=== PATIENT | male | born 1950 | race Caucasian/White ===

== ENCOUNTER → 2016-04-01 | Outpatient (CLI) | payer MEDICARE, OTHER ==
[~2016-04-01] MED LIST: CEPH-507 PO; OXYC-197 PO
--- OUTSIDE RECORDS SUMMARY | 2016-04-01 10:06 | XMS REPORT | Continuity of Care Document ---
Author Author [facility] Organization [facility] Address Unknown Phone Unavailable Allergies Active Description Code Type Severity Reaction Onset Reported/Identified Relationship to Patient Clinical Status Yes No Known Drug Allergies [id number] Drug Allergy Unknown N/ A 06/16/2015 Medications Problems Date Dx Coded Attending Type Code Diagnosis Diagnosed By 09/22/2014 KITTY TO, BILLIE R Ot 250.00 09/22/2014 KITTY TO, BILLIE R Ot 401.1 09/22/2014 KITTY TO, BILLIE R Ot 719.46 10/13/2014 KITTY TO, BILLIE R Ot 250.00 10/13/2014 KITTY TO, BILLIE R Ot 401.1 10/13/2014 KITTY TO, BILLIE R Ot 719.46 01/11/2015 KITTY TO, BILLIE R Ot 250.00 01/11/2015 KITTY TO, BILLIE R Ot 401.1 01/11/2015 KITTY TO, BILLIE R Ot 719.46 01/31/2015 CAMMIE TANG Ot E11.9 06/16/2015 CONSUELO VENTURA APRN Ot K57.90 DVRTCLOS OF INTEST, PART UNSP, W/O PERF 06/16/2015 CONSUELO VENTURA APRN Ot M47.812 SPONDYLOSIS W/O MYELOPATHY OR RADICULOPA 06/16/2015 CONSUELO VENTURA APRN Ot R59.0 LOCALIZED ENLARGED LYMPH NODES 06/16/2015 CONSUELO VENTURA APRN Ot S01.01XA LACERATION WITHOUT FOREIGN BODY OF SCALP 06/16/2015 CONSUELO VENTURA APRN Ot S22.088A OTH FRACTURE OF T11-T12 VERTEBRA, INIT F 06/16/2015 CONSUELO VENTURA APRN Ot S22.41XA MULTIPLE FRACTURES OF RIBS, RIGHT SIDE , 06/16/2015 CONSUELO VENTURA APRN Ot S32.018A OTH FRACTURE OF FIRST LUMBAR VERTEBRA, I 06/16/2015 CONSUELO VENTURA APRN Ot S32.028A OTH FRACTURE OF SECOND LUMBAR VERTEBRA , 06/16/2015 CONSUELO VENTURA APRN Ot S32.038A OTH FRACTURE OF THIRD LUMBAR VERTEBRA, I 06/16/2015 CONSUELO VENTURA APRN Ot W11.XXXA FALL ON AND FROM LADDER, INITIAL ENCOUNT 06/16/2015 CONSUELO VENTURA APRN Ot Y93.H9 ACTVTY,OTH W EXTER PROPERTY LAND MAINT 06/16/2015 CONSUELO VENTURA APRN Ot Y99.8 OTHER EXTERNAL CAUSE STATUS 06/18/2015 CONSUELO VENTURA APRN Ot K57.90 DVRTCLOS OF INTEST, PART UNSP, W/O PERF 06/18/2015 CONSUELO VENTURA APRN Ot M47.812 SPONDYLOSIS W/O MYELOPATHY OR RADICULOPA 06/18/2015 CONSUELO VENTURA APRN Ot R59.0 LOCALIZED ENLARGED LYMPH NODES 06/18/2015 CONSUELO VENTURA APRN Ot S01.01XA LACERATION WITHOUT FOREIGN BODY OF SCALP 06/18/2015 CONSUELO VENTURA APRN Ot S22.088A OTH FRACTURE OF T11-T12 VERTEBRA, INIT F 06/18/2015 CONSUELO VENTURA APRN Ot S22.41XA MULTIPLE FRACTURES OF RIBS, RIGHT SIDE , 06/18/2015 CONSUELO VENTURA APRN Ot S32.018A OTH FRACTURE OF FIRST LUMBAR VERTEBRA, I 06/18/2015 CONSUELO VENTURA APRN Ot S32.028A OTH FRACTURE OF SECOND LUMBAR VERTEBRA , 06/18/2015 CONSUELO VENTURA APRN Ot S32.038A OTH FRACTURE OF THIRD LUMBAR VERTEBRA, I 06/18/2015 CONSUELO VENTURA APRN Ot W11.XXXA FALL ON AND FROM LADDER, INITIAL ENCOUNT 06/18/2015 CONSUELO VENTURA APRN Ot Y93.H9 ACTVTY,OTH W EXTER PROPERTY LAND MAINT 06/18/2015 CONSUELO VENTURA APRN Ot Y99.8 OTHER EXTERNAL CAUSE STATUS 06/18/2015 CONSUELO VENTURA APRN Ot K57.90 DVRTCLOS OF INTEST, PART UNSP, W/O PERF 06/18/2015 CONSUELO VENTURA APRN Ot M47.812 SPONDYLOSIS W/O MYELOPATHY OR RADICULOPA 06/18/2015 CONSUELO VENTURA APRN Ot R59.0 LOCALIZED ENLARGED LYMPH NODES 06/18/2015 CONSUELO VENTURA APRN Ot S01.01XA LACERATION WITHOUT FOREIGN BODY OF SCALP 06/18/2015 CONSUELO VENTURA APRN Ot S22.088A OTH FRACTURE OF T11-T12 VERTEBRA, INIT F 06/18/2015 CONSUELO VENTURA APRN Ot S22.41XA MULTIPLE FRACTURES OF RIBS, RIGHT SIDE , 06/18/2015 CONSUELO VENTURA APRN Ot S32.018A OTH FRACTURE OF FIRST LUMBAR VERTEBRA, I 06/18/2015 CONSUELO VENTURA APRN Ot S32.028A OTH FRACTURE OF SECOND LUMBAR VERTEBRA , 06/18/2015 CONSUELO VENTURA APRN Ot S32.038A OTH FRACTURE OF THIRD LUMBAR VERTEBRA, I 06/18/2015 CONSUELO VENTURA APRN Ot W11.XXXA FALL ON AND FROM LADDER, INITIAL ENCOUNT 06/18/2015 CONSUELO VENTURA APRN Ot Y93.H9 ACTVTY,OTH W EXTER PROPERTY LAND MAINT 06/18/2015 CONSUELO VENTURA APRN Ot Y99.8 OTHER EXTERNAL CAUSE STATUS 06/23/2015 MATHEUS KEYS Ot S01.01XD LACERATION WITHOUT FOREIGN BODY OF SCALP 06/25/2015 MATHEUS KEYS Ot S01.01XD LACERATION WITHOUT FOREIGN BODY OF SCALP 07/03/2015 BILLIE TANG MD Ot 250.00 DIAB GUEVARA WO COMPL, TYPE II OR UNSPEC TY 07/03/2015 BILLIE TANG MD Ot 401.1 BENIGN HYPERTENSION 07/03/2015 BILLIE TANG MD Ot 719.46 JOINT PAIN-L/LEG 07/03/2015 CAMMIE TANG Ot E11.9 TYPE 2 DIABETES MELLITUS WITHOUT COMPLIC 07/04/2015 YANA GARCIA DO Ot R06.00 DYSPNEA, UNSPECIFIED 07/04/2015 YANA GARCIA DO Ot R91.8 OTHER NONSPECIFIC ABNORMAL FINDING OF ANDREWS 07/04/2015 YANA GARCIA DO Ot R06.00 DYSPNEA, UNSPECIFIED 07/04/2015 YANA GARCIA DO Ot R91.8 OTHER NONSPECIFIC ABNORMAL FINDING OF ANDREWS 07/11/2015 YANA GARCIA DO Ot R91.8 OTHER NONSPECIFIC ABNORMAL FINDING OF ANDREWS 07/12/2015 YANA GARCIA DO Ot R91.8 OTHER NONSPECIFIC ABNORMAL FINDING OF ANDREWS 08/02/2015 CONSUELO VENTURA APRN Ot K57.90 DVRTCLOS OF INTEST, PART UNSP, W/O PERF 08/02/2015 CONSUELO VENTURA APRN Ot M47.812 SPONDYLOSIS W/O MYELOPATHY OR RADICULOPA 08/02/2015 CONSUELO VENTURA APRN Ot R59.0 LOCALIZED ENLARGED LYMPH NODES 08/02/2015 CONSUELO VENTURA APRN Ot S01.01XA LACERATION WITHOUT FOREIGN BODY OF SCALP 08/02/2015 CONSUELO VENTURA APRN Ot S22.088A OTH FRACTURE OF T11-T12 VERTEBRA, INIT F 08/02/2015 CONSUELO VENTURA APRN Ot S22.41XA MULTIPLE FRACTURES OF RIBS, RIGHT SIDE , 08/02/2015 CONSUELO VENTURA APRN Ot S32.018A OTH FRACTURE OF FIRST LUMBAR VERTEBRA, I 08/02/2015 CONSUELO VENTURA APRN Ot S32.028A OTH FRACTURE OF SECOND LUMBAR VERTEBRA , 08/02/2015 CONSUELO VENTURA APRN Ot S32.038A OTH FRACTURE OF THIRD LUMBAR VERTEBRA, I 08/02/2015 CONSUELO VENTURA APRN Ot W11.XXXA FALL ON AND FROM LADDER, INITIAL ENCOUNT 08/02/2015 CONSUELO VENTURA APRN Ot Y93.H9 ACTVTY,OTH W EXTER PROPERTY LAND MAINT 08/02/2015 CONSUELO VENTURA APRN Ot Y99.8 OTHER EXTERNAL CAUSE STATUS 08/08/2015 YANA GARCIA DO Ot R91.8 OTHER NONSPECIFIC ABNORMAL FINDING OF ANDREWS 02/12/2016 BILLIE TANG MD Ot 250.00 DIAB GUEVARA WO COMPL, TYPE II OR UNSPEC TY 02/12/2016 BILLIE TANG MD Ot 401.1 BENIGN HYPERTENSION 02/12/2016 BILLIE TANG MD Ot 719.46 JOINT PAIN-L/LEG 02/12/2016 CAMMIE TANG Ot E11.9 TYPE 2 DIABETES MELLITUS WITHOUT COMPLIC 02/12/2016 CONSUELO VENTURA APRN Ot K57.90 DVRTCLOS OF INTEST, PART UNSP, W/O PERF 02/12/2016 CONSUELO VENTURA APRN Ot M47.812 SPONDYLOSIS W/O MYELOPATHY OR RADICULOPA 02/12/2016 CONSUELO VENTURA APRN Ot R59.0 LOCALIZED ENLARGED LYMPH NODES 02/12/2016 CONSUELO VENTURA APRN Ot S01.01XA LACERATION WITHOUT FOREIGN BODY OF SCALP 02/12/2016 CONSUELO VENTURA APRN Ot S22.088A OTH FRACTURE OF T11-T12 VERTEBRA, INIT F 02/12/2016 CONSUELO VENTURA APRN Ot S22.41XA MULTIPLE FRACTURES OF RIBS, RIGHT SIDE , 02/12/2016 CONSUELO VENTURA APRN Ot S32.018A OTH FRACTURE OF FIRST LUMBAR VERTEBRA, I 02/12/2016 CONSUELO VENTURA APRN Ot S32.028A OTH FRACTURE OF SECOND LUMBAR VERTEBRA , 02/12/2016 CONSUELO VENTURA APRN Ot S32.038A OTH FRACTURE OF THIRD LUMBAR VERTEBRA, I 02/12/2016 CONSUELO VENTURA APRN Ot W11.XXXA FALL ON AND FROM LADDER, INITIAL ENCOUNT 02/12/2016 CONSUELO VENTURA APRN Ot Y93.H9 ACTVTY,OTH W EXTER PROPERTY LAND MAINT 02/12/2016 CONSUELO VENTURA APRN Ot Y99.8 OTHER EXTERNAL CAUSE STATUS 02/12/2016 YANA GARCIA DO Ot R06.00 DYSPNEA, UNSPECIFIED 02/12/2016 YANA GARCIA DO Ot R91.8 OTHER NONSPECIFIC ABNORMAL FINDING OF ANDREWS 02/12/2016 YANA GARCIA DO Ot R91.8 OTHER NONSPECIFIC ABNORMAL FINDING OF ANDREWS 02/13/2016 MERLYN RUEDA APRN Ot I71.2 THORACIC AORTIC ANEURYSM, WITHOUT RUPTUR 02/13/2016 MERLYN RUEDA APRN Ot R91.8 OTHER NONSPECIFIC ABNORMAL FINDING OF ANDREWS 02/13/2016 MERLYN RUEDA APRN Ot 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 THORACIC AORTIC ANEURYSM, WITHOUT RUPTUR 02/13/2016 MOHIT, MERLYN E LUDLOW MACHINE OPERATOR Ot R91.8 OTHER NONSPECIFIC ABNORMAL FINDING OF ANDREWS 02/18/2016 MERLYN RUEDA LUDLOW MACHINE OPERATOR Ot I71.2 THORACIC AORTIC ANEURYSM, WITHOUT RUPTUR 02/18/2016 MERLYN RUEDA LUDLOW MACHINE OPERATOR Ot R91.8 OTHER NONSPECIFIC ABNORMAL FINDING OF ANDERWS 02/21/2016 MERLYN RUEDA LUDLOW MACHINE OPERATOR Ot I71.2 THORACIC AORTIC ANEURYSM, WITHOUT RUPTUR 02/21/2016 MERLYN RUEDA LUDLOW MACHINE OPERATOR Ot R91.8 OTHER NONSPECIFIC ABNORMAL FINDING OF ANDREWS 03/12/2016 MERLYN RUEDA LUDLOW MACHINE OPERATOR Ot I71.2 THORACIC AORTIC ANEURYSM, WITHOUT RUPTUR 03/12/2016 MERLYN RUEDA LUDLOW MACHINE OPERATOR Ot R91.8 OTHER NONSPECIFIC ABNORMAL FINDING OF ANDREWS Procedures Results Encounters ACCT No. Visit Date/Time Discharge Status Pt. Type Provider Facility Loc./Unit Complaint [id number] 06/23/2015 14:24:00 2015 14:39:00 DIS Emergency MATHEUS KEYS [facility] ER SUTURE REMOVAL [id number] 06/16/2015 16:54:00 2015 16:54:00 CAN Emergency CONSUELO EVNTURA APRN [facility] ER POSTERIOR 9-12 RIB FRACTURE,MULTIPLE BLUNT TRAMA [id number] 01/11/2015 10:58:00 2014 23:59:59 CLS Outpatient CAMMIE TANG [facility] LAB DIABETES [id number] 09/18/2014 15:29:00 2014 23:59:59 CLS Outpatient BILLIE TANG MD [facility] RAD PAINFUL BILATERAL KNEES,DIABETES,HTN [id number] 02/12/2016 08:18:00 ACT Outpatient MERLYN RUEDA APRN [facility] RAD PULMONARY NODULE [id number] 07/10/2015 10:32:00 ACT Outpatient YANA GARCIA DO [facility] RAD PULMONARY NODULES,DYSPNEA,NEVER A SMOKER [id number] 07/03/2015 08:38:00 ACT Outpatient YANA GARCIA DO [facility] RAD PULMONARY NODULES,DYSPNEA,NEVER A SMOKER
--- NOTE | 2016-04-01 12:14 | Diagnostic Imaging Report ---
EXAMINATION: Upper and lower extremity pressure measurements of ankle/brachial index and pulse volume recording at the ankle. INDICATION: Claudication FINDINGS: The ankle/brachial index on the right side is 0.95,and on the left is 0.87. Pulse volume recording waveforms are mildly dampened only on the left side. IMPRESSION: Suggestion of mild peripheral arterial disease in the left lower extremity. Dictated by: Dictated on workstation # [id number]
== END ==
LOC: RAD 10:01
PROVIDERS: ATTEND Nurse Practitioner Family
DX: I70.213 Atherosclerosis of native arteries of extremities with intermittent claudication, bilateral legs (principal)
CPT/HCPCS: 93922

== ENCOUNTER → 2016-12-15 | Outpatient (CLI) | payer MEDICARE, OTHER ==
[2016-12-15 12:02] LABS: BASOPHILS # (AUTO) 0.1 10^3/uL (0.0-0.1); BASOPHILS % (AUTO) 1 % (0-10); EOSINOPHILS # (AUTO) 0.2 10^3/uL (0.0-0.3); EOSINOPHILS % (AUTO) 2 % (0-10); LYMPHOCYTES # (AUTO) 1.2 X 10^3 (1.0-4.0); LYMPHOCYTES % (AUTO) 11 % (12-44); MEAN CORPUSCULAR HEMOGLOBIN 28 PG (25-34); MEAN CORPUSCULAR HGB CONC 33 G/DL (32-36); MEAN CORPUSCULAR VOLUME 87 FL (80-99); MEAN PLATELET VOLUME 8.8 FL (7.4-10.4); MONOCYTES % (AUTO) 10 % (0-12); NEUTROPHILS # (AUTO) 8.2 X 10^3 (1.8-7.8); NEUTROPHILS % (AUTO) 77 % (42-75); PLATELET COUNT 529 10^3/uL (130-400); RED BLOOD COUNT 4.35 10^6/uL (4.35-5.85); RED CELL DISTRIBUTION WIDTH 12.7 % (10.0-14.5); WHITE BLOOD COUNT 10.6 10^3/uL (4.3-11.0)
[2016-12-15 12:14] LABS: ALBUMIN 3.6 GM/DL (3.2-4.5); ANION GAP 10 MMOL/L (5-14); BLOOD UREA NITROGEN 22 MG/DL (7-18); BUN/CREATININE RATIO 19; CALCIUM 9.2 MG/DL (8.5-10.1); CARBON DIOXIDE 29 MMOL/L (21-32); CHLORIDE 94 MMOL/L (98-107); CREATININE SERUM 1.17 MG/DL (0.60-1.30); GFR ESTIMATED > 60; GLUCOSE 257 MG/DL (70-105); PHOSPHORUS 3.2 MG/DL (2.3-4.7); POTASSIUM 4.4 MMOL/L (3.6-5.0); SODIUM 133 MMOL/L (135-145)
== END ==
LOC: HH 11:55
PROVIDERS: ATTEND Thoracic Surgery (Cardiothoracic Vascular Surgery)
DX: Z98.890 Other specified postprocedural states (principal); Z95.1 Presence of aortocoronary bypass graft
CPT/HCPCS: 80069; 85025

== ENCOUNTER → 2017-01-22 | Outpatient (CLI) | payer MEDICARE, OTHER | LOC: WOUNDCARE 12:45 | PROVIDERS: ATTEND Nurse Practitioner | DX: E11.622 Type 2 diabetes mellitus with other skin ulcer (principal); L97.212 Non-pressure chronic ulcer of right calf with fat layer exposed; L03.115 Cellulitis of right lower limb | CPT/HCPCS: 11042 ==

== ENCOUNTER → 2017-01-27 | Outpatient (CLI) | payer MEDICARE, OTHER | LOC: WOUNDCARE 09:58 | PROVIDERS: ATTEND Nurse Practitioner | DX: L97.212 Non-pressure chronic ulcer of right calf with fat layer exposed (principal); E11.622 Type 2 diabetes mellitus with other skin ulcer; L03.115 Cellulitis of right lower limb | CPT/HCPCS: 11042 ==

== ENCOUNTER → 2017-02-03 | Outpatient (CLI) | payer MEDICARE, OTHER | LOC: WOUNDCARE 09:53 | PROVIDERS: ATTEND Nurse Practitioner | DX: E11.622 Type 2 diabetes mellitus with other skin ulcer (principal); L97.212 Non-pressure chronic ulcer of right calf with fat layer exposed; L03.115 Cellulitis of right lower limb | CPT/HCPCS: 15271 ==

== ENCOUNTER → 2017-02-12 | Outpatient (CLI) | payer MEDICARE, OTHER | LOC: WOUNDCARE 13:29 | PROVIDERS: ATTEND Nurse Practitioner | DX: E11.622 Type 2 diabetes mellitus with other skin ulcer (principal); L97.212 Non-pressure chronic ulcer of right calf with fat layer exposed; L03.115 Cellulitis of right lower limb | CPT/HCPCS: 15271 ==

== ENCOUNTER → 2017-02-17 | Outpatient (CLI) | payer MEDICARE, OTHER | LOC: WOUNDCARE 10:00 | PROVIDERS: ATTEND Nurse Practitioner | DX: E11.622 Type 2 diabetes mellitus with other skin ulcer (principal); L97.212 Non-pressure chronic ulcer of right calf with fat layer exposed; L03.115 Cellulitis of right lower limb | CPT/HCPCS: 11042 ==

== ENCOUNTER → 2017-02-24 | Outpatient (CLI) | payer MEDICARE, OTHER | LOC: WOUNDCARE 09:48 | PROVIDERS: ATTEND Nurse Practitioner | DX: E11.622 Type 2 diabetes mellitus with other skin ulcer (principal); L97.212 Non-pressure chronic ulcer of right calf with fat layer exposed; L03.115 Cellulitis of right lower limb | CPT/HCPCS: 11042 ==

== ENCOUNTER → 2017-03-03 | Outpatient (CLI) | payer MEDICARE, OTHER | LOC: WOUNDCARE 10:02 | PROVIDERS: ATTEND Nurse Practitioner | DX: E11.622 Type 2 diabetes mellitus with other skin ulcer (principal); L97.212 Non-pressure chronic ulcer of right calf with fat layer exposed; L03.115 Cellulitis of right lower limb | CPT/HCPCS: 11042 ==

== ENCOUNTER → 2017-03-10 | Outpatient (CLI) | payer MEDICARE, OTHER | LOC: WOUNDCARE 09:59 | PROVIDERS: ATTEND Nurse Practitioner | DX: L97.212 Non-pressure chronic ulcer of right calf with fat layer exposed (principal); L97.211 Non-pressure chronic ulcer of right calf limited to breakdown of skin; E11.622 Type 2 diabetes mellitus with other skin ulcer; L03.115 Cellulitis of right lower limb | CPT/HCPCS: 11042; 97597 ==

== ENCOUNTER → 2017-03-17 | Outpatient (CLI) | payer MEDICARE, OTHER | LOC: WOUNDCARE 09:50 | PROVIDERS: ATTEND Nurse Practitioner | DX: E11.622 Type 2 diabetes mellitus with other skin ulcer (principal); L97.212 Non-pressure chronic ulcer of right calf with fat layer exposed; L03.115 Cellulitis of right lower limb; L97.211 Non-pressure chronic ulcer of right calf limited to breakdown of skin | CPT/HCPCS: 11042 ==

== ENCOUNTER → 2017-03-24 | Outpatient (CLI) | payer MEDICARE, OTHER | LOC: WOUNDCARE 09:46 | PROVIDERS: ATTEND Nurse Practitioner | DX: E11.622 Type 2 diabetes mellitus with other skin ulcer (principal); L97.212 Non-pressure chronic ulcer of right calf with fat layer exposed; L97.211 Non-pressure chronic ulcer of right calf limited to breakdown of skin; L03.115 Cellulitis of right lower limb | CPT/HCPCS: 11042; 97597 ==

== ENCOUNTER → 2017-03-31 | Outpatient (CLI) | payer MEDICARE, OTHER | LOC: WOUNDCARE 09:49 | PROVIDERS: ATTEND Nurse Practitioner | DX: L97.212 Non-pressure chronic ulcer of right calf with fat layer exposed (principal); E11.622 Type 2 diabetes mellitus with other skin ulcer; L03.115 Cellulitis of right lower limb; L97.211 Non-pressure chronic ulcer of right calf limited to breakdown of skin | CPT/HCPCS: 11042 ==

== ENCOUNTER → 2017-04-07 | Outpatient (CLI) | payer MEDICARE, OTHER | LOC: WOUNDCARE 09:50 | PROVIDERS: ATTEND Nurse Practitioner | DX: E11.622 Type 2 diabetes mellitus with other skin ulcer (principal); L97.212 Non-pressure chronic ulcer of right calf with fat layer exposed; L03.115 Cellulitis of right lower limb | CPT/HCPCS: 15275 ==

== ENCOUNTER → 2017-04-14 | Outpatient (CLI) | payer MEDICARE, OTHER | LOC: WOUNDCARE 09:45 | PROVIDERS: ATTEND Nurse Practitioner | DX: E11.622 Type 2 diabetes mellitus with other skin ulcer (principal); L97.212 Non-pressure chronic ulcer of right calf with fat layer exposed; L03.115 Cellulitis of right lower limb | CPT/HCPCS: 11042 ==

== ENCOUNTER → 2017-04-21 | Outpatient (CLI) | payer MEDICARE, OTHER | LOC: WOUNDCARE 09:57 | PROVIDERS: ATTEND Nurse Practitioner | DX: E11.622 Type 2 diabetes mellitus with other skin ulcer (principal); L97.211 Non-pressure chronic ulcer of right calf limited to breakdown of skin; L03.115 Cellulitis of right lower limb | CPT/HCPCS: 97597 ==

== ENCOUNTER → 2017-05-16 | Outpatient (CLI) | payer MEDICARE, OTHER ==
--- NOTE | 2017-05-16 11:39 | Diagnostic Imaging Report ---
PROCEDURE: MRI lumbar spine. TECHNIQUE: Multiplanar, multisequence MRI of the lumbar spine was performed without contrast. INDICATION: Low back pain that radiates across the back and down to the left leg. No known injury. There is normal height and alignment of the lumbar vertebral bodies. The L1-2 level shows minimal degenerative disc and facet disease. At L2-3, there is disc space narrowing with diffuse bulging of the disc and degenerated facets resulting in some bilateral lateral recess narrowing and mild central canal stenosis. At L3-4, there is mild bulging of the annulus and degenerated facets but no focal disc herniation or significant stenosis is seen. At L4-5, there is bulging of the disc and degenerated facets resulting in a moderately severe central canal stenosis with no focal disc herniation. L5-S1 shows mild degenerative disc and facet disease. There is no mass or acute bony abnormality at any level. IMPRESSION: There is degenerative disc and facet disease present resulting in stenosis most significant at L4-5. Dictated by: Dictated on workstation # [id number]
== END ==
LOC: RAD 09:42
PROVIDERS: ATTEND Nurse Practitioner
DX: M48.061 Spinal stenosis, lumbar region without neurogenic claudication (principal); M51.36 Other intervertebral disc degeneration, lumbar region
CPT/HCPCS: 72148

== ENCOUNTER 2018-08-15 17:11 | Emergency (ER) | payer MEDICARE, OTHER | END 2018-08-15 18:22 | disposition home or self-care (01) | LOC: ER 17:11 ==

== ENCOUNTER → 2019-04-25 | Outpatient (CLI) | payer MEDICARE, OTHER ==
[~2019-04-25] MED LIST changes: +ATOR80TA76; +GABA-486; +GLIP10TA13; +INDO25CA99; +INDO50CA82; +INSU100I14; +INSU100I29; +LISI-552; +METF-397; -OXYC-197 PO; +OXYC1TAB87 PO; +SULF1TAB35 PO
--- NOTE | 2019-04-25 16:38 | Diagnostic Imaging Report ---
INDICATION: Left hand pain. FINDINGS: Three views of the left hand show inflammatory arthritic change of the DIP joint of the fifth finger with adjacent soft tissue swelling. There is some osteolysis of the head of the middle phalanx. There are some osteoarthritic changes of the first carpometacarpal joint and of the third metacarpophalangeal joint. IMPRESSION: There is osteolytic change of the head of the middle phalanx of the index finger extending to the DIP joint. This could be due to osteomyelitis. Dictated by: Dictated on workstation # [id number]
== END ==
LOC: RAD 16:04
PROVIDERS: ATTEND Surgery
DX: M89.542 Osteolysis, left hand (principal)
CPT/HCPCS: 73130

== ENCOUNTER → 2019-04-28 | Outpatient (CLI) | payer MEDICARE, OTHER ==
--- NOTE | 2019-04-28 16:17 | Diagnostic Imaging Report ---
EXAM: MRI left second finger without contrast. DATE: April 28, 2019. INDICATION: 68-year-old male, swelling of the index finger on the left. Evaluation for osteomyelitis. COMPARISON: Left hand radiographs April 25, 2019. TECHNIQUE: Multiple noncontrast MRI sequences of the left second finger were obtained. FINDINGS: There is severe joint space loss of the second distal interphalangeal joint. There is a trace second distal interphalangeal joint effusion. There is T1 marrow signal loss involving the distal aspect of the second middle phalanx and proximal aspect of the second distal phalanx adjacent to the second distal interphalangeal joint. There is loss of cortical identification of the distal aspect of the second middle phalanx best seen on sagittal T1 sequence. There is edema-like signal in the second middle phalanx extending near its proximal margin. There is no identified focal fluid collection on noncontrast imaging. There is nonspecific fairly diffuse subcutaneous edema at the level of the second middle and distal phalanges. There is no evidence of tenosynovitis or tendon tear. IMPRESSION: 1. Severe joint space loss of the second distal interphalangeal joint with loss of normal T1 marrow signal in the adjacent bones as well as there is bone erosion and cortical bone loss. There is a trace joint effusion. Differential diagnostic considerations include septic arthritis or an inflammatory arthropathy. 2. No focal fluid collection. 3. No evidence of tenosynovitis. Report was faxed to the office of Dr. Konstantin Evans at 4:16 p.m., by christopher. Dictated by: Dictated on workstation # [id number]
== END ==
LOC: RAD 14:17
PROVIDERS: ATTEND Surgery
DX: M86.9 Osteomyelitis, unspecified (principal); M85.842 Other specified disorders of bone density and structure, left hand
CPT/HCPCS: 73218

== ENCOUNTER 2019-05-05 05:43 | Outpatient (CLI) | payer MEDICARE, OTHER ==
[~2019-05-05] VITALS: Ht 172.7 cm; Wt 95.5 kg
[~2019-05-05 05:43] MED LIST changes: -ATOR80TA76; +ATOR80TA76 PO; -GLIP10TA13; +GLIP10TA13 PO; -INDO50CA82; +INDO50CA82 PO; -INSU100I14; +INSU100I14 SQ; -INSU100I29; +INSU100I29 SQ; -LISI-552; +LISI-552 PO; -METF-397; +METF-397 PO
[2019-05-05] MEDS ORDERED: DULA0.75 SQ (12:38)
[2019-05-05] MEDS ORDERED: GABA-488 PO (12:38)
== END 2019-05-05 12:44 | disposition home or self-care (01) ==
LOC: PREOP 05:43
PROVIDERS: ATTEND Surgery
DX: Z01.818 Encounter for other preprocedural examination (principal)

== ENCOUNTER 2019-05-12 06:22 | Day surgery (SDC) | payer MEDICARE, OTHER ==
[~2019-05-12] VITALS: Ht 172.7 cm; Wt 95.5 kg
[2019-05-12] VITALS (12 sets, daily range): BP systolic 154–179; BP diastolic 72–104
[~2019-05-12 06:22] MED LIST changes: +DULA0.75 SQ; +GABA-488 PO
--- OUTSIDE RECORDS SUMMARY | 2019-05-12 06:27 | XMS REPORT ---
Author Author [employer] Organization [employer] Address [address] [place] [id number] Care Team Providers Care Manager E Learning Name Role Phone BILLIE TANG Unavailable MADL, ARLEN Unavailable MADL, ARLEN Unavailable MADL, ARLEN Unavailable MADL, ARLEN Unavailable MADL, ARLEN Unavailable MADL, ARLEN Unavailable MADL, ARLEN Unavailable MADL, ARLEN Unavailable MADL, ARLEN Unavailable MADL, ARLEN Unavailable MADL, ARLEN Unavailable MADL, ARLEN Unavailable MADL, ARLEN Unavailable MADL, ARLEN Unavailable DELIO PULIDO Unavailable MADL, ARLEN Unavailable MADL, ARLEN Unavailable MADL, ARLEN Unavailable MADL, ARLEN Unavailable MADL, ARLEN Unavailable MADL, ARLEN Unavailable MADL, ARLEN Unavailable MADL, ARLEN Unavailable MADL, ARLEN Unavailable VANITA BROWN Unavailable VANITA BROWN Unavailable ARLEN DELAROSA STAIN REMOVER Unavailable Unavailable RUBEN, RADHA Unavailable MERLYN RUEDA APRN Unavailable Unavailable RUBEN, RADHA Unavailable RUBEN, RADHA Unavailable RUBEN, RADHA Unavailable RUBEN, RADHA Unavailable RUBEN, RADHA Unavailable RUBEN, RADHA Unavailable RUBEN, RADHA Unavailable RUBEN, RADHA Unavailable RUBEN, RADHA Unavailable RUBEN, RADHA Unavailable RUBEN, RADHA Unavailable RUBEN, RADHA D Unavailable Unavailable EDA TO, KINJAL Lai Unavailable Unavailable RUBEN, RADHA Unavailable JARRED CISNEROS MD Unavailable Unavailable JAYSHREE DONALDSON DISH CARRIER Unavailable Unavailable YANA GARCIA DO Unavailable Unavailable MERLYN RUEDA APRN Unavailable Unavailable MATHEUS KESY Unavailable Unavailable KITTY TO, BILLIE Grimaldo Unavailable Unavailable CONSUELO VENTURA DISH CARRIER Unavailable Unavailable ARLEN DELAROSA STAIN REMOVER Unavailable Unavailable CAMMIE TANG STAIN REMOVER Unavailable Unavailable SANTO SANZ STAIN REMOVER Unavailable Unavailable Unavailable Unavailable Allergies Normalized Allergy Reported Date of Reaction(s) Care Provider Facility Allergy Type classification allergen Allergy Onset DA (16 Unclassified No Known Drug 06-16-2015 - no information YANA GARCIA [facility] Via sources.) Allergies DO [facility] ([address]) Medications Current Medications Medication Ingredient Drug Dose Dates Status Sig Sig Care Class(es) (Normalized) (Original) Provid er aspirin 81 aspirin Nonsteroida 81 mg Active no Aspirin 81 n o mg chewable Translation l information MG Orally name tablet (8 s: [ Anti-inflam Once a day 1 (no sources.) Aspirin 81 matory Drug tablet 24h phone) MG, Aspirin Active 81 MG] atorvastati atorvastati HMG-CoA 80 mg Active no Atorvastatin no n 80 mg n Reductase information Calcium 80 name oral tablet Translation Inhibitor MG Orally (no (4 s: [ Once a day 1 phone) sources.) Atorvastati tablet 24h n Calcium Active 80 MG, Atorvastati n Calcium 80 MG] no Blood no 10-23-19 Active no Blood no information Glucose information 18 information Glucose name (1 source.) Monitor Monitor (no System System phone) w/Device w/Device DX- Translation E11.51 3 s: [ Blood times a day Glucose test blood Monitor sugar 8h 30 System Sep, 2017 w/Device] Active no Blood no 10-23-19 Active no Blood no information Glucose information 18 information Glucose name (1 source.) Monitor Monitor (no System System phone) w/Device w/Device DX- Translation E11.51 3 s: [ Blood times a day Glucose test blood Monitor sugar 8h 30 System Sep, 2017 w/Device] Active no Blood no 11-19-19 Active no Blood no information Glucose information 17 information Glucose T est name (4 Test - - Glucocard (no sources.) Translation Expression phone) s: [ Blood and lancets Glucose once daily Test -] test blood sugar 24h Oct, Active no Blood no 10-23-19 Active no Blood no information Glucose information 18 information Glucose T est name (6 Test - - DX- E11.51 (no sources.) Translation and lancets phone) s: [ Blood Test 3 times Glucose daily. test Test -, blood sugar Blood Sep, Glucose Active Test -] 11-18-2016 Active no Blood no name inform Glucose (no ation Test - phone) Glucocar d Expressi on and lancets once daily test blood sugar 24h Oct, Active clindamycin clindamycin Lincosamide 300 mg Active no Clindam ycin no 300 mg oral Translation Antibacteri information HCl 300 MG n lizzie capsule (1 s: [ al Orally every (no source.) Clindamycin 8 hrs 1 phone) HCl 300 MG] capsule 8h Active clopidogrel clopidogrel P2Y12 75 mg Active no Plavix 75 MG no 75 mg oral Translation Platelet information Orally Once name tablet (5 s: [ Plavix Inhibitor a day 1 (no sources.) 75 MG] tablet 24h phone) Active docusate docusate no 100 mg Active no Docusate no sodium 100 Translation information information Sodium 100 na me mg oral s: [ MG Orally (no capsule (3 Docusate Once a day 1 phone) sources.) Sodium 100 capsule as MG] needed 24h Active furosemide furosemide Loop 40 mg Active take 1 Furosemide no 40 mg oral Translation Diuretic tablet by 40 MG TAKE name tablet (3 s: [ mouth once ONE TABLET (no sources.) Furosemide daily in the BY MOUTH phone) 40 MG] morning ONCE DAILY IN THE MORNING 30 Active glucagon glucagon no 1 mg Active no Glucagon no (rdna) 1 mg Translation information information Emergency 1 name injection s: [ MG Active (no (8 Glucagon phone) sources.) Emergency 1 MG, Glucagon Emergency 1 MG] no Glucometer no 08-28-19 Active no Glucometer 1 no information 1 information 17 information glucomete r name (9 glucometer Check blood (no sources.) sugar phone) (glucocard) Aug, Active indomethaci indomethaci Nonsteroida 50 mg 04-11-19 Active no Indomethacin no n 50 mg n l 17 information 50 mg Orally na me oral Translation Anti-inflam Twice a day (no capsule (7 s: [ matory Drug 1 capsule phone) sources.) Indomethaci with food or n 50 mg, milk 12h 17 Indomethaci Mar, 2016 45 n 50 MG, days Active Indomethaci n 25 MG Oral Capsule, Indomethaci n 25 MG] 50 mg Active take 2 Indometh no name capsul acin 25 (no es by MG TAKE phone) mouth TWO (2) twice CAPSULES daily BY MOUTH at TWICE mealti DAILY me WITH FOOD OR MILK 30 Active 3 ml insulin Insulin 42 Active no Levemir no insulin detemir Analogue [IU] information FlexTouch name detemir 100 Translation 100 UNIT/ML (no unt/ml pen s: [ DX E11.51 2 phone) injector (6 Levemir times a day sources.) FlexTouch 42 units 12h 100 Active UNIT/ML, Levemir FlexTouch 100 UNIT/ML] 35 [IU] Active no Levemir no name inform FlexTouc (no ation h 100 phone) UNIT/ML INJECT 35 UNITS SUBCUTAN EOUSLY TWICE DAILY 12h Active 30 [IU] Active no Levemir no name inform FlexTouc (no ation h 100 phone) UNIT/ML DX E11.51 2 times a day 30 units 12h Active 36 [IU] Active no Levemir no name inform FlexTouc (no ation h 100 phone) UNIT/ML INJECT 36 UNITS SUBCUTAN EOUSLY TWICE DAILY Active no Insulin no 15 11-05-19 Active take 15 [IU] Insuli n no information Detemir 100 information [IU] 17 by Detemir 100 name (11 UNIT/ML subcutaneous UNIT/ML (no sources.) injection at Subcutaneous phone) bedtime at bedtime Inject 15 units 12 Oct, 2016 Active 10 [IU] 11-04-2016 Active take Insulin no name 10 Detemir (no [IU] 100 phone) by UNIT/ML subcut Subcutan aneous eous at inject bedtime ion at Inject bedtim 10 units e 12 Oct, 2016 30 days Active 23 [IU] Active no Insulin no name inform Detemir (no ation 100 phone) UNIT/ML DX- E11.51 twice a day 23 units 12h Active 25 [IU] Active no Insulin no name inform Detemir (no ation 100 phone) UNIT/ML DX- E11.51 twice a day 25 units 12h Active 15 [IU] Active take Insulin no name 15 Detemir (no [IU] 100 phone) by UNIT/ML subcut Subcutan aneous eous inject twice a ion day 15 twice units- daily Increase 1 unit AM and PM qod til FBS at 120. 12h Active 24 [IU] Active take Insulin no name 24 Detemir (no [IU] 100 phone) by UNIT/ML subcut Subcutan aneous eous at inject bedtime ion at 24 units bedtim Active e 13 [IU] Active take Insulin no name 13 Detemir (no [IU] 100 phone) by UNIT/ML subcut Subcutan aneous eous at inject bedtime ion at 13 units bedtim Active e 3 ml insulin, Insulin 30 10-23-19 Active no NovoLog n o insulin, aspart, Analogue [IU] 18 information Flexpen 100 name aspart, human UNIT/ML DX- (no human 100 Translation E11.51 3 phone) unt/ml pen s: [ times a day injector (5 NovoLog before meals sources.) Flexpen 100 30 units 30 UNIT/ML, Sep, 2017 NovoLog Active Flexpen 100 UNIT/ML] 20 [IU] 10-22-2017 Active no NovoLog no name inform Flexpen (no ation 100 phone) UNIT/ML DX- E11.51 3 times a day before meals 20 units 30 Sep, 2017 Active 15 [IU] 10-22-2017 Active no NovoLog no name inform Flexpen (no ation 100 phone) UNIT/ML DX- E11.51 3 times a day before meals 15 units Sep, Active 10 [IU] 10-22-2017 Active no NovoLog no name inform Flexpen (no ation 100 phone) UNIT/ML DX- E11.51 3 times a day before meals 10 units Sep, Active ondansetron ondansetron Serotonin-3 4 mg Active no Ondanset lance no 4 mg Translation Receptor information 4 MG Orally name disintegrat s: [ Antagonist every 8 hrs (no ing oral Ondansetron 1 tablet on phone) tablet (3 4 MG] the tongue sources.) and allow to dissolve 8h Active potassium potassium no 20 mEq Active no Potassium no chloride 20 chloride information information Chloride ER na me meq Translation 20 MEQ (no extended s: [ Orally Once phone) release Potassium a day 1 oral tablet Chloride ER tablet with (4 20 MEQ, food 24h sources.) Microencaps Active ulated Potassium Chloride 20 MEQ Extended Release Oral Tablet, Potassium Chloride Josefina ER 20 MEQ] 20 mEq Active take 1 Potassiu no name tablet m (no by Chloride phone) mouth Josefina ER once 20 MEQ daily TAKE ONE TABLET BY MOUTH ONCE DAILY AT 9:00AM 30 Active no Test strips no 08-28-19 Active no Test strips no information Test Strips information 17 information Test S trips name (8 Check blood (no sources.) sugar phone) (Glucocard) Aug, Active Completed/Discontinued Medications Medication Ingredient Drug Dose Dates Status Sig Sig Care Class(es) (Normalized) (Original) Provid er acetaminoph acetaminoph Opioid no no Hydrocodone- no en 325 mg / en / Agonist informat information Acetaminophe name HYDROcodone HYDROcodone ion n 5-325 MG (no bitartrate Translation Orally every phone) 5 mg oral s: [ 6 hrs 1 tablet (3 Hydrocodone tablet as sources.) -Acetaminop needed 6h hen 5-325 Not-Taking MG] gabapentin gabapentin Anti-epilep 200 mg no no Gabapenti n no 100 mg oral Translation tic Agent informat information 100 mg name capsule (2 s: [ ion Orally 3 (no sources.) Gabapentin times a day phone) 100 mg] 2 capsules 8h Not-Taking Problems Active Problems Problem Normalized Date of Normalized Normalized Provider Fac ility Classification Problem(s) Problem Problem Problem Sta tus Onset/Resoluti Duration on Other skin Actinic Episodic Active RADHA RUBEN Community disorders (13 keratosis [address] sources.) Translations: [place] [ - Actinic [place] ([address]) keratosis L57.0, - Actinic keratosis L57.0] Substance-rela Cannabis Chronic Active KINJAL [facility] Via zhao disorders abuse, Selin VERAS (3 sources.) uncomplicated [facility] [place] ([address]) Skin and Cellulitis of Episodic Active JAYSHREE DONALDSON Not Available subcutaneous right lower (27659) tissue limb infections (20 Translations: sources.) [ CUTANEOUS ABSCESS OF LEFT HAND, - Paronychia of finger of left hand L03.012] Other diseases Chronic venous Chronic Active ARLEN [facility] Community of veins and hypertension [address] [place] [address] lymphatics (20 (idiopathic) [place] sources.) with ulcer and [place] (57104) inflammation of right lower extremity Translations: [ - Stasis dermatitis of right lower extremity with venous ulcer due to chronic peripheral venous hypertension I87.331, Stasis dermatitis of right lower extremity with venous ulcer due to chronic peripheral venous hypertension, Stasis dermatitis of right lower extremity with venous ulcer due to chronic peripheral venous hypertension, - Stasis dermatitis of right lower extremity with venous ulcer due to chronic peripheral venous hypertension I87.331, Stasis dermatitis of right lower extremity with venous ulcer due to chronic peripheral venous hypertension] Diverticulosis Diverticulosis Chronic Active CONSUELO VENTURA [facility] Via and of [place] schmitt diverticulitis [facility] - (3 sources.) unspecified, [place] without (75885) perforation or abscess without bleeding Medical Encounter for Episodic Active ARLEN MADL Commun ity examination/ev general adult [address] [place] [address] aluation (20 medical of [facility] sources.) examination [place] ([address]01) without abnormal findings Translations: [ - Medicare annual wellness visit, subsequent Z00.00] Hypertension Essential Chronic Active ARLEN MADL Communi ty with (primary) [address] [place] [address] Center complications hypertension of [facility] and secondary Translations: [place] (00139) hypertension [ - Essential (20 sources.) hypertension I10] Coronary History of - Episodic Active ARLEN MADL Communi ty atherosclerosi coronary [address] [place] [address] s and other artery bypass of [facility] heart disease grafting [place] ([address]443) (20 sources.) Translations: [ S/P CABG x 4, - S/P CABG x 4 Z95.1, - S/P CABG x 4 Z95.1, S/P CABG x 4] Unclassified [facility]termittent no information [facility] [facility] Translations: of [facility] [ Intermittent [place] (65836) claudication] Other retirement Episodic Active [facility] aftercare (20 (current) use [address] [facility] sources.) of insulin [facility] Translations: [place] () [ - retirement current use of insulin Z79.4, - 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] Unclassified Long-term no information Active [facility] mmunity (13 sources.) current use of [address] [facility] insulin [facility] Translations: [place] () [ retirement current use of insulin, 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] Chronic ulcer lower leg with Chronic Active ARLEN MAD C ommunity of skin (20 unspecified [address] [facility] sources.) severity of [facility] Translations: [place] () [ - Non-pressure chronic ulcer of unspecified part of unspecified lower leg with unspecified severity L97.909, Non-pressure chronic ulcer of unspecified part of unspecified lower leg with unspecified severity, Non-pressure chronic ulcer of unspecified part of unspecified lower leg with unspecified severity, NON-PRESSURE CHRONIC ULCER OF RIGHT CALF, NON-PRS CHRONIC ULCER OF RIGHT CALF LIMI, - Non-pressure chronic ulcer of unspecified part of unspecified lower leg with unspecified severity L97.909, Non-pressure chronic ulcer of unspecified part of unspecified lower leg with unspecified severity, NON-PRS CHRONIC ULCER OF RIGHT CALF LIMI] Spondylosis; Lumbago with Episodic Active ARLEN MADL Comm unity intervertebral sciatica, left [address] [facility] disc side of [facility] disorders; Translations: [place] ([address]01) other back [ - Lumbago problems (20 with sciatica, sources.) left side M54.42, Sciatica, Lumbago with sciatica, left side, Lumbago with sciatica, left side, - Lumbago with sciatica, left side M54.42, SPINAL STENOSIS, LUMBAR REGION WITHOUT N] Other nervous Neuropathy Chronic [facility] Translations[facility] [address] [facility] disorders (1 [ Neuropathy] of [facility] source.) [place] ([address]138) Other nervous Other chronic Chronic Active RADHA RUBEN Co mmunity system pain [address]841 [facility] disorders (14 Translations: of [facility] sources.) [ - Other [place] (30782) chronic pain G89.29, - Other chronic pain G89.29] Spondylosis; Other Chronic Active CONSUELO VENTURA [facility] Via intervertebral intervertebral Sel[place] disc disc Hospital - disorders; degeneration, [place] other back lumbar region (83470) problems (7 Translations: sources.) [ SPONDYLOSIS W/O MYELOPATHY OR RADICULOPA] Other Pain in left Episodic Active KINJAL [facility] Via connective finger(s) [place] VERAS tissue disease [facility] - (3 sources.) [place] ([address]23) Other Pain in left Episodic Active RADHA RUBEN Communi ty non-traumatic knee [address]29 [facility] joint Translations: of [facility] disorders (20 [ - Pain in [place] (01435) sources.) left knee M25.562, - Pain in left knee M25.562] Other Pain in right Episodic Active ARLEN MADL Not Av ailable non-traumatic knee (14600) joint Translations: disorders (20 [ - Pain in sources.) right knee M25.561, - Pain in right knee M25.561] Administrative Persons Episodic Active ARLENRACHEL PIERREL Commun ity /social encountering [address]4868 Health Center admission (20 health of [facility] sources.) services in [place] (96026) other specified circumstances Translations: [ - Establishing care with new doctor, encounter for Z76.89, - Establishing care with new doctor, encounter for Z76.89, - Relationship problem between partners Z63.0] Other nervous Polyneuropathy Chronic Active RADHA RUBEN C ommunity system , unspecified [address] [facility] disorders (2 Translations: of [facility] sources.) [ - Neuropathy [place] (36822) G62.9] Other diseases Stasis no information Active RADHA RUBEN C ommunity of veins and dermatitis and [address]44 [facility] Cent[facility] r lymphatics (1 venous ulcer of [facility] source.) of right lower [place] (77480) extremity due to chronic peripheral venous hypertension Translations: [ Stasis dermatitis of right lower extremity with venous ulcer due to chronic peripheral venous hypertension] Aortic; Thoracic Chronic Active [facility] Via peripheral; aortic MOHIT Selin and visceral aneurysm, Hospital - artery without [place] aneurysms (5 rupture (38965) sources.) Diabetes Type 2 Chronic Active [facility] mellitus with diabetes [address]92 [facility] complications mellitus with of [facility] (20 sources.) other skin [place] (26321) ulcer Translations: [ - Type 2 diabetes mellitus with other skin ulcer E11.622, Type 2 diabetes mellitus with diabetic peripheral angiopathy without gangrene, Type 2 diabetes mellitus with diabetic peripheral angiopathy without gangrene, Type 2 diabetes mellitus with diabetic peripheral angiopathy without gangrene, - Type 2 diabetes mellitus with other skin ulcer E11.622] Other Type II Chronic Active [facility] circulatory diabetes 68658 [facility] disease (20 mellitus with of [place] sources.) peripheral [place] (54987) angiopathy Translations: [ Type 2 diabetes mellitus with diabetic peripheral angiopathy without gangrene] Intestinal Viral Episodic Active [facility] infection (20 intestinal 82109 Health [facility] sources.) infection, of [facility] unspecified [place] (58363) Translations: [ - Gastroenteriti s and colitis, viral A08.4, - Gastroenteriti s and colitis, viral A08.4] Unclassified without no information Active [facility] munity (20 sources.) gangrene [address]2504 Health Center Translations: of [facility] [ - Type 2 [place] (15848) diabetes mellitus with diabetic peripheral angiopathy without gangrene E11.51, - Type 2 diabetes mellitus with diabetic peripheral angiopathy without gangrene E11.51] Past or Other Problems Problem Normalized Date of Normalized Normalized Provider Fac ility Classification Problem(s) Problem Problem Problem Sta tus Onset/Resoluti Duration on External Activity, no information no information no name no information Injury - other Unspecified (2 involving sources.) exterior property and land maintenance, building and construction Translations: [ OTHER EXTERNAL CAUSE STATUS] External cause Activity, Episodic Completed CONSUELO VENTURA [facility] V ia codes: other [place] Unspecified (2 involving Hospital - sources.) exterior [place] property and (17573) land maintenance, building and construction Translations: [ OTHER EXTERNAL CAUSE STATUS] Other lower Dyspnea, Episodic Completed YANA GARCIA , [facility] Vi a respiratory unspecified DO [place] disease (3 Hospital - sources.) [place] ([address]60) External Fall on and no information no information no name no information Injury - Fall from ladder, (2 sources.) initial encounter External cause Fall on and Episodic Completed CONSUELO VENTURA [facility] Via codes: Fall (1 from ladder, [place] source.) initial Hospital - encounter [place] (25689) Open wounds of Laceration Episodic Completed CONSUELO MCGILLES [facility] Via head; neck; without [place] and trunk (7 foreign body Hospital - sources.) of scalp, [place] subsequent (28435) encounter Translations: [ LACERATION WITHOUT FOREIGN BODY OF SCALP] Lymphadenitis Localized Episodic Completed CONSUELO VENTURA [facility] Vi a (3 sources.) enlarged lymph [place] nodes [facility] [place] (58842) Other Multiple Episodic Completed CONSUELO VENTURA [facility] Via fractures (4 fractures of [place] sources.) ribs, right Hospital - side, initial [place] encounter for (24009) closed fracture Other Other fracture Episodic Completed CONSUELO VENTURA [facility] V ia fractures (3 of first [place] sources.) lumbar [facility]) encounter for closed fracture Other Other fracture Episodic Completed CONSUELO MCGILLES [facility] V ia fractures (3 of second [place] sources.) lumbar [facility] (21775) encounter for closed fracture Other Other fracture Episodic Completed CONSUELO MCGILLES [facility] V ia fractures (3 of T11-T12 [place] sources.) vertebra, Hospital - initial [place] encounter for (08156) closed fracture Other Other fracture Episodic Completed CONSUELO VENTURA [facility] V ia fractures (3 of third [place] sources.) lumbar Hospital - vertebra, [place] initial (49979) encounter for closed fracture Other lower Other Episodic Completed YANA GARCIA , [facility] Vi a respiratory nonspecific DO [place] disease (11 abnormal Hospital - sources.) finding of [place] lung field (58529) Residual Other no information no information JARRED CISNEROS Not Available codes; specified , (83839) unclassified postprocedural (5 sources.) states Other Pain in joint, Episodic Completed [facility] Via non-traumatic lower leg MD [place] joint Hospital - disorders (3 [place] sources.) (27487) Unclassified Spinal no information no information SANTO Gregory Not Available (3 sources.) stenosis, (72332) lumbar region without neurogenic claudication Procedures Procedure Normalized Procedure Procedure Result Performer Facility Date 09-29-2017 Cryotherapy co2 slush no information no name (no ph one) [facility] n2 acne [facility] (36926) 10-29-2016 EKG, TRACING no information no name (no phone) [facility] ([address]2432) 10-29-2016 Electrocardiogram, no information no name (no phone ) [facility] (72535) 02-05-2018 FQ visit, estab pt no information no name (no herminia ne) [facility] (11719) 09-29-2017 [facility]QHC visit, estab pt no information no name (no herminia ne) [facility] (14502) 09-16-2017 [facility] visit, estab pt no information no name (no herminia ne) [facility] (95796) 05-25-2017 [facility] visit, estab pt no information no name (no herminia ne) [facility] (76930) 01-20-2017 [facility] visit, estab pt no information no name (no herminia ne) [facility] (43900) 01-17-2017 [facility] visit, estab pt no information no name (no herminia ne) [facility] (09705) 12-10-2016 [facility] visit, estab pt no information no name (no herminia ne) [facility] 12-10-2016 [place] (65812) - 12-10-2016 10-21-2016 [facility] visit, estab pt no information no name (no herminia ne) [facility] ([id number]) 01-20-2017 Hemoglobin (HGB) no information no name (no phone) [facility] ([id number]) 10-21-2016 Hemoglobin (HGB) no information no name (no phone) [facility] ([id number]) 02-05-2018 Hemoglobin no information no name (no phone) [facility] glycosylated a1c [facility] ([id number]) 09-16-2017 Hemoglobin no information no name (no phone) [facility] glycosylated a1c [facility] ([id number]) 05-25-2017 Hemoglobin no information no name (no phone) [facility] glycosylated a1c [facility] (51918) 03-04-2017 Initial preventive no information no name (no phone ) [facility] exam [facility] ([id number]) 03-04-2017 LAB NOT BILLED BY no information no name (no phone) [facility] ([id number]) 10-29-2016 LAB NOT BILLED BY no information no name (no phone) [facility] ([id number]) 03-04-2017 Measure blood oxygen no information no name (no herminia ne) [facility] ([id number]) 03-04-2017 Routine venipuncture no information no name (no herminia ne) [facility] (20105) 10-29-2016 Routine venipuncture no information no name (no herminia ne) [facility] (75876) Immunizations Normalized Immunization Date Notes Care Provider Facili ty Immunization pneumococcal 11-17-2018 no information no name [facility] conjugate vaccine, [facility] 13 [facility] ([id number]) tetanus toxoid, 08-15-2018 no information no name [facility] toxoid, and ([id number]) acellular pertussis vaccine, adsorbed Results Test Name Value Interpretation Reference Range Date Time Fa cility (Normalized) (Normalized) (Medline Reference) a1c (in house) on null HbA1c 9.0 % (no code) 3.6 - 5.7 % [facility] ([id number]) HbA1c 12.6 % (no code) 3.6 - 5.7 % [facility] (11977) HbA1c 9.6 % (no code) 0 - 5.7 % [facility] (20311) Hemoglobin 10.6 % (no code) 0 - 5.7 % Critical access hospital A1c/Hemoglobin.t [facility] fraction (Bld) (42260) A1C (IN HOUSE) 0762 (no code) [facility] (93241) A1C (IN HOUSE) 06/2018 (no code) [facility] (77455) A1C (IN HOUSE) 0812 (no code) [facility] (04380) A1C (IN HOUSE) 12/2018 (no code) [facility] (70231) A1C (IN HOUSE) 0856 (no code) [facility] (54584) A1C (IN HOUSE) 05/12 (no code) [facility] (66469) No panel information on null Color (U) 10/2018~Clear~Ye (no code) [facility] (74806) CRE 80~200 (no code) [facility] (09041) Exp date 30-300~Normal~Ab (no code) [facility] normal~650218c~1 [facility] 02/2018 [facility] ([id number]) Lot # [id number] (no code) [facility] (80815) MICROALBUMIN Abnormal (no code) [facility] (83478) No panel information on 2019-04-01 Albumin 3.9 g/dL (N) 3.4 - 5.4 g/dL [facility] [Mass/Vol] [facility] (97188) Albumin/Globulin 1.6 {ratio} (N) 1 - 2.5 {ratio} [facility] Health [Mass ratio] [facility] (61200) ALP [Catalytic 72 U/L (N) 44 - 147 U/L [facility] Health activity/Vol] [facility] (36874) ALT [Catalytic 20 U/L (N) 4 - 40 U/L [facility] ealth activity/Vol] [facility] (89311) AST [Catalytic 14 U/L (N) 10 - 34 U/L [facility] Health activity/Vol] [facility] (14703) Bilirubin 0.6 mg/dL (N) 0.1 - 1.2 mg/dL [facility] [Mass/Vol] [facility] (49392) Calcium 9.5 mg/dL (N) 8.5 - 10.2 mg/dL [facility] [Mass/Vol] [facility] (54510) Chloride 102 mmol/L (N) 95 - 106 mmol/L [facility] [Moles/Vol] [facility] (12218) Cholesterol 141 mg/dL (N) 180 - 200 mg/dL [facility] [Mass/Vol] [facility] (27005) Cholesterol in 44 mg/dL (N) [facility] HDL [Mass/Vol] [facility] (57901) Cholesterol in 82 mg/dL (N) 0 - 100 mg/dL [facility] LDL [Mass/Vol] [facility] (00658) Cholesterol non 97 mg/dL (N) Critical access hospital HDL [Mass/Vol] [facility] (99646) Cholesterol.tota 3.2 {ratio} (N) [facility] l/Cholesterol in [facility] HDL [Mass ratio] [facility] (93420) CO2 [Moles/Vol] 30 mmol/L (N) 23 - 29 mmol/L [facility] (69499) Creatinine 0.82 mg/dL (N) [facility] [Mass/Vol] [facility] (94431) Exp date 09/2020 (no code) [facility] (52133) GFR/1.73 sq M 104 (N) 90 - 120 [facility], [facility] predicted among mL/min/{1.73_m2} mL/min/{1.73_m2} Center o f [facility] blacks MDRD [facility] (S/P/Bld) [Vol (27018) rate/Area] GFR/1.73 sq 90 (N) 90 - 120 Critical access hospital M.predicted MDRD mL/min/{1.73_m2} mL/min/{1.73_m2} [facility] (S/P/Bld) [Vol [facility] rate/Area] (05446) Globulin (S) 2.5 g/dL (N) 2 - 3.5 g/dL [facility] ealth [Mass/Vol] [facility] (11761) Glucose 217 mg/dL (H) 60 - 125 mg/dL [facility] [Mass/Vol] [facility] (27299) Lot 9.6~14.0~0552 (no code) [facility] (38737) Potassium 4.6 mmol/L (N) 3.7 - 5.2 mmol/L [facility] [Moles/Vol] [facility] (04656) Protein 6.4 g/dL (N) 6.4 - 8.3 g/dL [facility] [Mass/Vol] [facility] (39993) Sodium 138 mmol/L (N) 135 - 145 mmol/L [facility] [Moles/Vol] [facility] (54759) Triglyceride 72 mg/dL (N) 0 - 150 mg/dL [facility] [Mass/Vol] [facility] (28036) Urea nitrogen 22 mg/dL (N) 7 - 20 mg/dL [facility] [Mass/Vol] [facility] (25328) Urea NOT APPLICABLE (no code) [facility]t nitrogen/Creatin [facility] [Mass ratio] [facility] (23301) No panel information on 2019-03-18 Bacteria SEE NOTE (no code) [facility] ([facility] spec) ([id number]) Bacteria SEE NOTE (no code) [facility] identified [facility] ([facility] spec) ([id number]) No panel information on 2018-11-17 Exp date 04/2020 (no code) [facility]t h [facility] (36643) Lot 14.0~14.0~0993 (no code) [facility]t [facility] (54814) No panel information on 2018-08-30 Bacteria SEE NOTE (A) [facility], [facility]1983t identified [facility] Nom ([facility] spec) ([id number]) No panel information on 2018-06-29 Albumin 4.2 g/dL (N) 3.4 - 5.4 g/dL [facility] [Mass/Vol] [facility] (97557) Albumin DL <= 20 3.5 mg/dL (N) 0.2 - 1.9 mg/dL [facility] Health mg/L (U) [facility] [Mass/Vol] [facility] (91869) Albumin/Globulin 1.6 (N) [facility] [Mass ratio] [facility] (84334) ALP [Catalytic 67 U/L (N) 44 - 147 U/L [facility] activity/Vol] [facility] (88031) ALT [Catalytic 25 U/L (N) 4 - 40 U/L Community ealth activity/Vol] [facility] (47508) AST [Catalytic 14 U/L (N) 10 - 34 U/L [facility] Health activity/Vol] [facility] (89848) Bilirubin 0.7 mg/dL (N) 0.1 - 1.2 mg/dL [facility] [Mass/Vol] [facility] (25131) Calcium 9.4 mg/dL (N) 8.5 - 10.2 mg/dL [facility] [Mass/Vol] [facility] (07697) Chloride 102 mmol/L (N) 95 - 106 mmol/L [facility] [Moles/Vol] [facility] (97277) Cholesterol 137 mg/dL (N) 180 - 200 mg/dL [facility] [Mass/Vol] [facility] (91721) Cholesterol in 40 mg/dL (L) [facility]t HDL [Mass/Vol] [facility] (78109) Cholesterol in 80 (N) [facility]1983t h LDL [Mass/Vol] [facility] (16939) Cholesterol non 97 (N) Critical access hospital HDL [Mass/Vol] [facility] (51808) Cholesterol.tota 3.4 (N) [facility] in [facility] HDL [Mass ratio] [facility] (49214) CO2 [Moles/Vol] 28 mmol/L (N) 23 - 29 mmol/L [facility] (23818) Creatinine (U) 142 mg/dL (N) [facility]1983t h [Mass/Vol] [facility] (16434) Creatinine 0.93 mg/dL (N) [facility] [Mass/Vol] [facility] (94152) Exp date 11/2019 (no code) [facility] (42285) GFR/1.73 sq M 97 (N) 90 - 120 [facility], [facility] predicted among mL/min/{1.73_m2} mL/min/{1.73_m2} Center o f [facility] blacks MDRD [facility] (S/P/Bld) [Vol (26972) rate/Area] GFR/1.73 sq 83 (N) 90 - 120 [facility], [facility]–1983 th M.predicted MDRD mL/min/{1.73_m2} mL/min/{1.73_m2} [facility] (S/P/Bld) [Vol [facility] rate/Area] (33806) Globulin (S) 2.7 (N) [facility] [Mass/Vol] [facility] (49553) Glucose 227 mg/dL (H) 60 - 125 mg/dL [facility] [Mass/Vol] [facility] (69304) Lot 14.0~10.5~0941 (no code) [facility] (93439) MICROALBUMIN/CRE 25 (N) [facility] ATININE RATIO, [facility] RANDOM URINE [facility] (61181) Potassium 4.4 mmol/L (N) 3.7 - 5.2 mmol/L [facility] [Moles/Vol] [facility] (01382) Protein 6.9 g/dL (N) 6.4 - 8.3 g/dL [facility] [Mass/Vol] [facility] (59842) Sodium 139 mmol/L (N) 135 - 145 mmol/L [facility] [Moles/Vol] [facility] (40999) Triglyceride 91 mg/dL (N) 0 - 150 mg/dL [facility] [Mass/Vol] [facility] (08686) Urea nitrogen 24 mg/dL (N) 7 - 20 mg/dL [facility] [Mass/Vol] [facility] (24986) Urea NOT APPLICABLE (no code) [facility] nitrogen/Creatin [facility] [Mass ratio] [facility] (15754) No panel information on 2018-02-05 Exp date 11/2019 (no code) [facility] (67886) Lot 10.5~10.6~0941 (no code) [facility] (41427) No panel information on 2017-09-16 Exp date 05/12 (no code) no information Lot 10.6~9.6~0856 (no code) no information No panel information on 2017-05-25 Exp date 12/2018 (no code) [facility] (87660) Lot 9.6~9.0~0812 (no code) [facility] (97132) No panel information on 2017-03-04 NEGATED no information (N) [facility] (42567) No panel information on 2016-10-30 Albumin 4.4 g/dL (no code) 3.4 - 5.4 g/dL 10-30-2016 Not Brenda ilable [Mass/Vol] 09: (92670) Albumin/Globulin 1.6 {ratio} (no code) 1 - 2.5 {ratio} 7 Not Available [Mass ratio] 09: (50876) ALP [Catalytic 67 U/L (no code) 44 - 147 U/L 10-30-2016 Not Available activity/Vol] 09: (20027) ALT [Catalytic 17 U/L (no code) 4 - 40 U/L 10-30-2016 Not Av ailable activity/Vol] 09: (66026) AST [Catalytic 11 U/L (no code) 10 - 34 U/L 10-30-2016 Not A vailable activity/Vol] 09: (74643) Basophils (Bld) 0.1 10*3/uL (no code) 0 - 0.3 10*3/uL 10-30-2016 Not Available [#/Vol] 07:00-0400 (78116) Basophils/100 1 % (no code) 0.5 - 1 % 10-30-2016 Not Avai lable WBC (Bld) : (27104) Bilirubin 0.3 mg/dL (no code) 0.1 - 1.2 mg/dL 10-30-2016 Not Av ailable [Mass/Vol] 09: (86075) Calcium 9.4 mg/dL (no code) 8.5 - 10.2 mg/dL 10-30-2016 Not A vailable [Mass/Vol] 09: (07395) Chloride 99 mmol/L (no code) 95 - 106 mmol/L 10-30-2016 Not Av ailable [Moles/Vol] 09: (57190) Cholesterol 196 mg/dL (no code) 180 - 200 mg/dL 10-30-2016 Not Available [Mass/Vol] 09: (51024) Cholesterol in 45 mg/dL (no code) 10-30-2016 Not Availab le HDL [Mass/Vol] 09: (95894) Cholesterol in 133 mg/dL (H) 0 - 100 mg/dL 10-30-2016 Not Available LDL [Mass/Vol] 09: (36244) Cholesterol in 18 mg/dL (no code) 10-30-2016 Not Availab le VLDL [Mass/Vol] : (11054) CO2 [Moles/Vol] 25 mmol/L (no code) 23 - 29 mmol/L 10-30-2016 N ot Available : () Creatinine 1.16 mg/dL (no code) 10-30-2016 Not Available [Mass/Vol] 09: (26684) Eosinophils 0.4 10*3/uL (no code) 0.05 - 0.5 10-30-2016 Not Brenda ilable (Bld) [#/Vol] 10*3/uL 07: (37118) Eosinophils/100 5 % (no code) 1 - 4 % 10-30-2016 Not Av ailable WBC (Bld) : (20660) Erythrocyte 13.2 % (no code) 11.6 - 14.6 % 10-30-2016 Not Av ailable distribution : () width (RBC) [Ratio] GFR/1.73 sq M 75 (no code) 90 - 120 10-30-2016 Not Avai lable predicted among mL/min/{1.73_m2} mL/min/{1.73_m2} 09: (78541) blacks MDRD (S/P/Bld) [Vol rate/Area] GFR/1.73 sq M 65 (no code) 90 - 120 10-30-2016 Not Avai lable predicted among mL/min/{1.73_m2} mL/min/{1.73_m2} : (80236) non-blacks MDRD (S/P/Bld) [Vol rate/Area] Globulin (S) 2.7 g/dL (no code) 2 - 3.5 g/dL 10-30-2016 Not Av ailable [Mass/Vol] : (18460) Glucose 354 mg/dL (H) 60 - 125 mg/dL 10-30-2016 Not Brenda ilable [Mass/Vol] : (36453) Hematocrit (Bld) 45.3 % (no code) 36.1 - 50.3 % 10-30-2016 N ot Available [Volume : (08516) fraction] Hemoglobin (Bld) 14.5 g/dL (no code) 12.1 - 17.2 g/dL 10-30-2016 Not Available [Mass/Vol] 07:-399 (17466) Immature 0.0 10*3/uL (no code) 0 - 0.2 10*3/uL 10-30-2016 Not Available granulocytes 07: (40817) (Bld) [#/Vol] Immature 0 % (no code) 0 - 0.5 % 10-30-2016 Not Availabl e granulocytes/100 07: (83889) WBC (Bld) Lymphocytes 1.5 10*3/uL (no code) 0.9 - 2.9 10-30-2016 Not Avai lable (Bld) [#/Vol] 10*3/uL 07: (44102) Lymphocytes/100 21 % (no code) 20 - 40 % 10-30-2016 Not Av ailable WBC (Bld) : (74249) Magnesium 2.1 mg/dL (no code) 1.7 - 2.2 mg/dL 10-30-2016 Not Av ailable [Mass/Vol] 09:54-0 (22335) MCH (RBC) 28.5 pg (no code) 27 - 31 pg 10-30-2016 Not Availab le [Entitic mass] 07: (74070) MCHC (RBC) 32.0 g/dL (no code) 32 - 36 g/dL 10-30-2016 Not Avai lable [Mass/Vol] 07: (10767) MCV (RBC) 89 fL (no code) 80 - 100 fL 10-30-2016 Not Availa ble [Entitic vol] 07: (54297) Monocytes (Bld) 0.7 10*3/uL (no code) 0.3 - 0.9 10-30-2016 Not Available [#/Vol] 10*3/uL 07: (14903) Monocytes/100 10 % (no code) 2 - 8 % 10-30-2016 Not Avai lable WBC (Bld) 07: (07152) Neutrophils 4.4 10*3/uL (no code) 1.7 - 7 10*3/uL 10-30-2016 No t Available (Bld) [#/Vol] 07:0 (81040) Neutrophils/100 63 % (no code) 40 - 60 % 10-30-2016 Not Av ailable WBC (Bld) 07: (69189) Platelets (Bld) 281 10*3/uL (no code) 150 - 450 10-30-2016 Not Available [#/Vol] 10*3/uL 07:0400 (74297) Potassium 5.3 mmol/L (H) 3.7 - 5.2 mmol/L 10-30-2016 Not Available [Moles/Vol] 09: (88681) Protein 7.1 g/dL (no code) 6.4 - 8.3 g/dL 10-30-2016 Not Brenda ilable [Mass/Vol] 09: (04120) RBC (Bld) 5.09 10*6/uL (no code) 4.2 - 6.1 10-30-2016 Not Avail able [#/Vol] 10*6/uL 07: (77779) Sodium 140 mmol/L (no code) 135 - 145 mmol/L 10-30-2016 Not Available [Moles/Vol] 09: (13076) Triglyceride 92 mg/dL (no code) 0 - 150 mg/dL 10-30-2016 Not A vailable [Mass/Vol] 09: (27443) TSH Qn 3.090 (no code) 10-30-2016 Not Available : (45273) Urea nitrogen 42 mg/dL (H) 7 - 20 mg/dL 10-30-2016 Not A vailable [Mass/Vol] : (35062) Urea 36 mg/mg (H) 6 - 22 mg/mg 10-30-2016 Not Avail able nitrogen/Creatin (71637) ine [Mass ratio] WBC (Bld) 7.0 10*3/uL (no code) 3.5 - 10.5 10-30-2016 Not Avail able [#/Vol] 10*3/uL 07: (89009) tsh on 2016-10-29 Thyroid 3.090 m[IU]/L (no code) 0.4 - 4 m[IU]/L 10-29-2016 [facility] stimulating 13:00-0400 Center of hormone (TSH) [facility] (77133) magnesium, serum on 2016-10-29 Magnesium 2.1 mg/dL (no code) 1.8 - 3.6 mg/dL 10-29-2016 [facility] Complete 13:00-0400 [facility] (08276) lipid panel on 2016-10-29 Cholesterol 196 mg/dL (no code) 0 - 240 mg/dL 10-29-2016 [facility] 13:00-0400 [facility] (35783) HDL Cholesterol 45 mg/dL (no code) 10-29-2016 [facility] Health 13:00-0400 [facility] (65565) LDL Cholesterol 133 mg/dL (no code) 0 - 100 mg/dL 10-29-2016 [facility] 13:00-[address] [facility] (35058) Triglyceride 92 mg/dL (no code) 0 - 150 mg/dL 10-29-2016 [facility] 13:00-0400 [facility] (56382) VLDL Cholesterol 18 (no code) 10-29-2016 [facility] 13:00-0400 [facility] (77293) cmp on 2016-10-29 Alanine 17 U/L (no code) 10 - 40 U/L 10-29-2016 [facility] Health aminotransferase 13:000400 Center of (ALT) [facility] (94247) Albumin 4.4 g/dL (no code) 3.5 - 5.5 g/dL 10-29-2016 [facility] 13:00-0400 [facility] (31808) Albumin/Globulin 1.6 {ratio} (no code) 0.8 - 2 {ratio} 7 [facility] Health Ratio 13:00-0400 [facility] (26740) Alkaline 67 U/L (no code) 44 - 147 U/L 10-29-2016 [facility] Health phosphatase 13:00-0400 Center of (ALP) [facility] (85011) Aspartate 11 U/L (no code) 10 - 34 U/L 10-29-2016 [facility] Health aminotransferase 13:00-0400 Center of (AST) [facility] (57694) Bilirubin 0.3 mg/dL (no code) 0.3 - 1.9 mg/dL 10-29-2016 [facility] (total) 13:00-0400 [facility] (27630) BUN/Creatinine 36 mg/mg (no code) 10 - 20 mg/mg 10-29-2016 [facility] Ratio 13:00-0400 [facility] (84714) Calcium 9.4 mg/dL (no code) 9 - 11 mg/dL 10-29-2016 [facility] Health 13:00-0400 [facility] (23386) Chloride 99 mmol/L (no code) 95 - 106 mmol/L 10-29-2016 [facility] Health 13:00-0400 [facility] (07760) CO2 25 mmol/L (no code) 23 - 29 mmol/L 10-29-2016 [facility] 13:00-0400 [facility] (43699) Creatinine 1.16 mg/dL (no code) 10-29-2016 Critical access hospital 13:00-0400 [facility] (27089) eGFR (black) 75 (no code) 90 - [id number] 10-29-2016 [facility] mL/min/{1.73_m2} mL/min/{1.73_m2} 13:000400 [facility] (82493) eGFR (non-black) 65 (no code) 90 - [id number] 10-29-2016 [facility] mL/min/{1.73_m2} mL/min/{1.73_m2} 13:00-0400 [facility] (81644) Globulin 2.7 g/dL (no code) 2.1 - 3.9 g/dL 10-29-2016 [facility] 13:00-0400 [facility] (63908) Glucose 354 mg/dL (no code) 60 - 125 mg/dL 10-29-2016 [facility] 13:00-0400 [facility] (16031) Potassium 5.3 mmol/L (no code) 3.5 - 5.1 mmol/L 10-29-2016 [facility] 13:00-0400 [facility] (03815) Protein 7.1 g/dL (no code) 6.4 - 8.3 g/dL 10-29-2016 [facility] 13:00-0400 [facility] (67047) Sodium 140 mmol/L (no code) 135 - 147 mmol/L 10-29-2016 [facility] 13:00-0400 [facility] (09589) Urea nitrogen 42 mg/dL (no code) 7 - 20 mg/dL 10-29-2016 [facility] (37003) cbc on 2016-10-29 Basophils 0.1 10*3/uL (no code) 0 - 0.2 10*3/uL 10-29-2016 [facility] 13:00-0400 [facility] (08189) Basophils/100 1 % (no code) 0.5 - 1 % 10-29-2016 [facility] leukocytes 13:00-0400 [facility] (91339) Eosinophils 0.4 10*3/uL (no code) 0.05 - 1.5 10-29-2016 [facility] 10*3/uL 13:00-0400 [facility] (96052) Eosinophils/100 5 % (no code) 1 - 4 % 10-29-2016 [facility] leukocytes 13:00-0400 [facility] (25348) Erythrocytes 5.09 10*6/uL (no code) 4.2 - 6.1 10-29-2016 [facility] (RBC) 10*6/uL 13:000400 [facility] (80676) Hematocrit (HCT) 45.3 % (no code) 39 - 51 % 10-29-2016 [facility] 13:00-0400 [facility] (96889) Hemoglobin (HGB) 14.5 g/dL (no code) 12 - 18 g/dL 10-29-2016 [facility] 13:00-0400 [facility] (03333) Immature Grans 0.0 (no code) 10-29-2016 [facility] (Abs) 13:00-0400 [facility] (90964) Immature 0 (no code) 10-29-2016 [facility] Granulocytes 13:000400 [facility] (80812) Lymphocytes 1.5 10*3/uL (no code) 0.85 - 4.1 10-29-2016 [facility] 10*3/uL 13:00-0400 [facility] (27683) Lymphocytes/100 21 % (no code) 20 - 40 % 10-29-2016 [facility] leukocytes 13:00-0400 [facility] (08306) MCH 28.5 pg (no code) 27 - 31 pg 10-29-2016 [facility] 13:00-0400 [facility] (43775) MCHC 32.0 g/dL (no code) 32 - 36 g/dL 10-29-2016 [facility] 13:00-0400 [facility] (29015) MCV 89 fL (no code) 80 - 100 fL 10-29-2016 [facility] 13:000400 [facility] (72622) Monocytes 0.7 10*3/uL (no code) 0.2 - 1.1 10-29-2016 [facility] Health 10*3/uL 13:000400 [facility] (72050) Monocytes/100 10 % (no code) 2 - 8 % 10-29-2016 [facility] leukocytes 13:000400 [facility] (98591) Neutrophils 4.4 10*3/uL (no code) 1.5 - 7.8 10-29-2016 [facility] 10*3/uL 13:000400 [facility] (57110) Neutrophils/100 63 % (no code) 40 - 60 % 10-29-2016 [facility] leukocytes 13:000400 [facility] (51809) Platelets 281 10*3/uL (no code) 150 - 400 10-29-2016 [facility] Health 10*3/uL 13:000400 [facility] (58347) RDW-CA 13.2 % (no code) 11 - 15 % 10-29-2016 [facility] 13:000400 [facility] (70304) WBC (Leukocytes) 7.0 10*3/uL (no code) 3.8 - 10.8 10-29-2016 [facility] 10*3/uL 13:000400 [facility] (15187) No panel information on 2016-03-28 Albumin 4.1 g/dL (no code) 3.4 - 5.4 g/dL 03-28-2016 Not Brenda ilable [Mass/Vol] 09:47-0500 (28285) Albumin/Globulin 1.5 {ratio} (no code) 1 - 2.5 {ratio} 7 Not Available [Mass ratio] 09:47-0500 (69665) ALP [Catalytic 60 U/L (no code) 44 - 147 U/L 03-28-2016 Not Available activity/Vol] 09:47-0500 (25046) ALT [Catalytic 16 U/L (no code) 4 - 40 U/L 03-28-2016 Not Av ailable activity/Vol] 09:47-0500 ([id number]) AST [Catalytic 15 U/L (no code) 10 - 34 U/L 03-28-2016 Not A vailable activity/Vol] 09:470500 ([id number]) Bilirubin 0.6 mg/dL (no code) 0.1 - 1.2 mg/dL 03-28-2016 Not Av ailable [Mass/Vol] 09:470500 ([id number]) Calcium 9.0 mg/dL (no code) 8.5 - 10.2 mg/dL 03-28-2016 Not A vailable [Mass/Vol] 09:470500 (51400) Chloride 96 mmol/L (no code) 95 - 106 mmol/L 03-28-2016 Not Av ailable [Moles/Vol] 09:23-0500 ([id number]) Cholesterol 243 mg/dL (H) 180 - 200 mg/dL 03-28-2016 Not Available [Mass/Vol] 09:470500 ([id number]) Cholesterol in 41 mg/dL (no code) 03-28-2016 Not Availab le HDL [Mass/Vol] 09:470500 (06446) Cholesterol in 179 mg/dL (H) 0 - 100 mg/dL 03-28-2016 Not Available LDL [Mass/Vol] 09:470500 (93396) Cholesterol in 23 mg/dL (no code) 03-28-2016 Not Availab le VLDL [Mass/Vol] 09:470500 ([id number]) CO2 [Moles/Vol] 24 mmol/L (no code) 23 - 29 mmol/L 03-28-2016 N ot Available 09:470500 ([id number]) Creatinine 0.81 mg/dL (no code) 03-28-2016 Not Available [Mass/Vol] 09:47-0500 (09610) GFR/1.73 sq M 106 (no code) 90 - 120 03-28-2016 Not Avai lable predicted among mL/min/{1.73_m2} mL/min/{1.73_m2} 09:470500 (42927) blacks MDRD (S/P/Bld) [Vol rate/Area] GFR/1.73 sq M 92 (no code) 90 - 120 03-28-2016 Not Avai lable predicted among mL/min/{1.73_m2} mL/min/{1.73_m2} 09:47-0500 (56692) non-blacks MDRD (S/P/Bld) [Vol rate/Area] Globulin (S) 2.8 g/dL (no code) 2 - 3.5 g/dL 03-28-2016 Not Av ailable [Mass/Vol] 09:47-0500 (84434) Glucose 247 mg/dL (H) 60 - 125 mg/dL 03-28-2016 Not Brenda ilable [Mass/Vol] 09:47-0500 (99629) Potassium 4.8 mmol/L (no code) 3.7 - 5.2 mmol/L 03-28-2016 Not Available [Moles/Vol] 09:23-0500 ([id number]) Protein 6.9 g/dL (no code) 6.4 - 8.3 g/dL 03-28-2016 Not Brenda ilable [Mass/Vol] 09:470500 (99638) Sodium 137 mmol/L (no code) 135 - 145 mmol/L 03-28-2016 Not Available [Moles/Vol] 09:23-0500 (59391) Triglyceride 117 mg/dL (no code) 0 - 150 mg/dL 03-28-2016 Not A vailable [Mass/Vol] 09:47-0500 (42373) TSH Qn 2.500 (no code) 03-28-2016 Not Available 09:230500 (71479) Urea nitrogen 19 mg/dL (no code) 7 - 20 mg/dL 03-28-2016 Not A vailable [Mass/Vol] 09:47-0500 ([id number]) Urea 23 mg/mg (H) 6 - 22 mg/mg 03-28-2016 Not Avail able nitrogen/Creatin 09:47-0500 (79494) ine [Mass ratio] Vital Signs Vital Sign Value Interpretation Reference Date Time Care Prov ider Facility (Normalized) (Normalized) Range BMI (Body Mass 30.95 kg/m2 (no code) 15 - 25 kg/m2 02-05-2018 JOSE ANGEL LU[facility] Community Index) 09:00-0500 62127 [facility] ([id number]) BMI (Body Mass 30.02 kg/m2 (no code) 15 - 25 kg/m2 09-29-2017 [facility] Community Index) 09:20-0400 02138 [facility] (51768) BMI (Body Mass 29.69 kg/m2 (no code) 15 - 25 kg/m2 09-16-2017 [facility] Community Index) 09:20-0400 33859 [facility] (01289) BMI (Body Mass 30.71 kg/m2 (no code) 15 - 25 kg/m2 05-25-2017 Juliette BROWN Community Index) 09:00-0400 12653 [facility] (50537) BMI (Body Mass 31 kg/m2 (no code) 15 - 25 kg/m2 03-04-2017 [place] DELAROSA Community Index) 10:20-0500 65422 [facility] (30712) BMI (Body Mass 31.13 kg/m2 (no code) 15 - 25 kg/m2 01-20-2017 TA RAJEEVYA ISAURA Community Index) 08:40-0500 86442 [facility] (69535) BMI (Body Mass 30.8 kg/m2 (no code) 15 - 25 kg/m2 01-17-2017 PATRICIA PULIDO Community Index) 13:25-0500 73626 [facility] (98310) BMI (Body Mass 28.05 kg/m2 (no code) 15 - 25 kg/m2 12-10-2016 TA RAJEEVYA ISAURA Community Index) 16:00-0400 56823 [facility] (75206) BMI (Body Mass 29.66 kg/m2 (no code) 15 - 25 kg/m2 10-21-2016 TA WNYA MADMireille Community Index) 16:40-0400 69914 [facility] (90748) Body 97.3 [degF] (no code) 97.8 - 99.0 02-05-2018 [facility] Community Temperature [degF] 09:00-0500 66032 [facility] ([id number]) Body 98.3 [degF] (no code) 97.8 - 99.0 09-29-2017 RADHA ESTEBAN G Community Temperature [degF] 09:20-[address] [facility] (69786) Body 97.5 [degF] (no code) 97.8 - 99.0 09-16-2017 RADHA CARLITO G Community Temperature [degF] 09:20-[address] [facility] (28699) Body 97.7 [degF] (no code) 97.8 - 99.0 05-25-2017 VANITA [facility] Community Temperature [degF] 09:00-[address] [facility] (63489) Body 98.2 [degF] (no code) 97.8 - 99.0 03-04-2017 ARLEN MAD L Community Temperature [degF] 10:20-0500 35176 [facility] (37742) Body 97.3 [degF] (no code) 97.8 - 99.0 01-20-2017 ARLEN MAD L Community Temperature [degF] 08:40-[address] [facility] [address] [facility] (55705) Body 98.3 [degF] (no code) 97.8 - 99.0 01-17-2017 DELIO HINSON Community Temperature [degF] 13:25-0500 28433 [facility] (40297) Body 98.5 [degF] (no code) 97.8 - 99.0 12-10-2016 ARLEN MAD L Community Temperature [degF] 16:00-0400 32372 [facility] (89072) Body 98.2 [degF] (no code) 97.8 - 99.0 10-21-2016 ARLEN MAD L Community Temperature [degF] 16:40-0400 65939 [facility] (62425) Height 173.99 cm (no code) cm 02-05-2018 [facility] 09:[facility]-0500 01660 [facility] (34791) Height 173.99 cm (no code) cm 09-29-2017 RADHA RUBEN Co [facility]munity 09:200400 93160 [facility] (12780) Height 173.99 cm (no code) cm 09-16-2017 RADHA RUBEN Co [facility]munity 09:200400 87409 [facility] (31628) Height 173.99 cm (no code) cm 05-25-2017 VANITA Reyes ommunity 09:000400 75550 [facility] (70511) Height 173.99 cm (no code) cm 03-04-2017 ARLEN MADL [facility] 10:200500 01612 [facility] (20379) Height 173.99 cm (no code) cm 01-20-2017 ARLEN MADL Co mmunity 08:400500 92678 [facility] (17463) Height 173.99 cm (no code) cm [facility]-17-2017 [facility] 13:250500 07421 [facility] (22611) Height 173.99 cm (no code) cm 12-10-2016 ARLEN MADL Co mmunity 16:00-0400 88129 [facility] (25722) Height 173.99 cm (no code) cm 10-21-2016 ARLEN MADL Co mmunity 16:40-0400 66181 [facility] (93429) Pulse Oximetry 99 % (no code) 95 - 100 % 09-16-2017 RADHA Dowd [facility] Community 09:0400 50997 [facility] (20063) Pulse Oximetry 96 % (no code) 95 - 100 % 03-04-2017 ARLEN M [facility] Community 10:200500 07842 [facility] (87700) Weight 93.71 kg (no code) kg 02-05-2018 RADHA RUBEN Com munity 09:000500 44622 [facility] (12080) Weight 90.9 kg (no code) kg 09-29-2017 RADHA RUBEN Com munity 09:0400 16070 [facility] (31456) Weight 89.9 kg (no code) kg 09-16-2017 RADHA RUBEN Com munity 09:20-0400 12952 [facility] (56248) Weight 92.99 kg (no code) kg 05-25-2017 VANITA BROWN Co mmunity 09:00-[address] [place] [address] (53601) Weight 93.85 kg (no code) kg 03-04-2017 ARLEN MADL Com munity 10:20-[address] [place] [address] (96230) Weight 94.26 kg (no code) kg 01-20-2017 ARLEN MADL Com munity 08:40-[address] [place] [address] (91959) Weight 93.26 kg (no code) kg 01-17-2017 DELIO PULIDO [facility] 13:25-[address] [place] [address] (13505) Weight 84.91 kg (no code) kg 12-10-2016 ARLEN MADL Com munity 16:00-[address] [place] [address] (07446) Weight 89.81 kg (no code) kg 10-21-2016 ARLEN MADL Com munity 16:40-[address] [place] [address] ([id number]) Interventions No Information Plan of Treatment Normalized Care Care Detail Care Activity Date Care Provider F acility Activity ([facility]) [facility] 02-05-2018 RADHA MIRANDA 6 [id number] [facility] ([id number]) no information no information no information ARDHA [address] ([address]) Goals No Information Social History No Information Functional Status The data below is from unstructured sourcesNo functional status results.No functional status results.No functional status results. Mental Status No Information Encounters Encounter Normalized Encounter Encounter Diagnosis Care Provi darvin Organization Date Type 02-05-2018 ([facility]) Chronic Health Type 2 diabetes RADHA MIRANDA (n o phone) [facility] - Maintenance mellitus with diabetic (no ph one) 02-05-2018 peripheral angiopathy - without gangrene 02-05-2018 09-16-2017 ([facility]) Establish Care Type 2 diabetes RADHA RUBEN (no phone) [facility] - mellitus with diabetic (no phone) 09-16-2017 peripheral angiopathy - without gangrene 09-16-2017 09-29-2017 (PROC-20) Procedure-20 Actinic keratosis RADHA KIN G (no phone) [facility] - min (no phone) 09-29-2017 - 09-29-2017 01-17-2017 [facility] lower leg with DEL[facility] RAJMARYE ( [facility] unspecified severity phone) DELIO CAR E (no phone) 01-17-2017 zzRAJOTTE (no phone) - DELIO zzRAJOTTE (no 01-17-2017 phone) DELIO zzRAJOTTE (no phone) 08-15-[facility] Viral intestinal KIMBERLY zzMORR IS (no [facility] - CARE infection, unspecified phone) CAR E (no phone) 08-15-2016 - 08-15-2016 11-17-2018 [facility] no information RADHA RUBEN (n o phone) [facility] (no phone) 09-08-2018 [facility] no information RADHA RUBEN (n o phone) [facility] (no phone) 08-30-2018 [facility] Cellulitis of left [place] (no [facility] finger phone) (no phone) 08-10-2018 [facility] Problems in [facility] (no [facility] relationship with phone) (no phone) spouse or partner 06-29-2018 [facility] Type 2 diabetes RADHA RUBEN ( no phone) [facility] mellitus with diabetic (no phone) peripheral angiopathy without gangrene 05-25-2017 [facility] no information VANITA BROWN ( no [facility] - phone) (no phone) 05-25-2017 - 05-25-2017 05-25-2017 [facility] Persons encountering VANITA GALICIA (no [facility] - health services in phone) (no phone) 05-25-2017 other specified - circumstances 05-25-2017 03-04-2017 [facility] Encounter for general T AWNYA MADL (no phone) [facility] - adult medical (no phone) 03-04-2017 examination without - abnormal findings 03-04-2017 03-04-2017 [facility] no information ARLEN MADL (n o phone) [facility] - (no phone) 03-04-2017 - 03-04-2017 02-09-2017 [facility] no information ARLEN MADL (n o phone) [facility] - (no phone) 02-09-2017 - 02-09-2017 02-02-2017 [facility] Type 2 diabetes ARLEN MADL ( no phone) [facility] - mellitus without (no phone) 02-02-2017 complications - 02-02-2017 01-28-2017 [facility] no information ARLEN MADL (n o phone) [facility] - (no phone) 01-28-2017 - 01-28-2017 01-27-2017 [facility] Type 2 diabetes ARLEN MADL ( no phone) [facility] - mellitus without (no phone) 01-27-2017 complications - 01-27-2017 01-21-2017 [facility] Type 2 diabetes ARLEN MADL ( no phone) [facility] - mellitus without (no phone) 01-21-2017 complications - 01-21-2017 01-20-2017 [facility] no information ARLEN MADL (n o phone) [facility] - (no phone) 01-20-2017 - 01-20-2017 01-20-2017 [facility] Chronic venous ARLEN MADL (n o phone) [facility] - hypertension (no phone) 01-20-2017 (idiopathic) with - ulcer and inflammation 01-20-2017 of right lower extremity 01-14-2017 [facility] Type 2 diabetes ARLEN MADL ( no phone) [facility] - mellitus without (no phone) 01-14-2017 complications - 01-14-2017 01-01-2017 [facility] Type 2 diabetes ARLEN MADL ( no phone) [facility] - mellitus without (no phone) 01-01-2017 complications - 01-01-2017 12-29-2016 [facility] Type 2 diabetes ARLEN MADL ( no phone) [facility] - mellitus without (no phone) 12-29-2016 complications - 12-29-2016 12-22-2016 [facility] Type 2 diabetes ARLEN MADL ( no phone) [facility] - mellitus without (no phone) 12-22-2016 complications - 12-22-2016 12-19-2016 [facility] no information ARLEN MADL (n o phone) [facility] - (no phone) 12-19-2016 - 12-19-2016 12-17-2016 [facility] no information ARLEN MADL (n o phone) [facility] - (no phone) 12-17-2016 - 12-17-2016 12-10-2016 [facility] Type 2 diabetes ARLEN MADL ( no phone) [facility] - mellitus without (no phone) 12-10-2016 complications - 12-10-[address] [facility] no information ARLEN MADL (n o phone) [facility] - (no phone) 2016 - 2016 12-04-2016 [facility] no information ARLEN MADL (n o phone) [facility] - (no phone) 12-04-2016 - 12-04-2016 11-25-2016 [facility] Type 2 diabetes ARLEN MADL ( no phone) [facility] - mellitus without (no phone) 11-25-2016 complications - 11-25-2016 11-18-2016 [facility] Type 2 diabetes ARLEN MADL ( no phone) [facility] - mellitus without (no phone) 11-18-2016 complications - 11-18-2016 11-11-2016 [facility] no information ARLEN MADL (n o phone) [facility] - (no phone) 11-11-2016 - 11-11-2016 11-04-2016 [facility] Type 2 diabetes ARLEN MADL ( no phone) [facility] - mellitus without (no phone) 11-04-2016 complications - 11-04-2016 10-29-2016 [facility] Essential (primary) ARLEN MA DL (no phone) [facility] - hypertension (no phone) 10-29-2016 - 10-29-2016 10-29-2016 [facility] Essential (primary) ARLEN MA DL (no phone) [facility] - hypertension (no phone) 10-29-2016 - 10-29-2016 10-24-2016 [facility] no information ARLEN MADL (n o phone) [facility] - (no phone) 10-24-2016 - 10-24-2016 10-21-2016 [facility] Essential (primary) ARLEN MA DL (no phone) [facility] - hypertension (no phone) 10-21-2016 - 10-21-2016 10-20-2016 [facility] no information ARLEN MADL (n o phone) [facility] - (no phone) 10-20-2016 - 10-20-2016 09-08-2016 [facility] no information ARLEN MADL (n o phone) [facility] - (no phone) 09-08-2016 - 09-08-2016 08-21-2016 [facility] Type 2 diabetes ARLEN MADL ( no phone) [facility] - mellitus without (no phone) 08-21-2016 complications - 08-21-2016 07-08-2016 [facility] Type 2 diabetes ARLEN MADL ( no phone) [facility] - mellitus without (no phone) 07-08-2016 complications - 07-08-2016 06-24-2016 [facility] Essential (primary) ARLEN MA DL (no phone) [facility] - hypertension (no phone) 06-24-2016 - 06-24-2016 06-02-2016 [facility] no information ARLEN MADL (n o phone) [facility] - (no phone) 06-02-2016 - 06-02-2016 05-12-2016 [facility] no information ARLEN MADL (n o phone) [facility] - (no phone) 05-12-2016 - 05-12-2016 04-11-2016 [facility] no information ARLEN MADL (n o phone) [facility] - (no phone) 04-11-2016 - 04-11-2016 04-02-2016 [facility] Asymptomatic varicose T AWNYA MADL (no phone) [facility] - veins of unspecified (no phone) 04-02-2016 lower extremity - 04-02-2016 03-27-2016 [facility] Essential (primary) ARLEN MA DL (no phone) [facility] - hypertension (no phone) 03-27-2016 - 03-27-2016 03-24-2016 [facility] no information ARLEN MADL (n o phone) [facility] - (no phone) 03-24-2016 - 03-24-2016 08-15-2018 Emergency department no information no name (no herminia ne) no organization name - patient visit (no phone) 08-15-2018 08-15-2018 Emergency department no information no name (no herminia ne) no organization name - patient visit (no phone) 08-15-2018 06-23-2015 Emergency department no information no name (no herminia ne) no organization name - patient visit (no phone) 06-23-2015 06-16-2015 Emergency department no information no name (no herminia ne) no organization name patient visit (no phone) 09-01-2018 Nursing evaluation of no information [facility]YR[facility] HANCOCK [facility] and report phone) (no phone) 09-29-2017 Patient encounter no information no name (no phone) no organization name (no phone) 09-16-2017 Patient encounter no information no name (no phone) no organization name (no phone) 05-25-2017 Patient encounter no information no name (no phone) no organization name (no phone) 05-16-2017 Patient encounter no information no name (no phone) no organization name (no phone) 04-21-2017 Patient encounter no information no name (no phone) no organization name (no phone) 04-14-2017 Patient encounter no information no name (no phone) no organization name (no phone) 04-07-2017 Patient encounter no information no name (no phone) no organization name (no phone) 03-31-2017 Patient encounter no information no name (no phone) no organization name (no phone) 03-24-2017 Patient encounter no information no name (no phone) no organization name (no phone) 03-17-2017 Patient encounter no information no name (no phone) no organization name (no phone) 03-10-2017 Patient encounter no information no name (no phone) no organization name (no phone) NEGATED Patient encounter no information no name (no phone) no organization name 03-04-2017 (no phone) 03-03-2017 Patient encounter no information no name (no phone) no organization name (no phone) 02-24-2017 Patient encounter no information no name (no phone) no organization name (no phone) 02-17-2017 Patient encounter no information no name (no phone) no organization name (no phone) 02-12-2017 Patient encounter no information no name (no phone) no organization name (no phone) 02-03-2017 Patient encounter no information no name (no phone) no organization name (no phone) 01-27-2017 Patient encounter no information no name (no phone) no organization name (no phone) 01-22-2017 Patient encounter no information no name (no phone) no organization name (no phone) 12-15-2016 Patient encounter no information no name (no phone) no organization name (no phone) 04-01-2016 Patient encounter no information no name (no phone) no organization name (no phone) 02-12-2016 Patient encounter no information no name (no phone) no organization name (no phone) 07-10-2015 Patient encounter no information no name (no phone) no organization name (no phone) NEGATED Patient encounter no information no name (no phone) no organization name 07-03-2015 (no phone) 01-11-2015 Patient encounter no information no name (no phone) no organization name (no phone) 09-18-2014 Patient encounter no information no name (no phone) no organization name (no phone) 04-01-2019 Patient encounter no information (no phone) [facility] (no phone) 03-18-2019 Patient encounter no information no name (no phone) no organization name procedure (no phone) 02-14-2019 Patient encounter no information no name (no phone) no organization name procedure (no phone) 11-17-2018 Patient encounter no information no name (no phone) no organization name procedure (no phone) 09-08-2018 Patient encounter no information no name (no phone) no organization name procedure (no phone) 09-01-2018 Patient encounter no information no name (no phone) no organization name procedure (no phone) 08-30-2018 Patient encounter no information no name (no phone) no organization name procedure (no phone) 08-30-2018 Patient encounter no information no name (no phone) no organization name procedure (no phone) 08-15-2018 Patient encounter no information no name (no phone) no organization name procedure (no phone) 08-15-2018 Patient encounter no information no name (no phone) no organization name procedure (no phone) 08-10-2018 Patient encounter no information no name (no phone) no organization name procedure (no phone) 06-29-2018 Patient encounter no information no name (no phone) no organization name procedure (no phone) 03-24-2018 Patient encounter Encounter for general RADHA RUBEN (no phone) [facility] - procedure adult medical (no phone) 03-24-2018 examination without - abnormal findings 03-24-2018 02-05-2018 Patient encounter no information no name (no phone) no organization name procedure (no phone) 05-16-2017 Patient encounter no information no name (no phone) no organization name procedure (no phone) 04-21-2017 Patient encounter no information no name (no phone) no organization name procedure (no phone) 04-14-2017 Patient encounter no information no name (no phone) no organization name procedure (no phone) 04-07-2017 Patient encounter no information no name (no phone) no organization name procedure (no phone) 03-31-2017 Patient encounter no information no name (no phone) no organization name procedure (no phone) 03-24-2017 Patient encounter no information no name (no phone) no organization name procedure (no phone) 03-17-2017 Patient encounter no information no name (no phone) no organization name procedure (no phone) 03-10-2017 Patient encounter no information no name (no phone) no organization name procedure (no phone) 03-03-2017 Patient encounter no information no name (no phone) no organization name procedure (no phone) 01-27-2017 Patient encounter no information no name (no phone) no organization name procedure (no phone) 01-22-2017 Patient encounter no information no name (no phone) no organization name procedure (no phone) 04-01-2016 Patient encounter no information no name (no phone) no organization name procedure (no phone) 02-12-2016 Patient encounter no information no name (no phone) no organization name procedure (no phone) 07-03-2015 Patient encounter no information no name (no phone) no organization name procedure (no phone) 01-11-2015 Patient encounter no information no name (no phone) no organization name procedure (no phone) 09-18-2014 Patient encounter no information no name (no phone) no organization name procedure (no phone) Patient encounter no information no name (no phone) no organ ization name procedure (no phone) 03-04-2017 PPPS, initial visit no information no name (no phon e) no organization name (no phone) 03-04-2017 PPPS, subseq visit no information no name (no phone ) no organization name (no phone) 09-28-2018 Telephone encounter Type 2 diabetes RADHA RUBEN (no phone) [facility] mellitus with diabetic (no phone) peripheral angiopathy without gangrene 09-02-2018 Telephone encounter no information TYRONE PENN (no [facility] phone) (no phone) 08-18-2018 Telephone encounter Type 2 diabetes RADHA RUBEN (no phone) [facility] mellitus with diabetic (no phone) peripheral angiopathy without gangrene 08-16-2018 Telephone encounter no information RADHA RUBEN (no phone) [facility] (no phone) 07-28-2018 Telephone encounter no information RADHA RUBEN (no phone) [facility] (no phone) 07-26-2018 Telephone encounter no information RADHA RUBEN (no phone) [facility] (no phone) 07-08-2018 Telephone encounter no information RADHA RUBEN (no phone) [facility] (no phone) 06-29-2018 Telephone encounter Polyneuropathy, RADHA RUBEN (no phone) [facility] unspecified (no phone) 06-07-2018 Telephone encounter no information RADHA RUBEN (no phone) [facility] (no phone) 05-25-2018 Telephone encounter no information RADHA RUBEN (no phone) [facility] (no phone) 05-17-2018 Telephone encounter no information RADHA RUBEN (no phone) [facility] (no phone) 04-27-2018 Telephone encounter no information RADHA RUBEN (no phone) [facility] - (no phone) 04-27-2018 - 04-27-2018 04-19-2018 Telephone encounter no information RADHA RUBEN (no phone) [facility] - (no phone) 04-19-2018 - 04-19-2018 04-14-2018 Telephone encounter no information RADHA RUBEN (no phone) [facility] - (no phone) 04-14-2018 - 04-14-2018 03-11-2018 Telephone encounter no information RADHA RUBEN (no phone) [facility] - (no phone) 03-11-2018 - 03-11-2018 03-03-2018 Telephone encounter no information RADHA RUBEN (no phone) [facility] - (no phone) 03-03-2018 - 03-03-2018 03-02-2018 Telephone encounter no information RADHA RUBEN (no phone) [facility] - (no phone) 03-02-2018 - 03-02-2018 01-19-2018 Telephone encounter no information RADHA RUBEN (no phone) [facility] - (no phone) 01-19-2018 - 01-19-2018 12-17-2017 Telephone encounter no information RADHA RUBEN (no phone) [facility] - (no phone) 12-17-2017 - 12-17-2017 12-01-2017 Telephone encounter no information RADHA RUBEN (no phone) [facility] - (no phone) 12-01-2017 - 12-01-2017 11-16-2017 Telephone encounter no information RADHA RUBEN (no phone) [facility] - (no phone) 11-16-2017 - 11-16-2017 11-03-2017 Telephone encounter no information RADHA RUBEN (no phone) [facility] - (no phone) 11-03-2017 - 11-03-2017 10-27-2017 Telephone encounter no information RADHA RUBEN (no phone) [facility] - (no phone) 10-27-2017 - 10-27-2017 10-22-2017 Telephone encounter Type 2 diabetes RADHA RUBEN (no phone) [facility] - mellitus with diabetic (no phone) 10-22-2017 peripheral angiopathy - without gangrene 10-22-2017 10-06-2017 Telephone encounter no information RADHA RUBEN (no phone) [facility] - (no phone) 10-06-2017 - 10-06-2017 no information Encounter for general no name (no phone) no o rganization name adult medical (no phone) examination without abnormal findings Medical Equipment Equipment Code (if Equipment Original Equipment Identifier P rocedure Code (if Dates provided) Text (if provided) (if provided) provided) no information Check blood sugar no information (no no informat ion 08-27-2016 (Glucocard) named assigning authority) no information as directed no information (no no information 0 03-03-2018 named assigning authority) Payers No Information Advance Directives Directive Response Recor ded Date/Time Advance Directives No 5:07pm Resuscitation Status Full Code 06/16/15 5:07pm Directive Response Recor ded Date/Time Advance Directives No 2:28pm Resuscitation Status Full Code 06/23/15 2:28pm Discharge Instructions No hospital discharge instructions.No hospital discharge instructions. Additional Source Comments This clinical document has been generated using [employer] software that has been certified by the Office of the National Coordinator for Health Information Technology (ONC [id number].[id number]) and the National Committee for Records Supervisor (NCQA, as an eMeasure certified technology). FOR RECORDS PERTAINING TO PATIENTS WHO ARE OR HAVE BEEN ENROLLED IN A CHEMICAL D EPENDENCY/SUBSTANCE ABUSE PROGRAM, SOME INFORMATION MAY BE OMITTED. This clinica l summary was aggregated from multiple sources. Caution should be exercised in using it in the provision of clinical care. This summary normalizes information from multiple sources, and as a consequence, information in this document may ma terially change the coding, format and clinical context of patient data. In [place] tion, data may be omitted in some cases. CLINICAL DECISIONS SHOULD BE BASED ON T HE PRIMARY CLINICAL RECORDS. [employer] provides no warranty or guara ntee of the accuracy or completeness of information in this document.The [facility] information is based on time limited clinical information UNRECOGNIZED CONTENT PROVIDED BELOW FOR UNRECOGNIZED SECTION MEDICAL (GENERAL) HISTORY Type Description Date Medical History hypertension Medical History type II diabetes Medical History Arthritis Medical History Dr. Quiroz notes abn ormal CT lungs Micronodules Borderline size 05/2015 noted with trauma work up Surgical History jaw surgery Surgical History tonsillectomy Surgical History Cataract removal bi laterally Surgical History had stint placed in [place]. [place] g 2016 Hospitalization History Surgery(s) only Type Description Date Medical History Dr. Quiroz notes abn ormal CT lungs Micronodules Borderline size 05/2015 noted with trauma work up Medical History Essential hypertension Medical History Varicosities of leg Medical History Hyperlipidemia LDL goal <7 0 Medical History PVD (peripheral vasc ular disease) Medical History Non-pressure chronic ulcer of unspecified part of unspecified lower leg with unspecified severity Medical History Stasis dermatitis of right lower extremity with venous ulcer due to chronic peripheral venous hypertension Medical History Type 2 diabetes thierry itus with diabetic peripheral angiopathy without gangrene Medical History retirement current us e of insulin Medical History Declines Colonoscopy , Denies Influenza Vaccine, Declines Pneumovax and Zostavax Surgical History jaw surgery Surgical History tonsillectomy Surgical History Cataract removal bi laterally Surgical History had stint placed in [place]. [place] g 2016 Surgical History Triple bypass 2017 Hospitalization History Surgery(s) only Type Description Date Medical History Dr. Quiroz notes abn ormal CT lungs Micronodules Borderline size 05/2015 noted with trauma work up Medical History Essential hypertension Medical History Varicosities of leg Medical History Hyperlipidemia LDL g oal < 70 Medical History PVD (peripheral vasc ular disease) Medical History Non-pressure chronic ulcer of unspecified part of unspecified lower leg with unspecified severity Medical History Stasis dermatitis of right lower extremity with venous ulcer due to chronic peripheral venous hypertension Medical History Type 2 diabetes thierry itus with diabetic peripheral angiopathy without gangrene Medical History retirement current us e of insulin Medical History Declines Colonoscopy , Denies Influenza Vaccine, Declines Pneumovax and Zostavax Surgical History jaw surgery Surgical History tonsillectomy Surgical History Cataract removal bi laterally Surgical History had stint placed in L. le g 2016 Surgical History Triple bypass 2017 Hospitalization History Surgery(s) only UNRECOGNIZED CONTENT PROVIDED BELOW FOR UNRECOGNIZED SECTION REASON FOR VISIT Establish Care-AHarrympriceRN, CHM follow up, wants a couple spots on skin looked a tDM ed declined- add bolus insulin?cryo spots on cheek--tcuppettRN, consent sign edBS f/uBS f/uBS f/uBS f/uBS f/u attemptBS f/uBS f/uHypertension K Leanne Baker requestSamples
--- OUTSIDE RECORDS SUMMARY | 2019-05-12 06:28 | XMS REPORT ---
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 Active 758604783 Problem Stasis dermatitis of right l ower extremity with venous ulcer due to chronic peripheral venous hypertension I87.331 Ac tive 985073133680340 Problem Non-pressure chronic ulcer o f unspecified part of unspecified lower leg with unspecified severity L97.909 Active 26 0593827 Problem Type 2 diabetes mellitus wit h diabetic peripheral angiopathy without gangrene E11.51 Active 499391341 Problem Intermittent claudication I73.9 Acti ve 72304589 Problem 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 32587756 Problem Pain in left knee M25.562 Active 30 947887 Problem Hyperlipidemia LDL goal <70 E78.5 Ac tive 22371116 Problem Pain in right knee M25.561 Active 3 7552601 ALLERGIES No Information ENCOUNTERS Encounter Location Date Diagnosis [facility] [address] [facility] [id number] [address] [place] [phone] Oct, [facility] [address] [facility] [id number] [address] [place] [phone] Oct, [facility] [address] [facility] [id number] [address] [place] [phone] Oct, [place] [id number] [place] [phone] Sep, Type 2 diabetes mellitus wit h diabetic peripheral angiopathy without gangrene E11.51 [place] [address] [place] [id number] [address] [place] [phone] Sep, [place] [address] [place] [id number] [place] [phone] Sep, Actinic keratosis L57.0 [place] [address] [place] [id number] [place] [phone] Aug, Type 2 diabetes mellitus wit h diabetic peripheral angiopathy without gangrene E11.51 ; Essential hypertension I10 ; PVD (peripheral vascular disease) I73.9 and Intermittent claudication I73.[address] [phone] May, [address] [phone] May, Establishing care with carlos martins, encounter for Z76.89 ; Essential hypertension I10 ; Type 2 diabetes mellitus with diabetic peripheral angiopathy without gangrene E11.51 ; 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 ; Hyperlipidemia LDL goal <70 E78.5 ; PVD (peripheral vascular disease) I73.9 ; 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 ; Intermittent claudication I73.9 ; Other chronic pain G89.29 and Lumbago with sciatica, left side M54.42 [place] [address] [address] [place] [id number] [address] [place] [phone] Feb, [address] [address] Feb, Medicare annual wellness vis it, subsequent Z00.00 ; Essential hypertension I10 ; 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 ; Hyperlipidemia LDL goal <70 E78.5 ; PVD (peripheral vascular disease) I73.9 ; Non-pressure chronic ulcer of unspecified part of unspecified lower leg with unspecified severity L97.909 ; Stasis dermatitis of right lower extremity with venous ulcer due to chronic peripheral venous hypertension I87.331 ; Type 2 diabetes mellitus with diabetic peripheral angiopathy without gangrene E11.51 and S/P CABG x 4 Z95.1 [facility] [address] [id number] [address] [place] [phone] 18 Jan, 2017 [facility] [address] [id number] [address] [place] [phone] Jan, Type 2 diabetes mellitus wit hout complication, without long-term current use of insulin E11.9 [facility] [address] [id number] [address] [place] [phone] Jan, [facility] [address] [facility] [id number] [address] [place] [phone] Jan, Type 2 diabetes mellitus wit hout complication, without long-term current use of insulin E11.9 [facility] [address] [facility] [id number] [address] [place] [phone] Dec, Type 2 diabetes mellitus wit hout complication, without long-term current use of insulin E11.9 [facility] [address] [id number] [address] [place] [phone] Dec, [facility] [address] [id number] [address] [place] [phone] Dec, Stasis dermatitis of right l ower extremity with venous ulcer due to chronic peripheral venous hypertension I87.331 ; Type 2 diabetes mellitus with diabetic peripheral angiopathy without gangrene E11.51 and 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 [facility] [address] [id number] [address] [place] [phone] Dec, Non-pressure chronic ulcer o f unspecified part of unspecified lower leg with unspecified severity L97.909 and Type 2 diabetes mellitus with other skin ulcer E11.622 [facility] [address] [id number] [address] [place] [phone] Dec, Type 2 diabetes mellitus wit hout complication, without long-term current use of insulin E11.9 [facility] [address] [id number] [address] [place] [phone] Dec, [facility] [address] [id number] [address] [place] [phone] Dec, Type 2 diabetes mellitus wit hout complication, without long-term current use of insulin E11.9 [facility] [address] [id number] [address] [place] [phone] Dec, Type 2 diabetes mellitus wit hout complication, without long-term current use of insulin E11.9 and Essential hypertension I10 [facility] [address] [id number] [address] [place] [phone] Nov, Type 2 diabetes mellitus wit hout complication, without long-term current use of insulin E11.9 [facility] [address] [id number] [address] [place] [phone] Nov, [facility] [address] [id number] [address] [place] [phone] Nov, [facility] [address] [id number] [address] [place] [phone] Nov, Type 2 diabetes mellitus wit hout complication, without long-term current use of insulin E11.9 [facility] [address] [id number] [address] [place] [phone] Nov, [facility] [address] [id number] [address] [place] [phone] Nov, [facility] [address] [id number] [address] [place] [phone] Nov, Type 2 diabetes mellitus wit hout complication, without long-term current use of insulin E11.9 [facility] [address] [id number] [address] [place] [phone] Oct, Type 2 diabetes mellitus wit hout complication, without long-term current use of insulin E11.9 [facility] [address] [id number] [address] [place] [phone] Oct, [facility] [address] [facility] [id number] [address] [place] [phone] Oct, Type 2 diabetes mellitus wit hout complication, without long-term current use of insulin E11.9 [facility] [address] [place] [id number] [address] [place] [phone] Oct, Essential hypertension I10 [facility] [address] [facility] [id number] [address] [place] [phone] Oct, Essential hypertension I10 a nd Type 2 diabetes mellitus without complication, without long-term current use of insulin E11.9 [place] [address] [facility] [id number] [address] [place] [phone] Oct, [place] [address] [place] [id number] [address] [place] [phone] Sep, Essential hypertension I10 ; Type 2 diabetes mellitus without complication, without long-term current use of insulin E11.9 ; Pain in right knee M25.561 ; Pain in left knee M25.562 and PVD (peripheral vascular disease) I73.9 [place] [address] [place] [id number] [address] [place] [phone] Sep, [facility] [address] [place] [id number] [address] [place] [phone] Aug, [facility] [address] [facility] [id number] [address] [place] [phone] Jul, Type 2 diabetes mellitus wit hout complication, without long-term current use of insulin E11.9 [facility] [address] [facility] [id number] [address] [place] [phone] Jul, Gastroenteritis and colitis, viral A08.4 [facility] [address] [facility] [id number] [address] [place] [phone] June, Type 2 diabetes mellitus wit hout complication, without long-term current use of insulin E11.9 [facility] [address] [place] [id number] [address] [place] [phone] June, Essential hypertension I10 ; Type 2 diabetes mellitus without complication, without long-term current use of insulin E11.9 ; Pain in right knee M25.561 ; Pain in left knee M25.562 ; 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 and PVD (peripheral vascular disease) I73.9 [place] [address] [place] [id number] [address] [place] [phone] May, [place] [address] [place] [id number] [place] [phone] Apr, [place] [address] [phone] Mar, [place] [address] [place] [id number] [place] [phone] Mar, 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 [place] [address] [place] [id number] [place] [phone] Mar, Essential hypertension I10 ; Type 2 diabetes mellitus without complication, without long-term current use of insulin E11.9 ; Pain in right knee M25.561 ; Pain in left knee M25.562 and 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 Quiroz notes abnormal CT lungs Micronodules Borderline size 05/2015 noted with trauma work up Medical History Essential hypertension Medical History Varicosities of leg Medical History Hyperlipidemia LDL goal <70 Medical History PVD (peripheral vascular disease) Medical History Non-pressure chronic ulcer o f unspecified part of unspecified lower leg with unspecified severity Medical History Stasis dermatitis of right l ower extremity with venous ulcer due to chronic peripheral venous hypertension Medical History Type 2 diabetes mellitus wit h diabetic peripheral angiopathy without gangrene Medical History senior care current use of insulin Medical History Declines Colonoscopy, Denies Influenza Vaccine, Declines Pneumovax and Zostavax Surgical History jaw surgery Surgical History tonsillectomy Surgical History Cataract removal bilaterally Surgical History had stint placed in L. leg 2016 Surgical History Triple bypass 2017 Hospitalization History Surgery(s) only
--- OUTSIDE RECORDS SUMMARY | 2019-05-12 06:28 | XMS REPORT ---
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 07829031 Problem PVD (peripheral vascular disease) I73.9 Active 824194594 Problem Stasis dermatitis of right l ower extremity with venous ulcer due to chronic peripheral venous hypertension I87.331 Ac tive [id number] Problem Lumbago with sciatica, left side M54.42 Active 31244902 Problem Other chronic pain G89.29 Active 8 6152358 Problem Neuropathy G62.9 Active 382919891 Problem Pain in right knee M25.561 Active 3 6396360 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 Active 436217478 Problem Type 2 diabetes mellitus wit h diabetic peripheral angiopathy without gangrene E11.51 Active 219746656 Problem Non-pressure chronic ulcer o f unspecified part of unspecified lower leg with unspecified severity L97.909 Active 26 3625930 Problem S/P CABG x 4 Z95.1 Active 7652358 00 ALLERGIES No Information ENCOUNTERS Encounter Location Date Diagnosis [facility] [address] [facility] [id number] [address] [place] [id number] Oct, [facility] [address] [facility] [id number] [address] [place] [id number] Sep, Type 2 diabetes mellitus wit h diabetic peripheral angiopathy without gangrene E11.51 [facility] [address] [id number] [address] [place] [address] Aug, [facility] [address] [facility] [id number] [address] [place] [address] Aug, [facility] [address] [id number] [address] [place] [phone] Aug, [facility] [address] [facility] [id number] [address] [place] [address] Aug, Paronychia of finger of left hand L03.012 [facility] [address] [facility] [id number] [address] [place] [id number] Jul, Type 2 diabetes mellitus wit h diabetic peripheral angiopathy without gangrene E11.51 [facility] [address] [facility] [id number] [address] [place] [phone] Jul, [facility] [address] [facility] [id number] [address] [place] [address] Jul, Relationship problem between partners Z63.0 [facility] [address] [facility] [id number] [address] [place] [id number] Jul, [facility] [address] [facility] [id number] [address] [place] [id number] Jul, [facility] [address] [facility] [id number] [address] [place] [phone] June, [facility] [address] [facility] [id number] [address] [place] [address] June, Neuropathy G62.9 [facility] [address] [facility] [id number] [address] [place] [address] June, Type 2 diabetes mellitus wit h diabetic peripheral angiopathy without gangrene E11.51 ; Essential hypertension I10 ; Hyperlipidemia LDL goal <70 E78.5 ; Other chronic pain G89.29 and Neuropathy G62.9 [facility] [address] [facility] [id number] [address] [place] [address] May, [facility] [address] [id number] [address] [place] [address] May, [facility] [address] [id number] [address] [place] [address] Apr, [facility] [address] [id number] [address] [place] [id number] Apr, [facility] [address] [id number] [address] [place] [address] Mar, [facility] [address] [id number] [address] [place] [id number] Mar, [facility] [address] [id number] [address] [place] [id number] Feb, Encounter for Medicare annua l wellness exam Z00.00 ; Type 2 diabetes mellitus with diabetic peripheral angiopathy without gangrene E11.51 ; Hyperlipidemia LDL goal <70 E78.5 ; PVD (peripheral vascular disease) I73.9 ; Essential hypertension I10 and Stasis dermatitis of right lower extremity with venous ulcer due to chronic peripheral venous hypertension I87.331 [facility] [address] [id number] [address] [place] [id number] 17 Feb, 2018 [facility] [address] [id number] [address] [place] [phone] Feb, [facility] [address] [id number] [address] [place] [address] Feb, [facility] [address] [id number] [address] [place] [id number] Jan, Type 2 diabetes mellitus wit h diabetic peripheral angiopathy without gangrene E11.51 ; Essential hypertension I10 and PVD (peripheral vascular disease) I73.9 [facility] [address] [id number] [address] [place] [phone] Dec, [facility] [address] [id number] [address] [place] [phone] Nov, [facility] [address] [id number] [address] [place] [id number] Nov, [facility] [address] [id number] [address] [place] [address] Oct, [facility] [address] [id number] [address] [place] [address] Oct, [facility] [address] [id number] [address] [place] [address] Oct, [facility] [address] [id number] [address] [place] [address] Sep, Type 2 diabetes mellitus wit h diabetic peripheral angiopathy without gangrene E11.51 [facility] [address] [facility] [id number] [address] [place] [address] Sep, [facility] [address] [facility] [id number] [address] [place] [address] Sep, Actinic keratosis L57.0 [facility] [address] [id number] [address] [place] [address] Aug, Type 2 diabetes mellitus wit h diabetic peripheral angiopathy without gangrene E11.51 ; Essential hypertension I10 ; PVD (peripheral vascular disease) I73.9 and Intermittent claudication I73.9 [facility] [address] [facility] [id number] [address] [place] [address] May, [facility] [address] [facility] [id number] [address] [place] [address] May, Establishing care with carlos martins, encounter for Z76.89 ; Essential hypertension I10 ; Type 2 diabetes mellitus with diabetic peripheral angiopathy without gangrene E11.51 ; 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 ; Hyperlipidemia LDL goal <70 E78.5 ; PVD (peripheral vascular disease) I73.9 ; assisted current use of insulin Z79.4 ; Intermittent claudication I73.9 ; Other chronic pain G89.29 and Lumbago with sciatica, left side M54.42 [facility] [address] [id number] [address] [place] [address] Feb, [facility] [address] [facility] [id number] [address] [place] [phone] Feb, Medicare annual wellness vis it, subsequent [...] E11.51 and S/P CABG x 4 Z95.1 [facility] [address] [id number] [address] [place] [id number] 18 Jan, 2017 [facility] [address] [facility] [id number] [address] [place] [address] Jan, Type 2 diabetes mellitus wit hout complication, without long-term current use of insulin E11.9 [facility] [address] [id number] [address] [place] [id number] 06 Jan, 2017 [facility] [address] [facility] [id number] [address] [place] [address] Jan, Type 2 diabetes mellitus wit hout complication, without long-term current use of insulin E11.9 [facility] [address] [id number] [address] [place] [address] Dec, Type 2 diabetes mellitus wit hout complication, without long-term current use of insulin E11.9 [facility] [address] [id number] [address] [place] [address] Dec, [facility] [address] [facility] [id number] [address] [place] [address] Dec, Stasis dermatitis of right l ower extremity with venous ulcer due to chronic peripheral venous hypertension I87.331 ; Type 2 diabetes mellitus with diabetic peripheral angiopathy without gangrene E11.51 and 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 [facility] [address] [id number] [address] [place] [address] Dec, Non-pressure chronic ulcer o f unspecified part of unspecified lower leg with unspecified severity L97.909 and Type 2 diabetes mellitus with other skin ulcer E11.622 [facility] [address] [id number] [address] [place] [address] Dec, Type 2 diabetes mellitus wit hout complication, without long-term current use of insulin E11.9 [facility] [address] [id number] [address] [place] [id number] Dec, [facility] [address] [id number] [address] [place] [id number] Dec, Type 2 diabetes mellitus wit hout complication, without long-term current use of insulin E11.9 [facility] [address] [id number] [address] [place] [address] Dec, Type 2 diabetes mellitus wit hout complication, without long-term current use of insulin E11.9 and Essential hypertension I10 [facility] [address] [id number] [address] [place] [address] Nov, Type 2 diabetes mellitus wit hout complication, without long-term current use of insulin E11.9 [facility] [address] [id number] [address] [place] [address] Nov, [facility] [address] [id number] [address] [place] [address] Nov, [facility] [address] [id number] [address] [place] [id number] Nov, Type 2 diabetes mellitus wit hout complication, without long-term current use of insulin E11.9 [facility] [address] [id number] [address] [place] [address] Nov, [facility] [address] [id number] [address] [place] [address] Nov, [facility] [address] [id number] [address] [place] [address] Nov, Type 2 diabetes mellitus wit hout complication, without long-term current use of insulin E11.9 [facility] [address] [id number] [address] [place] [address] Oct, Type 2 diabetes mellitus wit hout complication, without long-term current use of insulin E11.9 [facility] [address] [id number] [address] [place] [address] Oct, [facility] [address] [id number] [address] [place] [id number] Oct, Type 2 diabetes mellitus wit hout complication, without long-term current use of insulin E11.9 [facility] [place] [address] [id number] [address] [place] [address] Oct, Essential hypertension I10 [facility] [address] [id number] [address] [place] [address] Oct, Essential hypertension I10 a nd Type 2 diabetes mellitus without complication, without long-term current use of insulin E11.9 [place] [place] [address] [id number] [address] [place] [address] Oct, [facility] [address] [id number] [address] [place] [address] Sep, Essential hypertension I10 ; Type 2 diabetes mellitus without complication, without long-term current use of insulin E11.9 ; Pain in right knee M25.561 ; Pain in left knee M25.562 and PVD (peripheral vascular disease) I73.9 [facility] [address] [id number] [address] [place] [id number] Sep, [facility] [address] [id number] [address] [place] [id number] Aug, [facility] [address] [id number] [address] [place] [id number] Jul, Type 2 diabetes mellitus wit hout complication, without long-term current use of insulin E11.9 [facility] [address] [place] [id number] [address] [place] [address] Jul, Gastroenteritis and colitis, viral A08.4 [facility] [address] [place] [id number] [address] [place] [address] June, Type 2 diabetes mellitus wit hout complication, without long-term current use of insulin E11.9 [facility] [address] [facility] [id number] [address] [place] [address] June, Essential hypertension I10 ; Type 2 diabetes mellitus without complication, without long-term current use of insulin E11.9 ; Pain in right knee M25.561 ; Pain in left knee M25.562 ; 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 and PVD (peripheral vascular disease) I73.9 [facility] [id number] [place] [address] May, [facility] [address] [place] [id number] [address] [place] [address] Apr, [facility] [address] [place] [id number] [address] [place] [address] Mar, [facility] [address] [place] [id number] [address] [place] [address] Mar, 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 [facility] [address] [place] [id number] [address] [place] [address] Mar, Essential hypertension I10 ; Type 2 diabetes mellitus without complication, without long-term current use of insulin E11.9 ; Pain in right knee M25.561 ; Pain in left knee M25.562 and 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 Quiroz notes abnormal CT lungs Micronodules Borderline size 05/2015 noted with trauma work up Medical History Essential hypertension Medical History Varicosities of leg Medical History Hyperlipidemia LDL goal < 70 Medical History PVD (peripheral vascular disease) Medical History Non-pressure chronic ulcer o f unspecified part of unspecified lower leg with unspecified severity Medical History Stasis dermatitis of right l ower extremity with venous ulcer due to chronic peripheral venous hypertension Medical History Type 2 diabetes mellitus wit h diabetic peripheral angiopathy without gangrene Medical History 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 leg 2016 Surgical History Triple bypass 2017 Hospitalization History Surgery(s) only
--- OUTSIDE RECORDS SUMMARY | 2019-05-12 06:28 | XMS REPORT ---
Author Author KING Mychal RADHA [facility] Address [address] [place] [address] Care Team Providers Care Temporary Data Entry Clerk Name Role Phone RADHA MIRANDA Unavailable PROBLEMS Type Condition ICD9-CM Code [id number] Code Onset Dates Condition S tatus SNOMED Code Problem Other chronic pain G89.29 Active 8 4702319 Problem PVD (peripheral vascular disease) I73.9 Active 163410854 Problem Essential hypertension I10 Active 49272140 Problem Lumbago with sciatica, left side M54.42 Active 77039713 Problem S/P CABG x 4 Z95.1 Active 2862115 00 Problem terminal carman current use of insulin Z79.4 Active 374285607 Problem Stasis dermatitis of right l ower extremity with venous ulcer due to chronic peripheral venous hypertension I87.331 Ac tive 289740674352958 Problem Non-pressure chronic ulcer o f unspecified part of unspecified lower leg with unspecified severity L97.909 Active 26 7777645 Problem Type 2 diabetes mellitus wit h diabetic peripheral angiopathy without gangrene E11.51 Active 753209670 Problem Intermittent claudication I73.9 Acti ve 31624384 Problem 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 51618197 Problem Pain in left knee M25.562 Active 30 998799 Problem Hyperlipidemia LDL goal <70 E78.5 Ac tive 11077362 Problem Pain in right knee M25.561 Active 3 0715233 ALLERGIES No Information ENCOUNTERS Encounter Location Date Diagnosis [facility] [address] [facility] [id number] [address] [place] [phone] Jan, [facility] [address] [facility] [id number] [address] [place] [phone] Dec, [facility] [address] [facility] [id number] [address] [place] [phone] Nov, [place] [id number] [facility] [id number] [address] [place] [phone] Nov, [facility] [address] [facility] [id number] [address] [place] [phone] Oct, [facility] [address] [facility] [id number] [address] [place] [id number] Oct, [place] [address] [facility] [id number] [address] [place] [phone] Oct, [place] [address] [facility] [id number] [address] [place] [phone] Sep, Type 2 diabetes mellitus wit h diabetic peripheral angiopathy without gangrene E11.51 [place] [address] [facility] [id number] [address] [place] [phone] Sep, [place] [address] [facility] [id number] [address] [place] [phone] Sep, Actinic keratosis L57.0 [place] [address] [facility] [id number] [address] [place] [phone] Aug, Type 2 diabetes mellitus wit h diabetic peripheral angiopathy without gangrene E11.51 ; Essential hypertension I10 ; PVD (peripheral vascular disease) I73.9 and Intermittent claudication I73.9 [place] [address] [facility] [id number] [address] [place] [phone] May, [place] [address] [facility] [id number] [address] [place] [phone] May, Establishing care with carlos martins, encounter for Z76.89 ; Essential hypertension I10 ; Type 2 diabetes mellitus with diabetic peripheral angiopathy without gangrene E11.51 ; 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 ; Hyperlipidemia LDL goal <70 E78.5 ; PVD (peripheral vascular disease) I73.9 ; correction current use of insulin Z79.4 ; Intermittent claudication I73.9 ; Other chronic pain G89.29 and Lumbago with sciatica, left side M54.42 [place] [address] [facility] [id number] [address] [place] [phone] Feb, [place] [address] [facility] [id number] [address] [place] [phone] Feb, Medicare annual wellness vis it, subsequent [...] E11.51 and S/P CABG x 4 Z95.1 [place] [address] [facility] [id number] [address] [place] [phone] Jan, [place] [address] [facility] [id number] [address] [place] [phone] Jan, Type 2 diabetes mellitus wit hout complication, without long-term current use of insulin E11.9 [place] [address] [id number] [address] [place] [phone] Jan, [place] [address] [facility] [id number] [address] [place] [phone] Jan, Type 2 diabetes mellitus wit hout complication, without long-term current use of insulin E11.9 [place] [address] [id number] [address] [place] [address] Dec, Type 2 diabetes mellitus wit hout complication, without long-term current use of insulin E11.9 [place] [address] [id number] [address] [place] [phone] Dec, [place] [address] [facility] [id number] [address] [place] [phone] Dec, Stasis dermatitis of right l ower extremity with venous ulcer due to chronic peripheral venous hypertension I87.331 ; Type 2 diabetes mellitus with diabetic peripheral angiopathy without gangrene E11.51 and correction current use of insulin Z79.4 [facility] [address] [id number] [address] [place] [phone] Dec, Non-pressure chronic ulcer o f unspecified part of unspecified lower leg with unspecified severity L97.909 and Type 2 diabetes mellitus with other skin ulcer E11.622 [facility] [address] [id number] [address] [place] [phone] Dec, Type 2 diabetes mellitus wit hout complication, without long-term current use of insulin E11.9 [facility] [address] [id number] [address] [place] [phone] Dec, [facility] [address] [id number] [address] [place] [phone] Dec, Type 2 diabetes mellitus wit hout complication, without long-term current use of insulin E11.9 [facility] [address] [id number] [address] [place] [phone] Dec, Type 2 diabetes mellitus wit hout complication, without long-term current use of insulin E11.9 and Essential hypertension I10 [facility] [address] [id number] [address] [place] [phone] Nov, Type 2 diabetes mellitus wit hout complication, without long-term current use of insulin E11.9 [facility] [address] [id number] [address] [place] [phone] Nov, [facility] [address] [id number] [address] [place] [phone] Nov, [facility] [address] [id number] [address] [place] [phone] Nov, Type 2 diabetes mellitus wit hout complication, without long-term current use of insulin E11.9 [facility] [address] [id number] [address] [place] [phone] Nov, [facility] [address] [id number] [address] [place] [phone] Nov, [facility] [address] [id number] [address] [place] [phone] Nov, Type 2 diabetes mellitus wit hout complication, without long-term current use of insulin E11.9 [facility] [address] [id number] [address] [place] [address] Oct, Type 2 diabetes mellitus wit hout complication, without long-term current use of insulin E11.9 [facility] [address] [id number] [address] [place] [phone] Oct, [facility] [address] [id number] [address] [place] [phone] Oct, Type 2 diabetes mellitus wit hout complication, without long-term current use of insulin E11.9 [facility] [address] [id number] [address] [place] [phone] Oct, Essential hypertension I10 [facility] [address] [id number] [address] [place] [phone] Oct, Essential hypertension I10 a nd Type 2 diabetes mellitus without complication, without long-term current use of insulin E11.9 [facility] [address] [id number] [address] [place] [phone] Oct, [facility] [address] [id number] [address] [place] [phone] Sep, Essential hypertension I10 ; Type 2 diabetes mellitus without complication, without long-term current use of insulin E11.9 ; Pain in right knee M25.561 ; Pain in left knee M25.562 and PVD (peripheral vascular disease) I73.9 [facility] [address] [id number] [address] [place] [phone] Sep, [facility] [address] [id number] [address] [place] [phone] Aug, [facility] [address] [id number] [address] [place] [phone] Jul, Type 2 diabetes mellitus wit hout complication, without long-term current use of insulin E11.9 [facility] [address] [facility] [id number] [address] [place] [phone] Jul, Gastroenteritis and colitis, viral A08.4 [facility] [address] [facility] [id number] [address] [place] [phone] June, Type 2 diabetes mellitus wit hout complication, without long-term current use of insulin E11.9 [facility] [address] [facility] [id number] [address] [place] [phone] June, Essential hypertension I10 ; Type 2 diabetes mellitus without complication, without long-term current use of insulin E11.9 ; Pain in right knee M25.561 ; Pain in left knee M25.562 ; 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 and PVD (peripheral vascular disease) I73.9 [facility] [address] [facility] [id number] [address] [place] [address] May, [facility] [address] [id number] [address] [place] [phone] Apr, [place] [address] [facility] [id number] [address] [place] [phone] Mar, [facility] [address] [facility] [id number] [address] [place] [phone] Mar, 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 [facility] [address] [facility] [id number] [address] [place] [address] Mar, Essential hypertension I10 ; Type 2 diabetes mellitus without complication, without long-term current use of insulin E11.9 ; Pain in right knee M25.561 ; Pain in left knee M25.562 and 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 [facility] [address] [facility] [id number] [address] [place] [phone] Feb, IMMUNIZATIONS No Known Immunizations SOCIAL HISTORY Never Assessed REASON FOR VISIT BS f/u PLAN OF CARE VITAL SIGNS MEDICATIONS Unknown Medications RESULTS No Results PROCEDURES No Known procedures [...] diabetic peripheral angiopathy without gangrene Medical History terminal carman current use of insulin Medical History Declines Colonoscopy, Denies Influenza Vaccine, Declines Pneumovax and Zostavax Surgical History jaw surgery Surgical History tonsillectomy Surgical History Cataract removal bilaterally Surgical History had stint placed in L. leg 2016 Surgical History Triple bypass 2017 Hospitalization History Surgery(s) only
--- OUTSIDE RECORDS SUMMARY | 2019-05-12 06:28 | XMS REPORT ---
Author Author KING Mychal RADHA Organization [facility] Address [address] [place] [address] Care Team Providers Care Machine Tool Technology Instructor Name Role Phone RADHA MIRANDA Unavailable PROBLEMS Type Condition ICD9-CM Code JFM56-EN Code Onset Dates Condition S tatus SNOMED Code Problem Other chronic pain G89.29 Active 8 1169161 Problem PVD (peripheral vascular disease) I73.9 Active 759675140 Problem Essential hypertension I10 Active 30278659 Problem Lumbago with sciatica, left side M54.42 Active 32943374 Problem S/P CABG x 4 Z95.1 Active 3808800 00 Problem intermediate card tender current use of insulin Z79.4 Active 140494081 Problem Stasis dermatitis of right l ower extremity with venous ulcer due to chronic peripheral venous hypertension I87.331 Ac tive 425938460465922 Problem Non-pressure chronic ulcer o f unspecified part of unspecified lower leg with unspecified severity L97.909 Active 26 1922845 Problem Type 2 diabetes mellitus wit h diabetic peripheral angiopathy without gangrene E11.51 Active 312718116 Problem Intermittent claudication I73.9 Acti ve 80135252 Problem 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 26480191 Problem Pain in left knee M25.562 Active 30 801117 Problem Hyperlipidemia LDL goal <70 E78.5 Ac tive 13061452 Problem Pain in right knee M25.561 Active 3 2807958 ALLERGIES No Information ENCOUNTERS Encounter Location Date Diagnosis [facility] [address] [facility] [id number] [address] [place] [phone] Oct, [facility] [address] [facility] [id number] [address] [place] [phone] Oct, [facility] [address] [facility] [id number] [address] [place] [phone] Oct, [place] [id number] [place] [phone] Sep, Type 2 diabetes mellitus wit h diabetic peripheral angiopathy without gangrene E11.51 [place] [address] [place] [id number] [address] [place] [phone] Sep, [place] [address] [place] [id number] [place] [address] Sep, Actinic keratosis L57.0 [place] [address] [address] [place] [id number] [place] [phone] Aug, Type 2 diabetes mellitus wit h diabetic peripheral angiopathy without gangrene E11.51 ; Essential hypertension I10 ; PVD (peripheral vascular disease) I73.9 and Intermittent claudication I73.[address] [address] May, [address] [address] May, Establishing care with carlos martins, encounter for Z76.89 ; Essential hypertension I10 ; Type 2 diabetes mellitus with diabetic peripheral angiopathy without gangrene E11.51 ; 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 ; Hyperlipidemia LDL goal <70 E78.5 ; PVD (peripheral vascular disease) I73.9 ; intermediate card tender current use of insulin Z79.4 ; Intermittent claudication I73.9 ; Other chronic pain G89.29 and Lumbago with sciatica, left side M54.42 [place] [address] [address] [place] [id number] [address] [place] [address] Feb, [address] [address] Feb, Medicare annual wellness vis it, subsequent [...] E11.51 and S/P CABG x 4 Z95.1 [facility] [address] [id number] [address] [place] [phone] 18 Jan, 2017 [facility] [address] [id number] [address] [place] [phone] Jan, Type 2 diabetes mellitus wit hout complication, without long-term current use of insulin E11.9 [facility] [address] [id number] [address] [place] [phone] Jan, [facility] [address] [facility] [id number] [address] [place] [phone] Jan, Type 2 diabetes mellitus wit hout complication, without long-term current use of insulin E11.9 [facility] [address] [facility] [id number] [address] [place] [address] Dec, Type 2 diabetes mellitus wit hout complication, without long-term current use of insulin E11.9 [facility] [address] [id number] [address] [place] [phone] Dec, [facility] [address] [id number] [address] [place] [phone] Dec, Stasis dermatitis of right l ower extremity with venous ulcer due to chronic peripheral venous hypertension I87.331 ; Type 2 diabetes mellitus with diabetic peripheral angiopathy without gangrene E11.51 and intermediate card tender current use of insulin Z79.4 [facility] [address] [id number] [address] [place] [address] Dec, Non-pressure chronic ulcer o f unspecified part of unspecified lower leg with unspecified severity L97.909 and Type 2 diabetes mellitus with other skin ulcer E11.622 [facility] [address] [id number] [address] [place] [phone] Dec, Type 2 diabetes mellitus wit hout complication, without long-term current use of insulin E11.9 [facility] [address] [id number] [address] [place] [phone] Dec, [facility] [address] [id number] [address] [place] [phone] Dec, Type 2 diabetes mellitus wit hout complication, without long-term current use of insulin E11.9 [facility] [address] [id number] [address] [place] [phone] Dec, Type 2 diabetes mellitus wit hout complication, without long-term current use of insulin E11.9 and Essential hypertension I10 [facility] [address] [id number] [address] [place] [phone] Nov, Type 2 diabetes mellitus wit hout complication, without long-term current use of insulin E11.9 [facility] [address] [id number] [address] [place] [phone] Nov, [facility] [address] [id number] [address] [place] [phone] Nov, [facility] [address] [id number] [address] [place] [phone] Nov, Type 2 diabetes mellitus wit hout complication, without long-term current use of insulin E11.9 [facility] [address] [id number] [address] [place] [phone] Nov, [facility] [address] [id number] [address] [place] [phone] Nov, [facility] [address] [id number] [address] [place] [address] Nov, Type 2 diabetes mellitus wit hout complication, without long-term current use of insulin E11.9 [facility] [address] [id number] [address] [place] [phone] Oct, Type 2 diabetes mellitus wit hout complication, without long-term current use of insulin E11.9 [facility] [address] [id number] [address] [place] [phone] Oct, [facility] [address] [facility] [id number] [address] [place] [phone] Oct, Type 2 diabetes mellitus wit hout complication, without long-term current use of insulin E11.9 [facility] [address] [place] [id number] [address] [place] [phone] Oct, Essential hypertension I10 [facility] [address] [facility] [id number] [address] [place] [address] Oct, Essential hypertension I10 a nd Type 2 diabetes mellitus without complication, without long-term current use of insulin E11.9 [place] [address] [facility] [id number] [address] [place] [phone] Oct, [place] [address] [place] [id number] [address] [place] [address] Sep, Essential hypertension I10 ; Type 2 diabetes mellitus without complication, without long-term current use of insulin E11.9 ; Pain in right knee M25.561 ; Pain in left knee M25.562 and PVD (peripheral vascular disease) I73.9 [place] [address] [address] [place] [id number] [address] [place] [phone] Sep, [facility] [address] [place] [id number] [address] [place] [phone] Aug, [facility] [address] [facility] [id number] [address] [place] [phone] Jul, Type 2 diabetes mellitus wit hout complication, without long-term current use of insulin E11.9 [facility] [address] [facility] [id number] [address] [place] [phone] Jul, Gastroenteritis and colitis, viral A08.4 [facility] [address] [facility] [id number] [address] [place] [phone] June, Type 2 diabetes mellitus wit hout complication, without long-term current use of insulin E11.9 [facility] [address] [place] [id number] [address] [place] [address] June, Essential hypertension I10 ; Type 2 diabetes mellitus without complication, without long-term current use of insulin E11.9 ; Pain in right knee M25.561 ; Pain in left knee M25.562 ; 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 and PVD (peripheral vascular disease) I73.9 [place] [address] [place] [id number] [address] [place] [address] May, [place] [address] [place] [id number] [place] [address] Apr, [place] [address] [place] [id number] [place] [phone] Mar, [place] [address] [place] [id number] [place] [address] Mar, 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 [place] [address] [place] [id number] [address] [place] [address] Mar, Essential hypertension I10 ; Type 2 diabetes mellitus without complication, without long-term current use of insulin E11.9 ; Pain in right knee M25.561 ; Pain in left knee M25.562 and 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 leg 2016 Surgical History Triple bypass 2017 Hospitalization History Surgery(s) only
--- OUTSIDE RECORDS SUMMARY | 2019-05-12 06:28 | XMS REPORT ---
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 Active 966587861 Problem Stasis dermatitis of right l ower extremity with venous ulcer due to chronic peripheral venous hypertension I87.331 Ac tive 342939685590543 Problem Non-pressure chronic ulcer o f unspecified part of unspecified lower leg with unspecified severity L97.909 Active 26 0950211 Problem Type 2 diabetes mellitus wit h diabetic peripheral angiopathy without gangrene E11.51 Active 515788425 Problem Intermittent claudication I73.9 Acti ve 75947351 Problem 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 29226745 Problem Pain in left knee M25.562 Active 30 521106 Problem Hyperlipidemia LDL goal <70 E78.5 Ac tive 48558458 Problem Pain in right knee M25.561 Active 3 1714911 ALLERGIES No Information ENCOUNTERS Encounter Location Date Diagnosis [facility] [address] [facility] [id number] [address] [place] [id number] Oct, [facility] [address] [facility] [id number] [address] [place] [phone] Oct, [facility] [address] [facility] [id number] [address] [place] [phone] Oct, [place] [address] [id number] [place] [phone] Sep, Type 2 diabetes mellitus wit h diabetic peripheral angiopathy without gangrene E11.51 [place] [address] [place] [id number] [address] [place] [phone] Sep, [place] [address] [place] [id number] [place] [phone] Sep, Actinic keratosis L57.0 [place] [address] [place] [id number] [place] [phone] Aug, Type 2 diabetes mellitus wit h diabetic peripheral angiopathy without gangrene E11.51 ; Essential hypertension I10 ; PVD (peripheral vascular disease) I73.9 and Intermittent claudication I73.[address] [phone] May, [address] [address] May, Establishing care with carlos martins, encounter for Z76.89 ; Essential hypertension I10 ; Type 2 diabetes mellitus with diabetic peripheral angiopathy without gangrene E11.51 ; 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 ; Hyperlipidemia LDL goal <70 E78.5 ; PVD (peripheral vascular disease) I73.9 ; 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 ; Intermittent claudication I73.9 ; Other chronic pain G89.29 and Lumbago with sciatica, left side M54.42 [place] [address] [address] [place] [id number] [address] [place] [phone] Feb, [address] [phone] Feb, Medicare annual wellness vis it, subsequent [...] E11.51 and S/P CABG x 4 Z95.1 [facility] [address] [id number] [address] [place] [phone] 18 Jan, 2017 [facility] [address] [id number] [address] [place] [phone] Jan, Type 2 diabetes mellitus wit hout complication, without long-term current use of insulin E11.9 [facility] [address] [id number] [address] [place] [phone] Jan, [facility] [address] [facility] [id number] [address] [place] [phone] Jan, Type 2 diabetes mellitus wit hout complication, without long-term current use of insulin E11.9 [facility] [address] [facility] [id number] [address] [place] [phone] Dec, Type 2 diabetes mellitus wit hout complication, without long-term current use of insulin E11.9 [facility] [address] [id number] [address] [place] [phone] Dec, [facility] [address] [id number] [address] [place] [phone] Dec, Stasis dermatitis of right l ower extremity with venous ulcer due to chronic peripheral venous hypertension I87.331 ; Type 2 diabetes mellitus with diabetic peripheral angiopathy without gangrene E11.51 and 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 [facility] [address] [id number] [address] [place] [id number] Dec, Non-pressure chronic ulcer o f unspecified part of unspecified lower leg with unspecified severity L97.909 and Type 2 diabetes mellitus with other skin ulcer E11.622 [facility] [address] [id number] [address] [place] [phone] Dec, Type 2 diabetes mellitus wit hout complication, without long-term current use of insulin E11.9 [facility] [address] [id number] [address] [place] [phone] Dec, [facility] [address] [id number] [address] [place] [id number] Dec, Type 2 diabetes mellitus wit hout complication, without long-term current use of insulin E11.9 [facility] [address] [id number] [address] [place] [id number] Dec, Type 2 diabetes mellitus wit hout complication, without long-term current use of insulin E11.9 and Essential hypertension I10 [facility] [address] [id number] [address] [place] [phone] Nov, Type 2 diabetes mellitus wit hout complication, without long-term current use of insulin E11.9 [facility] [address] [id number] [address] [place] [phone] Nov, [facility] [address] [id number] [address] [place] [phone] Nov, [facility] [address] [id number] [address] [place] [phone] Nov, Type 2 diabetes mellitus wit hout complication, without long-term current use of insulin E11.9 [facility] [address] [id number] [address] [place] [phone] Nov, [facility] [address] [id number] [address] [place] [phone] Nov, [facility] [address] [id number] [address] [place] [phone] Nov, Type 2 diabetes mellitus wit hout complication, without long-term current use of insulin E11.9 [facility] [address] [id number] [address] [place] [phone] Oct, Type 2 diabetes mellitus wit hout complication, without long-term current use of insulin E11.9 [facility] [address] [id number] [address] [place] [phone] Oct, [facility] [address] [facility] [id number] [address] [place] [phone] Oct, Type 2 diabetes mellitus wit hout complication, without long-term current use of insulin E11.9 [facility] [address] [place] [id number] [address] [place] [id number] Oct, Essential hypertension I10 [facility] [address] [facility] [id number] [address] [place] [phone] Oct, Essential hypertension I10 a nd Type 2 diabetes mellitus without complication, without long-term current use of insulin E11.9 [place] [address] [facility] [id number] [address] [place] [phone] Oct, [place] [address] [place] [id number] [address] [place] [id number] Sep, Essential hypertension I10 ; Type 2 diabetes mellitus without complication, without long-term current use of insulin E11.9 ; Pain in right knee M25.561 ; Pain in left knee M25.562 and PVD (peripheral vascular disease) I73.9 [place] [address] [place] [id number] [address] [place] [id number] Sep, [facility] [address] [place] [id number] [address] [place] [phone] Aug, [facility] [address] [facility] [id number] [address] [place] [phone] Jul, Type 2 diabetes mellitus wit hout complication, without long-term current use of insulin E11.9 [facility] [address] [facility] [id number] [address] [place] [phone] Jul, Gastroenteritis and colitis, viral A08.4 [facility] [address] [facility] [id number] [address] [place] [phone] June, Type 2 diabetes mellitus wit hout complication, without long-term current use of insulin E11.9 [facility] [address] [place] [id number] [address] [place] [id number] June, Essential hypertension I10 ; Type 2 diabetes mellitus without complication, without long-term current use of insulin E11.9 ; Pain in right knee M25.561 ; Pain in left knee M25.562 ; 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 and PVD (peripheral vascular disease) I73.9 [place] [address] [place] [id number] [address] [place] [phone] May, [place] [address] [place] [id number] [place] [id number] Apr, [place] [address] [place] [id number] [place] [phone] Mar, [place] [address] [place] [id number] [place] [phone] Mar, 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 [place] [address] [place] [id number] [address] [place] [phone] Mar, Essential hypertension I10 ; Type 2 diabetes mellitus without complication, without long-term current use of insulin E11.9 ; Pain in right knee M25.561 ; Pain in left knee M25.562 and 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 leg 2016 Surgical History Triple bypass 2017 Hospitalization History Surgery(s) only
--- OUTSIDE RECORDS SUMMARY | 2019-05-12 06:28 | XMS REPORT ---
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 Active 273181537 Problem Stasis dermatitis of right l ower extremity with venous ulcer due to chronic peripheral venous hypertension I87.331 Ac tive [id number] Problem Non-pressure chronic ulcer o f unspecified part of unspecified lower leg with unspecified severity L97.909 Active 26 9829345 Problem Type 2 diabetes mellitus wit h diabetic peripheral angiopathy without gangrene E11.51 Active 624074862 Problem Intermittent claudication I73.9 Acti ve 82832890 Problem 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 62054277 Problem Pain in left knee M25.562 Active 30 635622 Problem Hyperlipidemia LDL goal <70 E78.5 Ac tive 16461719 Problem Pain in right knee M25.561 Active 3 9472022 ALLERGIES No Known Allergies ENCOUNTERS Encounter Location Date Diagnosis [facility] [address] [facility] [id number] [address] [place] [phone] Jan, Type 2 diabetes mellitus wit h diabetic peripheral angiopathy without gangrene E11.51 ; Essential hypertension I10 and PVD (peripheral vascular disease) I73.9 [facility] [address] [facility] [id number] [address] [place] [phone] Dec, [facility] [address] [id number] [address] [place] [phone] Nov, [facility] [address] [facility] [id number] [address] [place] [phone] Nov, [facility] [address] [facility] [id number] [address] [place] [phone] Oct, [facility] [address] [id number] [address] [place] [phone] Oct, [facility] [address] [id number] [address] [place] [phone] Oct, [facility] [address] [id number] [address] [place] [phone] Sep, Type 2 diabetes mellitus wit h diabetic peripheral angiopathy without gangrene E11.51 [facility] [address] [facility] [id number] [address] [place] [phone] Sep, [facility] [address] [facility] [id number] [address] [place] [phone] Sep, Actinic keratosis L57.0 [facility] [address] [facility] [id number] [address] [place] [phone] Aug, Type 2 diabetes mellitus wit h diabetic peripheral angiopathy without gangrene E11.51 ; Essential hypertension I10 ; PVD (peripheral vascular disease) I73.9 and Intermittent claudication I73.9 [facility] [address] [facility] [id number] [address] [place] [phone] May, [facility] [address] [facility] [id number] [address] [place] [phone] May, Establishing care with anusha frank for Z76.89 ; Essential hypertension I10 ; Type 2 diabetes mellitus with diabetic peripheral angiopathy without gangrene E11.51 ; 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 ; Hyperlipidemia LDL goal <70 E78.5 ; PVD (peripheral vascular disease) I73.9 ; 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 ; Intermittent claudication I73.9 ; Other chronic pain G89.29 and Lumbago with sciatica, left side M54.42 [place] [address] [facility] [id number] [address] [place] [phone] Feb, [place] [address] [facility] [id number] [address] [place] [phone] Feb, Medicare annual wellness vis it, subsequent [...] E11.51 and S/P CABG x 4 Z95.1 [place] [address] [facility] [id number] [address] [place] [phone] Jan, [place] [address] [facility] [id number] [address] [place] [phone] Jan, Type 2 diabetes mellitus wit hout complication, without long-term current use of insulin E11.9 [place] [address] [facility] [id number] [address] [place] [phone] Jan, [place] [address] [facility] [id number] [address] [place] [phone] Jan, Type 2 diabetes mellitus wit hout complication, without long-term current use of insulin E11.9 [place] [address] [id number] [address] [place] [phone] Dec, Type 2 diabetes mellitus wit hout complication, without long-term current use of insulin E11.9 [place] [id number] [id number] [address] [place] [phone] Dec, [place] [address] [facility] [id number] [address] [place] [phone] Dec, Stasis dermatitis of right l ower extremity with venous ulcer due to chronic peripheral venous hypertension I87.331 ; Type 2 diabetes mellitus with diabetic peripheral angiopathy without gangrene E11.51 and shelter current use of insulin Z79.4 [facility] [address] [id number] [address] [place] [phone] Dec, Non-pressure chronic ulcer o f unspecified part of unspecified lower leg with unspecified severity L97.909 and Type 2 diabetes mellitus with other skin ulcer E11.622 [facility] [address] [id number] [address] [place] [phone] Dec, Type 2 diabetes mellitus wit hout complication, without long-term current use of insulin E11.9 [facility] [address] [id number] [address] [place] [phone] Dec, [facility] [address] [id number] [address] [place] [phone] Dec, Type 2 diabetes mellitus wit hout complication, without long-term current use of insulin E11.9 [facility] [address] [id number] [address] [place] [phone] Dec, Type 2 diabetes mellitus wit hout complication, without long-term current use of insulin E11.9 and Essential hypertension I10 [facility] [address] [id number] [address] [place] [phone] Nov, Type 2 diabetes mellitus wit hout complication, without long-term current use of insulin E11.9 [facility] [address] [id number] [address] [place] [phone] Nov, [facility] [address] [id number] [address] [place] [phone] Nov, [facility] [address] [id number] [address] [place] [phone] Nov, Type 2 diabetes mellitus wit hout complication, without long-term current use of insulin E11.9 [facility] [address] [id number] [address] [place] [phone] Nov, [facility] [address] [id number] [address] [place] [phone] Nov, [facility] [address] [facility] [id number] [address] [place] [phone] Nov, Type 2 diabetes mellitus wit hout complication, without long-term current use of insulin E11.9 [facility] [address] [id number] [address] [place] [phone] Oct, Type 2 diabetes mellitus wit hout complication, without long-term current use of insulin E11.9 [place] [address] [facility] [id number] [address] [place] [phone] Oct, [place] [address] [facility] [id number] [address] [place] [phone] Oct, Type 2 diabetes mellitus wit hout complication, without long-term current use of insulin E11.9 [place] [address] [facility] [id number] [address] [place] [phone] Oct, Essential hypertension I10 [place] [address] [facility] [id number] [address] [place] [phone] Oct, Essential hypertension I10 a nd Type 2 diabetes mellitus without complication, without long-term current use of insulin E11.9 [place] [address] [facility] [id number] [address] [place] [phone] Oct, [place] [address] [facility] [id number] [address] [place] [phone] Sep, Essential hypertension I10 ; Type 2 diabetes mellitus without complication, without long-term current use of insulin E11.9 ; Pain in right knee M25.561 ; Pain in left knee M25.562 and PVD (peripheral vascular disease) I73.9 [facility] [address] [id number] [address] [place] [phone] Sep, [facility] [address] [facility] [id number] [address] [place] [phone] Aug, [facility] [address] [facility] [id number] [address] [place] [phone] Jul, Type 2 diabetes mellitus wit hout complication, without long-term current use of insulin E11.9 [facility] [address] [facility] [id number] [address] [place] [phone] Jul, Gastroenteritis and colitis, viral A08.4 [facility] [address] [facility] [id number] [address] [place] [phone] June, Type 2 diabetes mellitus wit hout complication, without long-term current use of insulin E11.9 [place] [address] [facility] [id number] [address] [place] [phone] June, Essential hypertension I10 ; Type 2 diabetes mellitus without complication, without long-term current use of insulin E11.9 ; Pain in right knee M25.561 ; Pain in left knee M25.562 ; 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 and PVD (peripheral vascular disease) I73.9 [place] [address] [facility] [id number] [address] [place] [phone] May, [place] [address] [place] [id number] [address] [place] [phone] Apr, [place] [address] [place] [id number] [address] [place] [phone] Mar, [place] [address] [facility] [id number] [address] [place] [phone] Mar, 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 [place] [address] [facility] [id number] [address] [place] [phone] Mar, Essential hypertension I10 ; Type 2 diabetes mellitus without complication, without long-term current use of insulin E11.9 ; Pain in right knee M25.561 ; Pain in left knee M25.562 and 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 [place] [address] [place] [id number] [address] [place] [phone] Feb, IMMUNIZATIONS No Known Immunizations SOCIAL HISTORY Never Assessed REASON FOR VISIT Hypertension Nile Perdomo MA PLAN OF CARE Activity Details Follow Up 3 Months Reason:DM Pending Test A1C (IN HOUSE) VITAL SIGNS Height 68.5 in 2018-02-05 Weight 206.6 lbs 2018-02-05 Temperature 97.3 degrees Fahrenheit 2018-02-05 Heart Rate 55 bpm 2018-02-05 Respiratory Rate 20 2018-02-05 BMI 30.95 kg/m2 2018-02-05 Blood pressure systolic 130 mmHg 2018-02-05 Blood pressure diastolic 74 mmHg 2018-02-05 MEDICATIONS Medication Instructions Dosage Frequency Start Date End Date Duration S tatus Blood Glucose Test - Glucocard Expression and lancets once d aily test blood sugar 24h Oct, Active Atorvastatin Calcium 80 MG Orally Once a day 1 tablet 24h Active Glucometer 1 glucometer Check blood sugar (glucocard) Aug, Active Glucagon Emergency 1 MG Active Indomethacin 50 MG Orally Twice a day 1 capsule with food or milk 12h Active Levemir FlexTouch 100 UNIT/ML INJECT 35 UNITS SUBCUTAN EOUSLY TWICE DAILY 12h Active Indomethacin 25 MG TAKE TWO (2) CAPSULE S BY MOUTH TWICE DAILY WITH FOOD OR MILK 30 Active Blood Glucose Test - DX- E11.51 and lancets Test 3 times jassi ly. test blood sugar Sep, Active GlipiZIDE 10 MG TAKE ONE TABLET BY MOUTH ONCE DAILY Active Blood Glucose Monitor System w/Device DX- E11.51 3 times a day t est blood sugar 8h Sep, Active NovoLog Flexpen 100 UNIT/ML DX- E11.51 3 times a day before meals 2 0 units Sep, Active Test strips Test Strips Check blood sugar (Glucocard) Aug, Active Aspirin 81 MG Orally Once a day 1 tablet 24h Active Lisinopril 20 MG TAKE ONE TABLET BY MOUTH ONCE DAILY 90 Active Metformin HCl 500 MG TAKE TWO TABLETS BY MOUTH TWICE DAILY W ITH MEALS 30 Active RESULTS No Results PROCEDURES Procedure Date Ordered Result Body Site GLYCATED HEMOGLOBIN TEST Feb 05, 2018 [facility] VISIT ESTABLISHED PATIENT Feb 05, 2018 INSTRUCTIONS MEDICATIONS ADMINISTERED No Known Medications MEDICAL [...] diabetic peripheral angiopathy without gangrene Medical History shelter current use of insulin Medical History Declines Colonoscopy, Denies Influenza Vaccine, Declines Pneumovax and Zostavax Surgical History jaw surgery Surgical History tonsillectomy Surgical History Cataract removal bilaterally Surgical History had stint placed in L. leg 2016 Surgical History Triple bypass 2017 Hospitalization History Surgery(s) only
--- OUTSIDE RECORDS SUMMARY | 2019-05-12 06:28 | XMS REPORT ---
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 01581809 Problem Intermittent claudication I73.9 Acti ve 33831886 Problem Other chronic pain G89.29 Active 8 5780068 Problem Essential hypertension I10 Active 17005068 Problem PVD (peripheral vascular disease) I73.9 Active 148116300 Problem S/P CABG x 4 Z95.1 Active 0740455 00 Problem Pain in right knee M25.561 Active 3 5541130 Problem Lumbago with sciatica, left side M54.42 Active 64598936 Problem Pain in left knee M25.562 Active 30 615017 Problem Stasis dermatitis of right l ower extremity with venous ulcer due to chronic peripheral venous hypertension I87.331 Ac tive [id number] Problem FDC current use of insulin Z79.4 Active 291847266 Problem Type 2 diabetes mellitus wit h diabetic peripheral angiopathy without gangrene E11.51 Active 491449262 Problem Non-pressure chronic ulcer o f unspecified part of unspecified lower leg with unspecified severity L97.909 Active 26 2254894 ALLERGIES No Information ENCOUNTERS Encounter Location Date Diagnosis [facility] [address] [facility] [id number] [address] [place] [id number] Apr, [facility] [address] [facility] [id number] [address] [place] [phone] Mar, [facility] [address] [facility] [id number] [address] [place] [phone] Mar, [facility] [address] [id number] [address] [place] [id number] 30 Feb, 2018 Encounter for Medicare rissa kwok wellness exam Z00.00 ; Type 2 diabetes mellitus with diabetic peripheral angiopathy without gangrene E11.51 ; Hyperlipidemia LDL goal <70 E78.5 ; PVD (peripheral vascular disease) I73.9 ; Essential hypertension I10 and Stasis dermatitis of right lower extremity with venous ulcer due to chronic peripheral venous hypertension I87.331 [facility] [address] [id number] [address] [place] [id number] 17 Feb, 2018 [facility] [address] [id number] [address] [place] [id number] Feb, [facility] [address] [id number] [address] [place] [phone] Feb, [facility] [address] [id number] [address] [place] [id number] Jan, Type 2 diabetes mellitus wit h diabetic peripheral angiopathy without gangrene E11.51 ; Essential hypertension I10 and PVD (peripheral vascular disease) I73.9 [facility] [address] [id number] [address] [place] [phone] Dec, [facility] [address] [id number] [address] [place] [phone] Nov, [facility] [address] [id number] [address] [place] [phone] Nov, [facility] [address] [id number] [address] [place] [phone] Oct, [facility] [address] [id number] [address] [place] [id number] Oct, [facility] [address] [id number] [address] [place] [id number] Oct, [facility] [address] [id number] [address] [place] [id number] Sep, Type 2 diabetes mellitus wit h diabetic peripheral angiopathy without gangrene E11.51 [place] [address] [facility] [id number] [address] [place] [phone] Sep, [place] [address] [facility] [id number] [address] [place] [phone] Sep, Actinic keratosis L57.0 [place] [address] [place] [id number] [address] [place] [id number] Aug, Type 2 diabetes mellitus wit h diabetic peripheral angiopathy without gangrene E11.51 ; Essential hypertension I10 ; PVD (peripheral vascular disease) I73.9 and Intermittent claudication I73.9 [place] [address] [place] [id number] [address] [place] [id number] May, [place] [address] [place] [id number] [address] [place] [phone] May, Establishing care with anusha frank for Z76.89 ; Essential hypertension I10 ; Type 2 diabetes mellitus with diabetic peripheral angiopathy without gangrene E11.51 ; 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 ; Hyperlipidemia LDL goal <70 E78.5 ; PVD (peripheral vascular disease) I73.9 ; 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 ; Intermittent claudication I73.9 ; Other chronic pain G89.29 and Lumbago with sciatica, left side M54.42 [place] [address] [place] [id number] [address] [place] [phone] Feb, [place] [address] [place] [id number] [address] [place] [phone] Feb, Medicare annual wellness vis it, subsequent [...] E11.51 and S/P CABG x 4 Z95.1 [facility] [address] [id number] [address] [place] [phone] Jan, [facility] [address] [facility] [id number] [address] [place] [id number] Jan, Type 2 diabetes mellitus wit hout complication, without long-term current use of insulin E11.9 [facility] [address] [facility] [id number] [address] [place] [id number] Jan, [facility] [address] [facility] [id number] [address] [place] [id number] Jan, Type 2 diabetes mellitus wit hout complication, without long-term current use of insulin E11.9 [facility] [address] [facility] [id number] [address] [place] [id number] Dec, Type 2 diabetes mellitus wit hout complication, without long-term current use of insulin E11.9 [facility] [address] [facility] [id number] [address] [place] [id number] Dec, [facility] [address] [facility] [id number] [address] [place] [phone] Dec, Stasis dermatitis of right l ower extremity with venous ulcer due to chronic peripheral venous hypertension I87.331 ; Type 2 diabetes mellitus with diabetic peripheral angiopathy without gangrene E11.51 and FDC current use of insulin Z79.4 [facility] [address] [facility] [id number] [address] [place] [phone] Dec, Non-pressure chronic ulcer o f unspecified part of unspecified lower leg with unspecified severity L97.909 and Type 2 diabetes mellitus with other skin ulcer E11.622 [facility] [address] [facility] [id number] [address] [place] [phone] Dec, Type 2 diabetes mellitus wit hout complication, without long-term current use of insulin E11.9 [facility] [address] [place] [id number] [address] [place] [phone] Dec, [facility] [address] [id number] [address] [place] [phone] Dec, Type 2 diabetes mellitus wit hout complication, without long-term current use of insulin E11.9 [facility] [address] [id number] [address] [place] [id number] Dec, Type 2 diabetes mellitus wit hout complication, without long-term current use of insulin E11.9 and Essential hypertension I10 [facility] [address] [id number] [address] [place] [id number] Nov, Type 2 diabetes mellitus wit hout complication, without long-term current use of insulin E11.9 [facility] [address] [id number] [address] [place] [phone] Nov, [facility] [address] [id number] [address] [place] [phone] Nov, [facility] [address] [id number] [address] [place] [phone] Nov, Type 2 diabetes mellitus wit hout complication, without long-term current use of insulin E11.9 [facility] [address] [id number] [address] [place] [phone] Nov, [facility] [address] [id number] [address] [place] [phone] Nov, [facility] [address] [id number] [address] [place] [phone] Nov, Type 2 diabetes mellitus wit hout complication, without long-term current use of insulin E11.9 [facility] [address] [id number] [address] [place] [phone] Oct, Type 2 diabetes mellitus wit hout complication, without long-term current use of insulin E11.9 [facility] [address] [id number] [address] [place] [id number] Oct, [facility] [address] [id number] [address] [place] [id number] Oct, Type 2 diabetes mellitus wit hout complication, without long-term current use of insulin E11.9 [facility] [address] [facility] [id number] [address] [place] [id number] Oct, Essential hypertension I10 [facility] [address] [facility] [id number] [address] [place] [phone] Oct, Essential hypertension I10 a nd Type 2 diabetes mellitus without complication, without long-term current use of insulin E11.9 [facility] [address] [facility] [id number] [address] [place] [id number] Oct, [facility] [address] [facility] [id number] [address] [place] [id number] Sep, Essential hypertension I10 ; Type 2 diabetes mellitus without complication, without long-term current use of insulin E11.9 ; Pain in right knee M25.561 ; Pain in left knee M25.562 and PVD (peripheral vascular disease) I73.9 [facility] [address] [facility] [id number] [address] [place] [phone] Sep, [facility] [address] [facility] [id number] [address] [place] [id number] Aug, [facility] [address] [facility] [id number] [address] [place] [id number] Jul, Type 2 diabetes mellitus wit hout complication, without long-term current use of insulin E11.9 [facility] [address] [facility] [id number] [address] [place] [id number] Jul, Gastroenteritis and colitis, viral A08.4 [facility] [address] [facility] [id number] [address] [place] [phone] June, Type 2 diabetes mellitus wit hout complication, without long-term current use of insulin E11.9 [facility] [address] [facility] [id number] [address] [place] [id number] June, Essential hypertension I10 ; Type 2 diabetes mellitus without complication, without long-term current use of insulin E11.9 ; Pain in right knee M25.561 ; Pain in left knee M25.562 ; 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 and PVD (peripheral vascular disease) I73.9 [facility] [address] [id number] [address] [place] [id number] May, [facility] [address] [id number] [address] [place] [id number] Apr, [facility] [address] [facility] [id number] [address] [place] [phone] Mar, [place] [address] [facility] [id number] [address] [place] [phone] Mar, 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 [place] [id number] [facility] [id number] [address] [place] [id number] Mar, Essential hypertension I10 ; Type 2 diabetes mellitus without complication, without long-term current use of insulin E11.9 ; Pain in right knee M25.561 ; Pain in left knee M25.562 and 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 [place] [address] [facility] [id number] [address] [place] [phone] Feb, IMMUNIZATIONS No Known Immunizations SOCIAL HISTORY Never Assessed REASON FOR VISIT Refill request PLAN OF CARE VITAL SIGNS MEDICATIONS Medication Instructions Dosage Frequency Start Date End Date Duration S tatus NovoLog Flexpen 100 UNIT/ML DX- E11.51 3 times a day before meals 3 0 units Sep, Active Levemir FlexTouch 100 UNIT/ML DX E11.51 2 times a day 42 units 12h Active RESULTS No Results PROCEDURES No Known [...] diabetic peripheral angiopathy without gangrene 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 leg 2016 Surgical History Triple bypass 2017 Hospitalization History Surgery(s) only
--- OUTSIDE RECORDS SUMMARY | 2019-05-12 06:28 | XMS REPORT ---
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 Active 846308284 Problem Stasis dermatitis of right l ower extremity with venous ulcer due to chronic peripheral venous hypertension I87.331 Ac tive 404679767906228 Problem Non-pressure chronic ulcer o f unspecified part of unspecified lower leg with unspecified severity L97.909 Active 26 3947867 Problem Type 2 diabetes mellitus wit h diabetic peripheral angiopathy without gangrene E11.51 Active 952901272 Problem Intermittent claudication I73.9 Acti ve 55319495 Problem 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 20451154 Problem Pain in left knee M25.562 Active 30 156089 Problem Hyperlipidemia LDL goal <70 E78.5 Ac tive 96474928 Problem Pain in right knee M25.561 Active 3 7704629 ALLERGIES No Information ENCOUNTERS Encounter Location Date Diagnosis [facility] [address] [facility] [id number] [address] [place] [phone] Nov, [facility] [address] [facility] [id number] [address] [place] [phone] Nov, [facility] [address] [facility] [id number] [address] [place] [address] Oct, [facility] [address] [facility] [id number] [address] [place] [phone] Oct, [facility] [address] [facility] [id number] [address] [place] [address] Oct, [facility] [address] [facility] [id number] [address] [place] [address] Sep, Type 2 diabetes mellitus wit h diabetic peripheral angiopathy without gangrene E11.51 [facility] [address] [facility] [id number] [address] [place] [address] Sep, [facility] [address] [facility] [id number] [address] [place] [address] Sep, Actinic keratosis L57.0 [place] [address] [facility] [id number] [address] [place] [phone] Aug, Type 2 diabetes mellitus wit h diabetic peripheral angiopathy without gangrene E11.51 ; Essential hypertension I10 ; PVD (peripheral vascular disease) I73.9 and Intermittent claudication I73.9 [place] [address] [place] [id number] [address] [place] [address] May, [place] [address] [place] [id number] [address] [place] [phone] May, Establishing care with carlos martins, encounter for Z76.89 ; Essential hypertension I10 ; Type 2 diabetes mellitus with diabetic peripheral angiopathy without gangrene E11.51 ; 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 ; Hyperlipidemia LDL goal <70 E78.5 ; PVD (peripheral vascular disease) I73.9 ; 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 ; Intermittent claudication I73.9 ; Other chronic pain G89.29 and Lumbago with sciatica, left side M54.42 [place] [address] [place] [id number] [address] [place] [id number] Feb, [place] [address] [place] [id number] [address] [place] [phone] Feb, Medicare annual wellness vis it, subsequent [...] E11.51 and S/P CABG x 4 Z95.1 [facility] [address] [facility] [id number] [address] [place] [phone] Jan, [facility] [address] [facility] [id number] [address] [place] [address] Jan, Type 2 diabetes mellitus wit hout complication, without long-term current use of insulin E11.9 [facility] [address] [facility] [id number] [address] [place] [phone] Jan, [facility] [address] [facility] [id number] [address] [place] [phone] Jan, Type 2 diabetes mellitus wit hout complication, without long-term current use of insulin E11.9 [facility] [address] [id number] [address] [place] [id number] Dec, Type 2 diabetes mellitus wit hout complication, without long-term current use of insulin E11.9 [facility] [address] [facility] [id number] [address] [place] [phone] Dec, [facility] [address] [facility] [id number] [address] [place] [address] Dec, Stasis dermatitis of right l ower extremity with venous ulcer due to chronic peripheral venous hypertension I87.331 ; Type 2 diabetes mellitus with diabetic peripheral angiopathy without gangrene E11.51 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 [facility] WALK IN [facility] [address] [id number] [address] [place] [address] Dec, Non-pressure chronic ulcer o f unspecified part of unspecified lower leg with unspecified severity L97.909 and Type 2 diabetes mellitus with other skin ulcer E11.622 [facility] [address] [id number] [address] [place] [address] Dec, Type 2 diabetes mellitus wit hout complication, without long-term current use of insulin E11.9 [facility] [address] [id number] [address] [place] [address] Dec, [facility] [address] [id number] [address] [place] [phone] Dec, Type 2 diabetes mellitus wit hout complication, without long-term current use of insulin E11.9 [facility] [address] [id number] [address] [place] [address] Dec, Type 2 diabetes mellitus wit hout complication, without long-term current use of insulin E11.9 and Essential hypertension I10 [facility] [address] [id number] [address] [place] [phone] Nov, Type 2 diabetes mellitus wit hout complication, without long-term current use of insulin E11.9 [facility] [address] [id number] [address] [place] [phone] Nov, [facility] [address] [id number] [address] [place] [phone] Nov, [facility] [address] [id number] [address] [place] [phone] Nov, Type 2 diabetes mellitus wit hout complication, without long-term current use of insulin E11.9 [facility] [address] [id number] [address] [place] [address] Nov, [facility] [address] [id number] [address] [place] [phone] Nov, [facility] [address] [id number] [address] [place] [address] Nov, Type 2 diabetes mellitus wit hout complication, without long-term current use of insulin E11.9 [facility] [address] [id number] [address] [place] [phone] Oct, Type 2 diabetes mellitus wit hout complication, without long-term current use of insulin E11.9 [facility] [address] [facility] [id number] [address] [place] [id number] Oct, [facility] [address] [facility] [id number] [address] [place] [phone] Oct, Type 2 diabetes mellitus wit hout complication, without long-term current use of insulin E11.9 [facility] [address] [facility] [id number] [address] [place] [phone] Oct, Essential hypertension I10 [place] [address] [facility] [id number] [address] [place] [address] Oct, Essential hypertension I10 a nd Type 2 diabetes mellitus without complication, without long-term current use of insulin E11.9 [place] [address] [facility] [id number] [address] [place] [phone] Oct, [facility] [address] [facility] [id number] [address] [place] [id number] Sep, Essential hypertension I10 ; Type 2 diabetes mellitus without complication, without long-term current use of insulin E11.9 ; Pain in right knee M25.561 ; Pain in left knee M25.562 and PVD (peripheral vascular disease) I73.9 [place] [address] [facility] [id number] [address] [place] [address] Sep, [facility] [address] [facility] [id number] [address] [place] [phone] Aug, [place] [address] [facility] [id number] [address] [place] [phone] Jul, Type 2 diabetes mellitus wit hout complication, without long-term current use of insulin E11.9 [facility] [address] [facility] [id number] [address] [place] [phone] Jul, Gastroenteritis and colitis, viral A08.4 [place] [address] [id number] [address] [place] [phone] June, Type 2 diabetes mellitus wit hout complication, without long-term current use of insulin E11.9 [place] [address] [facility] [id number] [address] [place] [address] June, Essential hypertension I10 ; Type 2 diabetes mellitus without complication, without long-term current use of insulin E11.9 ; Pain in right knee M25.561 ; Pain in left knee M25.562 ; 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 and PVD (peripheral vascular disease) I73.9 [place] [address] [facility] [id number] [address] [place] [phone] May, [place] [address] [facility] [id number] [address] [place] [address] Apr, [place] [address] [facility] [id number] [address] [place] [address] Mar, [place] [address] [id number] [address] [place] [address] Mar, 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 [place] [address] [facility] [id number] [address] [place] [address] Mar, Essential hypertension I10 ; Type 2 diabetes mellitus without complication, without long-term current use of insulin E11.9 ; Pain in right knee M25.561 ; Pain in left knee M25.562 and 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 [place] [address] [facility] [id number] [address] [place] [phone] Feb, IMMUNIZATIONS No Known Immunizations SOCIAL HISTORY Never Assessed REASON FOR VISIT BS f/u PLAN OF CARE VITAL SIGNS MEDICATIONS Medication Instructions Dosage Frequency Start Date End Date Duration S tatus Levemir FlexTouch 100 UNIT/ML INJECT 35 UNITS SUBCUTAN EOUSLY TWICE DAILY 12h Active NovoLog Flexpen 100 UNIT/ML DX- E11.51 3 times a day before meals 2 0 units Sep, Active RESULTS No Results PROCEDURES [...] diabetic peripheral angiopathy without gangrene 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 leg 2016 Surgical History Triple bypass 2017 Hospitalization History Surgery(s) only
--- OUTSIDE RECORDS SUMMARY | 2019-05-12 06:29 | XMS REPORT ---
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 Active 105564138 Problem Stasis dermatitis of right l ower extremity with venous ulcer due to chronic peripheral venous hypertension I87.331 Ac tive 772146635421401 Problem Non-pressure chronic ulcer o f unspecified part of unspecified lower leg with unspecified severity L97.909 Active 26 1896053 Problem Type 2 diabetes mellitus wit h diabetic peripheral angiopathy without gangrene E11.51 Active 090005056 Problem Intermittent claudication I73.9 Acti ve 10471824 Problem 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 58275815 Problem Pain in left knee M25.562 Active 30 384612 Problem Hyperlipidemia LDL goal <70 E78.5 Ac tive 52899724 Problem Pain in right knee M25.561 Active 3 2549001 ALLERGIES No Information ENCOUNTERS Encounter Location Date Diagnosis [facility] [address] [facility] [id number] [address] [place] [phone] Oct, [facility] [address] [facility] [id number] [address] [place] [phone] Oct, [facility] [address] [facility] [id number] [address] [place] [phone] Sep, Type 2 diabetes mellitus wit h diabetic peripheral angiopathy without gangrene E11.51 [place] [address] [facility] [id number] [address] [place] [phone] Sep, [place] [address] [place] [id number] [address] [place] [phone] Sep, Actinic keratosis L57.0 [place] [address] [place] [id number] [address] [place] [id number] Aug, Type 2 diabetes mellitus wit h diabetic peripheral angiopathy without gangrene E11.51 ; Essential hypertension I10 ; PVD (peripheral vascular disease) I73.9 and Intermittent claudication I73.9 [place] [address] [place] [id number] [address] [place] [phone] May, [place] [address] [place] [id number] [address] [place] [phone] May, Establishing care with anusha frank for Z76.89 ; Essential hypertension I10 ; Type 2 diabetes mellitus with diabetic peripheral angiopathy without gangrene E11.51 ; 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 ; Hyperlipidemia LDL goal <70 E78.5 ; PVD (peripheral vascular disease) I73.9 ; bar tender 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 of 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 Z79.4 ; Intermittent claudication I73.9 ; Other chronic pain G89.29 and Lumbago with sciatica, left side M54.42 [place] [address] [place] [id number] [address] [place] [id number] Feb, [place] [address] [place] [id number] [address] [place] [phone] Feb, Medicare annual wellness vis it, subsequent [...] E11.51 and S/P CABG x 4 Z95.1 [facility] [address] [id number] [address] [place] [phone] Jan, [facility] [address] [facility] [id number] [address] [place] [phone] Jan, Type 2 diabetes mellitus wit hout complication, without long-term current use of insulin E11.9 [facility] [address] [facility] [id number] [address] [place] [id number] Jan, [facility] [address] [facility] [id number] [address] [place] [id number] Jan, Type 2 diabetes mellitus wit hout complication, without long-term current use of insulin E11.9 [facility] [address] [place] [id number] [address] [place] [phone] Dec, Type 2 diabetes mellitus wit hout complication, without long-term current use of insulin E11.9 [facility] [address] [facility] [id number] [address] [place] [phone] Dec, [facility] [address] [facility] [id number] [address] [place] [phone] Dec, Stasis dermatitis of right l ower extremity with venous ulcer due to chronic peripheral venous hypertension I87.331 ; Type 2 diabetes mellitus with diabetic peripheral angiopathy without gangrene E11.51 and shelter current use of insulin Z79.4 [facility] WALK IN [facility] [address] [facility] [id number] [address] [place] [id number] Dec, Non-pressure chronic ulcer o f unspecified part of unspecified lower leg with unspecified severity L97.909 and Type 2 diabetes mellitus with other skin ulcer E11.622 [facility] [address] [facility] [id number] [address] [place] [phone] Dec, Type 2 diabetes mellitus wit hout complication, without long-term current use of insulin E11.9 [facility] [address] [place] [id number] [address] [place] [phone] Dec, [facility] [address] [id number] [address] [place] [phone] Dec, Type 2 diabetes mellitus wit hout complication, without long-term current use of insulin E11.9 [facility] [address] [id number] [address] [place] [phone] Dec, Type 2 diabetes mellitus wit hout complication, without long-term current use of insulin E11.9 and Essential hypertension I10 [facility] [address] [id number] [address] [place] [phone] Nov, Type 2 diabetes mellitus wit hout complication, without long-term current use of insulin E11.9 [facility] [address] [id number] [address] [place] [phone] Nov, [facility] [address] [id number] [address] [place] [phone] Nov, [facility] [address] [id number] [address] [place] [phone] Nov, Type 2 diabetes mellitus wit hout complication, without long-term current use of insulin E11.9 [facility] [address] [id number] [address] [place] [phone] Nov, [facility] [address] [id number] [address] [place] [phone] Nov, [facility] [address] [id number] [address] [place] [phone] Nov, Type 2 diabetes mellitus wit hout complication, without long-term current use of insulin E11.9 [facility] [address] [id number] [address] [place] [phone] Oct, Type 2 diabetes mellitus wit hout complication, without long-term current use of insulin E11.9 [facility] [address] [id number] [address] [place] [phone] Oct, [facility] [address] [id number] [address] [place] [id number] Oct, Type 2 diabetes mellitus wit hout complication, without long-term current use of insulin E11.9 [facility] [address] [facility] [id number] [address] [place] [phone] Oct, Essential hypertension I10 [facility] [address] [facility] [id number] [address] [place] [phone] Oct, Essential hypertension I10 a nd Type 2 diabetes mellitus without complication, without long-term current use of insulin E11.9 [facility] [address] [facility] [id number] [address] [place] [phone] Oct, [facility] [address] [facility] [id number] [address] [place] [phone] Sep, Essential hypertension I10 ; Type 2 diabetes mellitus without complication, without long-term current use of insulin E11.9 ; Pain in right knee M25.561 ; Pain in left knee M25.562 and PVD (peripheral vascular disease) I73.9 [facility] [address] [facility] [id number] [address] [place] [phone] Sep, [facility] [address] [facility] [id number] [address] [place] [phone] Aug, [facility] [address] [facility] [id number] [address] [place] [phone] Jul, Type 2 diabetes mellitus wit hout complication, without long-term current use of insulin E11.9 [facility] [address] [facility] [id number] [address] [place] [phone] Jul, Gastroenteritis and colitis, viral A08.4 [facility] [address] [facility] [id number] [address] [place] [phone] June, Type 2 diabetes mellitus wit hout complication, without long-term current use of insulin E11.9 [facility] [address] [facility] [id number] [address] [place] [phone] June, Essential hypertension I10 ; Type 2 diabetes mellitus without complication, without long-term current use of insulin E11.9 ; Pain in right knee M25.561 ; Pain in left knee M25.562 ; 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 and PVD (peripheral vascular disease) I73.9 [facility] [address] [id number] [address] [place] [phone] May, [facility] [address] [facility] [id number] [address] [place] [phone] Apr, [place] [address] [facility] [id number] [address] [place] [phone] Mar, [place] [address] [facility] [id number] [address] [place] [id number] Mar, 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 PLAN OF CARE VITAL SIGNS MEDICATIONS Unknown [...] History had stint placed in L. leg 2017 Surgical History Triple bypass 2017 Hospitalization History Surgery(s) only
--- OUTSIDE RECORDS SUMMARY | 2019-05-12 06:29 | XMS REPORT ---
Author Author Mychal BROWN Organization [facility] Address [address] [place] [address] Care Team Providers Care Registered Nurse Ambulatory Name Role Phone VANITA BROWN Unavailable PROBLEMS Type Condition ICD9-CM Code LDN45-SZ Code Onset Dates Condition S tatus SNOMED Code Problem Other chronic pain G89.29 Active 8 3486062 Problem PVD (peripheral vascular disease) I73.9 Active 387019440 Problem Essential hypertension I10 Active 34291436 Problem Lumbago with sciatica, left side M54.42 Active 24821732 Problem S/P CABG x 4 Z95.1 Active 6925749 00 Problem detention current use of insulin Z79.4 Active 063575791 Problem Stasis dermatitis of right l ower extremity with venous ulcer due to chronic peripheral venous hypertension I87.331 Ac tive 098962953819520 Problem Non-pressure chronic ulcer o f unspecified part of unspecified lower leg with unspecified severity L97.909 Active 26 5135554 Problem Type 2 diabetes mellitus wit h diabetic peripheral angiopathy without gangrene E11.51 Active 124006675 Problem Intermittent claudication I73.9 Acti ve 24580607 Problem 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 76680342 Problem Pain in left knee M25.562 Active 30 358917 Problem Hyperlipidemia LDL goal <70 E78.5 Ac tive 25748780 Problem Pain in right knee M25.561 Active 3 1657500 ALLERGIES No Information ENCOUNTERS Encounter Location Date Diagnosis [facility] [address] [facility] [id number] [address] [place] [address] Aug, [facility] [address] [facility] [id number] [address] [place] [address] May, [facility] [address] [facility] [id number] [address] [place] [address] May, Establishing care with carlos martins encounter for Z76.89 ; Essential hypertension I10 ; Type 2 diabetes mellitus with diabetic peripheral angiopathy without gangrene E11.51 ; 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 ; Hyperlipidemia LDL goal <70 E78.5 ; PVD (peripheral vascular disease) I73.9 ; 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 ; Intermittent claudication I73.9 ; Other chronic pain G89.29 and Lumbago with sciatica, left side M54.42 [place] [address] [facility] [id number] [address] [place] [address] Feb, [place] [address] [facility] [id number] [address] [place] [address] Feb, Medicare annual wellness vis it, subsequent [...] E11.51 and S/P CABG x 4 Z95.1 [place] [address] [facility] [id number] [address] [place] [address] Jan, [place] [address] [facility] [id number] [address] [place] [address] Jan, Type 2 diabetes mellitus wit hout complication, without long-term current use of insulin E11.9 [place] [address] [id number] [address] [place] [address] Jan, [place] [address] [facility] [id number] [address] [place] [address] Jan, Type 2 diabetes mellitus wit hout complication, without long-term current use of insulin E11.9 [place] [address] [facility] [id number] [address] [place] [address] Dec, Type 2 diabetes mellitus wit hout complication, without long-term current use of insulin E11.9 [facility] [address] [id number] [address] [place] [address] Dec, [facility] [address] [id number] [address] [place] [address] Dec, Stasis dermatitis of right l ower extremity with venous ulcer due to chronic peripheral venous hypertension I87.331 ; Type 2 diabetes mellitus with diabetic peripheral angiopathy without gangrene E11.51 and 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 [address] [id number] [address] [place] [address] Dec, Non-pressure chronic ulcer o f unspecified part of unspecified lower leg with unspecified severity L97.909 and Type 2 diabetes mellitus with other skin ulcer E11.622 [facility] [address] [id number] [address] [place] [address] Dec, Type 2 diabetes mellitus wit hout complication, without long-term current use of insulin E11.9 [facility] [address] [id number] [address] [place] [address] Dec, [facility] [address] [id number] [address] [place] [address] Dec, Type 2 diabetes mellitus wit hout complication, without long-term current use of insulin E11.9 [facility] [address] [id number] [address] [place] [address] Dec, Type 2 diabetes mellitus wit hout complication, without long-term current use of insulin E11.9 and Essential hypertension I10 [facility] [address] [id number] [address] [place] [address] Nov, Type 2 diabetes mellitus wit hout complication, without long-term current use of insulin E11.9 [facility] [address] [id number] [address] [place] [address] Nov, [facility] [address] [id number] [address] [place] [address] Nov, [facility] [address] [id number] [address] [place] [address] Nov, Type 2 diabetes mellitus wit hout complication, without long-term current use of insulin E11.9 [facility] [address] [id number] [address] [place] [address] Nov, [facility] [address] [id number] [address] [place] [address] Nov, [facility] [address] [id number] [address] [place] [address] Nov, Type 2 diabetes mellitus wit hout complication, without long-term current use of insulin E11.9 [facility] [address] [id number] [address] [place] [address] Oct, Type 2 diabetes mellitus wit hout complication, without long-term current use of insulin E11.9 [facility] [address] [id number] [address] [place] [address] Oct, [facility] [address] [id number] [address] [place] [address] Oct, Type 2 diabetes mellitus wit hout complication, without long-term current use of insulin E11.9 [facility] [address] [id number] [address] [place] [address] Oct, Essential hypertension I10 [facility] [address] [id number] [address] [place] [address] Oct, Essential hypertension I10 a nd Type 2 diabetes mellitus without complication, without long-term current use of insulin E11.9 [facility] [address] [id number] [address] [place] [address] Oct, [facility] [address] [id number] [address] [place] [address] Sep, Essential hypertension I10 ; Type 2 diabetes mellitus without complication, without long-term current use of insulin E11.9 ; Pain in right knee M25.561 ; Pain in left knee M25.562 and PVD (peripheral vascular disease) I73.9 [facility] [address] [facility] [id number] [address] [place] [address] Sep, [facility] [address] [facility] [id number] [address] [place] [address] Aug, [facility] [address] [facility] [id number] [address] [place] [address] Jul, Type 2 diabetes mellitus wit hout complication, without long-term current use of insulin E11.9 [facility] [address] [facility] [id number] [address] [place] [address] Jul, Gastroenteritis and colitis, viral A08.4 [facility] [address] [facility] [id number] [address] [place] [address] June, Type 2 diabetes mellitus wit hout complication, without long-term current use of insulin E11.9 [place] [address] [address] [facility] [id number] [address] [place] [address] June, Essential hypertension I10 ; Type 2 diabetes mellitus without complication, without long-term current use of insulin E11.9 ; Pain in right knee M25.561 ; Pain in left knee M25.562 ; 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 and PVD (peripheral vascular disease) I73.9 [place] [address] [facility] [id number] [address] [place] [address] May, [place] [address] [facility] [id number] [address] [place] [address] Apr, [facility] [address] [facility] [id number] [address] [place] [address] Mar, [place] [address] [facility] [id number] [address] [place] [address] Mar, 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 [place] [address] [facility] [id number] [address] [place] [address] Mar, Essential hypertension I10 ; Type 2 diabetes mellitus without complication, without long-term current use of insulin E11.9 ; Pain in right knee M25.561 ; Pain in left knee M25.562 and 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 leg 2017 Surgical History Triple bypass 2017 Hospitalization History Surgery(s) only
--- OUTSIDE RECORDS SUMMARY | 2019-05-12 06:29 | XMS REPORT ---
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 Active 476341383 Problem Stasis dermatitis of right l ower extremity with venous ulcer due to chronic peripheral venous hypertension I87.331 Ac tive 973508145342085 Problem Non-pressure chronic ulcer o f unspecified part of unspecified lower leg with unspecified severity L97.909 Active 26 6481815 Problem Type 2 diabetes mellitus wit h diabetic peripheral angiopathy without gangrene E11.51 Active 933611392 Problem Intermittent claudication I73.9 Acti ve 49501500 Problem 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 78709717 Problem Pain in left knee M25.562 Active 30 729672 Problem Hyperlipidemia LDL goal <70 E78.5 Ac tive 48977715 Problem Pain in right knee M25.561 Active 3 8821732 ALLERGIES No Known Allergies ENCOUNTERS Encounter Location Date Diagnosis [facility] [address] [facility] [id number] [address] [place] [address] Oct, [facility] [address] [facility] [id number] [address] [place] [address] Oct, [facility] [address] [facility] [id number] [address] [place] [address] Sep, Type 2 diabetes mellitus wit h diabetic peripheral angiopathy without gangrene E11.51 [place] [address] [facility] [id number] [address] [place] [address] Sep, [place] [address] [place] [id number] [address] [place] [address] Sep, Actinic keratosis L57.0 [place] [address] [place] [id number] [address] [place] [address] Aug, Type 2 diabetes mellitus wit h diabetic peripheral angiopathy without gangrene E11.51 ; Essential hypertension I10 ; PVD (peripheral vascular disease) I73.9 and Intermittent claudication I73.9 [place] [address] [place] [id number] [address] [place] [address] May, [place] [address] [place] [id number] [address] [place] [address] May, Establishing care with anusha frank for Z76.89 ; Essential hypertension I10 ; Type 2 diabetes mellitus with diabetic peripheral angiopathy without gangrene E11.51 ; 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 ; Hyperlipidemia LDL goal <70 E78.5 ; PVD (peripheral vascular disease) I73.9 ; retirement current use of insulin Z79.4 ; Intermittent claudication I73.9 ; Other chronic pain G89.29 and Lumbago with sciatica, left side M54.42 [place] [address] [place] [id number] [address] [place] [address] Feb, [place] [address] [place] [id number] [address] [place] [address] Feb, Medicare annual wellness vis it, subsequent [...] E11.51 and S/P CABG x 4 Z95.1 [facility] [address] [id number] [address] [place] [address] Jan, [facility] [address] [facility] [id number] [address] [place] [address] Jan, Type 2 diabetes mellitus wit hout complication, without long-term current use of insulin E11.9 [facility] [address] [facility] [id number] [address] [place] [address] Jan, [facility] [address] [facility] [id number] [address] [place] [address] Jan, Type 2 diabetes mellitus wit hout complication, without long-term current use of insulin E11.9 [facility] [address] [place] [id number] [address] [place] [address] Dec, Type 2 diabetes mellitus wit hout complication, without long-term current use of insulin E11.9 [facility] [address] [facility] [id number] [address] [place] [address] Dec, [facility] [address] [facility] [id number] [address] [place] [address] Dec, Stasis dermatitis of right l ower extremity with venous ulcer due to chronic peripheral venous hypertension I87.331 ; Type 2 diabetes mellitus with diabetic peripheral angiopathy without gangrene E11.51 and 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 [facility] [address] [facility] [id number] [address] [place] [address] Dec, Non-pressure chronic ulcer o f unspecified part of unspecified lower leg with unspecified severity L97.909 and Type 2 diabetes mellitus with other skin ulcer E11.622 [facility] [address] [facility] [id number] [address] [place] [address] Dec, Type 2 diabetes mellitus wit hout complication, without long-term current use of insulin E11.9 [facility] [address] [place] [id number] [address] [place] [address] Dec, [facility] [address] [id number] [address] [place] [address] Dec, Type 2 diabetes mellitus wit hout complication, without long-term current use of insulin E11.9 [facility] [address] [id number] [address] [place] [address] Dec, Type 2 diabetes mellitus wit hout complication, without long-term current use of insulin E11.9 and Essential hypertension I10 [facility] [address] [id number] [address] [place] [address] Nov, Type 2 diabetes mellitus wit hout complication, without long-term current use of insulin E11.9 [facility] [address] [id number] [address] [place] [address] Nov, [facility] [address] [id number] [address] [place] [address] Nov, [facility] [address] [id number] [address] [place] [address] Nov, Type 2 diabetes mellitus wit hout complication, without long-term current use of insulin E11.9 [facility] [address] [id number] [address] [place] [address] Nov, [facility] [address] [id number] [address] [place] [address] Nov, [facility] [address] [id number] [address] [place] [address] Nov, Type 2 diabetes mellitus wit hout complication, without long-term current use of insulin E11.9 [facility] [address] [id number] [address] [place] [address] Oct, Type 2 diabetes mellitus wit hout complication, without long-term current use of insulin E11.9 [facility] [address] [id number] [address] [place] [address] Oct, [facility] [address] [id number] [address] [place] [address] Oct, Type 2 diabetes mellitus wit hout complication, without long-term current use of insulin E11.9 [facility] [address] [facility] [id number] [address] [place] [address] Oct, Essential hypertension I10 [facility] [address] [facility] [id number] [address] [place] [address] Oct, Essential hypertension I10 a nd Type 2 diabetes mellitus without complication, without long-term current use of insulin E11.9 [facility] [address] [facility] [id number] [address] [place] [address] Oct, [facility] [address] [facility] [id number] [address] [place] [address] Sep, Essential hypertension I10 ; Type 2 diabetes mellitus without complication, without long-term current use of insulin E11.9 ; Pain in right knee M25.561 ; Pain in left knee M25.562 and PVD (peripheral vascular disease) I73.9 [facility] [address] [facility] [id number] [address] [place] [address] Sep, [facility] [address] [facility] [id number] [address] [place] [address] Aug, [facility] [address] [facility] [id number] [address] [place] [address] Jul, Type 2 diabetes mellitus wit hout complication, without long-term current use of insulin E11.9 [facility] [address] [facility] [id number] [address] [place] [address] Jul, Gastroenteritis and colitis, viral A08.4 [facility] [address] [facility] [id number] [address] [place] [address] June, Type 2 diabetes mellitus wit hout complication, without long-term current use of insulin E11.9 [facility] [address] [facility] [id number] [address] [place] [address] June, Essential hypertension I10 ; Type 2 diabetes mellitus without complication, without long-term current use of insulin E11.9 ; Pain in right knee M25.561 ; Pain in left knee M25.562 ; 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 and PVD (peripheral vascular disease) I73.9 [place] [address] [id number] [address] [place] [address] May, [place] [address] [id number] [address] [place] [address] Apr, [place] [address] [id number] [address] [place] [address] Mar, [place] [address] [id number] [address] [place] [address] Mar, 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 [place] [address] [facility] [id number] [address] [place] [address] Mar, Essential hypertension I10 ; Type 2 diabetes mellitus without complication, without long-term current use of insulin E11.9 ; Pain in right knee M25.561 ; Pain in left knee M25.562 and 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 [place] [address] [facility] [id number] [address] [place] [address] Feb, IMMUNIZATIONS No Known Immunizations SOCIAL HISTORY Never Assessed REASON FOR VISIT cryo spots on cheek--tcuppettRN, consent signed PLAN OF CARE Activity Details Follow Up 4 Weeks Reason:f/u skin lesi on Future/Pending Procedure CRYOTHERAPY OF SKIN VITAL SIGNS Height 68.5 in 2017-09-29 Weight 200.4 lbs 2017-09-29 Temperature 98.3 degrees Fahrenheit 2017-09-29 Heart Rate 60 bpm 2017-09-29 Respiratory Rate 20 2017-09-29 BMI 30.02 kg/m2 2017-09-29 Blood pressure systolic 132 mmHg 2017-09-29 Blood pressure diastolic 78 mmHg 2017-09-29 MEDICATIONS Medication Instructions Dosage Frequency Start Date End Date Duration S tatus Lisinopril 20 MG TAKE ONE TABLET BY MOUTH ONCE DAILY Active Metformin HCl 500 MG TAKE TWO TABLETS BY MOUTH TWICE DAILY Active GlipiZIDE 10 MG TAKE ONE TABLET BY MOUTH ONCE DAILY Active Glucagon Emergency 1 MG Active Atorvastatin Calcium 80 MG Orally Once a day 1 tablet 24h Active Levemir FlexTouch 100 UNIT/ML INJECT 36 UNITS SUBCUTANEOUS LY TWICE DAILY Active Blood Glucose Test - Glucocard Expression and lancets once d aily test blood sugar 24h 26 Oct, 2016 Active Aspirin 81 MG Orally Once a day 1 tablet 24h Active Indomethacin 50 MG Orally Twice a day 1 capsule with food or milk 12h Active Glucometer 1 glucometer Check blood sugar (glucocard) Aug, Active Test strips Test Strips Check blood sugar (Glucocard) Aug, Active RESULTS No Results PROCEDURES Procedure Date Ordered Result Body Site CRYOTHERAPY OF SKIN Sep 29, 2017 [facility] VISIT ESTABLISHED PATIENT Sep 29, 2017 INSTRUCTIONS MEDICATIONS ADMINISTERED No Known Medications MEDICAL [...] angiopathy without gangrene Medical History retirement current use of insulin Medical History Declines Colonoscopy, Denies Influenza Vaccine, Declines Pneumovax and Zostavax Surgical History jaw surgery Surgical History tonsillectomy Surgical History Cataract removal bilaterally Surgical History had stint placed in L. leg 2016 Surgical History Triple bypass 2017 Hospitalization History Surgery(s) only
--- OUTSIDE RECORDS SUMMARY | 2019-05-12 06:29 | XMS REPORT ---
Author Author Mychal BROWN Organization [facility] Address [address] [place] [address] Care Team Providers Care Painter Tumbling [place]rel Name Role Phone VANITA BROWN Unavailable PROBLEMS Type Condition ICD9-CM Code XRB39-KP Code Onset Dates Condition S tatus SNOMED Code Problem Other chronic pain G89.29 Active 8 1781174 Problem PVD (peripheral vascular disease) I73.9 Active 050360938 Problem Essential hypertension I10 Active 17451189 Problem Lumbago with sciatica, left side M54.42 Active 89320749 Problem S/P CABG x 4 Z95.1 Active 2277773 00 Problem FDC current use of insulin Z79.4 Active 998031790 Problem Stasis dermatitis of right l ower extremity with venous ulcer due to chronic peripheral venous hypertension I87.331 Ac tive 155973056699223 Problem Non-pressure chronic ulcer o f unspecified part of unspecified lower leg with unspecified severity L97.909 Active 26 3459610 Problem Type 2 diabetes mellitus wit h diabetic peripheral angiopathy without gangrene E11.51 Active 156189595 Problem Intermittent claudication I73.9 Acti ve 21397473 Problem 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 71321849 Problem Pain in left knee M25.562 Active 30 184194 Problem Hyperlipidemia LDL goal <70 E78.5 Ac tive 64463737 Problem Pain in right knee M25.561 Active 3 5987019 ALLERGIES No Known Allergies ENCOUNTERS Encounter Location Date Diagnosis [facility] [address] [facility] [id number] [address] [place] [id number] Aug, [facility] [address] [facility] [id number] [address] [place] [phone] May, [facility] [address] [facility] [id number] [address] [place] [phone] May, Establishing care with carlos martins, encounter for Z76.89 ; Essential hypertension I10 ; Type 2 diabetes mellitus with diabetic peripheral angiopathy without gangrene E11.51 ; 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 ; Hyperlipidemia LDL goal <70 E78.5 ; PVD (peripheral vascular disease) I73.9 ; FDC current use of insulin Z79.4 ; Intermittent claudication I73.9 ; Other chronic pain G89.29 and Lumbago with sciatica, left side M54.42 [place] [address] [facility] [id number] [address] [place] [phone] Feb, [place] [address] [address] [facility] [id number] [address] [place] [phone] Feb, Medicare annual wellness vis it, subsequent [...] E11.51 and S/P CABG x 4 Z95.1 [place] [address] [facility] [id number] [address] [place] [phone] Jan, [place] [address] [facility] [id number] [address] [place] [phone] Jan, Type 2 diabetes mellitus wit hout complication, without long-term current use of insulin E11.9 [place] [id number] [id number] [address] [place] [phone] Jan, [place] [address] [address] [facility] [id number] [address] [place] [phone] Jan, Type 2 diabetes mellitus wit hout complication, without long-term current use of insulin E11.9 [facility] [address] [facility] [id number] [address] [place] [phone] Dec, Type 2 diabetes mellitus wit hout complication, without long-term current use of insulin E11.9 [facility] [address] [id number] [address] [place] [id number] Dec, [facility] [address] [id number] [address] [place] [phone] Dec, Stasis dermatitis of right l ower extremity with venous ulcer due to chronic peripheral venous hypertension I87.331 ; Type 2 diabetes mellitus with diabetic peripheral angiopathy without gangrene E11.51 and FDC current use of insulin Z79.4 [facility] [address] [id number] [address] [place] [id number] Dec, Non-pressure chronic ulcer o f unspecified part of unspecified lower leg with unspecified severity L97.909 and Type 2 diabetes mellitus with other skin ulcer E11.622 [facility] [address] [id number] [address] [place] [id number] Dec, Type 2 diabetes mellitus wit hout complication, without long-term current use of insulin E11.9 [facility] [address] [id number] [address] [place] [phone] Dec, [facility] [address] [id number] [address] [place] [phone] Dec, Type 2 diabetes mellitus wit hout complication, without long-term current use of insulin E11.9 [facility] [address] [id number] [address] [place] [id number] Dec, Type 2 diabetes mellitus wit hout complication, without long-term current use of insulin E11.9 and Essential hypertension I10 [facility] [address] [id number] [address] [place] [phone] Nov, Type 2 diabetes mellitus wit hout complication, without long-term current use of insulin E11.9 [facility] [address] [id number] [address] [place] [phone] Nov, [facility] [address] [id number] [address] [place] [address] Nov, [facility] [address] [id number] [address] [place] [phone] Nov, Type 2 diabetes mellitus wit hout complication, without long-term current use of insulin E11.9 [facility] [address] [id number] [address] [place] [phone] Nov, [facility] [address] [id number] [address] [place] [phone] Nov, [facility] [address] [id number] [address] [place] [phone] Nov, Type 2 diabetes mellitus wit hout complication, without long-term current use of insulin E11.9 [facility] [address] [id number] [address] [place] [phone] Oct, Type 2 diabetes mellitus wit hout complication, without long-term current use of insulin E11.9 [facility] [address] [id number] [address] [place] [phone] Oct, [facility] [address] [id number] [address] [place] [phone] Oct, Type 2 diabetes mellitus wit hout complication, without long-term current use of insulin E11.9 [facility] [address] [id number] [address] [place] [phone] Oct, Essential hypertension I10 [facility] [address] [id number] [address] [place] [phone] Oct, Essential hypertension I10 a nd Type 2 diabetes mellitus without complication, without long-term current use of insulin E11.9 [facility] [address] [id number] [address] [place] [phone] Oct, [facility] [address] [id number] [address] [place] [phone] Sep, Essential hypertension I10 ; Type 2 diabetes mellitus without complication, without long-term current use of insulin E11.9 ; Pain in right knee M25.561 ; Pain in left knee M25.562 and PVD (peripheral vascular disease) I73.9 [facility] [address] [facility] [id number] [address] [place] [phone] Sep, [facility] [address] [facility] [id number] [address] [place] [phone] Aug, [facility] [address] [facility] [id number] [address] [place] [phone] Jul, Type 2 diabetes mellitus wit hout complication, without long-term current use of insulin E11.9 [facility] [address] [facility] [id number] [address] [place] [phone] Jul, Gastroenteritis and colitis, viral A08.4 [facility] [address] [facility] [id number] [address] [place] [phone] June, Type 2 diabetes mellitus wit hout complication, without long-term current use of insulin E11.9 [place] [address] [facility] [id number] [address] [place] [phone] June, Essential hypertension I10 ; Type 2 diabetes mellitus without complication, without long-term current use of insulin E11.9 ; Pain in right knee M25.561 ; Pain in left knee M25.562 ; 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 and PVD (peripheral vascular disease) I73.9 [place] [address] [facility] [id number] [address] [place] [phone] May, [place] [address] [facility] [id number] [address] [place] [phone] Apr, [facility] [address] [facility] [id number] [address] [place] [id number] Mar, [place] [address] [facility] [id number] [address] [place] [phone] Mar, 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 [place] [address] [facility] [id number] [address] [place] [phone] Mar, Essential hypertension I10 ; Type 2 diabetes mellitus without complication, without long-term current use of insulin E11.9 ; Pain in right knee M25.561 ; Pain in left knee M25.562 and 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 [facility] [address] [facility] [id number] [address] [place] [address] Feb, IMMUNIZATIONS No Known Immunizations SOCIAL HISTORY Never Assessed REASON FOR VISIT Transition of Care-[facility], Med refills PLAN OF CARE Activity Details Follow Up 3 Months, prn Reason:DM VITAL SIGNS Height 68.5 in 2017-05-25 Weight 205.0 lbs 2017-05-25 Temperature 97.7 degrees Fahrenheit 2017-05-25 Heart Rate 66 bpm 2017-05-25 Respiratory Rate 18 2017-05-25 BMI 30.71 kg/m2 2017-05-25 Blood pressure systolic 112 mmHg 2017-05-25 Blood pressure diastolic 74 mmHg 2017-05-25 MEDICATIONS Medication Instructions Dosage Frequency Start Date End Date Duration S tatus Insulin Detemir 100 UNIT/ML DX- E11.51 twice a day 25 units 12h Active Metformin HCl 500 MG TAKE TWO TABLETS BY MOUTH TWICE DAILY WITH MEALS Active Test strips Test Strips Check blood sugar (Glucocard) Aug, Active Indomethacin 50 MG Orally Twice a day 1 capsule with food or milk 12h Active Blood Glucose Test - Glucocard Expression and lancets once d aily test blood sugar 24h 26 Oct, 2016 Active Glucagon Emergency 1 MG Active Lisinopril 20 mg Orally Once a day 1 tablet 24h Active Glucometer 1 glucometer Check blood sugar (glucocard) Aug, Active Aspirin 81 MG Orally Once a day 1 tablet 24h Active Atorvastatin Calcium 80 MG Orally Once a day 1 tablet 24h Active GlipiZIDE 10 MG TAKE ONE TABLET BY MOUTH ONCE DAILY Active RESULTS Name Result Date Reference Range A1C (IN HOUSE) 2017-05-25 A1C IN HOUSE 9.6 4.3 - 5.6 % Previous A1c 9.0 Lot [id number] Exp date 12/2018 PROCEDURES Procedure Date Ordered Result Body Site GLYCATED HEMOGLOBIN TEST May 25, 2017 PENDING SALE TO [facility] VISIT ESTABLISHED PATIENT May 25, 2017 INSTRUCTIONS MEDICATIONS ADMINISTERED No Known Medications [...] diabetic peripheral angiopathy without gangrene Medical History FDC current use of insulin Medical History Declines Colonoscopy, Denies Influenza Vaccine, Declines Pneumovax and Zostavax Surgical History jaw surgery Surgical History tonsillectomy Surgical History Cataract removal bilaterally Surgical History had stint placed in L. leg 2017 Surgical History Triple bypass 2017 Hospitalization History Surgery(s) only
--- OUTSIDE RECORDS SUMMARY | 2019-05-12 06:29 | XMS REPORT ---
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 Active 580672068 Problem Stasis dermatitis of right l ower extremity with venous ulcer due to chronic peripheral venous hypertension I87.331 Ac tive 352533221434952 Problem Non-pressure chronic ulcer o f unspecified part of unspecified lower leg with unspecified severity L97.909 Active 26 4339844 Problem Type 2 diabetes mellitus wit h diabetic peripheral angiopathy without gangrene E11.51 Active 251322091 Problem Intermittent claudication I73.9 Acti ve 91436860 Problem 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 00361591 Problem Pain in left knee M25.562 Active 30 616591 Problem Hyperlipidemia LDL goal <70 E78.5 Ac tive 17304798 Problem Pain in right knee M25.561 Active 3 6538219 ALLERGIES No Known Allergies ENCOUNTERS Encounter Location Date Diagnosis [facility] [address] [facility] [id number] [address] [place] [phone] Oct, [facility] [address] [facility] [id number] [address] [place] [phone] Oct, [facility] [address] [facility] [id number] [address] [place] [phone] Sep, Type 2 diabetes mellitus wit h diabetic peripheral angiopathy without gangrene E11.51 [place] [address] [address] [facility] [id number] [address] [place] [phone] Sep, [place] [address] [address] [place] [id number] [address] [place] [phone] Sep, Actinic keratosis L57.0 [place] [address] [address] [place] [id number] [address] [place] [phone] Aug, Type 2 diabetes mellitus wit h diabetic peripheral angiopathy without gangrene E11.51 ; Essential hypertension I10 ; PVD (peripheral vascular disease) I73.9 and Intermittent claudication I73.9 [place] [address] [address] [place] [id number] [address] [place] [phone] May, [place] [address] [address] [place] [id number] [address] [place] [address] May, Establishing care with anusha frank for Z76.89 ; Essential hypertension I10 ; Type 2 diabetes mellitus with diabetic peripheral angiopathy without gangrene E11.51 ; 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 ; Hyperlipidemia LDL goal <70 E78.5 ; PVD (peripheral vascular disease) I73.9 ; MCC current use of insulin Z79.4 ; Intermittent claudication I73.9 ; Other chronic pain G89.29 and Lumbago with sciatica, left side M54.42 [place] [address] [address] [place] [id number] [address] [place] [phone] Feb, [place] [address] [address] [place] [id number] [address] [place] [address] Feb, Medicare annual wellness vis it, subsequent [...] E11.51 and S/P CABG x 4 Z95.1 [facility] [address] [id number] [address] [place] [phone] Jan, [facility] [address] [facility] [id number] [address] [place] [phone] Jan, Type 2 diabetes mellitus wit hout complication, without long-term current use of insulin E11.9 [facility] [address] [facility] [id number] [address] [place] [phone] Jan, [facility] [address] [facility] [id number] [address] [place] [phone] Jan, Type 2 diabetes mellitus wit hout complication, without long-term current use of insulin E11.9 [facility] [address] [place] [id number] [address] [place] [phone] Dec, Type 2 diabetes mellitus wit hout complication, without long-term current use of insulin E11.9 [facility] [address] [facility] [id number] [address] [place] [phone] Dec, [facility] [address] [facility] [id number] [address] [place] [phone] Dec, Stasis dermatitis of right l ower extremity with venous ulcer due to chronic peripheral venous hypertension I87.331 ; Type 2 diabetes mellitus with diabetic peripheral angiopathy without gangrene E11.51 and 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 [facility] [address] [facility] [id number] [address] [place] [phone] Dec, Non-pressure chronic ulcer o f unspecified part of unspecified lower leg with unspecified severity L97.909 and Type 2 diabetes mellitus with other skin ulcer E11.622 [facility] [address] [facility] [id number] [address] [place] [phone] Dec, Type 2 diabetes mellitus wit hout complication, without long-term current use of insulin E11.9 [facility] [address] [place] [id number] [address] [place] [phone] Dec, [facility] [address] [id number] [address] [place] [phone] Dec, Type 2 diabetes mellitus wit hout complication, without long-term current use of insulin E11.9 [facility] [address] [id number] [address] [place] [phone] Dec, Type 2 diabetes mellitus wit hout complication, without long-term current use of insulin E11.9 and Essential hypertension I10 [facility] [address] [id number] [address] [place] [phone] Nov, Type 2 diabetes mellitus wit hout complication, without long-term current use of insulin E11.9 [facility] [address] [id number] [address] [place] [address] Nov, [facility] [address] [id number] [address] [place] [phone] Nov, [facility] [address] [id number] [address] [place] [phone] Nov, Type 2 diabetes mellitus wit hout complication, without long-term current use of insulin E11.9 [facility] [address] [id number] [address] [place] [phone] Nov, [facility] [address] [id number] [address] [place] [phone] Nov, [facility] [address] [id number] [address] [place] [phone] Nov, Type 2 diabetes mellitus wit hout complication, without long-term current use of insulin E11.9 [facility] [address] [id number] [address] [place] [phone] Oct, Type 2 diabetes mellitus wit hout complication, without long-term current use of insulin E11.9 [facility] [address] [id number] [address] [place] [phone] Oct, [facility] [address] [id number] [address] [place] [phone] Oct, Type 2 diabetes mellitus wit hout complication, without long-term current use of insulin E11.9 [facility] [address] [facility] [id number] [address] [place] [phone] Oct, Essential hypertension I10 [facility] [address] [facility] [id number] [address] [place] [phone] Oct, Essential hypertension I10 a nd Type 2 diabetes mellitus without complication, without long-term current use of insulin E11.9 [facility] [address] [facility] [id number] [address] [place] [phone] Oct, [facility] [address] [facility] [id number] [address] [place] [address] Sep, Essential hypertension I10 ; Type 2 diabetes mellitus without complication, without long-term current use of insulin E11.9 ; Pain in right knee M25.561 ; Pain in left knee M25.562 and PVD (peripheral vascular disease) I73.9 [facility] [address] [facility] [id number] [address] [place] [phone] Sep, [facility] [address] [facility] [id number] [address] [place] [phone] Aug, [facility] [address] [facility] [id number] [address] [place] [address] Jul, Type 2 diabetes mellitus wit hout complication, without long-term current use of insulin E11.9 [facility] [address] [facility] [id number] [address] [place] [phone] Jul, Gastroenteritis and colitis, viral A08.4 [facility] [address] [facility] [id number] [address] [place] [phone] June, Type 2 diabetes mellitus wit hout complication, without long-term current use of insulin E11.9 [facility] [address] [facility] [id number] [address] [place] [address] June, Essential hypertension I10 ; Type 2 diabetes mellitus without complication, without long-term current use of insulin E11.9 ; Pain in right knee M25.561 ; Pain in left knee M25.562 ; 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 and PVD (peripheral vascular disease) I73.9 [facility] [address] [id number] [address] [place] [phone] May, [facility] [address] [id number] [address] [place] [phone] Apr, [place] [address] [id number] [address] [place] [address] Mar, [place] [address] [id number] [address] [place] [address] Mar, 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 [place] [address] [address] [facility] [id number] [address] [place] [address] Mar, Essential hypertension I10 ; Type 2 diabetes mellitus without complication, without long-term current use of insulin E11.9 ; Pain in right knee M25.561 ; Pain in left knee M25.562 and 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 [place] [address] [address] [facility] [id number] [address] [place] [phone] Feb, IMMUNIZATIONS No Known Immunizations SOCIAL HISTORY Never Assessed REASON FOR VISIT Establish Care-CAROL Whitehead follow up, wants a couple spots on skin looked a t PLAN OF CARE Activity Details Follow Up 3 months or as indicated by lab Reason:DM VITAL SIGNS Height 68.5 in 2017-09-16 Weight 198.2 lbs 2017-09-16 Temperature 97.5 degrees Fahrenheit 2017-09-16 Heart Rate 58 bpm 2017-09-16 Respiratory Rate 20 2017-09-16 Oximetry 99 % 2017-09-16 BMI 29.69 kg/m2 2017-09-16 Blood pressure systolic 132 mmHg 2017-09-16 Blood pressure diastolic 72 mmHg 2017-09-16 MEDICATIONS Medication Instructions Dosage Frequency Start Date End Date Duration S tatus Glucagon Emergency 1 MG Active Test strips Test Strips Check blood sugar (Glucocard) Aug, Active Levemir FlexTouch 100 UNIT/ML INJECT 30 UNITS SUBCUTANEOUS LY TWICE DAILY Active Glucometer 1 glucometer Check blood sugar (glucocard) Aug, Active Metformin HCl 500 MG TAKE TWO TABLETS BY MOUTH TWICE DAILY Active GlipiZIDE 10 MG TAKE ONE TABLET BY MOUTH ONCE DAILY Active Aspirin 81 MG Orally Once a day 1 tablet 24h Active Indomethacin 50 MG Orally Twice a day 1 capsule with food or milk 12h Active Blood Glucose Test - Glucocard Expression and lancets once d aily test blood sugar 24h Oct, Active Lisinopril 20 MG TAKE ONE TABLET BY MOUTH ONCE DAILY Active Atorvastatin Calcium 80 MG Orally Once a day 1 tablet 24h Active RESULTS Name Result Date Reference Range A1C (IN HOUSE) 2017-09-16 A1C IN HOUSE 10.6 4.3 - 5.6 % Previous A1c 9.6 Lot [id number] Exp date 05/12 PROCEDURES Procedure Date Ordered Result Body Site [facility] V[facility]IT ESTABLISHED PATIENT September 16, 2017 GLYCATED HEMOGLOBIN TEST September 16, 2017 INSTRUCTIONS MEDICATIONS ADMINISTERED No Known Medications [...] diabetic peripheral angiopathy without gangrene Medical History MCC current use of insulin Medical History Declines Colonoscopy, Denies Influenza Vaccine, Declines Pneumovax and Zostavax Surgical History jaw surgery Surgical History tonsillectomy Surgical History Cataract removal bilaterally Surgical History had stint placed in L. leg 2016 Surgical History Triple bypass 2017 Hospitalization History Surgery(s) only
--- OUTSIDE RECORDS SUMMARY | 2019-05-12 06:29 | XMS REPORT ---
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 Active 578134220 Problem Stasis dermatitis of right l ower extremity with venous ulcer due to chronic peripheral venous hypertension I87.331 Ac tive 678327838201219 Problem Non-pressure chronic ulcer o f unspecified part of unspecified lower leg with unspecified severity L97.909 Active 26 6685319 Problem Type 2 diabetes mellitus wit h diabetic peripheral angiopathy without gangrene E11.51 Active 383990477 Problem Intermittent claudication I73.9 Acti ve 14951527 Problem 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 24910228 Problem Pain in left knee M25.562 Active 30 504840 Problem Hyperlipidemia LDL goal <70 E78.5 Ac tive 22124065 Problem Pain in right knee M25.561 Active 3 9858288 ALLERGIES No Information ENCOUNTERS Encounter Location Date Diagnosis [facility] [address] [facility] [id number] [address] [place] [phone] Oct, [facility] [address] [facility] [place] [id number] [address] [place] [phone] Oct, [facility] [address] [facility] [place] [id number] [address] [place] [address] Oct, [place] [address] [id number] [place] [address] Sep, Type 2 diabetes mellitus wit h diabetic peripheral angiopathy without gangrene E11.51 [place] [address] [address] [place] [id number] [address] [place] [phone] Sep, [place] [address] [address] [place] [id number] [place] [address] Sep, Actinic keratosis L57.0 [place] [address] [address] [place] [id number] [place] [address] Aug, Type 2 diabetes mellitus wit h diabetic peripheral angiopathy without gangrene E11.51 ; Essential hypertension I10 ; PVD (peripheral vascular disease) I73.9 and Intermittent claudication I73.[address] [address] May, [address] [address] May, Establishing care with carlos martins, encounter for Z76.89 ; Essential hypertension I10 ; Type 2 diabetes mellitus with diabetic peripheral angiopathy without gangrene E11.51 ; 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 ; Hyperlipidemia LDL goal <70 E78.5 ; PVD (peripheral vascular disease) I73.9 ; 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 ; Intermittent claudication I73.9 ; Other chronic pain G89.29 and Lumbago with sciatica, left side M54.42 [place] [address] [address] [place] [id number] [address] [place] [address] Feb, [address] [phone] Feb, Medicare annual wellness vis it, subsequent [...] 4 Z95.1 [facility] [address] [id number] [address] [place] [phone] 18 Jan, 2017 [facility] [address] [id number] [address] [place] [phone] Jan, Type 2 diabetes mellitus wit hout complication, without long-term current use of insulin E11.9 [facility] [address] [id number] [address] [place] [address] Jan, [facility] [address] [facility] [place] [id number] [address] [place] [address] Jan, Type 2 diabetes mellitus wit hout complication, without long-term current use of insulin E11.9 [facility] [address] [facility] [place] [id number] [address] [place] [phone] Dec, Type 2 diabetes mellitus wit hout complication, without long-term current use of insulin E11.9 [facility] [address] [id number] [address] [place] [address] Dec, [facility] [address] [id number] [address] [place] [address] Dec, Stasis dermatitis of right l ower extremity with venous ulcer due to chronic peripheral venous hypertension I87.331 ; Type 2 diabetes mellitus with diabetic peripheral angiopathy without gangrene E11.51 and 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 [facility] [address] [id number] [address] [place] [address] Dec, Non-pressure chronic ulcer o f unspecified part of unspecified lower leg with unspecified severity L97.909 and Type 2 diabetes mellitus with other skin ulcer E11.622 [facility] [address] [id number] [address] [place] [phone] Dec, Type 2 diabetes mellitus wit hout complication, without long-term current use of insulin E11.9 [facility] [address] [id number] [address] [place] [address] Dec, [facility] [address] [id number] [address] [place] [address] Dec, Type 2 diabetes mellitus wit hout complication, without long-term current use of insulin E11.9 [facility] [address] [id number] [address] [place] [phone] Dec, Type 2 diabetes mellitus wit hout complication, without long-term current use of insulin E11.9 and Essential hypertension I10 [facility] [address] [id number] [address] [place] [address] Nov, Type 2 diabetes mellitus wit hout complication, without long-term current use of insulin E11.9 [facility] [address] [id number] [address] [place] [address] Nov, [facility] [address] [id number] [address] [place] [address] Nov, [facility] [address] [id number] [address] [place] [address] Nov, Type 2 diabetes mellitus wit hout complication, without long-term current use of insulin E11.9 [facility] [address] [id number] [address] [place] [address] Nov, [facility] [address] [id number] [address] [place] [address] Nov, [facility] [address] [id number] [address] [place] [address] Nov, Type 2 diabetes mellitus wit hout complication, without long-term current use of insulin E11.9 [facility] [address] [id number] [address] [place] [address] Oct, Type 2 diabetes mellitus wit hout complication, without long-term current use of insulin E11.9 [facility] [address] [id number] [address] [place] [address] Oct, [facility] [address] [facility] [place] [id number] [address] [place] [address] Oct, Type 2 diabetes mellitus wit hout complication, without long-term current use of insulin E11.9 [facility] [address] [place] [id number] [address] [place] [address] Oct, Essential hypertension I10 [facility] [address] [facility] [place] [id number] [address] [place] [phone] Oct, Essential hypertension I10 a nd Type 2 diabetes mellitus without complication, without long-term current use of insulin E11.9 [place] [address] [facility] [place] [id number] [address] [place] [address] Oct, [place] [address] [place] [id number] [address] [place] [address] Sep, Essential hypertension I10 ; Type 2 diabetes mellitus without complication, without long-term current use of insulin E11.9 ; Pain in right knee M25.561 ; Pain in left knee M25.562 and PVD (peripheral vascular disease) I73.9 [place] [address] [address] [place] [id number] [address] [place] [address] Sep, [facility] [address] [place] [id number] [address] [place] [address] Aug, [facility] [address] [facility] [place] [id number] [address] [place] [phone] Jul, Type 2 diabetes mellitus wit hout complication, without long-term current use of insulin E11.9 [facility] [address] [facility] [place] [id number] [address] [place] [address] Jul, Gastroenteritis and colitis, viral A08.4 [facility] [address] [facility] [place] [id number] [address] [place] [phone] June, Type 2 diabetes mellitus wit hout complication, without long-term current use of insulin E11.9 [facility] [address] [place] [id number] [address] [place] [address] June, Essential hypertension I10 ; Type 2 diabetes mellitus without complication, without long-term current use of insulin E11.9 ; Pain in right knee M25.561 ; Pain in left knee M25.562 ; 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 and PVD (peripheral vascular disease) I73.9 [place] [address] [facility] [id number] [address] [place] [address] May, [place] [address] [facility] [place] [id number] [address] [place] [address] Apr, [place] [address] [place] [id number] [address] [place] [address] Mar, [place] [address] [place] [id number] [address] [place] [address] Mar, 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 [place] [address] [place] [id number] [address] [place] [address] Mar, Essential hypertension I10 ; Type 2 diabetes mellitus without complication, without long-term current use of insulin E11.9 ; Pain in right knee M25.561 ; Pain in left knee M25.562 and 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 test blood sugar Sep, Active Blood Glucose Monitor System w/Device DX- E11.51 3 times a day t est blood sugar 8h Sep, Active RESULTS No Results PROCEDURES No [...]
--- OUTSIDE RECORDS SUMMARY | 2019-05-12 06:29 | XMS REPORT ---
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 Name Role Phone ARLEN DELAROSA Unavailable PROBLEMS Type Condition ICD9-CM Code PRM20-ZM Code Onset Dates Condition S tatus SNOMED Code Problem Other chronic pain G89.29 Active 8 4899479 Problem PVD (peripheral vascular disease) I73.9 Active 319145079 Problem Essential hypertension I10 Active 27843066 Problem Lumbago with sciatica, left side M54.42 Active 23413714 Problem S/P CABG x 4 Z95.1 Active 1250070 00 Problem half-way current use of insulin Z79.4 Active 487542982 Problem Stasis dermatitis of right l ower extremity with venous ulcer due to chronic peripheral venous hypertension I87.331 Ac tive 053336265102871 Problem Non-pressure chronic ulcer o f unspecified part of unspecified lower leg with unspecified severity L97.909 Active 26 9451284 Problem Type 2 diabetes mellitus wit h diabetic peripheral angiopathy without gangrene E11.51 Active 182175791 Problem Intermittent claudication I73.9 Acti ve 20380271 Problem 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 86714039 Problem Pain in left knee M25.562 Active 30 950677 Problem Hyperlipidemia LDL goal <70 E78.5 Ac tive 05853935 Problem Pain in right knee M25.561 Active 3 1977172 ALLERGIES No Information ENCOUNTERS Encounter Location Date Diagnosis [facility] [address] [facility] [id number] [address] [place] [address] May, [facility] [address] [facility] [id number] [address] [place] [address] May, Establishing care with carlos martins, encounter for Z76.89 ; Essential hypertension I10 ; Type 2 diabetes mellitus with diabetic peripheral angiopathy without gangrene E11.51 ; 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 ; Hyperlipidemia LDL goal <70 E78.5 ; PVD (peripheral vascular disease) I73.9 ; half-way current use of insulin Z79.4 ; Intermittent claudication I73.9 ; Other chronic pain G89.29 and Lumbago with sciatica, left side M54.42 [place] [address] [facility] [id number] [address] [place] [address] Feb, [place] [address] [facility] [id number] [address] [place] [address] Feb, Medicare annual wellness vis it, subsequent [...] E11.51 and S/P CABG x 4 Z95.1 [place] [address] [id number] [address] [place] [address] Jan, [place] [address] [facility] [id number] [address] [place] [address] Jan, Type 2 diabetes mellitus wit hout complication, without long-term current use of insulin E11.9 [place] [address] [id number] [address] [place] [address] Jan, [place] [address] [id number] [address] [place] [address] Jan, Type 2 diabetes mellitus wit hout complication, without long-term current use of insulin E11.9 [place] [address] [facility] [id number] [address] [place] [address] Dec, Type 2 diabetes mellitus wit hout complication, without long-term current use of insulin E11.9 [place] [address] [id number] [address] [place] [address] Dec, [facility] [address] [id number] [address] [place] [address] Dec, Stasis dermatitis of right l ower extremity with venous ulcer due to chronic peripheral venous hypertension I87.331 ; Type 2 diabetes mellitus with diabetic peripheral angiopathy without gangrene E11.51 and half-way current use of insulin Z79.4 [facility] [address] [id number] [address] [place] [address] Dec, Non-pressure chronic ulcer o f unspecified part of unspecified lower leg with unspecified severity L97.909 and Type 2 diabetes mellitus with other skin ulcer E11.622 [facility] [address] [facility] [id number] [address] [place] [address] Dec, Type 2 diabetes mellitus wit hout complication, without long-term current use of insulin E11.9 [place] [id number] [facility] [id number] [address] [place] [address] Dec, [facility] [address] [id number] [address] [place] [address] Dec, Type 2 diabetes mellitus wit hout complication, without long-term current use of insulin E11.9 [facility] [address] [facility] [id number] [address] [place] [address] Dec, Type 2 diabetes mellitus wit hout complication, without long-term current use of insulin E11.9 and Essential hypertension I10 [facility] [address] [id number] [address] [place] [address] Nov, Type 2 diabetes mellitus wit hout complication, without long-term current use of insulin E11.9 [facility] [address] [facility] [id number] [address] [place] [address] Nov, [facility] [address] [id number] [address] [place] [address] Nov, [facility] [address] [facility] [id number] [address] [place] [address] Nov, Type 2 diabetes mellitus wit hout complication, without long-term current use of insulin E11.9 [facility] [address] [id number] [address] [place] [address] Nov, [facility] [address] [id number] [address] [place] [address] Nov, [facility] [address] [id number] [address] [place] [address] Nov, Type 2 diabetes mellitus wit hout complication, without long-term current use of insulin E11.9 [place] [address] [id number] [address] [place] [address] Oct, Type 2 diabetes mellitus wit hout complication, without long-term current use of insulin E11.9 [place] [address] [id number] [address] [place] [address] Oct, [place] [address] [id number] [address] [place] [address] Oct, Type 2 diabetes mellitus wit hout complication, without long-term current use of insulin E11.9 [place] [address] [id number] [address] [place] [address] Oct, Essential hypertension I10 [place] [address] [id number] [address] [place] [address] Oct, Essential hypertension I10 a nd Type 2 diabetes mellitus without complication, without long-term current use of insulin E11.9 [facility] [address] [id number] [address] [place] [address] Oct, [place] [address] [facility] [id number] [address] [place] [address] Sep, Essential hypertension I10 ; Type 2 diabetes mellitus without complication, without long-term current use of insulin E11.9 ; Pain in right knee M25.561 ; Pain in left knee M25.562 and PVD (peripheral vascular disease) I73.9 [facility] [address] [facility] [id number] [address] [place] [address] Sep, [facility] [address] [facility] [id number] [address] [place] [address] Aug, [facility] [address] [facility] [id number] [address] [place] [address] Jul, Type 2 diabetes mellitus wit hout complication, without long-term current use of insulin E11.9 [facility] [address] [facility] [id number] [address] [place] [address] Jul, Gastroenteritis and colitis, viral A08.4 [place] [address] [facility] [id number] [address] [place] [address] June, Type 2 diabetes mellitus wit hout complication, without long-term current use of insulin E11.9 [place] [address] [place] [id number] [address] [place] [address] June, Essential hypertension I10 ; Type 2 diabetes mellitus without complication, without long-term current use of insulin E11.9 ; Pain in right knee M25.561 ; Pain in left knee M25.562 ; 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 and PVD (peripheral vascular disease) I73.9 [facility] [address] [facility] [id number] [address] [place] [address] May, [place] [address] [facility] [id number] [address] [place] [address] Apr, [place] [address] [facility] [id number] [address] [place] [address] Mar, [facility] [address] [facility] [id number] [address] [place] [address] Mar, 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 [facility] [address] [facility] [id number] [address] [place] [address] Mar, Essential hypertension I10 ; Type 2 diabetes mellitus without complication, without long-term current use of insulin E11.9 ; Pain in right knee M25.561 ; Pain in left knee M25.562 and 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 [facility] [address] [facility] [id number] [address] [place] [address] Feb, IMMUNIZATIONS No Known Immunizations SOCIAL HISTORY Never Assessed REASON FOR VISIT Repository Medication PLAN OF CARE VITAL SIGNS MEDICATIONS Medication Instructions Dosage Frequency Start Date End Date Duration S tatus Metformin HCl 500 mg Orally Twice a day 2 tablets 12h 30 days Active RESULTS No Results PROCEDURES No Known [...] diabetic peripheral angiopathy without gangrene Medical History half-way current use of insulin Medical History Declines Colonoscopy, Denies Influenza Vaccine, Declines Pneumovax and Zostavax Surgical History jaw surgery Surgical History tonsillectomy Surgical History Cataract removal bilaterally Surgical History had stint placed in L. leg 2016 Surgical History Triple bypass 2017 Hospitalization History Surgery(s) only
--- OUTSIDE RECORDS SUMMARY | 2019-05-12 06:29 | XMS REPORT ---
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 Unknown Non Drug Allergy Feb, Unknown SOCIAL HISTORY No smoking Hx information available PLAN OF CARE VITAL SIGNS MEDICATIONS Medication Instructions Dosage Frequency Start Date End Date Duration S tatus Osteo Bi-Flex Triple Strength - Active Lisinopril 20 mg Orally Once a day 1 tablet 24h Active GlipiZIDE 10 mg Orally Once a day 1 tablet 24h Active Metformin HCl 500 MG Orally Twice a day 2 tablets 12h Active RESULTS No Results PROCEDURES No Known procedures IMMUNIZATIONS No Known Immunizations
--- OUTSIDE RECORDS SUMMARY | 2019-05-12 06:29 | XMS REPORT ---
Author Author Mychal DELAROSA Organization [facility] Address [address] [place] [address] Care Team Providers Care Insurance Checker Name Role Phone RALEN DELAROSA Unavailable PROBLEMS Type Condition ICD9-CM Code MTA22-VU Code Onset Dates Condition S tatus SNOMED Code Problem Other chronic pain G89.29 Active 8 3736579 Problem PVD (peripheral vascular disease) I73.9 Active 118725569 Problem Essential hypertension I10 Active 58786561 Problem Lumbago with sciatica, left side M54.42 Active 54355127 Problem S/P CABG x 4 Z95.1 Active 4410910 00 Problem penitentiary current use of insulin Z79.4 Active 410329083 Problem Stasis dermatitis of right l ower extremity with venous ulcer due to chronic peripheral venous hypertension I87.331 Ac tive 988001949928930 Problem Non-pressure chronic ulcer o f unspecified part of unspecified lower leg with unspecified severity L97.909 Active 26 2797272 Problem Type 2 diabetes mellitus wit h diabetic peripheral angiopathy without gangrene E11.51 Active 218996151 Problem Intermittent claudication I73.9 Acti ve 02309585 Problem 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 56019854 Problem Pain in left knee M25.562 Active 30 266163 Problem Hyperlipidemia LDL goal <70 E78.5 Ac tive 32552253 Problem Pain in right knee M25.561 Active 3 4902515 ALLERGIES No Known Allergies ENCOUNTERS Encounter Location Date Diagnosis [facility] [address] [facility] [id number] [address] [place] [address] May, [facility] [address] [facility] [id number] [address] [place] [address] May, Establishing care with carlos martins, encounter for Z76.89 ; Essential hypertension I10 ; Type 2 diabetes mellitus with diabetic peripheral angiopathy without gangrene E11.51 ; 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 ; Hyperlipidemia LDL goal <70 E78.5 ; PVD (peripheral vascular disease) I73.9 ; penitentiary current use of insulin Z79.4 ; Intermittent claudication I73.9 ; Other chronic pain G89.29 and Lumbago with sciatica, left side M54.42 [place] [address] [facility] [id number] [address] [place] [address] Feb, [place] [address] [facility] [id number] [address] [place] [address] Feb, Medicare annual wellness vis it, subsequent [...] E11.51 and S/P CABG x 4 Z95.1 [place] [address] [id number] [address] [place] [address] Jan, [place] [address] [facility] [id number] [address] [place] [address] Jan, Type 2 diabetes mellitus wit hout complication, without long-term current use of insulin E11.9 [place] [address] [id number] [address] [place] [address] Jan, [place] [address] [id number] [address] [place] [address] Jan, Type 2 diabetes mellitus wit hout complication, without long-term current use of insulin E11.9 [place] [address] [id number] [address] [place] [address] Dec, Type 2 diabetes mellitus wit hout complication, without long-term current use of insulin E11.9 [place] [address] [id number] [address] [place] [address] Dec, [facility] [address] [id number] [address] [place] [address] Dec, Stasis dermatitis of right l ower extremity with venous ulcer due to chronic peripheral venous hypertension I87.331 ; Type 2 diabetes mellitus with diabetic peripheral angiopathy without gangrene E11.51 and 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 [facility] [address] [facility] [id number] [address] [place] [address] Dec, Non-pressure chronic ulcer o f unspecified part of unspecified lower leg with unspecified severity L97.909 and Type 2 diabetes mellitus with other skin ulcer E11.622 [facility] [address] [place] [id number] [address] [place] [address] Dec, Type 2 diabetes mellitus wit hout complication, without long-term current use of insulin E11.9 [place] [address] [place] [id number] [address] [place] [address] Dec, [facility] [address] [place] [id number] [address] [place] [address] Dec, Type 2 diabetes mellitus wit hout complication, without long-term current use of insulin E11.9 [facility] [address] [place] [id number] [address] [place] [address] Dec, Type 2 diabetes mellitus wit hout complication, without long-term current use of insulin E11.9 and Essential hypertension I10 [facility] [address] [facility] [id number] [address] [place] [address] Nov, Type 2 diabetes mellitus wit hout complication, without long-term current use of insulin E11.9 [facility] [address] [facility] [id number] [address] [place] [address] Nov, [facility] [address] [facility] [id number] [address] [place] [address] Nov, [facility] [address] [place] [id number] [address] [place] [address] Nov, Type 2 diabetes mellitus wit hout complication, without long-term current use of insulin E11.9 [facility] [address] [id number] [address] [place] [address] Nov, [facility] [address] [id number] [address] [place] [address] Nov, [facility] [address] [id number] [address] [place] [address] Nov, Type 2 diabetes mellitus wit hout complication, without long-term current use of insulin E11.9 [place] [address] [id number] [address] [place] [address] Oct, Type 2 diabetes mellitus wit hout complication, without long-term current use of insulin E11.9 [place] [address] [id number] [address] [place] [address] Oct, [place] [address] [id number] [address] [place] [address] Oct, Type 2 diabetes mellitus wit hout complication, without long-term current use of insulin E11.9 [place] [address] [id number] [address] [place] [address] Oct, Essential hypertension I10 [place] [address] [id number] [address] [place] [address] Oct, Essential hypertension I10 a nd Type 2 diabetes mellitus without complication, without long-term current use of insulin E11.9 [facility] [address] [id number] [address] [place] [address] Oct, [place] [address] [id number] [address] [place] [address] Sep, Essential hypertension I10 ; Type 2 diabetes mellitus without complication, without long-term current use of insulin E11.9 ; Pain in right knee M25.561 ; Pain in left knee M25.562 and PVD (peripheral vascular disease) I73.9 [facility] [address] [facility] [id number] [address] [place] [address] Sep, [facility] [address] [facility] [id number] [address] [place] [address] Aug, [facility] [address] [facility] [id number] [address] [place] [address] Jul, Type 2 diabetes mellitus wit hout complication, without long-term current use of insulin E11.9 [facility] [address] [facility] [id number] [address] [place] [address] Jul, Gastroenteritis and colitis, viral A08.4 [facility] [address] [facility] [id number] [address] [place] [address] June, Type 2 diabetes mellitus wit hout complication, without long-term current use of insulin E11.9 [place] [address] [place] [id number] [address] [place] [address] June, Essential hypertension I10 ; Type 2 diabetes mellitus without complication, without long-term current use of insulin E11.9 ; Pain in right knee M25.561 ; Pain in left knee M25.562 ; 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 and PVD (peripheral vascular disease) I73.9 [facility] [address] [facility] [id number] [address] [place] [address] May, [facility] [address] [facility] [id number] [address] [place] [address] Apr, [place] [address] [place] [id number] [address] [place] [address] Mar, [facility] [address] [facility] [id number] [address] [place] [address] Mar, 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 [facility] [address] [facility] [id number] [address] [place] [address] Mar, Essential hypertension I10 ; Type 2 diabetes mellitus without complication, without long-term current use of insulin E11.9 ; Pain in right knee M25.561 ; Pain in left knee M25.562 and 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 [facility] [address] [facility] [id number] [address] [place] [address] Feb, IMMUNIZATIONS No Known Immunizations SOCIAL HISTORY Never Assessed REASON FOR VISIT Medicare [facility] PLAN OF CARE Activity Details Follow Up annually for preventive care , sooner for chronic health maintenance Reason: VITAL SIGNS Height 68.5 in 2017-03-04 Weight 206.9 lbs 2017-03-04 Temperature 98.2 degrees Fahrenheit 2017-03-04 Heart Rate 76 bpm 2017-03-04 Respiratory Rate 18 2017-03-04 Oximetry 96 % 2017-03-04 BMI 31.00 kg/m2 2017-03-04 Blood pressure systolic 118 mmHg 2017-03-04 Blood pressure diastolic 80 mmHg 2017-03-04 MEDICATIONS Medication Instructions Dosage Frequency Start Date End Date Duration S tatus Blood Glucose Test - Glucocard Expression and lancets once d aily test blood sugar 24h Oct, Active Glucometer 1 glucometer Check blood sugar (glucocard) Aug, Active Test strips Test Strips Check blood sugar (Glucocard) Aug, Active Insulin Detemir 100 UNIT/ML DX- E11.51 twice a day 25 units 12h Active Plavix 75 MG Orally Once a day 1 tablet 24h Active Glucagon Emergency 1 MG Active Aspirin 81 MG Orally Once a day 1 tablet 24h Active Lisinopril 5 mg Orally Once a day 1 tablet 24h 90 da ys Active Pravastatin Sodium 10 mg Orally Once a day at bedtime 1 tablet 17 Mar, 2016 90 days Active GlipiZIDE 10 mg Orally Once a day 1 tablet 24h 90 Active Metformin HCl 500 mg Orally Twice a day 2 tablets 12h 30 Active RESULTS No Results PROCEDURES Procedure Date Ordered Result Body Site MEASURE BLOOD OXYGEN LEVEL Mar 04, 2017 INIT PREV PE LTD DUR 1ST 12 MOS MCR Mar 04, 2017 ANNUAL WELLNESS VST; PPS SUBSQT VST Mar 04, 2017 ANNUAL WELLNES VST; PERSNL PPS INIT Mar 04, 2017 VENIPUNCT, ROUTINE* Mar 04, 2017 LAB NOT BILLED BY [facility] Mar 04, 2017 INSTRUCTIONS MEDICATIONS ADMINISTERED No Known Medications [...] diabetic peripheral angiopathy without gangrene Medical History penitentiary current use of insulin Medical History Declines Colonoscopy, Denies Influenza Vaccine, Declines Pneumovax and Zostavax Surgical History jaw surgery Surgical History tonsillectomy Surgical History Cataract removal bilaterally Surgical History had stint placed in L. leg 2017 Surgical History Triple bypass 2017 Hospitalization History Surgery(s) only
--- OUTSIDE RECORDS SUMMARY | 2019-05-12 06:30 | XMS REPORT ---
Author Author Mychal DELAROSA Organization [facility] Address [address] [place] [address] Care Team Providers Care Preventive Medicine Officer Name Role Phone ARLEN DELAROSA Unavailable PROBLEMS Type Condition ICD9-CM Code [id number] Code Onset Dates Condition S tatus SNOMED Code Problem Other chronic pain G89.29 Active 8 6507608 Problem PVD (peripheral vascular disease) I73.9 Active 290892825 Problem Essential hypertension I10 Active 03695118 Problem Lumbago with sciatica, left side M54.42 Active 16743716 Problem S/P CABG x 4 Z95.1 Active 6825721 00 Problem detention current use of insulin Z79.4 Active 411448136 Problem Stasis dermatitis of right l ower extremity with venous ulcer due to chronic peripheral venous hypertension I87.331 Ac tive 001138238934615 Problem Non-pressure chronic ulcer o f unspecified part of unspecified lower leg with unspecified severity L97.909 Active 26 4509690 Problem Type 2 diabetes mellitus wit h diabetic peripheral angiopathy without gangrene E11.51 Active 825877524 Problem Intermittent claudication I73.9 Acti ve 38015981 Problem 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 [id number] [address] [place] [phone] May, [facility] [address] 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 [id number] [address] [place] [phone] Feb, [place] [address] [facility] [id number] [address] [place] [address] Feb, Medicare annual wellness vis it, subsequent [...] E11.51 and S/P CABG x 4 Z95.1 [place] [address] [id number] [address] [place] [phone] Jan, [place] [address] [facility] [id number] [address] [place] [phone] Jan, Type 2 diabetes mellitus wit hout complication, without long-term current use of insulin E11.9 [place] [address] [id number] [address] [place] [phone] Jan, [place] [address] [id number] [address] [place] [phone] Jan, Type 2 diabetes mellitus wit hout complication, without long-term current use of insulin E11.9 [place] [address] [facility] [id number] [address] [place] [address] Dec, Type 2 diabetes mellitus wit hout complication, without long-term current use of insulin E11.9 [place] [address] [id number] [address] [place] [phone] Dec, [facility] [address] [id number] [address] [place] [address] Dec, Stasis dermatitis of right l ower extremity with venous ulcer due to chronic peripheral venous hypertension I87.331 ; Type 2 diabetes mellitus with diabetic peripheral angiopathy without gangrene E11.51 and detention current use of insulin Z79.4 [facility] [address] [id number] [address] [place] [phone] Dec, Non-pressure chronic ulcer o f unspecified part of unspecified lower leg with unspecified severity L97.909 and Type 2 diabetes mellitus with other skin ulcer E11.622 [facility] [address] [facility] [id number] [address] [place] [phone] Dec, Type 2 diabetes mellitus wit hout complication, without long-term current use of insulin E11.9 [place] [address] [facility] [id number] [address] [place] [phone] Dec, [facility] [address] [id number] [address] [place] [phone] Dec, Type 2 diabetes mellitus wit hout complication, without long-term current use of insulin E11.9 [facility] [address] [facility] [id number] [address] [place] [phone] Dec, Type 2 diabetes mellitus wit hout complication, without long-term current use of insulin E11.9 and Essential hypertension I10 [facility] [address] [id number] [address] [place] [phone] Nov, Type 2 diabetes mellitus wit hout complication, without long-term current use of insulin E11.9 [facility] [address] [facility] [id number] [address] [place] [phone] Nov, [facility] [address] [id number] [address] [place] [phone] Nov, [facility] [address] [facility] [id number] [address] [place] [address] Nov, Type 2 diabetes mellitus wit hout complication, without long-term current use of insulin E11.9 [facility] [address] [id number] [address] [place] [phone] Nov, [facility] [address] [id number] [address] [place] [phone] Nov, [facility] [address] [id number] [address] [place] [phone] Nov, Type 2 diabetes mellitus wit hout complication, without long-term current use of insulin E11.9 [place] [address] [id number] [address] [place] [address] Oct, Type 2 diabetes mellitus wit hout complication, without long-term current use of insulin E11.9 [place] [address] [id number] [address] [place] [phone] Oct, [place] [address] [id number] [address] [place] [phone] Oct, Type 2 diabetes mellitus wit hout complication, without long-term current use of insulin E11.9 [place] [address] [id number] [address] [place] [phone] Oct, Essential hypertension I10 [place] [address] [id number] [address] [place] [phone] Oct, Essential hypertension I10 a nd Type 2 diabetes mellitus without complication, without long-term current use of insulin E11.9 [facility] [address] [id number] [address] [place] [phone] Oct, [place] [address] [facility] [id number] [address] [place] [address] Sep, Essential hypertension I10 ; Type 2 diabetes mellitus without complication, without long-term current use of insulin E11.9 ; Pain in right knee M25.561 ; Pain in left knee M25.562 and PVD (peripheral vascular disease) I73.9 [facility] [address] [facility] [id number] [address] [place] [phone] Sep, [facility] [address] [facility] [id number] [address] [place] [phone] Aug, [facility] [address] [facility] [id number] [address] [place] [address] Jul, Type 2 diabetes mellitus wit hout complication, without long-term current use of insulin E11.9 [facility] [address] [facility] [id number] [address] [place] [phone] Jul, Gastroenteritis and colitis, viral A08.4 [place] [address] 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 [id number] [address] [place] [phone] May, [place] [address] [facility] [id number] [address] [place] [phone] Apr, [place] [address] [facility] [id number] [address] [place] [phone] Mar, [facility] [address] 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 leg 2017 Surgical History Triple bypass 2017 Hospitalization History Surgery(s) only
--- OUTSIDE RECORDS SUMMARY | 2019-05-12 06:30 | XMS REPORT ---
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 54450463 Problem Hyperlipidemia LDL goal <70 E78.5 Ac tive 14206203 Problem PVD (peripheral vascular disease) I73.9 Active 094459506 Problem Essential hypertension I10 Active 62876237 Problem Pain in left knee M25.562 Active 30 385898 Problem Type 2 diabetes mellitus wit hout complication, without long-term current use of insulin E11.9 Active 533717053 Problem Other chronic pain G89.29 Active 8 8504230 Problem Pain in right knee M25.561 Active 3 6105309 ALLERGIES Unknown Allergies SOCIAL HISTORY No smoking Hx information available PLAN OF CARE VITAL SIGNS MEDICATIONS Unknown Medications RESULTS No Results PROCEDURES No Known procedures IMMUNIZATIONS No Known Immunizations
--- OUTSIDE RECORDS SUMMARY | 2019-05-12 06:30 | XMS REPORT ---
Author Author Mychal DELAROSA Organization [facility] Address [address] [place] [address] Care Team Providers Care Water Pump Operator Name Role Phone ARLEN DELAROSA Unavailable PROBLEMS Type Condition ICD9-CM Code YVX36-[place] Code Onset Dates Condition S tatus SNOMED Code Problem Other chronic pain G89.29 Active 8 8355566 Problem PVD (peripheral vascular disease) I73.9 Active 486019511 Problem Essential hypertension I10 Active 44966305 Problem Lumbago with sciatica, left side M54.42 Active 01535239 Problem S/P CABG x 4 Z95.1 Active 7660198 00 Problem prison current use of insulin Z79.4 Active 392940760 Problem Stasis dermatitis of right l ower extremity with venous ulcer due to chronic peripheral venous hypertension I87.331 Ac tive 866282469692148 Problem Non-pressure chronic ulcer o f unspecified part of unspecified lower leg with unspecified severity L97.909 Active 26 5949376 Problem Type 2 diabetes mellitus wit h diabetic peripheral angiopathy without gangrene E11.51 Active 234397106 Problem Intermittent claudication I73.9 Acti ve 62158997 Problem 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 56024479 Problem Pain in left knee M25.562 Active 30 246154 Problem Hyperlipidemia LDL goal <70 E78.5 Ac tive 37991675 Problem Pain in right knee M25.561 Active 3 9968327 ALLERGIES No Information ENCOUNTERS Encounter Location Date Diagnosis [facility] [address] [facility] [id number] [address] [place] [phone] May, [facility] [address] [facility] [id number] [address] [place] [phone] May, Establishing care with carlos martins, encounter for Z76.89 ; Essential hypertension I10 ; Type 2 diabetes mellitus with diabetic peripheral angiopathy without gangrene E11.51 ; 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 ; Hyperlipidemia LDL goal <70 E78.5 ; PVD (peripheral vascular disease) I73.9 ; prison current use of insulin Z79.4 ; Intermittent claudication I73.9 ; Other chronic pain G89.29 and Lumbago with sciatica, left side M54.42 [place] [address] [address] [facility] [id number] [address] [place] [phone] Feb, [place] [address] [address] [facility] [id number] [address] [place] [address] Feb, Medicare annual wellness vis it, subsequent [...] E11.51 and S/P CABG x 4 Z95.1 [place] [address] [id number] [address] [place] [phone] Jan, [place] [address] [address] [facility] [id number] [address] [place] [address] Jan, Type 2 diabetes mellitus wit hout complication, without long-term current use of insulin E11.9 [place] [address] [id number] [address] [place] [phone] Jan, [place] [address] [id number] [address] [place] [phone] Jan, Type 2 diabetes mellitus wit hout complication, without long-term current use of insulin E11.9 [place] [address] [address] [facility] [id number] [address] [place] [phone] Dec, Type 2 diabetes mellitus wit hout complication, without long-term current use of insulin E11.9 [place] [address] [id number] [address] [place] [address] Dec, [facility] [address] [id number] [address] [place] [address] Dec, Stasis dermatitis of right l ower extremity with venous ulcer due to chronic peripheral venous hypertension I87.331 ; Type 2 diabetes mellitus with diabetic peripheral angiopathy without gangrene E11.51 and prison current use of insulin Z79.4 [facility]ALK IN [facility] [address] [id number] [address] [place] [address] Dec, Non-pressure chronic ulcer o f unspecified part of unspecified lower leg with unspecified severity L97.909 and Type 2 diabetes mellitus with other skin ulcer E11.622 [facility] [address] [facility] [id number] [address] [place] [address] Dec, Type 2 diabetes mellitus wit hout complication, without long-term current use of insulin E11.9 [place] [id number] [facility] [id number] [address] [place] [address] Dec, [facility] [address] [id number] [address] [place] [phone] Dec, Type 2 diabetes mellitus wit hout complication, without long-term current use of insulin E11.9 [facility] [address] [facility] [id number] [address] [place] [address] Dec, Type 2 diabetes mellitus wit hout complication, without long-term current use of insulin E11.9 and Essential hypertension I10 [facility] [address] [id number] [address] [place] [address] Nov, Type 2 diabetes mellitus wit hout complication, without long-term current use of insulin E11.9 [facility] [address] [facility] [id number] [address] [place] [address] Nov, [facility] [address] [id number] [address] [place] [address] Nov, [facility] [address] [facility] [id number] [address] [place] [address] Nov, Type 2 diabetes mellitus wit hout complication, without long-term current use of insulin E11.9 [facility] [address] [id number] [address] [place] [phone] Nov, [facility] [address] [id number] [address] [place] [address] Nov, [facility] [address] [id number] [address] [place] [address] Nov, Type 2 diabetes mellitus wit hout complication, without long-term current use of insulin E11.9 [place] [address] [id number] [address] [place] [address] Oct, Type 2 diabetes mellitus wit hout complication, without long-term current use of insulin E11.9 [place] [address] [id number] [address] [place] [address] Oct, [place] [address] [id number] [address] [place] [address] Oct, Type 2 diabetes mellitus wit hout complication, without long-term current use of insulin E11.9 [place] [address] [id number] [address] [place] [address] Oct, Essential hypertension I10 [place] [address] [id number] [address] [place] [address] Oct, Essential hypertension I10 a nd Type 2 diabetes mellitus without complication, without long-term current use of insulin E11.9 [facility] [address] [id number] [address] [place] [address] Oct, [place] [address] [address] [facility] [id number] [address] [place] [address] Sep, Essential hypertension I10 ; Type 2 diabetes mellitus without complication, without long-term current use of insulin E11.9 ; Pain in right knee M25.561 ; Pain in left knee M25.562 and PVD (peripheral vascular disease) I73.9 [facility] [address] [facility] [id number] [address] [place] [address] Sep, [facility] [address] [facility] [id number] [address] [place] [address] Aug, [facility] [address] [facility] [id number] [address] [place] [address] Jul, Type 2 diabetes mellitus wit hout complication, without long-term current use of insulin E11.9 [facility] [address] [facility] [id number] [address] [place] [address] Jul, Gastroenteritis and colitis, viral A08.4 [place] [address] [address] [facility] [id number] [address] [place] [address] June, Type 2 diabetes mellitus wit hout complication, without long-term current use of insulin E11.9 [place] [address] [address] [place] [id number] [address] [place] [address] June, Essential hypertension I10 ; Type 2 diabetes mellitus without complication, without long-term current use of insulin E11.9 ; Pain in right knee M25.561 ; Pain in left knee M25.562 ; 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 and PVD (peripheral vascular disease) I73.9 [facility] [address] [facility] [id number] [address] [place] [address] May, [place] [address] [address] [facility] [id number] [address] [place] [address] Apr, [place] [address] [address] [facility] [id number] [address] [place] [address] Mar, [facility] [address] [facility] [id number] [address] [place] [address] Mar, 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 [facility] [address] [facility] [id number] [address] [place] [address] Mar, Essential hypertension I10 ; Type 2 diabetes mellitus without complication, without long-term current use of insulin E11.9 ; Pain in right knee M25.561 ; Pain in left knee M25.562 and 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 [facility] [address] [facility] [id number] [address] [place] [address] Feb, IMMUNIZATIONS No Known Immunizations SOCIAL HISTORY Never Assessed REASON FOR VISIT RX for levemir PLAN OF CARE VITAL SIGNS MEDICATIONS Medication Instructions Dosage Frequency Start Date End Date Duration S tatus Insulin Detemir 100 UNIT/ML DX- E11.51 twice a day 25 units 12h Active RESULTS No Results PROCEDURES [...] diabetic peripheral angiopathy without gangrene 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 leg 2016 Surgical History Triple bypass 2017 Hospitalization History Surgery(s) only
--- OUTSIDE RECORDS SUMMARY | 2019-05-12 06:30 | XMS REPORT ---
Author Author Mychal DELAROSA Organization [facility] Address [address] [place] [address] Care Team Providers Care Chip Washer Name Role Phone ARLEN DELAROSA Unavailable PROBLEMS Type Condition ICD9-CM Code SGR12-AK Code Onset Dates Condition S tatus SNOMED Code Problem Other chronic pain G89.29 Active 8 9283006 Problem PVD (peripheral vascular disease) I73.9 Active 984822914 Problem Essential hypertension I10 Active 80851898 Problem Lumbago with sciatica, left side M54.42 Active 70454052 Problem S/P CABG x 4 Z95.1 Active 2598986 00 Problem USP current use of insulin Z79.4 Active 268775453 Problem Stasis dermatitis of right l ower extremity with venous ulcer due to chronic peripheral venous hypertension I87.331 Ac tive 542598767340504 Problem Non-pressure chronic ulcer o f unspecified part of unspecified lower leg with unspecified severity L97.909 Active 26 5008194 Problem Type 2 diabetes mellitus wit h diabetic peripheral angiopathy without gangrene E11.51 Active 297671395 Problem Intermittent claudication I73.9 Acti ve 57941520 Problem 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 01975185 Problem Pain in left knee M25.562 Active 30 685303 Problem Hyperlipidemia LDL goal <70 E78.5 Ac tive 00762945 Problem Pain in right knee M25.561 Active 3 9152656 ALLERGIES No Information ENCOUNTERS Encounter Location Date Diagnosis [facility] [address] [facility] [id number] [address] [place] [address] May, [facility] [address] [facility] [id number] [address] [place] [address] May, Establishing care with carlos martins, encounter for Z76.89 ; Essential hypertension I10 ; Type 2 diabetes mellitus with diabetic peripheral angiopathy without gangrene E11.51 ; 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 ; Hyperlipidemia LDL goal <70 E78.5 ; PVD (peripheral vascular disease) I73.9 ; USP current use of insulin Z79.4 ; Intermittent claudication I73.9 ; Other chronic pain G89.29 and Lumbago with sciatica, left side M54.42 [place] [address] [facility] [id number] [address] [place] [address] Feb, [place] [address] [facility] [id number] [address] [place] [address] Feb, Medicare annual wellness vis it, subsequent [...] E11.51 and S/P CABG x 4 Z95.1 [place] [address] [id number] [address] [place] [address] Jan, [place] [address] [facility] [id number] [address] [place] [address] Jan, Type 2 diabetes mellitus wit hout complication, without long-term current use of insulin E11.9 [place] [address] [id number] [address] [place] [address] Jan, [place] [address] [id number] [address] [place] [address] Jan, Type 2 diabetes mellitus wit hout complication, without long-term current use of insulin E11.9 [place] [address] [facility] [id number] [address] [place] [address] Dec, Type 2 diabetes mellitus wit hout complication, without long-term current use of insulin E11.9 [place] [address] [id number] [address] [place] [address] Dec, [facility] [address] [id number] [address] [place] [address] Dec, Stasis dermatitis of right l ower extremity with venous ulcer due to chronic peripheral venous hypertension I87.331 ; Type 2 diabetes mellitus with diabetic peripheral angiopathy without gangrene E11.51 and USP current use of insulin Z79.4 [facility] [address] [id number] [address] [place] [address] Dec, Non-pressure chronic ulcer o f unspecified part of unspecified lower leg with unspecified severity L97.909 and Type 2 diabetes mellitus with other skin ulcer E11.622 [facility] [address] [facility] [id number] [address] [place] [address] Dec, Type 2 diabetes mellitus wit hout complication, without long-term current use of insulin E11.9 [place] [address] [facility] [id number] [address] [place] [address] Dec, [facility] [address] [id number] [address] [place] [address] Dec, Type 2 diabetes mellitus wit hout complication, without long-term current use of insulin E11.9 [facility] [address] [facility] [id number] [address] [place] [address] Dec, Type 2 diabetes mellitus wit hout complication, without long-term current use of insulin E11.9 and Essential hypertension I10 [facility] [address] [id number] [address] [place] [address] Nov, Type 2 diabetes mellitus wit hout complication, without long-term current use of insulin E11.9 [facility] [address] [facility] [id number] [address] [place] [address] Nov, [facility] [address] [id number] [address] [place] [address] Nov, [facility] [address] [facility] [id number] [address] [place] [address] Nov, Type 2 diabetes mellitus wit hout complication, without long-term current use of insulin E11.9 [facility] [address] [id number] [address] [place] [address] Nov, [facility] [address] [id number] [address] [place] [address] Nov, [facility] [address] [id number] [address] [place] [address] Nov, Type 2 diabetes mellitus wit hout complication, without long-term current use of insulin E11.9 [place] [address] [id number] [address] [place] [address] Oct, Type 2 diabetes mellitus wit hout complication, without long-term current use of insulin E11.9 [place] [address] [id number] [address] [place] [address] Oct, [place] [address] [id number] [address] [place] [address] Oct, Type 2 diabetes mellitus wit hout complication, without long-term current use of insulin E11.9 [place] [address] [id number] [address] [place] [address] Oct, Essential hypertension I10 [place] [address] [id number] [address] [place] [address] Oct, Essential hypertension I10 a nd Type 2 diabetes mellitus without complication, without long-term current use of insulin E11.9 [facility] [address] [id number] [address] [place] [address] Oct, [place] [address] [facility] [id number] [address] [place] [address] Sep, Essential hypertension I10 ; Type 2 diabetes mellitus without complication, without long-term current use of insulin E11.9 ; Pain in right knee M25.561 ; Pain in left knee M25.562 and PVD (peripheral vascular disease) I73.9 [facility] [address] [facility] [id number] [address] [place] [address] Sep, [facility] [address] [facility] [id number] [address] [place] [address] Aug, [facility] [address] [facility] [id number] [address] [place] [address] Jul, Type 2 diabetes mellitus wit hout complication, without long-term current use of insulin E11.9 [facility] [address] [facility] [id number] [address] [place] [address] Jul, Gastroenteritis and colitis, viral A08.4 [place] [address] [facility] [id number] [address] [place] [address] June, Type 2 diabetes mellitus wit hout complication, without long-term current use of insulin E11.9 [place] [address] [place] [id number] [address] [place] [address] June, Essential hypertension I10 ; Type 2 diabetes mellitus without complication, without long-term current use of insulin E11.9 ; Pain in right knee M25.561 ; Pain in left knee M25.562 ; 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 and PVD (peripheral vascular disease) I73.9 [facility] [address] [facility] [id number] [address] [place] [address] May, [place] [address] [facility] [id number] [address] [place] [address] Apr, [place] [address] [facility] [id number] [address] [place] [address] Mar, [facility] [address] [facility] [id number] [address] [place] [address] Mar, 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 [facility] [address] [facility] [id number] [address] [place] [address] Mar, Essential hypertension I10 ; Type 2 diabetes mellitus without complication, without long-term current use of insulin E11.9 ; Pain in right knee M25.561 ; Pain in left knee M25.562 and 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 leg 2016 Surgical History Triple bypass 2017 Hospitalization History Surgery(s) only
--- OUTSIDE RECORDS SUMMARY | 2019-05-12 06:30 | XMS REPORT ---
Author Author Mychal DELAROSA Organization [facility] [place] Address [address] [place] [address] Care Team Providers Care Platen Builder Up Name Role Phone ARLEN DELAROSA Unavailable PROBLEMS Type Condition ICD9-CM Code UAN56-YV Code Onset Dates Condition S tatus SNOMED Code Problem Other chronic pain G89.29 Active 8 6356399 Problem PVD (peripheral vascular disease) I73.9 Active 712754226 Problem Essential hypertension I10 Active 22110747 Problem Lumbago with sciatica, left side M54.42 Active 85341457 Problem S/P CABG x 4 Z95.1 Active 2731589 00 Problem long-term current use of insulin Z79.4 Active 527847999 Problem Stasis dermatitis of right l ower extremity with venous ulcer due to chronic peripheral venous hypertension I87.331 Ac tive 644508095602029 Problem Non-pressure chronic ulcer o f unspecified part of unspecified lower leg with unspecified severity L97.909 Active 26 8897268 Problem Type 2 diabetes mellitus wit h diabetic peripheral angiopathy without gangrene E11.51 Active 581299313 Problem Intermittent claudication I73.9 Acti ve 40512369 Problem 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 09570108 Problem Pain in left knee M25.562 Active 30 682890 Problem Hyperlipidemia LDL goal <70 E78.5 Ac tive 06793267 Problem Pain in right knee M25.561 Active 3 0524076 ALLERGIES No Known Allergies ENCOUNTERS Encounter Location Date Diagnosis [facility] [place] [address] [facility] [id number] [address] [place] [address] May, [facility] [place] [address] [facility] [id number] [address] [place] [address] May, Establishing care with carlos martins, encounter for Z76.89 ; Essential hypertension I10 ; Type 2 diabetes mellitus with diabetic peripheral angiopathy without gangrene E11.51 ; 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 ; Hyperlipidemia LDL goal <70 E78.5 ; PVD (peripheral vascular disease) I73.9 ; long-term current use of insulin Z79.4 ; Intermittent claudication I73.9 ; Other chronic pain G89.29 and Lumbago with sciatica, left side M54.42 [place] [address] [facility] [id number] [address] [place] [address] Feb, [place] [address] [facility] [id number] [address] [place] [address] Feb, Medicare annual wellness vis it, subsequent [...] E11.51 and S/P CABG x 4 Z95.1 [place] [address] [id number] [address] [place] [address] Jan, [place] [address] [facility] [id number] [address] [place] [address] Jan, Type 2 diabetes mellitus wit hout complication, without long-term current use of insulin E11.9 [place] [address] [id number] [address] [place] [address] Jan, [place] [address] [id number] [address] [place] [address] Jan, Type 2 diabetes mellitus wit hout complication, without long-term current use of insulin E11.9 [place] [address] [id number] [address] [place] [address] Dec, Type 2 diabetes mellitus wit hout complication, without long-term current use of insulin E11.9 [place] [address] [id number] [address] [place] [address] Dec, [facility] [place] [address] [id number] [address] [place] [address] Dec, Stasis dermatitis of right l ower extremity with venous ulcer due to chronic peripheral venous hypertension I87.331 ; Type 2 diabetes mellitus with diabetic peripheral angiopathy without gangrene E11.51 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 [facility] [address] [facility] [id number] [address] [place] [address] Dec, Non-pressure chronic ulcer o f unspecified part of unspecified lower leg with unspecified severity L97.909 and Type 2 diabetes mellitus with other skin ulcer E11.622 [facility] [place] [address] [place] [id number] [address] [place] [address] Dec, Type 2 diabetes mellitus wit hout complication, without long-term current use of insulin E11.9 [place] [address] [place] [id number] [address] [place] [address] Dec, [facility] [place] [address] [place] [id number] [address] [place] [address] Dec, Type 2 diabetes mellitus wit hout complication, without long-term current use of insulin E11.9 [facility] [place] [address] [place] [id number] [address] [place] [address] Dec, Type 2 diabetes mellitus wit hout complication, without long-term current use of insulin E11.9 and Essential hypertension I10 [facility] [place] [address] [facility] [id number] [address] [place] [address] Nov, Type 2 diabetes mellitus wit hout complication, without long-term current use of insulin E11.9 [facility] [place] [address] [facility] [id number] [address] [place] [address] Nov, [facility] [place] [address] [facility] [id number] [address] [place] [address] Nov, [facility] [place] [address] [place] [id number] [address] [place] [address] Nov, Type 2 diabetes mellitus wit hout complication, without long-term current use of insulin E11.9 [facility] [place] [address] [id number] [address] [place] [address] Nov, [facility] [place] [address] [id number] [address] [place] [address] Nov, [facility] [place] [address] [id number] [address] [place] [address] Nov, Type 2 diabetes mellitus wit hout complication, without long-term current use of insulin E11.9 [place] [address] [id number] [address] [place] [address] Oct, Type 2 diabetes mellitus wit hout complication, without long-term current use of insulin E11.9 [place] [address] [id number] [address] [place] [address] Oct, [place] [address] [id number] [address] [place] [address] Oct, Type 2 diabetes mellitus wit hout complication, without long-term current use of insulin E11.9 [place] [address] [id number] [address] [place] [address] Oct, Essential hypertension I10 [place] [address] [id number] [address] [place] [address] Oct, Essential hypertension I10 a nd Type 2 diabetes mellitus without complication, without long-term current use of insulin E11.9 [facility] [place] [address] [id number] [address] [place] [address] Oct, [place] [address] [id number] [address] [place] [address] Sep, Essential hypertension I10 ; Type 2 diabetes mellitus without complication, without long-term current use of insulin E11.9 ; Pain in right knee M25.561 ; Pain in left knee M25.562 and PVD (peripheral vascular disease) I73.9 [facility] [place] [address] [facility] [id number] [address] [place] [address] Sep, [facility] [place] [address] [facility] [id number] [address] [place] [address] Aug, [facility] [place] [address] [facility] [id number] [address] [place] [address] Jul, Type 2 diabetes mellitus wit hout complication, without long-term current use of insulin E11.9 [facility] [address] [facility] [id number] [address] [place] [address] Jul, Gastroenteritis and colitis, viral A08.4 [facility] [place] [address] [facility] [id number] [address] [place] [address] June, Type 2 diabetes mellitus wit hout complication, without long-term current use of insulin E11.9 [place] [address] [place] [id number] [address] [place] [address] June, Essential hypertension I10 ; Type 2 diabetes mellitus without complication, without long-term current use of insulin E11.9 ; Pain in right knee M25.561 ; Pain in left knee M25.562 ; 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 and PVD (peripheral vascular disease) I73.9 [facility] [place] [address] [facility] [id number] [address] [place] [address] May, [facility] [place] [address] [facility] [id number] [address] [place] [phone] Apr, [place] [address] [place] [id number] [address] [place] [address] Mar, [facility] [place] [address] [facility] [id number] [address] [place] [address] Mar, 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 [facility] [place] [address] [facility] [id number] [address] [place] [address] Mar, Essential hypertension I10 ; Type 2 diabetes mellitus without complication, without long-term current use of insulin E11.9 ; Pain in right knee M25.561 ; Pain in left knee M25.562 and 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 [facility] [place] [address] [facility] [id number] [address] [place] [address] Feb, IMMUNIZATIONS No Known Immunizations SOCIAL HISTORY Never Assessed REASON FOR VISIT Diabetes f/u Idalmis GARVEY, has had a "weird" feeling in both lower legs- says it's not tingling or shaky but has to sit down after being of feet for awhile PLAN OF CARE Activity Details Follow Up cardiac consult after lars hernandez lab Reason: VITAL SIGNS Height 68.5 in 2016-10-21 Weight 198.0 lbs 2016-10-21 Temperature 98.2 degrees Fahrenheit 2016-10-21 Heart Rate 64 bpm 2016-10-21 Respiratory Rate 20 2016-10-21 BMI 29.66 kg/m2 2016-10-21 Blood pressure systolic 136 mmHg 2016-10-21 Blood pressure diastolic 88 mmHg 2016-10-21 MEDICATIONS Medication Instructions Dosage Frequency Start Date End Date Duration S tatus Plavix 75 MG Orally Once a day 1 tablet 24h Active Lisinopril 20 mg Orally Once a day 1 tablet 24h Active Metformin HCl 500 MG Orally Twice a day 2 tablets 12h Active Indomethacin 50 mg Orally Twice a day 1 capsule with food or milk 1 2h Mar, 90 days Active GlipiZIDE 10 mg Orally Once a day 1 tablet 24h Active Pravastatin Sodium 10 mg Orally Once a day at bedtime 1 tablet Mar, 90 days Active Osteo Bi-Flex Triple Strength - Orally Once a day 2 tablets 24h Active Metformin HCl 500 MG Orally Twice a day 2 tablets 12h 30 Active Glucometer 1 glucometer Check blood sugar (glucocard) Aug, Active Test strips Test Strips Check blood sugar (Glucocard) Aug, Active RESULTS No Results PROCEDURES Procedure Date Ordered Result Body Site GLYCATED HEMOGLOBIN TEST Oct 21, 2016 [facility] VISIT ESTABLISHED PATIENT Oct 21, 2016 INSTRUCTIONS MEDICATIONS ADMINISTERED No Known Medications MEDICAL [...] diabetic peripheral angiopathy without gangrene 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 leg 2016 Surgical History Triple bypass 2017 Hospitalization History Surgery(s) only
--- OUTSIDE RECORDS SUMMARY | 2019-05-12 06:30 | XMS REPORT ---
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 53027810 Problem Hyperlipidemia LDL goal <70 E78.5 Ac tive 02740251 Problem PVD (peripheral vascular disease) I73.9 Active 468140607 Problem Essential hypertension I10 Active 19529108 Problem Pain in left knee M25.562 Active 30 775753 Problem Type 2 diabetes mellitus wit hout complication, without long-term current use of insulin E11.9 Active 851615674 Problem Other chronic pain G89.29 Active 8 8832576 Problem Pain in right knee M25.561 Active 3 1533486 ALLERGIES No Known Allergies SOCIAL HISTORY Never Assessed PLAN OF CARE Activity Details Follow Up 3 Months but lab def after 2 days Reason:DM VITAL SIGNS Height 68.5 in 2016-06-24 Weight 206.6 lbs 2016-06-24 Temperature 97.9 degrees Fahrenheit 2016-06-24 Heart Rate 80 bpm 2016-06-24 Respiratory Rate 18 2016-06-24 BMI 30.95 kg/m2 2016-06-24 Blood pressure systolic 110 mmHg 2016-06-24 Blood pressure diastolic 78 mmHg 2016-06-24 MEDICATIONS Medication Instructions Dosage Frequency Start Date End Date Duration S tatus Pravastatin Sodium 10 mg Orally Once a day at bedtime 1 tablet Mar, 90 days Active Metformin HCl 500 MG Orally Twice a day 2 tablets 12h Active Indomethacin 50 mg Orally Twice a day 1 capsule with food or milk 1 2h Mar, 90 days Active Osteo Bi-Flex Triple Strength - Orally Once a day 2 tablets 24h Active GlipiZIDE 10 mg Orally Once a day 1 tablet 24h Active Lisinopril 20 mg Orally Once a day 1 tablet 24h Active RESULTS No Results PROCEDURES Procedure Date Ordered Result Body Site [facility] VISIT ESTABLISHED PATIENT June 24, 2016 IMMUNIZATIONS No Known Immunizations MEDICAL (GENERAL) HISTORY Type Description Date Medical History hypertension Medical History type II diabetes Medical History Arthritis Medical History Dr. Quiroz notes abnormal CT lungs Micronodules Borderline size 05/2015 noted with trauma work up Surgical History jaw surgery Surgical History tonsillectomy Surgical History Cataract removal bilaterally Surgical History had stint placed in L. leg 2016 Surgical History Triple bypass 2017 Hospitalization History Surgery(s) only
--- OUTSIDE RECORDS SUMMARY | 2019-05-12 06:30 | XMS REPORT ---
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 Unknown Non Drug Allergy Mar, Unknown SOCIAL HISTORY No smoking Hx information available PLAN OF CARE Activity Details Follow Up 3-4 weeks Reason:DM VITAL SIGNS Height 68.5 in 2016-03-27 Weight 205.6 lbs 2016-03-27 Temperature 98.4 degrees Fahrenheit 2016-03-27 Heart Rate 84 bpm 2016-03-27 Respiratory Rate 20 2016-03-27 BMI 30.80 kg/m2 2016-03-27 Blood pressure systolic 112 mmHg 2016-03-27 Blood pressure diastolic 74 mmHg 2016-03-27 MEDICATIONS Medication Instructions Dosage Frequency Start Date End Date Duration S tatus GlipiZIDE 10 mg Orally Once a day 1 tablet 24h Active Lisinopril 20 mg Orally Once a day 1 tablet 24h Active Osteo Bi-Flex Triple Strength - Orally Once a day 2 tablets 24h Active Metformin HCl 500 MG Orally Twice a day 2 tablets 12h Active RESULTS Name Result Date Reference Range A1C (IN HOUSE) 2016-03-27 A1C IN HOUSE 12.2 4.3 - 5.6 % Previous A1c n/a Lot [id number] Exp date 12/2017 MICROALBUMIN, URINE (IN HOUSE) 2016-03-27 MICROALBUMIN Normal Lot # [id number] Exp date 03/2017 Clarity Clear Color Yellow ALB 10 mg/L CRE 100 mg/dl A:C (IN HOUSE) <30 mg/g Control Normal Control Abnormal Lot # [id number] Exp date 09/2016 TSH 2016-03-27 TSH 2.500 0.450-4.500 YUNIOR 2016-04-01 LIPID PANEL 2016-03-27 Cholesterol, Total 243 100-199 Triglycerides 117 0-149 HDL Cholesterol 41 >39 VLDL Cholesterol Woo 23 5-40 LDL Cholesterol Calc 179 0-99 Comment: CMP 2016-03-27 Glucose, Serum 247 65-99 BUN 19 8-27 Creatinine, Serum 0.81 0.76-1.27 eGFR If NonAfricn Am 92 >59 eGFR If Africn Am 106 >59 BUN/Creatinine Ratio 23 10-22 Sodium, Serum 137 134-144 Potassium, Serum 4.8 3.5-5.2 Chloride, Serum 96 96-106 Carbon Dioxide, Total 24 18-29 Calcium, Serum 9.0 8.6-10.2 Protein, Total, Serum 6.9 6.0-8.5 Albumin, Serum 4.1 3.6-4.8 Globulin, Total 2.8 1.5-4.5 A/G Ratio 1.5 1.1-2.5 Bilirubin, Total 0.6 0.0-1.2 Alkaline Phosphatase, S 60 39-117 AST (SGOT) 15 0-40 ALT (SGPT) 16 0-44 Xray : Knee, Left 1-2 views (IN HOUSE) 2 Xray : Knee, Right 1-2 views (IN HOUSE) YUNIOR 2016-04-01 PROCEDURES Procedure Date Ordered Related Diagnosis Body Site X-RAY EXAM OF KNEE, 1 OR 2 Mar 27, 2016 LAB NOT BILLED BY [facility] Mar 27, 2016 VENIPUNCT, ROUTINE* Mar 27, 2016 MICROALBUMIN, SEMIQUANT Mar 27, 2016 GLYCATED HEMOGLOBIN TEST Mar 27, 2016 Office Visit, New Pt., Level 4 Mar 27, 2016 [facility] VISIT NEW PATIENT Mar 27, 2016 IMMUNIZATIONS No Known Immunizations
--- OUTSIDE RECORDS SUMMARY | 2019-05-12 06:30 | XMS REPORT ---
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 23391705 Problem Hyperlipidemia LDL goal <70 E78.5 Ac tive 82595503 Problem PVD (peripheral vascular disease) I73.9 Active 926137608 Problem Essential hypertension I10 Active 32699724 Problem Pain in left knee M25.562 Active 30 234956 Problem Type 2 diabetes mellitus wit hout complication, without long-term current use of insulin E11.9 Active 755662143 Problem Other chronic pain G89.29 Active 8 4762458 Problem Pain in right knee M25.561 Active 3 3574987 ALLERGIES No Information SOCIAL HISTORY Never Assessed PLAN OF CARE VITAL SIGNS MEDICATIONS Medication Instructions Dosage Frequency Start Date End Date Duration S tatus Metformin HCl 500 MG Orally Twice a day 2 tablets 12h Active RESULTS No Results PROCEDURES No Known procedures IMMUNIZATIONS No Known Immunizations MEDICAL (GENERAL) HISTORY [...]
--- OUTSIDE RECORDS SUMMARY | 2019-05-12 06:30 | XMS REPORT ---
Author Author Mychal DELAROSA Organization [facility] Address [address] [place] [address] Care Team Providers Care Ip Counsel Name Role Phone ARLEN DELAROSA Unavailable PROBLEMS Type Condition ICD9-CM Code [id number]-RY Code Onset Dates Condition S tatus SNOMED Code Problem Other chronic pain G89.29 Active 8 0134064 Problem PVD (peripheral vascular disease) I73.9 Active 162107868 Problem Essential hypertension I10 Active 95473169 Problem Lumbago with sciatica, left side M54.42 Active 68653473 Problem S/P CABG x 4 Z95.1 Active 8673925 00 Problem group home current use of insulin Z79.4 Active 125103623 Problem Stasis dermatitis of right l ower extremity with venous ulcer due to chronic peripheral venous hypertension I87.331 Ac tive 229244078689640 Problem Non-pressure chronic ulcer o f unspecified part of unspecified lower leg with unspecified severity L97.909 Active 26 0138198 Problem Type 2 diabetes mellitus wit h diabetic peripheral angiopathy without gangrene E11.51 Active 763731304 Problem Intermittent claudication I73.9 Acti ve 98677128 Problem 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 63311295 Problem Pain in left knee M25.562 Active 30 001586 Problem Hyperlipidemia LDL goal <70 E78.5 Ac tive 18970700 Problem Pain in right knee M25.561 Active 3 5863079 ALLERGIES No Information ENCOUNTERS Encounter Location Date Diagnosis [facility] [address] [facility] [id number] [address] [place] [phone] May, [facility] [address] [facility] [id number] [address] [place] [phone] May, Establishing care with carlos martins, encounter for Z76.89 ; Essential hypertension I10 ; Type 2 diabetes mellitus with diabetic peripheral angiopathy without gangrene E11.51 ; 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 ; Hyperlipidemia LDL goal <70 E78.5 ; PVD (peripheral vascular disease) I73.9 ; group home current use of insulin Z79.4 ; Intermittent claudication I73.9 ; Other chronic pain G89.29 and Lumbago with sciatica, left side M54.42 [place] [address] [facility] [id number] [address] [place] [phone] Feb, [place] [address] [facility] [id number] [address] [place] [phone] Feb, Medicare annual wellness vis it, subsequent [...] E11.51 and S/P CABG x 4 Z95.1 [place] [address] [id number] [address] [place] [phone] Jan, [place] [address] [facility] [id number] [address] [place] [phone] Jan, Type 2 diabetes mellitus wit hout complication, without long-term current use of insulin E11.9 [place] [address] [id number] [address] [place] [phone] Jan, [place] [address] [id number] [address] [place] [phone] Jan, Type 2 diabetes mellitus wit hout complication, without long-term current use of insulin E11.9 [place] [address] [facility] [id number] [address] [place] [phone] Dec, Type 2 diabetes mellitus wit hout complication, without long-term current use of insulin E11.9 [place] [address] [id number] [address] [place] [phone] Dec, [facility] [address] [id number] [address] [place] [phone] Dec, Stasis dermatitis of right l ower extremity with venous ulcer due to chronic peripheral venous hypertension I87.331 ; Type 2 diabetes mellitus with diabetic peripheral angiopathy without gangrene E11.51 and group home current use of insulin Z79.4 [facility] IN [facility] [address] [id number] [address] [place] [phone] Dec, Non-pressure chronic ulcer o f unspecified part of unspecified lower leg with unspecified severity L97.909 and Type 2 diabetes mellitus with other skin ulcer E11.622 [facility] [address] [facility] [id number] [address] [place] [phone] Dec, Type 2 diabetes mellitus wit hout complication, without long-term current use of insulin E11.9 [place] [address] [facility] [id number] [address] [place] [phone] Dec, [facility] [address] [id number] [address] [place] [phone] Dec, Type 2 diabetes mellitus wit hout complication, without long-term current use of insulin E11.9 [facility] [address] [facility] [id number] [address] [place] [phone] Dec, Type 2 diabetes mellitus wit hout complication, without long-term current use of insulin E11.9 and Essential hypertension I10 [facility] [address] [id number] [address] [place] [id number] Nov, Type 2 diabetes mellitus wit hout complication, without long-term current use of insulin E11.9 [facility] [address] [facility] [id number] [address] [place] [phone] Nov, [facility] [address] [id number] [address] [place] [phone] Nov, [facility] [address] [facility] [id number] [address] [place] [phone] Nov, Type 2 diabetes mellitus wit hout complication, without long-term current use of insulin E11.9 [facility] [address] [id number] [address] [place] [phone] Nov, [facility] [address] [id number] [address] [place] [phone] Nov, [facility] [address] [id number] [address] [place] [phone] Nov, Type 2 diabetes mellitus wit hout complication, without long-term current use of insulin E11.9 [place] [address] [id number] [address] [place] [phone] Oct, Type 2 diabetes mellitus wit hout complication, without long-term current use of insulin E11.9 [place] [address] [id number] [address] [place] [phone] Oct, [place] [address] [id number] [address] [place] [phone] Oct, Type 2 diabetes mellitus wit hout complication, without long-term current use of insulin E11.9 [place] [address] [id number] [address] [place] [phone] Oct, Essential hypertension I10 [place] [address] [id number] [address] [place] [phone] Oct, Essential hypertension I10 a nd Type 2 diabetes mellitus without complication, without long-term current use of insulin E11.9 [facility] [address] [id number] [address] [place] [phone] Oct, [place] [address] [facility] [id number] [address] [place] [phone] Sep, Essential hypertension I10 ; Type 2 diabetes mellitus without complication, without long-term current use of insulin E11.9 ; Pain in right knee M25.561 ; Pain in left knee M25.562 and PVD (peripheral vascular disease) I73.9 [facility] [address] [facility] [id number] [address] [place] [phone] Sep, [facility] [address] [facility] [id number] [address] [place] [phone] Aug, [facility] [address] [facility] [id number] [address] [place] [phone] Jul, Type 2 diabetes mellitus wit hout complication, without long-term current use of insulin E11.9 [facility] [address] [facility] [id number] [address] [place] [phone] Jul, Gastroenteritis and colitis, viral A08.4 [place] [address] [facility] [id number] [address] [place] [phone] June, Type 2 diabetes mellitus wit hout complication, without long-term current use of insulin E11.9 [place] [address] [place] [id number] [address] [place] [phone] June, Essential hypertension I10 ; Type 2 diabetes mellitus without complication, without long-term current use of insulin E11.9 ; Pain in right knee M25.561 ; Pain in left knee M25.562 ; 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 and PVD (peripheral vascular disease) I73.9 [facility] [address] [facility] [id number] [address] [place] [phone] May, [place] [address] [facility] [id number] [address] [place] [phone] Apr, [place] [address] [facility] [id number] [address] [place] [phone] Mar, [facility] [address] [facility] [id number] [address] [place] [phone] Mar, 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 [facility] [address] [facility] [id number] [address] [place] [phone] Mar, Essential hypertension I10 ; Type 2 diabetes mellitus without complication, without long-term current use of insulin E11.9 ; Pain in right knee M25.561 ; Pain in left knee M25.562 and 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 leg 2016 Surgical History Triple bypass 2017 Hospitalization History Surgery(s) only
--- OUTSIDE RECORDS SUMMARY | 2019-05-12 06:30 | XMS REPORT ---
Author Author Mychal DELAROSA Organization [facility] Address [address] [place] [address] Care Team Providers Care Hand Alterations Seamstress Name Role Phone ARLEN DELAROSA Unavailable PROBLEMS Type Condition ICD9-CM Code MEQ33-KF Code Onset Dates Condition S tatus SNOMED Code Problem Other chronic pain G89.29 Active 8 3946190 Problem PVD (peripheral vascular disease) I73.9 Active 390988654 Problem Essential hypertension I10 Active 94309125 Problem Lumbago with sciatica, left side M54.42 Active 29983764 Problem S/P CABG x 4 Z95.1 Active 7995473 00 Problem FPC current use of insulin Z79.4 Active 880417425 Problem Stasis dermatitis of right l ower extremity with venous ulcer due to chronic peripheral venous hypertension I87.331 Ac tive 568036690682967 Problem Non-pressure chronic ulcer o f unspecified part of unspecified lower leg with unspecified severity L97.909 Active 26 5709635 Problem Type 2 diabetes mellitus wit h diabetic peripheral angiopathy without gangrene E11.51 Active 073659654 Problem Intermittent claudication I73.9 Acti ve 32635559 Problem 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 79662738 Problem Pain in left knee M25.562 Active 30 617309 Problem Hyperlipidemia LDL goal <70 E78.5 Ac tive 16448141 Problem Pain in right knee M25.561 Active 3 5169098 ALLERGIES No Information ENCOUNTERS Encounter Location Date Diagnosis [facility] [address] [facility] [id number] [address] [place] [phone] May, [facility] [address] [facility] [id number] [address] [place] [phone] May, Establishing care with carlos martins, encounter for Z76.89 ; Essential hypertension I10 ; Type 2 diabetes mellitus with diabetic peripheral angiopathy without gangrene E11.51 ; 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 ; Hyperlipidemia LDL goal <70 E78.5 ; PVD (peripheral vascular disease) I73.9 ; FPC current use of insulin Z79.4 ; Intermittent claudication I73.9 ; Other chronic pain G89.29 and Lumbago with sciatica, left side M54.42 [place] [address] [facility] [id number] [address] [place] [phone] Feb, [place] [address] [facility] [id number] [address] [place] [phone] Feb, Medicare annual wellness vis it, subsequent [...] E11.51 and S/P CABG x 4 Z95.1 [place] [address] [id number] [address] [place] [phone] Jan, [place] [address] [facility] [id number] [address] [place] [phone] Jan, Type 2 diabetes mellitus wit hout complication, without long-term current use of insulin E11.9 [place] [address] [id number] [address] [place] [phone] Jan, [place] [address] [id number] [address] [place] [phone] Jan, Type 2 diabetes mellitus wit hout complication, without long-term current use of insulin E11.9 [place] [address] [facility] [id number] [address] [place] [phone] Dec, Type 2 diabetes mellitus wit hout complication, without long-term current use of insulin E11.9 [place] [address] [id number] [address] [place] [phone] Dec, [facility] [address] [id number] [address] [place] [phone] Dec, Stasis dermatitis of right l ower extremity with venous ulcer due to chronic peripheral venous hypertension I87.331 ; Type 2 diabetes mellitus with diabetic peripheral angiopathy without gangrene E11.51 and FPC current use of insulin Z79.4 [facility] [address] [id number] [address] [place] [phone] Dec, Non-pressure chronic ulcer o f unspecified part of unspecified lower leg with unspecified severity L97.909 and Type 2 diabetes mellitus with other skin ulcer E11.622 [facility] [address] [facility] [id number] [address] [place] [phone] Dec, Type 2 diabetes mellitus wit hout complication, without long-term current use of insulin E11.9 [place] [address] [facility] [id number] [address] [place] [phone] Dec, [facility] [address] [id number] [address] [place] [phone] Dec, Type 2 diabetes mellitus wit hout complication, without long-term current use of insulin E11.9 [facility] [address] [facility] [id number] [address] [place] [phone] Dec, Type 2 diabetes mellitus wit hout complication, without long-term current use of insulin E11.9 and Essential hypertension I10 [facility] [address] [id number] [address] [place] [phone] Nov, Type 2 diabetes mellitus wit hout complication, without long-term current use of insulin E11.9 [facility] [address] [facility] [id number] [address] [place] [phone] Nov, [facility] [address] [id number] [address] [place] [phone] Nov, [facility] [address] [facility] [id number] [address] [place] [phone] Nov, Type 2 diabetes mellitus wit hout complication, without long-term current use of insulin E11.9 [facility] [address] [id number] [address] [place] [phone] Nov, [facility] [address] [id number] [address] [place] [phone] Nov, [facility] [address] [id number] [address] [place] [phone] Nov, Type 2 diabetes mellitus wit hout complication, without long-term current use of insulin E11.9 [place] [address] [id number] [address] [place] [phone] Oct, Type 2 diabetes mellitus wit hout complication, without long-term current use of insulin E11.9 [place] [address] [id number] [address] [place] [phone] Oct, [place] [address] [id number] [address] [place] [phone] Oct, Type 2 diabetes mellitus wit hout complication, without long-term current use of insulin E11.9 [place] [address] [id number] [address] [place] [phone] Oct, Essential hypertension I10 [place] [address] [id number] [address] [place] [phone] Oct, Essential hypertension I10 a nd Type 2 diabetes mellitus without complication, without long-term current use of insulin E11.9 [facility] [address] [id number] [address] [place] [phone] Oct, [place] [address] [facility] [id number] [address] [place] [address] Sep, Essential hypertension I10 ; Type 2 diabetes mellitus without complication, without long-term current use of insulin E11.9 ; Pain in right knee M25.561 ; Pain in left knee M25.562 and PVD (peripheral vascular disease) I73.9 [facility] [address] [facility] [id number] [address] [place] [phone] Sep, [facility] [address] [facility] [id number] [address] [place] [phone] Aug, [facility] [address] [facility] [id number] [address] [place] [phone] Jul, Type 2 diabetes mellitus wit hout complication, without long-term current use of insulin E11.9 [facility] [address] [facility] [id number] [address] [place] [phone] Jul, Gastroenteritis and colitis, viral A08.4 [place] [address] [facility] [id number] [address] [place] [phone] June, Type 2 diabetes mellitus wit hout complication, without long-term current use of insulin E11.9 [place] [address] [place] [id number] [address] [place] [address] June, Essential hypertension I10 ; Type 2 diabetes mellitus without complication, without long-term current use of insulin E11.9 ; Pain in right knee M25.561 ; Pain in left knee M25.562 ; 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 and PVD (peripheral vascular disease) I73.9 [facility] [address] [facility] [id number] [address] [place] [phone] May, [place] [address] [facility] [id number] [address] [place] [phone] Apr, [place] [address] [facility] [id number] [address] [place] [phone] Mar, [facility] [address] [facility] [id number] [address] [place] [phone] Mar, 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 [facility] [address] [facility] [id number] [address] [place] [address] Mar, Essential hypertension I10 ; Type 2 diabetes mellitus without complication, without long-term current use of insulin E11.9 ; Pain in right knee M25.561 ; Pain in left knee M25.562 and 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 [facility] [address] [facility] [id number] [address] [place] [address] Feb, IMMUNIZATIONS No Known Immunizations SOCIAL HISTORY Never Assessed REASON FOR VISIT Refill Request PLAN OF CARE VITAL SIGNS MEDICATIONS Medication Instructions Dosage Frequency Start Date End Date Duration S tatus Indomethacin 50 mg Orally Twice a day 1 capsule with food or milk 1 2h 17 Mar, 2016 45 days Active RESULTS No Results PROCEDURES No [...] diabetic peripheral angiopathy without gangrene Medical History FPC current use of insulin Medical History Declines Colonoscopy, Denies Influenza Vaccine, Declines Pneumovax and Zostavax Surgical History jaw surgery Surgical History tonsillectomy Surgical History Cataract removal bilaterally Surgical History had stint placed in L. leg 2016 Surgical History Triple bypass 2017 Hospitalization History Surgery(s) only
--- OUTSIDE RECORDS SUMMARY | 2019-05-12 06:30 | XMS REPORT ---
Author Author Mychal DELAROSA Organization [facility] Address [address] [place] [address] Care Team Providers Care Manager Outpatient Name Role Phone ARLEN DELAROSA Unavailable PROBLEMS Type Condition ICD9-CM Code [id number] Code Onset Dates Condition S tatus SNOMED Code Problem Other chronic pain G89.29 Active 8 0664530 Problem PVD (peripheral vascular disease) I73.9 Active 313140299 Problem Essential hypertension I10 Active 05131101 Problem Lumbago with sciatica, left side M54.42 Active 95812154 Problem S/P CABG x 4 Z95.1 Active 9609067 00 Problem skilled nursing current use of insulin Z79.4 Active 098908938 Problem Stasis dermatitis of right l ower extremity with venous ulcer due to chronic peripheral venous hypertension I87.331 Ac tive 856842931952033 Problem Non-pressure chronic ulcer o f unspecified part of unspecified lower leg with unspecified severity L97.909 Active 26 7424207 Problem Type 2 diabetes mellitus wit h diabetic peripheral angiopathy without gangrene E11.51 Active 958502368 Problem Intermittent claudication I73.9 Acti ve 14480948 Problem 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 57763734 Problem Pain in left knee M25.562 Active 30 417608 Problem Hyperlipidemia LDL goal <70 E78.5 Ac tive 06972873 Problem Pain in right knee M25.561 Active 3 7998937 ALLERGIES No Known Allergies ENCOUNTERS Encounter Location Date Diagnosis [facility] [address] [facility] [id number] [address] [place] [phone] May, [facility] [address] [facility] [id number] [address] [place] [phone] May, Establishing care with carlos martins, encounter for Z76.89 ; Essential hypertension I10 ; Type 2 diabetes mellitus with diabetic peripheral angiopathy without gangrene E11.51 ; 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 ; Hyperlipidemia LDL goal <70 E78.5 ; PVD (peripheral vascular disease) I73.9 ; skilled nursing current use of insulin Z79.4 ; Intermittent claudication I73.9 ; Other chronic pain G89.29 and Lumbago with sciatica, left side M54.42 [place] [address] [facility] [id number] [address] [place] [phone] Feb, [place] [address] [facility] [id number] [address] [place] [phone] Feb, Medicare annual wellness vis it, subsequent [...] E11.51 and S/P CABG x 4 Z95.1 [place] [address] [id number] [address] [place] [phone] Jan, [place] [address] [facility] [id number] [address] [place] [phone] Jan, Type 2 diabetes mellitus wit hout complication, without long-term current use of insulin E11.9 [place] [address] [id number] [address] [place] [phone] Jan, [place] [address] [id number] [address] [place] [phone] Jan, Type 2 diabetes mellitus wit hout complication, without long-term current use of insulin E11.9 [place] [address] [id number] [address] [place] [phone] Dec, Type 2 diabetes mellitus wit hout complication, without long-term current use of insulin E11.9 [place] [address] [id number] [address] [place] [phone] Dec, [facility] [address] [id number] [address] [place] [phone] Dec, Stasis dermatitis of right l ower extremity with venous ulcer due to chronic peripheral venous hypertension I87.331 ; Type 2 diabetes mellitus with diabetic peripheral angiopathy without gangrene E11.51 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 [facility] [address] [facility] [id number] [address] [place] [phone] Dec, Non-pressure chronic ulcer o f unspecified part of unspecified lower leg with unspecified severity L97.909 and Type 2 diabetes mellitus with other skin ulcer E11.622 [facility] [address] [place] [id number] [address] [place] [phone] Dec, Type 2 diabetes mellitus wit hout complication, without long-term current use of insulin E11.9 [place] [address] [place] [id number] [address] [place] [phone] Dec, [facility] [address] [place] [id number] [address] [place] [phone] Dec, Type 2 diabetes mellitus wit hout complication, without long-term current use of insulin E11.9 [facility] [address] [place] [id number] [address] [place] [phone] Dec, Type 2 diabetes mellitus wit hout complication, without long-term current use of insulin E11.9 and Essential hypertension I10 [facility] [address] [facility] [id number] [address] [place] [phone] Nov, Type 2 diabetes mellitus wit hout complication, without long-term current use of insulin E11.9 [facility] [address] [facility] [id number] [address] [place] [phone] Nov, [facility] [address] [facility] [id number] [address] [place] [phone] Nov, [facility] [address] [place] [id number] [address] [place] [phone] Nov, Type 2 diabetes mellitus wit hout complication, without long-term current use of insulin E11.9 [facility] [address] [id number] [address] [place] [phone] Nov, [facility] [address] [id number] [address] [place] [phone] Nov, [facility] [address] [id number] [address] [place] [phone] Nov, Type 2 diabetes mellitus wit hout complication, without long-term current use of insulin E11.9 [place] [address] [id number] [address] [place] [phone] Oct, Type 2 diabetes mellitus wit hout complication, without long-term current use of insulin E11.9 [place] [address] [id number] [address] [place] [phone] Oct, [place] [address] [id number] [address] [place] [phone] Oct, Type 2 diabetes mellitus wit hout complication, without long-term current use of insulin E11.9 [place] [address] [id number] [address] [place] [phone] Oct, Essential hypertension I10 [place] [address] [id number] [address] [place] [phone] Oct, Essential hypertension I10 a nd Type 2 diabetes mellitus without complication, without long-term current use of insulin E11.9 [facility] [address] [id number] [address] [place] [phone] Oct, [place] [address] [id number] [address] [place] [phone] Sep, Essential hypertension I10 ; Type 2 diabetes mellitus without complication, without long-term current use of insulin E11.9 ; Pain in right knee M25.561 ; Pain in left knee M25.562 and PVD (peripheral vascular disease) I73.9 [facility] [address] [facility] [id number] [address] [place] [phone] Sep, [facility] [address] [facility] [id number] [address] [place] [phone] Aug, [facility] [address] [facility] [id number] [address] [place] [phone] Jul, Type 2 diabetes mellitus wit hout complication, without long-term current use of insulin E11.9 [facility] [address] [facility] [id number] [address] [place] [phone] Jul, Gastroenteritis and colitis, viral A08.4 [facility] [address] [facility] [id number] [address] [place] [phone] June, Type 2 diabetes mellitus wit hout complication, without long-term current use of insulin E11.9 [place] [address] [place] [id number] [address] [place] [address] June, Essential hypertension I10 ; Type 2 diabetes mellitus without complication, without long-term current use of insulin E11.9 ; Pain in right knee M25.561 ; Pain in left knee M25.562 ; 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 and PVD (peripheral vascular disease) I73.9 [facility] [address] [facility] [id number] [address] [place] [phone] May, [facility] [address] [facility] [id number] [address] [place] [phone] Apr, [place] [address] [place] [id number] [address] [place] [phone] Mar, [facility] [address] [facility] [id number] [address] [place] [phone] Mar, 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 [facility] [address] [facility] [id number] [address] [place] [phone] Mar, Essential hypertension I10 ; Type 2 diabetes mellitus without complication, without long-term current use of insulin E11.9 ; Pain in right knee M25.561 ; Pain in left knee M25.562 and 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 [facility] [address] [facility] [id number] [address] [place] [address] Feb, IMMUNIZATIONS No Known Immunizations SOCIAL HISTORY Never Assessed REASON FOR VISIT triple bypass f/u-AHarrTawanda, He is going to see heart DrDarryl about a rash/large s ores on his legs, saw the ER and cultures were negative and no blood clots PLAN OF CARE Activity Details Follow Up 3 Months Reason: VITAL SIGNS Height 68.5 in 2017-01-20 Weight 207.8 lbs 2017-01-20 Temperature 97.3 degrees Fahrenheit 2017-01-20 Heart Rate 72 bpm 2017-01-20 Respiratory Rate 20 2017-01-20 BMI 31.13 kg/m2 2017-01-20 Blood pressure systolic 126 mmHg 2017-01-20 Blood pressure diastolic 80 mmHg 2017-01-20 MEDICATIONS Medication Instructions Dosage Frequency Start Date End Date Duration S tatus Test strips Test Strips Check blood sugar (Glucocard) Aug, Active Aspirin 81 MG Orally Once a day 1 tablet 24h Active Glucometer 1 glucometer Check blood sugar (glucocard) Aug, Active Glucagon Emergency 1 MG Active GlipiZIDE 10 mg Orally Once a day 1 tablet 24h Active Furosemide 40 MG TAKE ONE TABLET BY MOUTH ONCE DAILY IN THE MORN ING 30 Active Docusate Sodium 100 MG Orally Once a day 1 capsule as needed 24h Active Gabapentin 100 mg Orally 3 times a day 2 capsules 8h Not-Taking Hydrocodone-Acetaminophen 5-325 MG Orally every 6 hrs 1 tablet as need ed 6h Not-Taking Potassium Chloride ER 20 MEQ Orally Once a day 1 tablet with food 24h Active Metformin HCl 500 mg Orally Twice a day 2 tablets 12h 30 days Active Lisinopril 5 mg Orally Once a day 1 tablet 24h 90 da ys Active Pravastatin Sodium 10 mg Orally Once a day at bedtime 1 tablet Mar, 90 days Active Osteo Bi-Flex Triple Strength - Orally Once a day 2 tablets 24h Not-Taking Ondansetron 4 MG Orally every 8 hrs 1 tablet on the tong ue and allow to dissolve 8h Active Plavix 75 MG Orally Once a day 1 tablet 24h Active Insulin Detemir 100 UNIT/ML Subcutaneous twice a day 15 unit s- Increase 1 unit AM and PM qod til FBS at 120. 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 leg 2016 Surgical History Triple bypass 2017 Hospitalization History Surgery(s) only
--- OUTSIDE RECORDS SUMMARY | 2019-05-12 06:31 | XMS REPORT ---
Author Author Mychal DELAROSA Organization [facility] Address [address] [place] [address] Care Team Providers Care [employer] Name Role Phone ARLEN DELAROSA Unavailable PROBLEMS Type Condition ICD9-CM Code [id number] Code Onset Dates Condition S tatus SNOMED Code Problem Other chronic pain G89.29 Active 8 6590712 Problem PVD (peripheral vascular disease) I73.9 Active 569728706 Problem Essential hypertension I10 Active 19158263 Problem Lumbago with sciatica, left side M54.42 Active 66327294 Problem S/P CABG x 4 Z95.1 Active 0068555 00 Problem assisted current use of insulin Z79.4 Active 536223957 Problem Stasis dermatitis of right l ower extremity with venous ulcer due to chronic peripheral venous hypertension I87.331 Ac tive 038211457162250 Problem Non-pressure chronic ulcer o f unspecified part of unspecified lower leg with unspecified severity L97.909 Active 26 0246142 Problem Type 2 diabetes mellitus wit h diabetic peripheral angiopathy without gangrene E11.51 Active 944224800 Problem Intermittent claudication I73.9 Acti ve 06139225 Problem 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 96881146 Problem Pain in left knee M25.562 Active 30 310506 Problem Hyperlipidemia LDL goal <70 E78.5 Ac tive 78156941 Problem Pain in right knee M25.561 Active 3 1232924 ALLERGIES No Information ENCOUNTERS Encounter Location Date Diagnosis [facility] [address] [facility] [id number] [address] [place] [phone] May, [facility] [address] [facility] [id number] [address] [place] [phone] May, Establishing care with carlos martins, encounter [...] and Lumbago with sciatica, left side M54.42 [place] [address] [facility] [id number] [address] [place] [address] Feb, [place] [address] [facility] [id number] [address] [place] [phone] Feb, Medicare annual wellness vis it, subsequent [...] E11.51 and S/P CABG x 4 Z95.1 [place] [address] [id number] [address] [place] [phone] Jan, [place] [address] [facility] [id number] [address] [place] [phone] Jan, Type 2 diabetes mellitus wit hout complication, without long-term current use of insulin E11.9 [place] [address] [id number] [address] [place] [phone] Jan, [place] [address] [id number] [address] [place] [phone] Jan, Type 2 diabetes mellitus wit hout complication, without long-term current use of insulin E11.9 [place] [address] [facility] [id number] [address] [place] [phone] Dec, Type 2 diabetes mellitus wit hout complication, without long-term current use of insulin E11.9 [place] [address] [id number] [address] [place] [phone] Dec, [facility] [address] [id number] [address] [place] [address] Dec, Stasis dermatitis of right l ower extremity with venous ulcer due to chronic peripheral venous hypertension I87.331 ; Type 2 diabetes mellitus with diabetic peripheral angiopathy without gangrene E11.51 and assisted current use of insulin Z79.4 [facility] [address] [id number] [address] [place] [phone] Dec, Non-pressure chronic ulcer o f unspecified part of unspecified lower leg with unspecified severity L97.909 and Type 2 diabetes mellitus with other skin ulcer E11.622 [facility] [address] [facility] [id number] [address] [place] [address] Dec, Type 2 diabetes mellitus wit hout complication, without long-term current use of insulin E11.9 [place] [address] [facility] [id number] [address] [place] [phone] Dec, [facility] [address] [id number] [address] [place] [phone] Dec, Type 2 diabetes mellitus wit hout complication, without long-term current use of insulin E11.9 [facility] [address] [facility] [id number] [address] [place] [phone] Dec, Type 2 diabetes mellitus wit hout complication, without long-term current use of insulin E11.9 and Essential hypertension I10 [facility] [address] [id number] [address] [place] [phone] Nov, Type 2 diabetes mellitus wit hout complication, without long-term current use of insulin E11.9 [facility] [address] [facility] [id number] [address] [place] [phone] Nov, [facility] [address] [id number] [address] [place] [phone] Nov, [facility] [address] [facility] [id number] [address] [place] [phone] Nov, Type 2 diabetes mellitus wit hout complication, without long-term current use of insulin E11.9 [facility] [address] [id number] [address] [place] [phone] Nov, [facility] [address] [id number] [address] [place] [phone] Nov, [facility] [address] [id number] [address] [place] [phone] Nov, Type 2 diabetes mellitus wit hout complication, without long-term current use of insulin E11.9 [place] [address] [id number] [address] [place] [phone] Oct, Type 2 diabetes mellitus wit hout complication, without long-term current use of insulin E11.9 [place] [address] [id number] [address] [place] [phone] Oct, [place] [address] [id number] [address] [place] [phone] Oct, Type 2 diabetes mellitus wit hout complication, without long-term current use of insulin E11.9 [place] [address] [id number] [address] [place] [phone] Oct, Essential hypertension I10 [place] [address] [id number] [address] [place] [address] Oct, Essential hypertension I10 a nd Type 2 diabetes mellitus without complication, without long-term current use of insulin E11.9 [facility] [address] [id number] [address] [place] [phone] Oct, [place] [address] [facility] [id number] [address] [place] [address] Sep, Essential hypertension I10 ; Type 2 diabetes mellitus without complication, without long-term current use of insulin E11.9 ; Pain in right knee M25.561 ; Pain in left knee M25.562 and PVD (peripheral vascular disease) I73.9 [facility] [address] [facility] [id number] [address] [place] [phone] Sep, [facility] [address] [facility] [id number] [address] [place] [phone] Aug, [facility] [address] [facility] [id number] [address] [place] [address] Jul, Type 2 diabetes mellitus wit hout complication, without long-term current use of insulin E11.9 [facility] [address] [facility] [id number] [address] [place] [phone] Jul, Gastroenteritis and colitis, viral A08.4 [place] [address] [facility] [id number] [address] [place] [phone] June, Type 2 diabetes mellitus wit hout complication, without long-term current use of insulin E11.9 [place] [address] [place] [id number] [address] [place] [address] June, Essential hypertension I10 ; Type 2 diabetes mellitus without complication, without long-term current use of insulin E11.9 ; Pain in right knee M25.561 ; Pain in left knee M25.562 ; 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 and PVD (peripheral vascular disease) I73.9 [facility] [address] [facility] [id number] [address] [place] [phone] May, [place] [address] [facility] [id number] [address] [place] [phone] Apr, [place] [address] [facility] [id number] [address] [place] [phone] Mar, [facility] [address] [facility] [id number] [address] [place] [address] Mar, 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 [facility] [address] [facility] [id number] [address] [place] [address] Mar, Essential hypertension I10 ; Type 2 diabetes mellitus without complication, without long-term current use of insulin E11.9 ; Pain in right knee M25.561 ; Pain in left knee M25.562 and 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 [facility] [address] [facility] [id number] [address] [place] [address] Feb, IMMUNIZATIONS No Known Immunizations SOCIAL HISTORY Never Assessed REASON FOR VISIT BS f/u attempt PLAN OF CARE VITAL SIGNS MEDICATIONS Unknown [...] peripheral angiopathy without gangrene 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 leg 2017 Surgical History Triple bypass 2017 Hospitalization History Surgery(s) only
--- OUTSIDE RECORDS SUMMARY | 2019-05-12 06:31 | XMS REPORT ---
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 Active 3067633 00 Problem detention current use of insulin Z79.4 Active 801808617 Problem Stasis dermatitis of right l ower extremity with venous ulcer due to chronic peripheral venous hypertension I87.331 Ac tive 161205732083711 Problem Non-pressure chronic ulcer o f unspecified part of unspecified lower leg with unspecified severity L97.909 Active 26 2209776 Problem Type 2 diabetes mellitus wit h diabetic peripheral angiopathy without gangrene E11.51 Active 709873032 Problem Intermittent claudication I73.9 Acti ve 18097595 Problem 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 92468881 Problem Pain in left knee M25.562 Active 30 858244 Problem Hyperlipidemia LDL goal <70 E78.5 Ac tive 07190132 Problem Pain in right knee M25.561 Active 3 7526328 ALLERGIES No Information ENCOUNTERS Encounter Location Date Diagnosis [facility] [address] [facility] [id number] [address] [place] [phone] May, [facility] [address] [facility] [id number] [address] [place] [phone] May, Establishing care with carlos martins, encounter [...] and Lumbago with sciatica, left side M54.42 [place] [address] [facility] [id number] [address] [place] [address] Feb, [place] [address] [facility] [id number] [address] [place] [phone] Feb, Medicare annual wellness vis it, subsequent [...] E11.51 and S/P CABG x 4 Z95.1 [place] [address] [id number] [address] [place] [phone] Jan, [place] [address] [facility] [id number] [address] [place] [phone] Jan, Type 2 diabetes mellitus wit hout complication, without long-term current use of insulin E11.9 [place] [address] [id number] [address] [place] [phone] Jan, [place] [address] [id number] [address] [place] [phone] Jan, Type 2 diabetes mellitus wit hout complication, without long-term current use of insulin E11.9 [place] [address] [facility] [id number] [address] [place] [phone] Dec, Type 2 diabetes mellitus wit hout complication, without long-term current use of insulin E11.9 [place] [address] [id number] [address] [place] [phone] Dec, [facility] [address] [id number] [address] [place] [phone] Dec, Stasis dermatitis of right l ower extremity with venous ulcer due to chronic peripheral venous hypertension I87.331 ; Type 2 diabetes mellitus with diabetic peripheral angiopathy without gangrene E11.51 and detention current use of insulin Z79.4 [facility] [address] [id number] [address] [place] [phone] Dec, Non-pressure chronic ulcer o f unspecified part of unspecified lower leg with unspecified severity L97.909 and Type 2 diabetes mellitus with other skin ulcer E11.622 [facility] [address] [facility] [id number] [address] [place] [phone] Dec, Type 2 diabetes mellitus wit hout complication, without long-term current use of insulin E11.9 [place] [address] [facility] [id number] [address] [place] [phone] Dec, [facility] [address] [id number] [address] [place] [phone] Dec, Type 2 diabetes mellitus wit hout complication, without long-term current use of insulin E11.9 [facility] [address] [facility] [id number] [address] [place] [phone] Dec, Type 2 diabetes mellitus wit hout complication, without long-term current use of insulin E11.9 and Essential hypertension I10 [facility] [address] [id number] [address] [place] [address] Nov, Type 2 diabetes mellitus wit hout complication, without long-term current use of insulin E11.9 [facility] [address] [facility] [id number] [address] [place] [phone] Nov, [facility] [address] [id number] [address] [place] [phone] Nov, [facility] [address] [facility] [id number] [address] [place] [phone] Nov, Type 2 diabetes mellitus wit hout complication, without long-term current use of insulin E11.9 [facility] [address] [id number] [address] [place] [phone] Nov, [facility] [address] [id number] [address] [place] [phone] Nov, [facility] [address] [id number] [address] [place] [phone] Nov, Type 2 diabetes mellitus wit hout complication, without long-term current use of insulin E11.9 [place] [address] [id number] [address] [place] [phone] Oct, Type 2 diabetes mellitus wit hout complication, without long-term current use of insulin E11.9 [place] [address] [id number] [address] [place] [phone] Oct, [place] [address] [id number] [address] [place] [phone] Oct, Type 2 diabetes mellitus wit hout complication, without long-term current use of insulin E11.9 [place] [address] [id number] [address] [place] [phone] Oct, Essential hypertension I10 [place] [address] [id number] [address] [place] [phone] Oct, Essential hypertension I10 a nd Type 2 diabetes mellitus without complication, without long-term current use of insulin E11.9 [facility] [address] [id number] [address] [place] [phone] Oct, [place] [address] [facility] [id number] [address] [place] [address] Sep, Essential hypertension I10 ; Type 2 diabetes mellitus without complication, without long-term current use of insulin E11.9 ; Pain in right knee M25.561 ; Pain in left knee M25.562 and PVD (peripheral vascular disease) I73.9 [facility] [address] [facility] [id number] [address] [place] [phone] Sep, [facility] [address] [facility] [id number] [address] [place] [phone] Aug, [facility] [address] [facility] [id number] [address] [place] [phone] Jul, Type 2 diabetes mellitus wit hout complication, without long-term current use of insulin E11.9 [facility] [address] [facility] [id number] [address] [place] [phone] Jul, Gastroenteritis and colitis, viral A08.4 [place] [address] [facility] [id number] [address] [place] [address] June, Type 2 diabetes mellitus wit hout complication, without long-term current use of insulin E11.9 [place] [address] [place] [id number] [address] [place] [address] June, Essential hypertension I10 ; Type 2 diabetes mellitus without complication, without long-term current use of insulin E11.9 ; Pain in right knee M25.561 ; Pain in left knee M25.562 ; 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 and PVD (peripheral vascular disease) I73.9 [facility] [address] [facility] [id number] [address] [place] [phone] May, [place] [address] [facility] [id number] [address] [place] [phone] Apr, [place] [address] [facility] [id number] [address] [place] [address] Mar, [facility] [address] [facility] [id number] [address] [place] [address] Mar, 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 [address] [facility] [id number] [address] [place] [address] Feb, IMMUNIZATIONS No Known Immunizations SOCIAL HISTORY Never Assessed REASON FOR VISIT Lab (walk-in) PLAN OF CARE VITAL SIGNS MEDICATIONS Unknown Medications RESULTS Name Result Date Reference Range MAGNESIUM, SERUM 2016-10-29 Magnesium, Serum 2.1 1.6-2.3 TSH 2016-10-29 TSH 3.090 0.450-4.500 CBC 2016-10-29 WBC 7.0 3.4-10.8 RBC 5.09 4.14-5.80 Hemoglobin 14.5 12.6-17.7 Hematocrit 45.3 37.5-51.0 MCV 89 79-97 MCH 28.5 26.6-33.0 MCHC 32.0 31.5-35.7 RDW 13.2 12.3-15.4 Platelets 281 150-379 Neutrophils 63 Lymphs 21 Monocytes 10 Eos 5 Basos 1 Neutrophils (Absolute) 4.4 1.4-7.0 Lymphs (Absolute) 1.5 0.7-3.1 Monocytes(Absolute) 0.7 0.1-0.9 Eos (Absolute) 0.4 0.0-0.4 Baso (Absolute) 0.1 0.0-0.2 Immature Granulocytes 0 Immature Grans (Abs) 0.0 0.0-0.1 LIPID PANEL 2016-10-29 Cholesterol, Total 196 100-199 Triglycerides 92 0-149 HDL Cholesterol 45 >39 VLDL Cholesterol Woo 18 5-40 LDL Cholesterol Calc 133 0-99 MAGNESIUM, SERUM 2016-10-29 Magnesium, Serum 2.1 1.6-2.3 TSH 2016-10-29 TSH 3.090 0.450-4.500 CBC 2016-10-29 WBC 7.0 3.4-10.8 RBC 5.09 4.14-5.80 Hemoglobin 14.5 12.6-17.7 Hematocrit 45.3 37.5-51.0 MCV 89 79-97 MCH 28.5 26.6-33.0 MCHC 32.0 31.5-35.7 RDW 13.2 12.3-15.4 Platelets 281 150-379 Neutrophils 63 Lymphs 21 Monocytes 10 Eos 5 Basos 1 Neutrophils (Absolute) 4.4 1.4-7.0 Lymphs (Absolute) 1.5 0.7-3.1 Monocytes(Absolute) 0.7 0.1-0.9 Eos (Absolute) 0.4 0.0-0.4 Baso (Absolute) 0.1 0.0-0.2 Immature Granulocytes 0 Immature Grans (Abs) 0.0 0.0-0.1 LIPID PANEL 2016-10-29 Cholesterol, Total 196 100-199 Triglycerides 92 0-149 HDL Cholesterol 45 >39 VLDL Cholesterol Woo 18 5-40 LDL Cholesterol Calc 133 0-99 CMP 2016-10-29 Glucose, Serum 354 65-99 BUN 42 8-27 Creatinine, Serum 1.16 0.76-1.27 eGFR If NonAfricn Am 65 >59 eGFR If Africn Am 75 >59 BUN/Creatinine Ratio 36 10-24 Sodium, Serum 140 134-144 Potassium, Serum 5.3 3.5-5.2 Chloride, Serum 99 96-106 Carbon Dioxide, Total 25 18-29 Calcium, Serum 9.4 8.6-10.2 Protein, Total, Serum 7.1 6.0-8.5 Albumin, Serum 4.4 3.6-4.8 Globulin, Total 2.7 1.5-4.5 A/G Ratio 1.6 1.2-2.2 Bilirubin, Total 0.3 0.0-1.2 Alkaline Phosphatase, S 67 39-117 AST (SGOT) 11 0-40 ALT (SGPT) 17 0-44 PROCEDURES Procedure Date Ordered Result Body Site LAB NOT BILLED BY [facility] Oct 29, 2016 VENIPUNCT, ROUTINE* Oct 29, 2016 INSTRUCTIONS MEDICATIONS ADMINISTERED No Known Medications [...]
--- OUTSIDE RECORDS SUMMARY | 2019-05-12 06:31 | XMS REPORT ---
Author Author Mychal PULIDO [facility] Address [address] [place] [address] Care Team Providers Care Jewish History Professor Name Role Phone DELIO PULIDO Unavailable PROBLEMS Type Condition ICD9-CM Code LGT44-ER Code Onset Dates Condition S tatus SNOMED Code Problem Other chronic pain G89.29 Active 8 0293904 Problem PVD (peripheral vascular disease) I73.9 Active 686060517 Problem Essential hypertension I10 Active 07806703 Problem Lumbago with sciatica, left side M54.42 Active 01947784 Problem S/P CABG x 4 Z95.1 Active 3806398 00 Problem custodial current use of insulin Z79.4 Active 823081376 Problem Stasis dermatitis of right l ower extremity with venous ulcer due to chronic peripheral venous hypertension I87.331 Ac tive 894777870164940 Problem Non-pressure chronic ulcer o f unspecified part of unspecified lower leg with unspecified severity L97.909 Active 26 2048817 Problem Type 2 diabetes mellitus wit h diabetic peripheral angiopathy without gangrene E11.51 Active 230928930 Problem Intermittent claudication I73.9 Acti ve 40798301 Problem 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 03422958 Problem Pain in left knee M25.562 Active 30 730379 Problem Hyperlipidemia LDL goal <70 E78.5 Ac tive 95757427 Problem Pain in right knee M25.561 Active 3 2410685 ALLERGIES No Known Allergies ENCOUNTERS Encounter Location Date Diagnosis [facility] [address] [facility] [id number] [address] [place] [phone] May, [facility] [address] [facility] [id number] [address] [place] [phone] May, Establishing care with carlos martins, encounter for Z76.89 ; Essential hypertension I10 ; Type 2 diabetes mellitus with diabetic peripheral angiopathy without gangrene E11.51 ; 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 ; Hyperlipidemia LDL goal <70 E78.5 ; PVD (peripheral vascular disease) I73.9 ; custodial current use of insulin Z79.4 ; Intermittent claudication I73.9 ; Other chronic pain G89.29 and Lumbago with sciatica, left side M54.42 [place] [address] [facility] [id number] [address] [place] [phone] Feb, [place] [address] [facility] [id number] [address] [place] [phone] Feb, Medicare annual wellness vis it, subsequent [...] E11.51 and S/P CABG x 4 Z95.1 [place] [address] [id number] [address] [place] [phone] Jan, [place] [address] [facility] [id number] [address] [place] [address] Jan, Type 2 diabetes mellitus wit hout complication, without long-term current use of insulin E11.9 [place] [address] [id number] [address] [place] [address] Jan, [place] [address] [id number] [address] [place] [address] Jan, Type 2 diabetes mellitus wit hout complication, without long-term current use of insulin E11.9 [place] [address] [id number] [address] [place] [phone] Dec, Type 2 diabetes mellitus wit hout complication, without long-term current use of insulin E11.9 [place] [address] [id number] [address] [place] [phone] Dec, [facility] [address] [facility] [id number] [address] [place] [address] Dec, Stasis dermatitis of right l ower extremity with venous ulcer due to chronic peripheral venous hypertension I87.331 ; Type 2 diabetes mellitus with diabetic peripheral angiopathy without gangrene E11.51 and 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 [facility] WALK IN [facility] [address] [facility] [id number] [address] [place] [address] Dec, Non-pressure chronic ulcer o f unspecified part of unspecified lower leg with unspecified severity L97.909 and Type 2 diabetes mellitus with other skin ulcer E11.622 [facility] [address] [facility] [id number] [address] [place] [address] Dec, Type 2 diabetes mellitus wit hout complication, without long-term current use of insulin E11.9 [place] [address] [facility] [id number] [address] [place] [phone] Dec, [facility] [address] [facility] [id number] [address] [place] [phone] Dec, Type 2 diabetes mellitus wit hout complication, without long-term current use of insulin E11.9 [facility] [address] [facility] [id number] [address] [place] [address] Dec, Type 2 diabetes mellitus wit hout complication, without long-term current use of insulin E11.9 and Essential hypertension I10 [facility] [address] [facility] [id number] [address] [place] [phone] Nov, Type 2 diabetes mellitus wit hout complication, without long-term current use of insulin E11.9 [facility] [address] [facility] [id number] [address] [place] [phone] Nov, [facility] [address] [facility] [id number] [address] [place] [phone] Nov, [facility] [address] [facility] [id number] [address] [place] [phone] Nov, Type 2 diabetes mellitus wit hout complication, without long-term current use of insulin E11.9 [facility] [address] [id number] [address] [place] [phone] Nov, [facility] [address] [id number] [address] [place] [phone] Nov, [facility] [address] [id number] [address] [place] [address] Nov, Type 2 diabetes mellitus wit hout complication, without long-term current use of insulin E11.9 [place] [address] [id number] [address] [place] [address] Oct, Type 2 diabetes mellitus wit hout complication, without long-term current use of insulin E11.9 [place] [address] [id number] [address] [place] [address] Oct, [place] [address] [id number] [address] [place] [address] Oct, Type 2 diabetes mellitus wit hout complication, without long-term current use of insulin E11.9 [place] [address] [id number] [address] [place] [address] Oct, Essential hypertension I10 [place] [address] [id number] [address] [place] [address] Oct, Essential hypertension I10 a nd Type 2 diabetes mellitus without complication, without long-term current use of insulin E11.9 [facility] [address] [id number] [address] [place] [address] Oct, [place] [address] [id number] [address] [place] [address] Sep, Essential hypertension I10 ; Type 2 diabetes mellitus without complication, without long-term current use of insulin E11.9 ; Pain in right knee M25.561 ; Pain in left knee M25.562 and PVD (peripheral vascular disease) I73.9 [facility] [address] [facility] [id number] [address] [place] [address] Sep, [facility] [address] [facility] [id number] [address] [place] [phone] Aug, [facility] [address] [facility] [id number] [address] [place] [address] Jul, Type 2 diabetes mellitus wit hout complication, without long-term current use of insulin E11.9 [facility] WALK IN [facility] [address] [place] [id number] [address] [place] [address] Jul, Gastroenteritis and colitis, viral A08.4 [place] [address] [facility] [id number] [address] [place] [phone] June, Type 2 diabetes mellitus wit hout complication, without long-term current use of insulin E11.9 [place] [address] [place] [id number] [address] [place] [address] June, Essential hypertension I10 ; Type 2 diabetes mellitus without complication, without long-term current use of insulin E11.9 ; Pain in right knee M25.561 ; Pain in left knee M25.562 ; 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 and PVD (peripheral vascular disease) I73.9 [facility] [address] [place] [id number] [address] [place] [phone] May, [place] [address] [place] [id number] [address] [place] [address] Apr, [place] [address] [place] [id number] [address] [place] [phone] Mar, [facility] [address] [facility] [id number] [address] [place] [address] Mar, 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 [facility] [address] [place] [id number] [address] [place] [address] Mar, Essential hypertension I10 ; Type 2 diabetes mellitus without complication, without long-term current use of insulin E11.9 ; Pain in right knee M25.561 ; Pain in left knee M25.562 and 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 been like this for 2.5 months. has 3 scabbed ov er areas. this came on after open heart surgery...redness and swelling got brandon r...scabs have never healed. kbullardrn, cough, congestion for 2 days. PLAN OF CARE Activity Details Follow Up 1 Week- 2 weeks Reason: VITAL SIGNS Height 68.5 in 2017-01-17 Weight 205.6 lbs 2017-01-17 Temperature 98.3 degrees Fahrenheit 2017-01-17 Heart Rate 88 bpm 2017-01-17 Respiratory Rate 20 2017-01-17 BMI 30.80 kg/m2 2017-01-17 Blood pressure systolic 124 mmHg 2017-01-17 Blood pressure diastolic 72 mmHg 2017-01-17 MEDICATIONS Medication Instructions Dosage Frequency Start Date End Date Duration S tatus Aspirin 81 MG Orally Once a day 1 tablet 24h Active Plavix 75 MG Orally Once a day 1 tablet 24h Active Hydrocodone-Acetaminophen 5-325 MG Orally every 6 hrs 1 tablet as need ed 6h Not-Taking Blood Glucose Test - Glucocard Expression and lancets once d aily test blood sugar 24h Oct, Active Glucagon Emergency 1 MG Active Test strips Test Strips Check blood sugar (Glucocard) Aug, Active Gabapentin 100 mg Orally 3 times a day 2 capsules 8h Not-Taking Potassium Chloride Josefina ER 20 MEQ TAKE O NE TABLET BY MOUTH ONCE DAILY AT 9:00AM 30 Active Lisinopril 5 mg Orally Once a day 1 tablet 24h 90 da ys Active Glucometer 1 glucometer Check blood sugar (glucocard) Aug, Active Potassium Chloride ER 20 MEQ Orally Once a day 1 tablet with food 24h Active GlipiZIDE 10 mg Orally Once a day 1 tablet 24h Active Pravastatin Sodium 10 mg Orally Once a day at bedtime 1 tablet 17 Mar, 2016 90 days Active Insulin Detemir 100 UNIT/ML Subcutaneous twice a day 15 unit s- Increase 1 unit AM and PM qod til FBS at 120. 12h Active Ondansetron 4 MG Orally every 8 hrs 1 tablet on the tong ue and allow to dissolve 8h Active Docusate Sodium 100 MG Orally Once a day 1 capsule as needed 24h Active Furosemide 40 MG TAKE ONE TABLET BY MOUTH ONCE DAILY IN THE MORN ING 30 Active Osteo Bi-Flex Triple Strength - Orally Once a day 2 tablets 24h Not-Taking Metformin HCl 500 mg Orally Twice a day 2 tablets 12h 30 days Active RESULTS No Results PROCEDURES Procedure Date Ordered Result Body Site [facility] VISIT ESTABLISHED PATIENT Jan 17, 2017 INSTRUCTIONS MEDICATIONS ADMINISTERED No Known Medications [...]
--- OUTSIDE RECORDS SUMMARY | 2019-05-12 06:31 | XMS REPORT ---
Author Author Mychal DELAROSA Organization [facility] Address [address] [place] [address] Care Team Providers Care Emt I/85 Name Role Phone ARLEN DELAROSA Unavailable PROBLEMS Type Condition ICD9-CM Code ITA17-PR Code Onset Dates Condition S tatus SNOMED Code Problem Other chronic pain G89.29 Active 8 4330752 Problem PVD (peripheral vascular disease) I73.9 Active 823938913 Problem Essential hypertension I10 Active 43937728 Problem Lumbago with sciatica, left side M54.42 Active 38660824 Problem S/P CABG x 4 Z95.1 Active 2865575 00 Problem assisted current use of insulin Z79.4 Active 036708639 Problem Stasis dermatitis of right l ower extremity with venous ulcer due to chronic peripheral venous hypertension I87.331 Ac tive 170406079279088 Problem Non-pressure chronic ulcer o f unspecified part of unspecified lower leg with unspecified severity L97.909 Active 26 2130624 Problem Type 2 diabetes mellitus wit h diabetic peripheral angiopathy without gangrene E11.51 Active 604108759 Problem Intermittent claudication I73.9 Acti ve 90889318 Problem 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 05358639 Problem Pain in left knee M25.562 Active 30 640020 Problem Hyperlipidemia LDL goal <70 E78.5 Ac tive 14715620 Problem Pain in right knee M25.561 Active 3 8762000 ALLERGIES No Information ENCOUNTERS Encounter Location Date Diagnosis [facility] [address] [facility] [id number] [address] [place] [phone] May, [facility] [address] [facility] [id number] [address] [place] [phone] May, Establishing care with carlos martins, encounter [...] and Lumbago with sciatica, left side M54.42 [place] [address] [facility] [id number] [address] [place] [phone] Feb, [place] [address] [facility] [id number] [address] [place] [phone] Feb, Medicare annual wellness vis it, subsequent [...] E11.51 and S/P CABG x 4 Z95.1 [place] [address] [id number] [address] [place] [phone] Jan, [place] [address] [facility] [id number] [address] [place] [phone] Jan, Type 2 diabetes mellitus wit hout complication, without long-term current use of insulin E11.9 [place] [address] [id number] [address] [place] [phone] Jan, [place] [address] [id number] [address] [place] [phone] Jan, Type 2 diabetes mellitus wit hout complication, without long-term current use of insulin E11.9 [place] [address] [facility] [id number] [address] [place] [phone] Dec, Type 2 diabetes mellitus wit hout complication, without long-term current use of insulin E11.9 [place] [address] [id number] [address] [place] [phone] Dec, [facility] [address] [id number] [address] [place] [phone] Dec, Stasis dermatitis of right l ower extremity with venous ulcer due to chronic peripheral venous hypertension I87.331 ; Type 2 diabetes mellitus with diabetic peripheral angiopathy without gangrene E11.51 and assisted current use of insulin Z79.4 [facility] WALK IN [facility] [address] [id number] [address] [place] [phone] Dec, Non-pressure chronic ulcer o f unspecified part of unspecified lower leg with unspecified severity L97.909 and Type 2 diabetes mellitus with other skin ulcer E11.622 [facility] [address] [facility] [id number] [address] [place] [phone] Dec, Type 2 diabetes mellitus wit hout complication, without long-term current use of insulin E11.9 [place] [address] [facility] [id number] [address] [place] [phone] Dec, [facility] [address] [id number] [address] [place] [phone] Dec, Type 2 diabetes mellitus wit hout complication, without long-term current use of insulin E11.9 [facility] [address] [facility] [id number] [address] [place] [phone] Dec, Type 2 diabetes mellitus wit hout complication, without long-term current use of insulin E11.9 and Essential hypertension I10 [facility] [address] [id number] [address] [place] [phone] Nov, Type 2 diabetes mellitus wit hout complication, without long-term current use of insulin E11.9 [facility] [address] [facility] [id number] [address] [place] [phone] Nov, [facility] [address] [id number] [address] [place] [phone] Nov, [facility] [address] [facility] [id number] [address] [place] [phone] Nov, Type 2 diabetes mellitus wit hout complication, without long-term current use of insulin E11.9 [facility] [address] [id number] [address] [place] [phone] Nov, [facility] [address] [id number] [address] [place] [phone] Nov, [facility] [address] [id number] [address] [place] [phone] Nov, Type 2 diabetes mellitus wit hout complication, without long-term current use of insulin E11.9 [place] [address] [id number] [address] [place] [phone] Oct, Type 2 diabetes mellitus wit hout complication, without long-term current use of insulin E11.9 [place] [address] [id number] [address] [place] [phone] Oct, [place] [address] [id number] [address] [place] [phone] Oct, Type 2 diabetes mellitus wit hout complication, without long-term current use of insulin E11.9 [place] [address] [id number] [address] [place] [phone] Oct, Essential hypertension I10 [place] [address] [id number] [address] [place] [phone] Oct, Essential hypertension I10 a nd Type 2 diabetes mellitus without complication, without long-term current use of insulin E11.9 [facility] [address] [id number] [address] [place] [phone] Oct, [place] [address] [facility] [id number] [address] [place] [phone] Sep, Essential hypertension I10 ; Type 2 diabetes mellitus without complication, without long-term current use of insulin E11.9 ; Pain in right knee M25.561 ; Pain in left knee M25.562 and PVD (peripheral vascular disease) I73.9 [facility] [address] [facility] [id number] [address] [place] [phone] Sep, [facility] [address] [facility] [id number] [address] [place] [phone] Aug, [facility] [address] [facility] [id number] [address] [place] [phone] Jul, Type 2 diabetes mellitus wit hout complication, without long-term current use of insulin E11.9 [facility] [address] [facility] [id number] [address] [place] [phone] Jul, Gastroenteritis and colitis, viral A08.4 [place] [address] [facility] [id number] [address] [place] [phone] June, Type 2 diabetes mellitus wit hout complication, without long-term current use of insulin E11.9 [place] [address] [place] [id number] [address] [place] [phone] June, Essential hypertension I10 ; Type 2 diabetes mellitus without complication, without long-term current use of insulin E11.9 ; Pain in right knee M25.561 ; Pain in left knee M25.562 ; 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 and PVD (peripheral vascular disease) I73.9 [facility] [address] [facility] [id number] [address] [place] [phone] May, [place] [address] [facility] [id number] [address] [place] [phone] Apr, [place] [address] [facility] [id number] [address] [place] [phone] Mar, [facility] [address] [facility] [id number] [address] [place] [phone] Mar, 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 [facility] [address] [facility] [id number] [address] [place] [phone] Mar, Essential hypertension I10 ; Type 2 diabetes mellitus without complication, without long-term current use of insulin E11.9 ; Pain in right knee M25.561 ; Pain in left knee M25.562 and 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 [facility] [address] [facility] [id number] [address] [place] [address] Feb, IMMUNIZATIONS No Known Immunizations SOCIAL HISTORY Never Assessed REASON FOR VISIT BS f/u PLAN OF CARE VITAL SIGNS MEDICATIONS Medication Instructions Dosage Frequency Start Date End Date Duration S tatus Insulin Detemir 100 UNIT/ML Subcutaneous at bedtime 24 units Active RESULTS No Results PROCEDURES No Known [...] diabetic peripheral angiopathy without gangrene Medical History assisted current use of insulin Medical History Declines Colonoscopy, Denies Influenza Vaccine, Declines Pneumovax and Zostavax Surgical History jaw surgery Surgical History tonsillectomy Surgical History Cataract removal bilaterally Surgical History had stint placed in L. leg 2017 Surgical History Triple bypass 2017 Hospitalization History Surgery(s) only
--- OUTSIDE RECORDS SUMMARY | 2019-05-12 06:31 | XMS REPORT ---
Author Author Mychal Miller [facility] WALK IN [facility] Address [address] [place] [address] Care Team Providers Care Maintenance And Engineering Manager Name Role Phone Paul KIMBERLY Unavailable PROBLEMS Type Condition ICD9-CM Code BPE17-XW Code Onset Dates Condition S tatus SNOMED Code Problem Pain in right knee M25.561 Active 3 5695280 Problem Essential hypertension I10 Active 17598065 Problem Other chronic pain G89.29 Active 8 1759701 Problem Hyperlipidemia LDL goal <70 E78.5 Ac tive 84048614 Problem Intermittent claudication I73.9 Acti ve 60590460 Problem 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 76745449 Problem Pain in left knee M25.562 Active 30 180042 Problem S/P CABG x 4 Z95.1 Active 2303395 00 Problem Non-pressure chronic ulcer o f unspecified part of unspecified lower leg with unspecified severity L97.909 Active 26 1246519 Problem Stasis dermatitis of right l ower extremity with venous ulcer due to chronic peripheral venous hypertension I87.331 Ac tive [id number] Problem PVD (peripheral vascular disease) I73.9 Active 269855707 Problem Type 2 diabetes mellitus wit h diabetic peripheral angiopathy without gangrene E11.51 Active 807658734 Problem detention current use of insulin Z79.4 Active 923247148 ALLERGIES No Known Allergies ENCOUNTERS Encounter Location Date Diagnosis [facility] [address] [facility] [id number] [address] [place] [phone] May, [facility] [address] [facility] [id number] [address] [place] [phone] Feb, [facility] [address] [facility] [id number] [address] [place] [phone] Feb, Medicare annual wellness vis it, subsequent [...] E11.51 and S/P CABG x 4 Z95.1 [facility] [address] [id number] [address] [place] [phone] Jan, [facility] [address] [id number] [address] [place] [phone] Jan, Type 2 diabetes mellitus wit hout complication, without long-term current use of insulin E11.9 [facility] [address] [id number] [address] [place] [phone] Jan, [facility] [address] [id number] [address] [place] [phone] Jan, Type 2 diabetes mellitus wit hout complication, without long-term current use of insulin E11.9 [facility] [address] [id number] [address] [place] [phone] Dec, Type 2 diabetes mellitus wit hout complication, without long-term current use of insulin E11.9 [facility] [address] [id number] [address] [place] [phone] Dec, [facility] [address] [id number] [address] [place] [phone] Dec, Stasis dermatitis of right l ower extremity with venous ulcer due to chronic peripheral venous hypertension I87.331 ; Type 2 diabetes mellitus with diabetic peripheral angiopathy without gangrene E11.51 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 [facility] WALK IN [facility] [address] [id number] [address] [place] [phone] Dec, Non-pressure chronic ulcer o f unspecified part of unspecified lower leg with unspecified severity L97.909 and Type 2 diabetes mellitus with other skin ulcer E11.622 [facility] [address] [id number] [address] [place] [phone] Dec, Type 2 diabetes mellitus wit hout complication, without long-term current use of insulin E11.9 [facility] [address] [id number] [address] [place] [phone] Dec, [facility] [address] [id number] [address] [place] [phone] Dec, Type 2 diabetes mellitus wit hout complication, without long-term current use of insulin E11.9 [facility] [address] [id number] [address] [place] [phone] Dec, Type 2 diabetes mellitus wit hout complication, without long-term current use of insulin E11.9 and Essential hypertension I10 [facility] [address] [id number] [address] [place] [phone] Nov, Type 2 diabetes mellitus wit hout complication, without long-term current use of insulin E11.9 [facility] [address] [id number] [address] [place] [phone] Nov, [facility] [address] [id number] [address] [place] [phone] Nov, [facility] [address] [id number] [address] [place] [phone] Nov, Type 2 diabetes mellitus wit hout complication, without long-term current use of insulin E11.9 [facility] [address] [id number] [address] [place] [phone] Nov, [facility] [address] [id number] [address] [place] [phone] Nov, [facility] [address] [id number] [address] [place] [phone] Nov, Type 2 diabetes mellitus wit hout complication, without long-term current use of insulin E11.9 [facility] [address] [facility] [id number] [address] [place] [phone] Oct, Type 2 diabetes mellitus wit hout complication, without long-term current use of insulin E11.9 [place] [address] [facility] [id number] [address] [place] [phone] Oct, [place] [address] [facility] [id number] [address] [place] [phone] Oct, Type 2 diabetes mellitus wit hout complication, without long-term current use of insulin E11.9 [place] [address] [facility] [id number] [address] [place] [phone] Oct, Essential hypertension I10 [place] [address] [facility] [id number] [address] [place] [phone] Oct, Essential hypertension I10 a nd Type 2 diabetes mellitus without complication, without long-term current use of insulin E11.9 [place] [address] [facility] [id number] [address] [place] [phone] Oct, [place] [address] [facility] [id number] [address] [place] [phone] Sep, Essential hypertension I10 ; Type 2 diabetes mellitus without complication, without long-term current use of insulin E11.9 ; Pain in right knee M25.561 ; Pain in left knee M25.562 and PVD (peripheral vascular disease) I73.9 [place] [address] [facility] [id number] [address] [place] [phone] Sep, [facility] [address] [facility] [id number] [address] [place] [phone] Aug, [place] [address] [facility] [id number] [address] [place] [phone] Jul, Type 2 diabetes mellitus wit hout complication, without long-term current use of insulin E11.9 [facility] WALK IN [facility] [address] [facility] [id number] [address] [place] [phone] Jul, Gastroenteritis and colitis, viral A08.4 [place] [address] [facility] [id number] [address] [place] [phone] June, Type 2 diabetes mellitus wit hout complication, without long-term current use of insulin E11.9 [place] [address] [facility] [id number] [address] [place] [phone] June, Essential hypertension I10 ; Type 2 diabetes mellitus without complication, without long-term current use of insulin E11.9 ; Pain in right knee M25.561 ; Pain in left knee M25.562 ; 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 and PVD (peripheral vascular disease) I73.9 [place] [address] [facility] [id number] [address] [place] [phone] May, [place] [address] [place] [id number] [address] [place] [phone] Apr, [place] [id number] [place] [phone] Mar, [place] [address] [place] [id number] [address] [place] [phone] Mar, 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 [place] [address] [place] [id number] [address] [place] [phone] Mar, Essential hypertension I10 ; Type 2 diabetes mellitus without complication, without long-term current use of insulin E11.9 ; Pain in right knee M25.561 ; Pain in left knee M25.562 and 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 [place] [address] [place] [id number] [address] [place] [phone] Feb, IMMUNIZATIONS No Known Immunizations SOCIAL HISTORY Never Assessed REASON FOR VISIT Diarrhea and vomitng started last night JStrasserRN PLAN OF CARE Activity Details Follow Up prn Reason: VITAL SIGNS Height 68.5 in 2016-08-15 Weight 195.0 lbs 2016-08-15 Temperature 98.2 degrees Fahrenheit 2016-08-15 Heart Rate 80 bpm 2016-08-15 Respiratory Rate 20 2016-08-15 BMI 29.22 kg/m2 2016-08-15 Blood pressure systolic 132 mmHg 2016-08-15 Blood pressure diastolic 74 mmHg 2016-08-15 MEDICATIONS Medication Instructions Dosage Frequency Start Date End Date Duration S eun Pravastatin Sodium 10 mg Orally Once a [...] PROCEDURES Procedure Date Ordered Result Body Site [facility] VISIT ESTABLISHED PATIENT August 15, 2016 INSTRUCTIONS MEDICATIONS ADMINISTERED No Known Medications [...] L. leg 2016 Surgical History Triple bypass 2016 Hospitalization History Surgery(s) only
--- OUTSIDE RECORDS SUMMARY | 2019-05-12 06:31 | XMS REPORT ---
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 76539084 Problem Hyperlipidemia LDL goal <70 E78.5 Ac tive 55063589 Problem PVD (peripheral vascular disease) I73.9 Active 268166336 Problem Essential hypertension I10 Active 66394708 Problem Pain in left knee M25.562 Active 30 753722 Problem Type 2 diabetes mellitus wit hout complication, without long-term current use of insulin E11.9 Active 629301187 Problem Other chronic pain G89.29 Active 8 3164138 Problem Pain in right knee M25.561 Active 3 4500228 ALLERGIES No Information SOCIAL HISTORY Never Assessed PLAN OF CARE VITAL SIGNS MEDICATIONS Medication Instructions Dosage Frequency Start Date End Date Duration S tatus Pravastatin Sodium 10 mg Orally Once a day at bedtime 1 tablet Mar, 30 day(s) Active Indomethacin 50 mg Orally Twice a day 1 capsule with food or milk 1 2h Mar, 30 day(s) Active RESULTS No Results PROCEDURES No Known [...] had stint placed in L. leg 2016 Hospitalization History Surgery(s) only
--- OUTSIDE RECORDS SUMMARY | 2019-05-12 06:31 | XMS REPORT ---
Author Author Mychal DELAROSA Organization [facility] Address [address] [place] [address] Care Team Providers Care Director Of Distance Learning Name Role Phone ARLEN DELAROSA Unavailable PROBLEMS Type Condition ICD9-CM Code DQA02-MS Code Onset Dates Condition S tatus SNOMED Code Problem Other chronic pain G89.29 Active 8 7430805 Problem PVD (peripheral vascular disease) I73.9 Active 900881110 Problem Essential hypertension I10 Active 21357704 Problem Lumbago with sciatica, left side M54.42 Active 54824864 Problem S/P CABG x 4 Z95.1 Active 5049363 00 Problem [facility] current use of insulin Z79.4 Active 364010321 Problem Stasis dermatitis of right l ower extremity with venous ulcer due to chronic peripheral venous hypertension I87.331 Ac tive 232652433177191 Problem Non-pressure chronic ulcer o f unspecified part of unspecified lower leg with unspecified severity L97.909 Active 26 3856910 Problem Type 2 diabetes mellitus wit h diabetic peripheral angiopathy without gangrene E11.51 Active 005533773 Problem Intermittent claudication I73.9 Acti ve 84951388 Problem 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 53284631 Problem Pain in left knee M25.562 Active 30 686524 Problem Hyperlipidemia LDL goal <70 E78.5 Ac tive 56239332 Problem Pain in right knee M25.561 Active 3 7746816 ALLERGIES No Information ENCOUNTERS Encounter Location Date Diagnosis [facility] [address] [facility] [id number] [address] [place] [phone] May, [facility] [address] [facility] [id number] [address] [place] [phone] May, Establishing care with carlos martins, encounter [...] and Lumbago with sciatica, left side M54.42 [place] [address] [facility] [id number] [address] [place] [phone] Feb, [place] [address] [facility] [id number] [address] [place] [phone] Feb, Medicare annual wellness vis it, subsequent [...] E11.51 and S/P CABG x 4 Z95.1 [place] [address] [id number] [address] [place] [phone] Jan, [place] [address] [facility] [id number] [address] [place] [phone] Jan, Type 2 diabetes mellitus wit hout complication, without long-term current use of insulin E11.9 [place] [address] [id number] [address] [place] [phone] Jan, [place] [address] [id number] [address] [place] [phone] Jan, Type 2 diabetes mellitus wit hout complication, without long-term current use of insulin E11.9 [place] [address] [facility] [id number] [address] [place] [phone] Dec, Type 2 diabetes mellitus wit hout complication, without long-term current use of insulin E11.9 [place] [address] [id number] [address] [place] [phone] Dec, [facility] [address] [id number] [address] [place] [address] Dec, Stasis dermatitis of right l ower extremity with venous ulcer due to chronic peripheral venous hypertension I87.331 ; Type 2 diabetes mellitus with diabetic peripheral angiopathy without gangrene E11.51 and MCC current use of insulin Z79.4 [facility] WALK IN [facility] [address] [id number] [address] [place] [phone] Dec, Non-pressure chronic ulcer o f unspecified part of unspecified lower leg with unspecified severity L97.909 and Type 2 diabetes mellitus with other skin ulcer E11.622 [facility] [address] [facility] [id number] [address] [place] [phone] Dec, Type 2 diabetes mellitus wit hout complication, without long-term current use of insulin E11.9 [place] [address] [facility] [id number] [address] [place] [phone] Dec, [facility] [address] [id number] [address] [place] [phone] Dec, Type 2 diabetes mellitus wit hout complication, without long-term current use of insulin E11.9 [facility] [address] [facility] [id number] [address] [place] [phone] Dec, Type 2 diabetes mellitus wit hout complication, without long-term current use of insulin E11.9 and Essential hypertension I10 [facility] [address] [id number] [address] [place] [phone] Nov, Type 2 diabetes mellitus wit hout complication, without long-term current use of insulin E11.9 [facility] [address] [facility] [id number] [address] [place] [phone] Nov, [facility] [address] [id number] [address] [place] [phone] Nov, [facility] [address] [facility] [id number] [address] [place] [phone] Nov, Type 2 diabetes mellitus wit hout complication, without long-term current use of insulin E11.9 [facility] [address] [id number] [address] [place] [phone] Nov, [facility] [address] [id number] [address] [place] [phone] Nov, [facility] [address] [id number] [address] [place] [phone] Nov, Type 2 diabetes mellitus wit hout complication, without long-term current use of insulin E11.9 [place] [address] [id number] [address] [place] [phone] Oct, Type 2 diabetes mellitus wit hout complication, without long-term current use of insulin E11.9 [place] [address] [id number] [address] [place] [phone] Oct, [place] [address] [id number] [address] [place] [phone] Oct, Type 2 diabetes mellitus wit hout complication, without long-term current use of insulin E11.9 [place] [address] [id number] [address] [place] [phone] Oct, Essential hypertension I10 [place] [address] [id number] [address] [place] [address] Oct, Essential hypertension I10 a nd Type 2 diabetes mellitus without complication, without long-term current use of insulin E11.9 [facility] [address] [id number] [address] [place] [phone] Oct, [place] [address] [facility] [id number] [address] [place] [address] Sep, Essential hypertension I10 ; Type 2 diabetes mellitus without complication, without long-term current use of insulin E11.9 ; Pain in right knee M25.561 ; Pain in left knee M25.562 and PVD (peripheral vascular disease) I73.9 [facility] [address] [facility] [id number] [address] [place] [address] Sep, [facility] [address] [facility] [id number] [address] [place] [phone] Aug, [facility] [address] [facility] [id number] [address] [place] [address] Jul, Type 2 diabetes mellitus wit hout complication, without long-term current use of insulin E11.9 [facility] [address] [facility] [id number] [address] [place] [phone] Jul, Gastroenteritis and colitis, viral A08.4 [place] [address] [facility] [id number] [address] [place] [phone] June, Type 2 diabetes mellitus wit hout complication, without long-term current use of insulin E11.9 [place] [address] [place] [id number] [address] [place] [address] June, Essential hypertension I10 ; Type 2 diabetes mellitus without complication, without long-term current use of insulin E11.9 ; Pain in right knee M25.561 ; Pain in left knee M25.562 ; 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 and PVD (peripheral vascular disease) I73.9 [facility] [address] [facility] [id number] [address] [place] [address] May, [place] [address] [facility] [id number] [address] [place] [phone] Apr, [place] [address] [facility] [id number] [address] [place] [phone] Mar, [facility] [address] [facility] [id number] [address] [place] [address] Mar, 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 [facility] [address] [facility] [id number] [address] [place] [address] Mar, Essential hypertension I10 ; Type 2 diabetes mellitus without complication, without long-term current use of insulin E11.9 ; Pain in right knee M25.561 ; Pain in left knee M25.562 and 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 [facility] [address] [facility] [id number] [address] [place] [address] Feb, IMMUNIZATIONS No Known Immunizations SOCIAL HISTORY Never Assessed REASON FOR VISIT refill rx PLAN OF CARE VITAL SIGNS MEDICATIONS Medication Instructions Dosage Frequency Start Date End Date Duration S eun Pravastatin Sodium 10 mg Orally Once a day at bedtime 1 tablet Mar, 30 days Active RESULTS No Results PROCEDURES [...] angiopathy without gangrene 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 leg 2016 Surgical History Triple bypass 2017 Hospitalization History Surgery(s) only
--- OUTSIDE RECORDS SUMMARY | 2019-05-12 06:31 | XMS REPORT ---
Author Author Mychal DELAROSA Organization [facility] Address [address] [place] [address] Care Team Providers Care Clinical Study Manager Name Role Phone ARLEN DELAROSA Unavailable PROBLEMS Type Condition ICD9-CM Code KLX67-FC Code Onset Dates Condition S tatus SNOMED Code Problem Other chronic pain G89.29 Active 8 3831379 Problem PVD (peripheral vascular disease) I73.9 Active 954194548 Problem Essential hypertension I10 Active 26142807 Problem Lumbago with sciatica, left side M54.42 Active 37638183 Problem S/P CABG x 4 Z95.1 Active 1444312 00 Problem penitentiary current use of insulin Z79.4 Active 244477850 Problem Stasis dermatitis of right l ower extremity with venous ulcer due to chronic peripheral venous hypertension I87.331 Ac tive 001688758037192 Problem Non-pressure chronic ulcer o f unspecified part of unspecified lower leg with unspecified severity L97.909 Active 26 5441894 Problem Type 2 diabetes mellitus wit h diabetic peripheral angiopathy without gangrene E11.51 Active 773564821 Problem Intermittent claudication I73.9 Acti ve 78459917 Problem 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 [address] [facility] [id number] [address] [place] [phone] May, [facility] [address] [facility] [id number] [address] [place] [phone] May, Establishing care with carlos martins, encounter [...] and Lumbago with sciatica, left side M54.42 [place] [address] [facility] [id number] [address] [place] [id number] Feb, [place] [address] [facility] [id number] [address] [place] [address] Feb, Medicare annual wellness vis it, subsequent [...] E11.51 and S/P CABG x 4 Z95.1 [place] [address] [id number] [address] [place] [address] Jan, [place] [address] [facility] [id number] [address] [place] [phone] Jan, Type 2 diabetes mellitus wit hout complication, without long-term current use of insulin E11.9 [place] [address] [id number] [address] [place] [phone] Jan, [place] [address] [id number] [address] [place] [phone] Jan, Type 2 diabetes mellitus wit hout complication, without long-term current use of insulin E11.9 [place] [address] [facility] [id number] [address] [place] [address] Dec, Type 2 diabetes mellitus wit hout complication, without long-term current use of insulin E11.9 [place] [address] [id number] [address] [place] [phone] Dec, [facility] [address] [id number] [address] [place] [address] Dec, Stasis dermatitis of right l ower extremity with venous ulcer due to chronic peripheral venous hypertension I87.331 ; Type 2 diabetes mellitus with diabetic peripheral angiopathy without gangrene E11.51 and penitentiary current use of insulin Z79.4 [facility] WALK IN [facility] [address] [id number] [address] [place] [address] Dec, Non-pressure chronic ulcer o f unspecified part of unspecified lower leg with unspecified severity L97.909 and Type 2 diabetes mellitus with other skin ulcer E11.622 [facility] [address] [facility] [id number] [address] [place] [address] Dec, Type 2 diabetes mellitus wit hout complication, without long-term current use of insulin E11.9 [place] [address] [facility] [id number] [address] [place] [id number] Dec, [facility] [address] [id number] [address] [place] [phone] Dec, Type 2 diabetes mellitus wit hout complication, without long-term current use of insulin E11.9 [facility] [address] [facility] [id number] [address] [place] [phone] Dec, Type 2 diabetes mellitus wit hout complication, without long-term current use of insulin E11.9 [address] Essential hypertension I10 [facility] [address] [id number] [address] [place] [phone] Nov, Type 2 diabetes mellitus wit hout complication, without long-term current use of insulin E11.9 [facility] [address] [facility] [id number] [address] [place] [phone] Nov, [facility] [id number] [place] [phone] Nov, [facility] [address] [facility] [id number] [address] [place] [phone] Nov, Type 2 diabetes mellitus wit hout complication, without long-term current use of insulin E11.9 [facility] [address] [id number] [address] [place] [phone] Nov, [facility] [id number] [place] [phone] Nov, [facility] [address] [id number] [address] [place] [phone] Nov, Type 2 diabetes mellitus wit hout complication, without long-term current use of insulin E11.9 [place] [address] [id number] [address] [place] [phone] Oct, Type 2 diabetes mellitus wit hout complication, without long-term current use of insulin E11.9 [place] [address] [id number] [address] [place] [phone] Oct, [place] [address] [id number] [address] [place] [phone] Oct, Type 2 diabetes mellitus wit hout complication, without long-term current use of insulin E11.9 [place] [address] [id number] [address] [place] [phone] Oct, Essential hypertension I10 [place] [address] [id number] [address] [place] [address] Oct, Essential hypertension I10 a nd Type 2 diabetes mellitus without complication, without long-term current use of insulin E11.9 [facility] [address] [id number] [address] [place] [phone] Oct, [place] [address] [facility] [id number] [address] [place] [address] Sep, Essential hypertension I10 ; Type 2 diabetes mellitus without complication, without long-term current use of insulin E11.9 ; Pain in right knee M25.561 ; Pain in left knee M25.562 and PVD (peripheral vascular disease) I73.9 [facility] [address] [facility] [id number] [address] [place] [phone] Sep, [facility] [address] [facility] [id number] [address] [place] [address] Aug, [facility] [address] [facility] [id number] [address] [place] [phone] Jul, Type 2 diabetes mellitus wit hout complication, without long-term current use of insulin E11.9 [facility] [address] [facility] [id number] [address] [place] [address] Jul, Gastroenteritis and colitis, viral A08.4 [place] [address] [facility] [id number] [address] [place] [address] June, Type 2 diabetes mellitus wit hout complication, without long-term current use of insulin E11.9 [place] [address] [place] [id number] [address] [place] [address] June, Essential hypertension I10 ; Type 2 diabetes mellitus without complication, without long-term current use of insulin E11.9 ; Pain in right knee M25.561 ; Pain in left knee M25.562 ; 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 [address] [facility] [id number] [address] [place] [address] May, [place] [address] [facility] [id number] [address] [place] [phone] Apr, [place] [address] [facility] [id number] [address] [place] [address] Mar, 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 leg 2016 Surgical History Triple bypass 2017 Hospitalization History Surgery(s) only
--- OUTSIDE RECORDS SUMMARY | 2019-05-12 06:31 | XMS REPORT ---
Author Author Mychal DELAROSA Organization [facility] Address [address] [place] [address] Care Team Providers Care Mine Safety Engineer Name Role Phone ARLEN DELAROSA Unavailable PROBLEMS Type Condition ICD9-CM Code ZOV90-VD Code Onset Dates Condition S tatus SNOMED Code Problem Other chronic pain G89.29 Active 8 2089975 Problem PVD (peripheral vascular disease) I73.9 Active 828613856 Problem Essential hypertension I10 Active 69756132 Problem Lumbago with sciatica, left side M54.42 Active 16919581 Problem S/P CABG x 4 Z95.1 Active 3037851 00 Problem [facility] current use of insulin Z79.4 Active 050809282 Problem Stasis dermatitis of right l ower extremity with venous ulcer due to chronic peripheral venous hypertension I87.331 Ac tive 324507624715511 Problem Non-pressure chronic ulcer o f unspecified part of unspecified lower leg with unspecified severity L97.909 Active 26 4910333 Problem Type 2 diabetes mellitus wit h diabetic peripheral angiopathy without gangrene E11.51 Active 280600769 Problem Intermittent claudication I73.9 Acti ve 28720722 Problem 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 84003050 Problem Pain in left knee M25.562 Active 30 461594 Problem Hyperlipidemia LDL goal <70 E78.5 Ac tive 55020096 Problem Pain in right knee M25.561 Active 3 1673453 ALLERGIES No Information ENCOUNTERS Encounter Location Date Diagnosis [facility] [address] [facility] [id number] [address] [place] [address] May, [facility] [address] [facility] [id number] [address] [place] [address] May, Establishing care with carlos martins, encounter for Z76.89 ; Essential hypertension I10 ; Type 2 diabetes mellitus with diabetic peripheral angiopathy without gangrene E11.51 ; 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 ; Hyperlipidemia LDL goal <70 E78.5 ; PVD (peripheral vascular disease) I73.9 ; [facility] current use of insulin Z79.4 ; Intermittent claudication I73.9 ; Other chronic pain G89.29 and Lumbago with sciatica, left side M54.42 [place] [address] [facility] [id number] [address] [place] [address] Feb, [place] [address] [facility] [id number] [address] [place] [address] Feb, Medicare annual wellness vis it, subsequent [...] E11.51 and S/P CABG x 4 Z95.1 [place] [address] [id number] [address] [place] [address] Jan, [place] [address] [facility] [id number] [address] [place] [address] Jan, Type 2 diabetes mellitus wit hout complication, without long-term current use of insulin E11.9 [place] [address] [id number] [address] [place] [address] Jan, [place] [address] [id number] [address] [place] [address] Jan, Type 2 diabetes mellitus wit hout complication, without long-term current use of insulin E11.9 [place] [address] [facility] [id number] [address] [place] [address] Dec, Type 2 diabetes mellitus wit hout complication, without long-term current use of insulin E11.9 [place] [address] [id number] [address] [place] [address] Dec, [facility] [address] [id number] [address] [place] [address] Dec, Stasis dermatitis of right l ower extremity with venous ulcer due to chronic peripheral venous hypertension I87.331 ; Type 2 diabetes mellitus with diabetic peripheral angiopathy without gangrene E11.51 and [facility] current use of insulin Z79.4 [facility] WALK IN [facility] [address] [id number] [address] [place] [address] Dec, Non-pressure chronic ulcer o f unspecified part of unspecified lower leg with unspecified severity L97.909 and Type 2 diabetes mellitus with other skin ulcer E11.622 [facility] [address] [facility] [id number] [address] [place] [address] Dec, Type 2 diabetes mellitus wit hout complication, without long-term current use of insulin E11.9 [place] [address] [facility] [id number] [address] [place] [address] Dec, [facility] [address] [id number] [address] [place] [address] Dec, Type 2 diabetes mellitus wit hout complication, without long-term current use of insulin E11.9 [facility] [address] [facility] [id number] [address] [place] [address] Dec, Type 2 diabetes mellitus wit hout complication, without long-term current use of insulin E11.9 and Essential hypertension I10 [facility] [address] [id number] [address] [place] [address] Nov, Type 2 diabetes mellitus wit hout complication, without long-term current use of insulin E11.9 [facility] [address] [facility] [id number] [address] [place] [address] Nov, [facility] [address] [id number] [address] [place] [phone] Nov, [facility] [address] [facility] [id number] [address] [place] [address] Nov, Type 2 diabetes mellitus wit hout complication, without long-term current use of insulin E11.9 [facility] [address] [id number] [address] [place] [address] Nov, [facility] [address] [id number] [address] [place] [address] Nov, [facility] [address] [id number] [address] [place] [address] Nov, Type 2 diabetes mellitus wit hout complication, without long-term current use of insulin E11.9 [place] [address] [id number] [address] [place] [address] Oct, Type 2 diabetes mellitus wit hout complication, without long-term current use of insulin E11.9 [place] [address] [id number] [address] [place] [address] Oct, [place] [address] [id number] [address] [place] [address] Oct, Type 2 diabetes mellitus wit hout complication, without long-term current use of insulin E11.9 [place] [address] [id number] [address] [place] [address] Oct, Essential hypertension I10 [place] [address] [id number] [address] [place] [address] Oct, Essential hypertension I10 a nd Type 2 diabetes mellitus without complication, without long-term current use of insulin E11.9 [facility] [address] [id number] [address] [place] [address] Oct, [place] [address] [facility] [id number] [address] [place] [address] Sep, Essential hypertension I10 ; Type 2 diabetes mellitus without complication, without long-term current use of insulin E11.9 ; Pain in right knee M25.561 ; Pain in left knee M25.562 and PVD (peripheral vascular disease) I73.9 [facility] [address] [facility] [id number] [address] [place] [address] Sep, [facility] [address] [facility] [id number] [address] [place] [address] Aug, [facility] [address] [facility] [id number] [address] [place] [address] Jul, Type 2 diabetes mellitus wit hout complication, without long-term current use of insulin E11.9 [facility] [address] [facility] [id number] [address] [place] [address] Jul, Gastroenteritis and colitis, viral A08.4 [place] [address] [facility] [id number] [address] [place] [address] June, Type 2 diabetes mellitus wit hout complication, without long-term current use of insulin E11.9 [place] [address] [place] [id number] [address] [place] [address] June, Essential hypertension I10 ; Type 2 diabetes mellitus without complication, without long-term current use of insulin E11.9 ; Pain in right knee M25.561 ; Pain in left knee M25.562 ; 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 and PVD (peripheral vascular disease) I73.9 [facility] [address] [facility] [id number] [address] [place] [address] May, [place] [address] [facility] [id number] [address] [place] [address] Apr, [place] [address] [facility] [id number] [address] [place] [address] Mar, [facility] [address] [facility] [id number] [address] [place] [address] Mar, 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 [facility] [address] [facility] [id number] [address] [place] [address] Mar, Essential hypertension I10 ; Type 2 diabetes mellitus without complication, without long-term current use of insulin E11.9 ; Pain in right knee M25.561 ; Pain in left knee M25.562 and 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 [facility] [address] [facility] [id number] [address] [place] [address] Feb, IMMUNIZATIONS No Known Immunizations SOCIAL HISTORY Never Assessed REASON FOR VISIT per lab results PLAN OF CARE VITAL SIGNS MEDICATIONS Medication Instructions Dosage Frequency Start Date End Date Duration S tatus Insulin Detemir 100 UNIT/ML Subcutaneous at bedtime Inject 10 units 12 Oct, 2016 30 days Active RESULTS No Results PROCEDURES [...] peripheral angiopathy without gangrene 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 leg 2016 Surgical History Triple bypass 2017 Hospitalization History Surgery(s) only
--- OUTSIDE RECORDS SUMMARY | 2019-05-12 06:31 | XMS REPORT ---
Author Author Mychal DELAROSA Organization [facility] Address [address] [place] [address] Care Team Providers Care Remote Sensing Specialist Name Role Phone ARLEN DELAROSA Unavailable PROBLEMS Type Condition ICD9-CM Code [id number] Code Onset Dates Condition S tatus SNOMED Code Problem Other chronic pain G89.29 Active 8 7984151 Problem PVD (peripheral vascular disease) I73.9 Active 570592776 Problem Essential hypertension I10 Active 71782378 Problem Lumbago with sciatica, left side M54.42 Active 27909195 Problem S/P CABG x 4 Z95.1 Active 1515761 00 Problem half-way current use of insulin Z79.4 Active 117561446 Problem Stasis dermatitis of right l ower extremity with venous ulcer due to chronic peripheral venous hypertension I87.331 Ac tive 308503840255669 Problem Non-pressure chronic ulcer o f unspecified part of unspecified lower leg with unspecified severity L97.909 Active 26 7818209 Problem Type 2 diabetes mellitus wit h diabetic peripheral angiopathy without gangrene E11.51 Active 015950260 Problem Intermittent claudication I73.9 Acti ve 89533931 Problem 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 80565657 Problem Pain in left knee M25.562 Active 30 742063 Problem Hyperlipidemia LDL goal <70 E78.5 Ac tive 40789886 Problem Pain in right knee M25.561 Active 3 1665932 ALLERGIES No Information ENCOUNTERS Encounter Location Date Diagnosis [facility] [address] [facility] [id number] [address] [place] [phone] May, [facility] [address] [facility] [id number] [address] [place] [address] May, Establishing care with carlos martins, encounter [...] and Lumbago with sciatica, left side M54.42 [place] [address] [facility] [id number] [address] [place] [phone] Feb, [place] [address] [facility] [id number] [address] [place] [address] Feb, Medicare annual wellness vis it, subsequent [...] E11.51 and S/P CABG x 4 Z95.1 [place] [address] [id number] [address] [place] [address] Jan, [place] [address] [facility] [id number] [address] [place] [phone] Jan, Type 2 diabetes mellitus wit hout complication, without long-term current use of insulin E11.9 [place] [address] [id number] [address] [place] [address] Jan, [place] [address] [id number] [address] [place] [address] Jan, Type 2 diabetes mellitus wit hout complication, without long-term current use of insulin E11.9 [place] [address] [facility] [id number] [address] [place] [address] Dec, Type 2 diabetes mellitus wit hout complication, without long-term current use of insulin E11.9 [place] [address] [id number] [address] [place] [phone] Dec, [facility] [address] [id number] [address] [place] [address] Dec, Stasis dermatitis of right l ower extremity with venous ulcer due to chronic peripheral venous hypertension I87.331 ; Type 2 diabetes mellitus with diabetic peripheral angiopathy without gangrene E11.51 and half-way current use of insulin Z79.4 [facility] [address] [id number] [address] [place] [phone] Dec, Non-pressure chronic ulcer o f unspecified part of unspecified lower leg with unspecified severity L97.909 and Type 2 diabetes mellitus with other skin ulcer E11.622 [facility] [address] [facility] [id number] [address] [place] [phone] Dec, Type 2 diabetes mellitus wit hout complication, without long-term current use of insulin E11.9 [place] [address] [facility] [id number] [address] [place] [phone] Dec, [facility] [address] [id number] [address] [place] [address] Dec, Type 2 diabetes mellitus wit hout complication, without long-term current use of insulin E11.9 [facility] [address] [facility] [id number] [address] [place] [address] Dec, Type 2 diabetes mellitus wit hout complication, without long-term current use of insulin E11.9 and Essential hypertension I10 [facility] [address] [id number] [address] [place] [phone] Nov, Type 2 diabetes mellitus wit hout complication, without long-term current use of insulin E11.9 [facility] [address] [facility] [id number] [address] [place] [phone] Nov, [facility] [address] [id number] [address] [place] [phone] Nov, [facility] [address] [facility] [id number] [address] [place] [address] Nov, Type 2 diabetes mellitus wit hout complication, without long-term current use of insulin E11.9 [facility] [address] [id number] [address] [place] [phone] Nov, [facility] [address] [id number] [address] [place] [address] Nov, [facility] [address] [id number] [address] [place] [address] Nov, Type 2 diabetes mellitus wit hout complication, without long-term current use of insulin E11.9 [place] [address] [id number] [address] [place] [address] Oct, Type 2 diabetes mellitus wit hout complication, without long-term current use of insulin E11.9 [place] [address] [id number] [address] [place] [address] Oct, [place] [address] [id number] [address] [place] [phone] Oct, Type 2 diabetes mellitus wit hout complication, without long-term current use of insulin E11.9 [place] [address] [id number] [address] [place] [address] Oct, Essential hypertension I10 [place] [address] [id number] [address] [place] [address] Oct, Essential hypertension I10 a nd Type 2 diabetes mellitus without complication, without long-term current use of insulin E11.9 [facility] [address] [id number] [address] [place] [address] Oct, [place] [address] [facility] [id number] [address] [place] [address] Sep, Essential hypertension I10 ; Type 2 diabetes mellitus without complication, without long-term current use of insulin E11.9 ; Pain in right knee M25.561 ; Pain in left knee M25.562 and PVD (peripheral vascular disease) I73.9 [facility] [address] [facility] [id number] [address] [place] [address] Sep, [facility] [address] [facility] [id number] [address] [place] [address] Aug, [facility] [address] [facility] [id number] [address] [place] [address] Jul, Type 2 diabetes mellitus wit hout complication, without long-term current use of insulin E11.9 [facility] [address] [facility] [id number] [address] [place] [address] Jul, Gastroenteritis and colitis, viral A08.4 [place] [address] [facility] [id number] [address] [place] [address] June, Type 2 diabetes mellitus wit hout complication, without long-term current use of insulin E11.9 [place] [address] [place] [id number] [address] [place] [address] June, Essential hypertension I10 ; Type 2 diabetes mellitus without complication, without long-term current use of insulin E11.9 ; Pain in right knee M25.561 ; Pain in left knee M25.562 ; 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 and PVD (peripheral vascular disease) I73.9 [facility] [address] [facility] [id number] [address] [place] [address] May, [place] [address] [facility] [id number] [address] [place] [address] Apr, [place] [address] [facility] [id number] [address] [place] [address] Mar, [facility] [address] [facility] [id number] [address] [place] [address] Mar, 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 [facility] [address] [facility] [id number] [address] [place] [address] Mar, Essential hypertension I10 ; Type 2 diabetes mellitus without complication, without long-term current use of insulin E11.9 ; Pain in right knee M25.561 ; Pain in left knee M25.562 and 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
--- OUTSIDE RECORDS SUMMARY | 2019-05-12 06:32 | XMS REPORT ---
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 60932267 Problem Hyperlipidemia LDL goal <70 E78.5 Ac tive 92751460 Problem PVD (peripheral vascular disease) I73.9 Active 888257343 Problem Essential hypertension I10 Active 24301194 Problem Pain in left knee M25.562 Active 30 788986 Problem Type 2 diabetes mellitus wit hout complication, without long-term current use of insulin E11.9 Active 860240436 Problem Other chronic pain G89.29 Active 8 6399613 Problem Pain in right knee M25.561 Active 3 5809754 ALLERGIES No Information SOCIAL HISTORY Never Assessed PLAN OF CARE VITAL SIGNS MEDICATIONS Medication Instructions Dosage Frequency Start Date End Date Duration S eun Pravastatin Sodium 10 mg Orally Once a day at bedtime 1 tablet Mar, 90 days Active RESULTS No Results PROCEDURES No [...]
--- OUTSIDE RECORDS SUMMARY | 2019-05-12 06:32 | XMS REPORT ---
Author Author Mychal DELAROSA Organization [facility] Address [address] [place] [address] Care Team Providers Care Keyboard Specialist Name Role Phone ARLEN DELAROSA Unavailable PROBLEMS Type Condition ICD9-CM Code TQK14-EF Code Onset Dates Condition S tatus SNOMED Code Problem Other chronic pain G89.29 Active 8 6760725 Problem PVD (peripheral vascular disease) I73.9 Active 058860929 Problem Essential hypertension I10 Active 19185018 Problem Lumbago with sciatica, left side M54.42 Active 65567831 Problem S/P CABG x 4 Z95.1 Active 6778421 00 Problem retirement current use of insulin Z79.4 Active 034621944 Problem Stasis dermatitis of right l ower extremity with venous ulcer due to chronic peripheral venous hypertension I87.331 Ac tive 137849991521770 Problem Non-pressure chronic ulcer o f unspecified part of unspecified lower leg with unspecified severity L97.909 Active 26 2274797 Problem Type 2 diabetes mellitus wit h diabetic peripheral angiopathy without gangrene E11.51 Active 876444286 Problem Intermittent claudication I73.9 Acti ve 69709642 Problem 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 43210500 Problem Pain in left knee M25.562 Active 30 609468 Problem Hyperlipidemia LDL goal <70 E78.5 Ac tive 81593437 Problem Pain in right knee M25.561 Active 3 6793913 ALLERGIES No Information ENCOUNTERS Encounter Location Date Diagnosis [facility] [address] [facility] [id number] [address] [place] [phone] May, [facility] [address] [facility] [id number] [address] [place] [address] May, Establishing care with carlos martins, encounter [...] and Lumbago with sciatica, left side M54.42 [place] [address] [facility] [id number] [address] [place] [address] Feb, [place] [address] [facility] [id number] [address] [place] [phone] Feb, Medicare annual wellness vis it, subsequent [...] E11.51 and S/P CABG x 4 Z95.1 [place] [address] [id number] [address] [place] [phone] Jan, [place] [address] [facility] [id number] [address] [place] [phone] Jan, Type 2 diabetes mellitus wit hout complication, without long-term current use of insulin E11.9 [place] [address] [id number] [address] [place] [address] Jan, [place] [address] [id number] [address] [place] [address] Jan, Type 2 diabetes mellitus wit hout complication, without long-term current use of insulin E11.9 [place] [address] [facility] [id number] [address] [place] [address] Dec, Type 2 diabetes mellitus wit hout complication, without long-term current use of insulin E11.9 [place] [address] [id number] [address] [place] [phone] Dec, [facility] [address] [id number] [address] [place] [address] Dec, Stasis dermatitis of right l ower extremity with venous ulcer due to chronic peripheral venous hypertension I87.331 ; Type 2 diabetes mellitus with diabetic peripheral angiopathy without gangrene E11.51 and retirement current use of insulin Z79.4 [facility] [address] [id number] [address] [place] [address] Dec, Non-pressure chronic ulcer o f unspecified part of unspecified lower leg with unspecified severity L97.909 and Type 2 diabetes mellitus with other skin ulcer E11.622 [facility] [address] [facility] [id number] [address] [place] [address] Dec, Type 2 diabetes mellitus wit hout complication, without long-term current use of insulin E11.9 [place] [id number] [facility] [id number] [address] [place] [phone] Dec, [facility] [address] [id number] [address] [place] [phone] Dec, Type 2 diabetes mellitus wit hout complication, without long-term current use of insulin E11.9 [facility] [address] [facility] [id number] [address] [place] [id number] Dec, Type 2 diabetes mellitus wit hout complication, without long-term current use of insulin E11.9 and Essential hypertension I10 [facility] [address] [id number] [address] [place] [address] Nov, Type 2 diabetes mellitus wit hout complication, without long-term current use of insulin E11.9 [facility] [address] [facility] [id number] [address] [place] [phone] Nov, [facility] [address] [id number] [address] [place] [address] Nov, [facility] [address] [facility] [id number] [address] [place] [address] Nov, Type 2 diabetes mellitus wit hout complication, without long-term current use of insulin E11.9 [facility] [address] [id number] [address] [place] [phone] Nov, [facility] [address] [id number] [address] [place] [phone] Nov, [facility] [address] [id number] [address] [place] [address] Nov, Type 2 diabetes mellitus wit hout complication, without long-term current use of insulin E11.9 [place] [address] [id number] [address] [place] [address] Oct, Type 2 diabetes mellitus wit hout complication, without long-term current use of insulin E11.9 [place] [address] [id number] [address] [place] [address] Oct, [place] [address] [id number] [address] [place] [phone] Oct, Type 2 diabetes mellitus wit hout complication, without long-term current use of insulin E11.9 [place] [address] [id number] [address] [place] [address] Oct, Essential hypertension I10 [place] [address] [id number] [address] [place] [address] Oct, Essential hypertension I10 a nd Type 2 diabetes mellitus without complication, without long-term current use of insulin E11.9 [facility] [address] [id number] [address] [place] [phone] Oct, [place] [address] [facility] [id number] [address] [place] [address] Sep, Essential hypertension I10 ; Type 2 diabetes mellitus without complication, without long-term current use of insulin E11.9 ; Pain in right knee M25.561 ; Pain in left knee M25.562 and PVD (peripheral vascular disease) I73.9 [facility] [address] [facility] [id number] [address] [place] [address] Sep, [facility] [address] [facility] [id number] [address] [place] [address] Aug, [facility] [address] [facility] [id number] [address] [place] [address] Jul, Type 2 diabetes mellitus wit hout complication, without long-term current use of insulin E11.9 [facility] [address] [facility] [id number] [address] [place] [address] Jul, Gastroenteritis and colitis, viral A08.4 [place] [address] [facility] [id number] [address] [place] [address] June, Type 2 diabetes mellitus wit hout complication, without long-term current use of insulin E11.9 [place] [address] [place] [id number] [address] [place] [address] June, Essential hypertension I10 ; Type 2 diabetes mellitus without complication, without long-term current use of insulin E11.9 ; Pain in right knee M25.561 ; Pain in left knee M25.562 ; 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 and PVD (peripheral vascular disease) I73.9 [facility] [address] [facility] [id number] [address] [place] [address] May, [place] [address] [facility] [id number] [address] [place] [phone] Apr, [place] [address] [facility] [id number] [address] [place] [phone] Mar, [facility] [address] [facility] [id number] [address] [place] [address] Mar, 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 [facility] [address] [facility] [id number] [address] [place] [address] Mar, Essential hypertension I10 ; Type 2 diabetes mellitus without complication, without long-term current use of insulin E11.9 ; Pain in right knee M25.561 ; Pain in left knee M25.562 and 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 [facility] [address] [facility] [id number] [address] [place] [address] Feb, IMMUNIZATIONS No Known Immunizations SOCIAL HISTORY Never Assessed REASON FOR VISIT Requests return call PLAN OF CARE VITAL SIGNS MEDICATIONS Unknown [...] diabetic peripheral angiopathy without gangrene 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 leg 2016 Surgical History Triple bypass 2017 Hospitalization History Surgery(s) only
--- OUTSIDE RECORDS SUMMARY | 2019-05-12 06:32 | XMS REPORT ---
Author Author Mychal DELAROSA Organization [facility] Address [address] [place] [address] Care Team Providers Care System Validation Engineer Name Role Phone ARLEN DELAROSA Unavailable PROBLEMS Type Condition ICD9-CM Code [id number] Code Onset Dates Condition S tatus SNOMED Code Problem Other chronic pain G89.29 Active 8 3999758 Problem PVD (peripheral vascular disease) I73.9 Active 068428639 Problem Essential hypertension I10 Active 72003936 Problem Lumbago with sciatica, left side M54.42 Active 69189135 Problem S/P CABG x 4 Z95.1 Active 1185906 00 Problem skilled nursing current use of insulin Z79.4 Active 352030542 Problem Stasis dermatitis of right l ower extremity with venous ulcer due to chronic peripheral venous hypertension I87.331 Ac tive 651799507727430 Problem Non-pressure chronic ulcer o f unspecified part of unspecified lower leg with unspecified severity L97.909 Active 26 3571251 Problem Type 2 diabetes mellitus wit h diabetic peripheral angiopathy without gangrene E11.51 Active 075841393 Problem Intermittent claudication I73.9 Acti ve 07038586 Problem 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 [id number] [address] [place] [phone] May, [facility] [address] [facility] [id number] [address] [place] [phone] May, Establishing care with carlos martins, encounter [...] and Lumbago with sciatica, left side M54.42 [place] [address] [facility] [id number] [address] [place] [phone] Feb, [place] [address] [facility] [id number] [address] [place] [phone] Feb, Medicare annual wellness vis it, subsequent [...] E11.51 and S/P CABG x 4 Z95.1 [place] [address] [id number] [address] [place] [phone] Jan, [place] [address] [facility] [id number] [address] [place] [phone] Jan, Type 2 diabetes mellitus wit hout complication, without long-term current use of insulin E11.9 [place] [address] [id number] [address] [place] [phone] Jan, [place] [address] [id number] [address] [place] [phone] Jan, Type 2 diabetes mellitus wit hout complication, without long-term current use of insulin E11.9 [place] [address] [facility] [id number] [address] [place] [phone] Dec, Type 2 diabetes mellitus wit hout complication, without long-term current use of insulin E11.9 [place] [address] [id number] [address] [place] [phone] Dec, [facility] [address] [id number] [address] [place] [phone] Dec, Stasis dermatitis of right l ower extremity with venous ulcer due to chronic peripheral venous hypertension I87.331 ; Type 2 diabetes mellitus with diabetic peripheral angiopathy without gangrene E11.51 and skilled nursing current use of insulin Z79.4 [facility]ALK [facility] [address] [id number] [address] [place] [phone] Dec, Non-pressure chronic ulcer o f unspecified part of unspecified lower leg with unspecified severity L97.909 and Type 2 diabetes mellitus with other skin ulcer E11.622 [facility] [address] [facility] [id number] [address] [place] [phone] Dec, Type 2 diabetes mellitus wit hout complication, without long-term current use of insulin E11.9 [place] [id number] [facility] [id number] [address] [place] [phone] Dec, [facility] [address] [id number] [address] [place] [phone] Dec, Type 2 diabetes mellitus wit hout complication, without long-term current use of insulin E11.9 [facility] [address] [facility] [id number] [address] [place] [phone] Dec, Type 2 diabetes mellitus wit hout complication, without long-term current use of insulin E11.9 and Essential hypertension I10 [facility] [address] [id number] [address] [place] [phone] Nov, Type 2 diabetes mellitus wit hout complication, without long-term current use of insulin E11.9 [facility] [address] [facility] [id number] [address] [place] [phone] Nov, [facility] [address] [id number] [address] [place] [phone] Nov, [facility] [address] [facility] [id number] [address] [place] [phone] Nov, Type 2 diabetes mellitus wit hout complication, without long-term current use of insulin E11.9 [facility] [address] [id number] [address] [place] [phone] Nov, [facility] [address] [id number] [address] [place] [phone] Nov, [facility] [address] [id number] [address] [place] [phone] Nov, Type 2 diabetes mellitus wit hout complication, without long-term current use of insulin E11.9 [place] [address] [id number] [address] [place] [phone] Oct, Type 2 diabetes mellitus wit hout complication, without long-term current use of insulin E11.9 [place] [address] [id number] [address] [place] [phone] Oct, [place] [address] [id number] [address] [place] [phone] Oct, Type 2 diabetes mellitus wit hout complication, without long-term current use of insulin E11.9 [place] [address] [id number] [address] [place] [phone] Oct, Essential hypertension I10 [place] [address] [id number] [address] [place] [address] Oct, Essential hypertension I10 a nd Type 2 diabetes mellitus without complication, without long-term current use of insulin E11.9 [facility] [address] [id number] [address] [place] [address] Oct, [place] [address] [facility] [id number] [address] [place] [address] Sep, Essential hypertension I10 ; Type 2 diabetes mellitus without complication, without long-term current use of insulin E11.9 ; Pain in right knee M25.561 ; Pain in left knee M25.562 and PVD (peripheral vascular disease) I73.9 [facility] [address] [facility] [id number] [address] [place] [address] Sep, [facility] [address] [facility] [id number] [address] [place] [phone] Aug, [facility] [address] [facility] [id number] [address] [place] [phone] Jul, Type 2 diabetes mellitus wit hout complication, without long-term current use of insulin E11.9 [facility] [address] [facility] [id number] [address] [place] [phone] Jul, Gastroenteritis and colitis, viral A08.4 [place] [address] 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 [id number] [address] [place] [address] May, [place] [address] [facility] [id number] [address] [place] [phone] Apr, [place] [address] [facility] [id number] [address] [place] [phone] Mar, [facility] [address] 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 [id number] [address] [place] [address] Feb, IMMUNIZATIONS No Known Immunizations SOCIAL HISTORY Never Assessed REASON FOR VISIT Refill request PLAN OF CARE VITAL SIGNS MEDICATIONS Medication Instructions Dosage Frequency Start Date End Date Duration S tatus Indomethacin 50 mg Orally Twice a day 1 capsule with food or milk 1 2h Mar, Dec, 30 days Active Pravastatin Sodium 10 mg Orally Once [...]
--- OUTSIDE RECORDS SUMMARY | 2019-05-12 06:32 | XMS REPORT ---
Author Author Mychal DELAROSA Organization [facility] Address [address] [place] [address] Care Team Providers Care Inspector Coated Fabrics Name Role Phone ARLEN DELAROSA Unavailable PROBLEMS Type Condition ICD9-CM Code GYT00-QM Code Onset Dates Condition S tatus SNOMED Code Problem Other chronic pain G89.29 Active 8 3045434 Problem PVD (peripheral vascular disease) I73.9 Active 971687937 Problem Essential hypertension I10 Active 99547667 Problem Lumbago with sciatica, left side M54.42 Active 73963642 Problem S/P CABG x 4 Z95.1 Active 5723715 00 Problem care home current use of insulin Z79.4 Active 947458379 Problem Stasis dermatitis of right l ower extremity with venous ulcer due to chronic peripheral venous hypertension I87.331 Ac tive 749052803172799 Problem Non-pressure chronic ulcer o f unspecified part of unspecified lower leg with unspecified severity L97.909 Active 26 3429540 Problem Type 2 diabetes mellitus wit h diabetic peripheral angiopathy without gangrene E11.51 Active 650345066 Problem Intermittent claudication I73.9 Acti ve 56099738 Problem 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 74581559 Problem Pain in left knee M25.562 Active 30 313630 Problem Hyperlipidemia LDL goal <70 E78.5 Ac tive 68778931 Problem Pain in right knee M25.561 Active 3 1963777 ALLERGIES No Information ENCOUNTERS Encounter Location Date Diagnosis [facility] [address] [facility] [id number] [address] [place] [phone] May, [facility] [address] [facility] [id number] [address] [place] [phone] May, Establishing care with carlos martins, encounter for Z76.89 ; Essential hypertension I10 ; Type 2 diabetes mellitus with diabetic peripheral angiopathy without gangrene E11.51 ; 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 ; Hyperlipidemia LDL goal <70 E78.5 ; PVD (peripheral vascular disease) I73.9 ; care home current use of insulin Z79.4 ; Intermittent claudication I73.9 ; Other chronic pain G89.29 and Lumbago with sciatica, left side M54.42 [place] [address] [facility] [id number] [address] [place] [address] Feb, [place] [address] [facility] [id number] [address] [place] [address] Feb, Medicare annual wellness vis it, subsequent [...] E11.51 and S/P CABG x 4 Z95.1 [place] [address] [id number] [address] [place] [phone] Jan, [place] [address] [facility] [id number] [address] [place] [address] Jan, Type 2 diabetes mellitus wit hout complication, without long-term current use of insulin E11.9 [place] [address] [id number] [address] [place] [phone] Jan, [place] [address] [id number] [address] [place] [phone] Jan, Type 2 diabetes mellitus wit hout complication, without long-term current use of insulin E11.9 [place] [address] [facility] [id number] [address] [place] [phone] Dec, Type 2 diabetes mellitus wit hout complication, without long-term current use of insulin E11.9 [place] [address] [id number] [address] [place] [phone] Dec, [facility] [address] [id number] [address] [place] [phone] Dec, Stasis dermatitis of right l ower extremity with venous ulcer due to chronic peripheral venous hypertension I87.331 ; Type 2 diabetes mellitus with diabetic peripheral angiopathy without gangrene E11.51 and care home current use of insulin Z79.[address] [facility] WALK IN [facility] [address] [id number] [address] [place] [phone] Dec, Non-pressure chronic ulcer o f unspecified part of unspecified lower leg with unspecified severity L97.909 and Type 2 diabetes mellitus with other skin ulcer E11.622 [facility] [address] [facility] [id number] [address] [place] [address] Dec, Type 2 diabetes mellitus wit hout complication, without long-term current use of insulin E11.9 [place] [address] [facility] [id number] [address] [place] [phone] Dec, [facility] [address] [id number] [address] [place] [id number] Dec, Type 2 diabetes mellitus wit hout complication, without long-term current use of insulin E11.9 [facility] [address] [facility] [id number] [address] [place] [phone] Dec, Type 2 diabetes mellitus wit hout complication, without long-term current use of insulin E11.9 and Essential hypertension I10 [facility] [address] [id number] [address] [place] [phone] Nov, Type 2 diabetes mellitus wit hout complication, without long-term current use of insulin E11.9 [facility] [address] [facility] [id number] [address] [place] [phone] Nov, [facility] [address] [id number] [address] [place] [phone] Nov, [facility] [address] [facility] [id number] [address] [place] [phone] Nov, Type 2 diabetes mellitus wit hout complication, without long-term current use of insulin E11.9 [facility] [address] [id number] [address] [place] [phone] Nov, [facility] [address] [id number] [address] [place] [phone] Nov, [facility] [address] [id number] [address] [place] [phone] Nov, Type 2 diabetes mellitus wit hout complication, without long-term current use of insulin E11.9 [place] [address] [id number] [address] [place] [phone] Oct, Type 2 diabetes mellitus wit hout complication, without long-term current use of insulin E11.9 [place] [address] [id number] [address] [place] [id number] Oct, [place] [address] [id number] [address] [place] [phone] Oct, Type 2 diabetes mellitus wit hout complication, without long-term current use of insulin E11.9 [place] [address] [id number] [address] [place] [phone] Oct, Essential hypertension I10 [place] [address] [id number] [address] [place] [id number] Oct, Essential hypertension I10 a nd Type 2 diabetes mellitus without complication, without long-term current use of insulin E11.9 [facility] [address] [id number] [address] [place] [phone] Oct, [place] [address] [facility] [id number] [address] [place] [address] Sep, Essential hypertension I10 ; Type 2 diabetes mellitus without complication, without long-term current use of insulin E11.9 ; Pain in right knee M25.561 ; Pain in left knee M25.562 and PVD (peripheral vascular disease) I73.9 [facility] [address] [facility] [id number] [address] [place] [phone] Sep, [facility] [address] [facility] [id number] [address] [place] [phone] Aug, [facility] [address] [facility] [id number] [address] [place] [phone] Jul, Type 2 diabetes mellitus wit hout complication, without long-term current use of insulin E11.9 [facility] [address] [facility] [id number] [address] [place] [phone] Jul, Gastroenteritis and colitis, viral A08.4 [place] [address] [facility] [id number] [address] [place] [phone] June, Type 2 diabetes mellitus wit hout complication, without long-term current use of insulin E11.9 [place] [address] [place] [id number] [address] [place] [address] June, Essential hypertension I10 ; Type 2 diabetes mellitus without complication, without long-term current use of insulin E11.9 ; Pain in right knee M25.561 ; Pain in left knee M25.562 ; 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 and PVD (peripheral vascular disease) I73.9 [facility] [address] [facility] [id number] [address] [place] [phone] May, [place] [address] [facility] [id number] [address] [place] [phone] Apr, [place] [address] [facility] [id number] [address] [place] [phone] Mar, [facility] [address] [facility] [id number] [address] [place] [address] Mar, 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 [facility] [address] [facility] [id number] [address] [place] [address] Mar, Essential hypertension I10 ; Type 2 diabetes mellitus without complication, without long-term current use of insulin E11.9 ; Pain in right knee M25.561 ; Pain in left knee M25.562 and 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 [facility] [address] [facility] [id number] [address] [place] [address] Feb, IMMUNIZATIONS No Known Immunizations SOCIAL HISTORY Never Assessed REASON FOR VISIT insulin start f/u PLAN OF CARE VITAL SIGNS MEDICATIONS Medication Instructions Dosage Frequency Start Date End Date Duration S tatus Insulin Detemir 100 UNIT/ML Subcutaneous at bedtime Inject 15 units 12 Oct, 2016 Active RESULTS No Results PROCEDURES No Known [...] diabetic peripheral angiopathy without gangrene Medical History care home current use of insulin Medical History Declines Colonoscopy, Denies Influenza Vaccine, Declines Pneumovax and Zostavax Surgical History jaw surgery Surgical History tonsillectomy Surgical History Cataract removal bilaterally Surgical History had stint placed in L. leg 2016 Surgical History Triple bypass 2017 Hospitalization History Surgery(s) only
--- OUTSIDE RECORDS SUMMARY | 2019-05-12 06:32 | XMS REPORT ---
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 Active 824431516 Problem Stasis dermatitis of right l ower extremity with venous ulcer due to chronic peripheral venous hypertension I87.331 Ac tive [id number] Problem Non-pressure chronic ulcer o f unspecified part of unspecified lower leg with unspecified severity L97.909 Active 26 6472152 Problem Type 2 diabetes mellitus wit h diabetic peripheral angiopathy without gangrene E11.51 Active 132164162 Problem Intermittent claudication I73.9 Acti ve 92179968 Problem 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 17379495 Problem Pain in left knee M25.562 Active 30 349698 Problem Hyperlipidemia LDL goal <70 E78.5 Ac tive 56027748 Problem Pain in right knee M25.561 Active 3 5999618 ALLERGIES No Information ENCOUNTERS Encounter Location Date Diagnosis [facility] [address] [facility] [id number] [address] [place] [phone] May, [facility] [address] [facility] [id number] [address] [place] [phone] May, Establishing care with carlos martins, encounter [...] and Lumbago with sciatica, left side M54.42 [place] [address] [facility] [id number] [address] [place] [phone] Feb, [place] [address] [facility] [id number] [address] [place] [phone] Feb, Medicare annual wellness vis it, subsequent [...] E11.51 and S/P CABG x 4 Z95.1 [place] [address] [id number] [address] [place] [phone] Jan, [place] [address] [facility] [id number] [address] [place] [phone] Jan, Type 2 diabetes mellitus wit hout complication, without long-term current use of insulin E11.9 [place] [address] [id number] [address] [place] [phone] Jan, [place] [address] [id number] [address] [place] [phone] Jan, Type 2 diabetes mellitus wit hout complication, without long-term current use of insulin E11.9 [place] [address] [facility] [id number] [address] [place] [phone] Dec, Type 2 diabetes mellitus wit hout complication, without long-term current use of insulin E11.9 [place] [address] [id number] [address] [place] [phone] Dec, [facility] [address] [id number] [address] [place] [phone] Dec, Stasis dermatitis of right l ower extremity with venous ulcer due to chronic peripheral venous hypertension I87.331 ; Type 2 diabetes mellitus with diabetic peripheral angiopathy without gangrene E11.51 and MCC current use of insulin Z79.4 [facility] [address] [id number] [address] [place] [phone] Dec, Non-pressure chronic ulcer o f unspecified part of unspecified lower leg with unspecified severity L97.909 and Type 2 diabetes mellitus with other skin ulcer E11.622 [facility] [address] [facility] [id number] [address] [place] [phone] Dec, Type 2 diabetes mellitus wit hout complication, without long-term current use of insulin E11.9 [place] [id number] [facility] [id number] [address] [place] [phone] Dec, [facility] [address] [id number] [address] [place] [phone] Dec, Type 2 diabetes mellitus wit hout complication, without long-term current use of insulin E11.9 [facility] [address] [facility] [id number] [address] [place] [phone] Dec, Type 2 diabetes mellitus wit hout complication, without long-term current use of insulin E11.9 and Essential hypertension I10 [facility] [address] [id number] [address] [place] [phone] Nov, Type 2 diabetes mellitus wit hout complication, without long-term current use of insulin E11.9 [facility] [address] [facility] [id number] [address] [place] [phone] Nov, [facility] [address] [id number] [address] [place] [phone] Nov, [facility] [address] [facility] [id number] [address] [place] [phone] Nov, Type 2 diabetes mellitus wit hout complication, without long-term current use of insulin E11.9 [facility] [address] [id number] [address] [place] [phone] Nov, [facility] [address] [id number] [address] [place] [phone] Nov, [facility] [address] [id number] [address] [place] [phone] Nov, Type 2 diabetes mellitus wit hout complication, without long-term current use of insulin E11.9 [place] [id number] [id number] [address] [place] [phone] Oct, Type 2 diabetes mellitus wit hout complication, without long-term current use of insulin E11.9 [place] [address] [id number] [address] [place] [phone] Oct, [place] [address] [id number] [address] [place] [phone] Oct, Type 2 diabetes mellitus wit hout complication, without long-term current use of insulin E11.9 [place] [address] [id number] [address] [place] [phone] Oct, Essential hypertension I10 [place] [address] [id number] [address] [place] [phone] Oct, Essential hypertension I10 a nd Type 2 diabetes mellitus without complication, without long-term current use of insulin E11.9 [facility] [address] [id number] [address] [place] [phone] Oct, [place] [address] [facility] [id number] [address] [place] [phone] Sep, Essential hypertension I10 ; Type 2 diabetes mellitus without complication, without long-term current use of insulin E11.9 ; Pain in right knee M25.561 ; Pain in left knee M25.562 and PVD (peripheral vascular disease) I73.9 [facility] [address] [facility] [id number] [address] [place] [phone] Sep, [facility] [address] [facility] [id number] [address] [place] [phone] Aug, [facility] [address] [facility] [id number] [address] [place] [phone] Jul, Type 2 diabetes mellitus wit hout complication, without long-term current use of insulin E11.9 [facility] [address] [facility] [id number] [address] [place] [phone] Jul, Gastroenteritis and colitis, viral A08.4 [place] [address] [facility] [id number] [address] [place] [phone] June, Type 2 diabetes mellitus wit hout complication, without long-term current use of insulin E11.9 [place] [address] [place] [id number] [address] [place] [phone] June, Essential hypertension I10 ; Type 2 diabetes mellitus without complication, without long-term current use of insulin E11.9 ; Pain in right knee M25.561 ; Pain in left knee M25.562 ; 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 and PVD (peripheral vascular disease) I73.9 [facility] [address] [facility] [id number] [address] [place] [phone] May, [place] [address] [facility] [id number] [address] [place] [phone] Apr, [place] [address] [facility] [id number] [address] [place] [phone] Mar, [facility] [address] [facility] [id number] [address] [place] [phone] Mar, 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 [facility] [address] [facility] [id number] [address] [place] [phone] Mar, Essential hypertension I10 ; Type 2 diabetes mellitus without complication, without long-term current use of insulin E11.9 ; Pain in right knee M25.561 ; Pain in left knee M25.562 and 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 [facility] [address] [facility] [id number] [address] [place] [address] Feb, IMMUNIZATIONS No Known Immunizations SOCIAL HISTORY Never Assessed REASON FOR VISIT Electrocardiogram (EKG)-[facility] PLAN OF CARE VITAL SIGNS MEDICATIONS Unknown Medications RESULTS No Results PROCEDURES Procedure Date Ordered Result Body Site EKG, TRACING (IN-HOUSE) 2016-10-29 NSR ELECTROCARDIOGRAM, TRACING Oct 29, 2016 INSTRUCTIONS MEDICATIONS ADMINISTERED No [...] peripheral angiopathy without gangrene 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 leg 2016 Surgical History Triple bypass 2017 Hospitalization History Surgery(s) only
--- OUTSIDE RECORDS SUMMARY | 2019-05-12 06:33 | XMS REPORT | Continuity of Care Document ---
Author Organization Unknown Address Unknown Phone Unavailable Allergies Active Description Code Type Severity Reaction Onset Reported/Identified Relationship to Patient Clinical Status Yes No Known Drug Allergies [id number] Drug Allergy Unknown N/A 06/16/2015 Medications There is no data. Problems Date Dx Coded Attending Type Code Diagnosis Diagnosed By 09/22/2014 KITTY TO, BILLIE R Ot 250. 00 09/22/2014 KITTY TO, BILLIE R Ot 401. 1 09/22/2014 KITTY TO, BILLIE R Ot 719. 46 10/13/2014 KITTY TO, BILLIE R Ot 250. 00 10/13/2014 KITTY TO, BILLIE R Ot 401. 1 10/13/2014 KITTY TO, BILLIE R Ot 719. 46 01/11/2015 KITTY TO, BILLIE R Ot 250. 00 01/11/2015 KITTY TO, BILLIE R Ot 401. 1 01/11/2015 KITTY TO, BILLIE R Ot 719. 46 01/31/2015 CAMMIE TANG Ot E11.9 06/16/2015 CONSUELO VENTURA APRN Ot K57.90 DVRTCLOS OF INTEST, PART UNSP, W/O PERF 06/16/2015 CONSUELO VENTURA APRN Ot M47.812 SPONDYLOSIS W/O MYELOPATHY OR RADICULOPA 06/16/2015 CONSUELO VENTURA APRN Ot R59 .0 LOCALIZED ENLARGED LYMPH NODES 06/16/2015 CONSUELO VENTURA APRN Ot S01.01XA LACERATION WITHOUT FOREIGN BODY OF SCALP 06/16/2015 CONSUELO VENTURA APRN Ot S22.088A OTH FRACTURE OF T11-T12 VERTEBRA, INIT F 06/16/2015 CONSUELO VENTURA APRN Ot S22.41XA MULTIPLE FRACTURES OF RIBS, RIGHT SIDE, 06/16/2015 CONSUELO VENTURA APRN Ot S32.018A OTH FRACTURE OF FIRST LUMBAR VERTEBRA, I 06/16/2015 CONSUELO VENTURA APRN Ot S32.028A OTH FRACTURE OF SECOND LUMBAR VERTEBRA, 06/16/2015 CONSUELO VENTURA APRN Ot S32.038A OTH FRACTURE OF THIRD LUMBAR VERTEBRA, I 06/16/2015 CONSUELO VENTURA APRN Ot W11.XXXA FALL ON AND FROM LADDER, INITIAL ENCOUNT 06/16/2015 CONSUELO VENTURA APRN Ot Y93.H9 ACTVTY,OTH W EXTER PROPERTY LAND MAINT 06/16/2015 CONSUELO VENTURA APRN Ot Y99 .8 OTHER EXTERNAL CAUSE STATUS 06/18/2015 CONSUELO VENTURA APRN Ot K57.90 DVRTCLOS OF INTEST, PART UNSP, W/O PERF 06/18/2015 CONSUELO VENTURA APRN Ot M47.812 SPONDYLOSIS W/O MYELOPATHY OR RADICULOPA 06/18/2015 CONSUELO VENTURA APRN Ot R59 .0 LOCALIZED ENLARGED LYMPH NODES 06/18/2015 CONSUELO VENTURA APRN Ot S01.01XA LACERATION WITHOUT FOREIGN BODY OF SCALP 06/18/2015 CONSUELO VENTURA APRN Ot S22.088A OTH FRACTURE OF T11-T12 VERTEBRA, INIT F 06/18/2015 CONSUELO VENTURA APRN Ot S22.41XA MULTIPLE FRACTURES OF RIBS, RIGHT SIDE, 06/18/2015 CONSUELO VENTURA APRN Ot S32.018A OTH FRACTURE OF FIRST LUMBAR VERTEBRA, I 06/18/2015 CONSUELO VENTURA APRN Ot S32.028A OTH FRACTURE OF SECOND LUMBAR VERTEBRA, 06/18/2015 CONSUELO VENTURA APRN Ot S32.038A OTH FRACTURE OF THIRD LUMBAR VERTEBRA, I 06/18/2015 CONSUELO VENTURA APRN Ot W11.XXXA FALL ON AND FROM LADDER, INITIAL ENCOUNT 06/18/2015 CONSUELO VENTURA APRN Ot Y93.H9 ACTVTY,OTH W EXTER PROPERTY LAND MAINT 06/18/2015 CONSUELO VENTURA APRN Ot Y99 .8 OTHER EXTERNAL CAUSE STATUS 06/18/2015 CONSUELO VENTURA APRN Ot K57.90 DVRTCLOS OF INTEST, PART UNSP, W/O PERF 06/18/2015 CONSUELO VENTURA APRN Ot M47.812 SPONDYLOSIS W/O MYELOPATHY OR RADICULOPA 06/18/2015 CONSUELO VENTURA APRN Ot R59 .0 LOCALIZED ENLARGED LYMPH NODES 06/18/2015 CONSUELO VENTURA APRN Ot S01.01XA LACERATION WITHOUT FOREIGN BODY OF SCALP 06/18/2015 CONSUELO VENTURA APRN Ot S22.088A OTH FRACTURE OF T11-T12 VERTEBRA, INIT F 06/18/2015 CONSUELO VENTURA APRN Ot S22.41XA MULTIPLE FRACTURES OF RIBS, RIGHT SIDE, 06/18/2015 CONSUELO VENTURA APRN Ot S32.018A OTH FRACTURE OF FIRST LUMBAR VERTEBRA, I 06/18/2015 CONSUELO VENTURA APRN Ot S32.028A OTH FRACTURE OF SECOND LUMBAR VERTEBRA, 06/18/2015 CONSUELO VENTURA APRN Ot S32.038A OTH FRACTURE OF THIRD LUMBAR VERTEBRA, I 06/18/2015 CONSUELO VENTURA APRN Ot W11.XXXA FALL ON AND FROM LADDER, INITIAL ENCOUNT 06/18/2015 CONSUELO VENTURA APRN Ot Y93.H9 ACTVTY,OTH W EXTER PROPERTY LAND MAINT 06/18/2015 CONSUELO VENTURA APRN Ot Y99 .8 OTHER EXTERNAL CAUSE STATUS 06/23/2015 MATHEUS KEYS Ot S01.01XD LACERATION WITHOUT FOREIGN BODY OF SCALP 06/25/2015 MATHEUS KEYS Ot S01.01XD LACERATION WITHOUT FOREIGN BODY OF SCALP 07/03/2015 BILLIE TANG MD Ot 250. 00 DIAB GUEVARA WO COMPL, TYPE II OR UNSPEC TY 07/03/2015 BILLIE TANG MD R Ot 401. 1 BENIGN HYPERTENSION 07/03/2015 BILLIE TANG MD Ot 719. 46 JOINT PAIN-L/LEG 07/03/2015 CAMMIE TANG Ot E11.9 TYPE 2 DIABETES MELLITUS WITHOUT COMPLIC 07/04/2015 YANA GARCIA DO Ot R06. 00 DYSPNEA, UNSPECIFIED 07/04/2015 YANA GARCIA DO Ot R91. 8 OTHER NONSPECIFIC ABNORMAL FINDING OF ANDREWS 07/04/2015 YANA GARCIA DO Ot R06. 00 DYSPNEA, UNSPECIFIED 07/04/2015 YANA GARCIA DO Ot R91. 8 OTHER NONSPECIFIC ABNORMAL FINDING OF ANDREWS 07/11/2015 YANA GARCIA DO Ot R91. 8 OTHER NONSPECIFIC ABNORMAL FINDING OF ANDREWS 07/12/2015 YANA GARCIA DO Ot R91. 8 OTHER NONSPECIFIC ABNORMAL FINDING OF ANDREWS 08/02/2015 CONSUELO VENTURA APRN Ot K57.90 DVRTCLOS OF INTEST, PART UNSP, W/O PERF 08/02/2015 CONSUELO VENTURA APRN Ot M47.812 SPONDYLOSIS W/O MYELOPATHY OR RADICULOPA 08/02/2015 CONSUELO VENTURA APRN Ot R59 .0 LOCALIZED ENLARGED LYMPH NODES 08/02/2015 CONSUELO VENTURA APRN Ot S01.01XA LACERATION WITHOUT FOREIGN BODY OF SCALP 08/02/2015 CONSUELO VENTURA APRN Ot S22.088A OTH FRACTURE OF T11-T12 VERTEBRA, INIT F 08/02/2015 CONSUELO VENTURA APRN Ot S22.41XA MULTIPLE FRACTURES OF RIBS, RIGHT SIDE, 08/02/2015 CONSUELO VENTURA APRN Ot S32.018A OTH FRACTURE OF FIRST LUMBAR VERTEBRA, I 08/02/2015 CONSUELO VENTURA APRN Ot S32.028A OTH FRACTURE OF SECOND LUMBAR VERTEBRA, 08/02/2015 CONSUELO VENTURA APRN Ot S32.038A OTH FRACTURE OF THIRD LUMBAR VERTEBRA, I 08/02/2015 CONSUELO VENTURA APRN Ot W11.XXXA FALL ON AND FROM LADDER, INITIAL ENCOUNT 08/02/2015 CONSUELO VENTURA APRN Ot Y93.H9 ACTVTY,OTH W EXTER PROPERTY LAND MAINT 08/02/2015 CONSUELO VENTURA APRN Ot Y99 .8 OTHER EXTERNAL CAUSE STATUS 08/08/2015 YANA GARCIA DO Ot R91. 8 OTHER NONSPECIFIC ABNORMAL FINDING OF ANDREWS 02/12/2016 BILLIE TANG MD Ot 250. 00 DIAB GUEVARA WO COMPL, TYPE II OR UNSPEC TY 02/12/2016 BILLIE TANG MD Ot 401. 1 BENIGN HYPERTENSION 02/12/2016 BILLIE TANG MD Ot 719. 46 JOINT PAIN-L/LEG 02/12/2016 CAMMIE TANG Ot E11.9 TYPE 2 DIABETES MELLITUS WITHOUT COMPLIC 02/12/2016 CONSUELO VENTURA APRN Ot K57.90 DVRTCLOS OF INTEST, PART UNSP, W/O PERF 02/12/2016 CONSUELO VENTURA APRN Ot M47.812 SPONDYLOSIS W/O MYELOPATHY OR RADICULOPA 02/12/2016 CONSUELO VENTURA APRN Ot R59 .0 LOCALIZED ENLARGED LYMPH NODES 02/12/2016 CONSUELO VENTURA APRN Ot S01.01XA LACERATION WITHOUT FOREIGN BODY OF SCALP 02/12/2016 CONSUELO VENTURA APRN Ot S22.088A OTH FRACTURE OF T11-T12 VERTEBRA, INIT F 02/12/2016 CONSUELO VENTURA APRN Ot S22.41XA MULTIPLE FRACTURES OF RIBS, RIGHT SIDE, 02/12/2016 CONSUELO VENTURA APRN Ot S32.018A OTH FRACTURE OF FIRST LUMBAR VERTEBRA, I 02/12/2016 CONSUELO VENTURA APRN Ot S32.028A OTH FRACTURE OF SECOND LUMBAR VERTEBRA, 02/12/2016 CONSUELO VENTURA APRN Ot S32.038A OTH FRACTURE OF THIRD LUMBAR VERTEBRA, I 02/12/2016 CONSUELO VENTURA APRN Ot W11.XXXA FALL ON AND FROM LADDER, INITIAL ENCOUNT 02/12/2016 CONSUELO VENTURA APRN Ot Y93.H9 ACTVTY,OTH W EXTER PROPERTY LAND MAINT 02/12/2016 CONSUELO VENTURA APRN Ot Y99 .8 OTHER EXTERNAL CAUSE STATUS 02/12/2016 YANA GARCIA DO Ot R06. 00 DYSPNEA, UNSPECIFIED 02/12/2016 YANA GARCIA DO Ot R91. 8 OTHER NONSPECIFIC ABNORMAL FINDING OF ANDREWS 02/12/2016 YANA GARCIA DO Ot R91. 8 OTHER NONSPECIFIC ABNORMAL FINDING OF ANDREWS 02/13/2016 MERLYN RUEDA APRN Ot I71.2 THORACIC AORTIC ANEURYSM, WITHOUT RUPTUR 02/13/2016 MERLYN RUEDA APRN Ot R91.8 OTHER NONSPECIFIC ABNORMAL FINDING OF ANDREWS 02/13/2016 MERLYN RUEDA APRN Ot I71.2 THORACIC AORTIC ANEURYSM, WITHOUT RUPTUR 02/13/2016 MERLYN RUEDA APRN Ot R91.8 OTHER NONSPECIFIC ABNORMAL FINDING OF ANDREWS 02/18/2016 MERLYN RUEDA CAR STEREO INSTALLER Ot I71.2 THORACIC AORTIC ANEURYSM, WITHOUT RUPTUR 02/18/2016 IRLANDA RUEDAINE Jamarcus CAR STEREO INSTALLER Ot R91.8 OTHER NONSPECIFIC ABNORMAL FINDING OF ANDREWS 02/21/2016 MOHITIRLANDA POPEINE Jamarcus CAR STEREO INSTALLER Ot I71.2 THORACIC AORTIC ANEURYSM, WITHOUT RUPTUR 02/21/2016 MOHITIRLANDA POPEINE E CAR STEREO INSTALLER Ot R91.8 OTHER NONSPECIFIC ABNORMAL FINDING OF ANDREWS 03/12/2016 MOHITIRLANDA POPEINE E CAR STEREO INSTALLER Ot I71.2 THORACIC AORTIC ANEURYSM, WITHOUT RUPTUR 03/12/2016 MOHITIRLANDA POPEINE Jamarcus CAR STEREO INSTALLER Ot R91.8 OTHER NONSPECIFIC ABNORMAL FINDING OF ANDREWS 04/02/2016 MADLARLEN 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 Ot M25.561 PAIN IN RIGHT KNEE 04/02/2016 MADLLACEYARLEN L 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 Ot 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 1 PRESENCE OF AORTOCORONARY BYPASS GRAFT 12/17/2016 JARRED CISNEROS MD Ot Z98.890 OTHER SPECIFIED POSTPROCEDURAL STATES 01/09/2017 JARRED CISNEROS MD Ot Z95. 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 ULCER OF RIGHT CALF 02/13/2017 JAYSHREE DONALDSON CAR STEREO INSTALLER Ot E11.622 TYPE 2 DIABETES MELLITUS WITH OTHER SKIN 02/13/2017 JAYSHREE DONALDSON CAR STEREO INSTALLER Ot L03.115 CELLULITIS OF RIGHT LOWER LIMB 02/13/2017 JAYSHREE DONALDSON CAR STEREO INSTALLER Ot L97.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 ULCER OF RIGHT CALF 02/18/2017 JAYSHREE DONALDSON CAR STEREO INSTALLER Ot E11.622 TYPE 2 DIABETES MELLITUS WITH OTHER SKIN 02/18/2017 JAYSHREE DONALDSON R CAR STEREO INSTALLER Ot L03.115 CELLULITIS OF RIGHT LOWER LIMB 02/18/2017 JAYSHREE DONALDSON R CAR STEREO INSTALLER Ot L97.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 ULCER OF RIGHT CALF 02/18/2017 JAYSHREE DONALDSON CAR STEREO INSTALLER Ot E11.622 TYPE 2 DIABETES MELLITUS WITH OTHER SKIN 02/18/2017 MENDOZA JAYSHREE R CAR STEREO INSTALLER Ot L03.115 CELLULITIS OF RIGHT LOWER LIMB 02/18/2017 MENDOZA JAYSHREE R CAR STEREO INSTALLER Ot L97.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 ULCER OF RIGHT CALF 02/18/2017 JAYSHREE DONALDSON R CAR STEREO INSTALLER Ot E11.622 TYPE 2 DIABETES MELLITUS WITH OTHER SKIN 02/18/2017 MENDOZA JAYSHREE R CAR STEREO INSTALLER Ot L03.115 CELLULITIS OF RIGHT LOWER LIMB 02/18/2017 JAYSHREE DONALDSON R CAR STEREO INSTALLER Ot L97.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 ULCER OF RIGHT CALF 02/20/2017 JAYSHREE DONALDSON CAR STEREO INSTALLER Ot E11.622 TYPE 2 DIABETES MELLITUS WITH OTHER SKIN 02/20/2017 JAYSHREE DONALDSON R CAR STEREO INSTALLER Ot L03.115 CELLULITIS OF RIGHT LOWER LIMB 02/20/2017 MENDOZA JAYSHREE R CAR STEREO INSTALLER Ot L97.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 ULCER OF RIGHT CALF 02/25/2017 JAYSHREE DONALDSON CAR STEREO INSTALLER Ot E11.622 TYPE 2 DIABETES MELLITUS WITH OTHER SKIN 02/25/2017 JAYSHREE DONALDSON R CAR STEREO INSTALLER Ot L03.115 CELLULITIS OF RIGHT LOWER LIMB 02/25/2017 JAYSHREE DONALDSON R CAR STEREO INSTALLER Ot L97.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 ULCER OF RIGHT CALF 03/09/2017 JAYSHREE DONALDSON CAR STEREO INSTALLER Ot E11.622 TYPE 2 DIABETES MELLITUS WITH OTHER SKIN 03/09/2017 JAYSHREE DONALDSON R CAR STEREO INSTALLER Ot L03.115 CELLULITIS OF RIGHT LOWER LIMB 03/09/2017 MENDOZA JAYSHREE R CAR STEREO INSTALLER Ot L97.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 ULCER OF RIGHT CALF 03/10/2017 JAYSHREE DONALDSON CAR STEREO INSTALLER Ot E11.622 TYPE 2 DIABETES MELLITUS WITH OTHER SKIN 03/10/2017 JAYSHREE DONALDSON R CAR STEREO INSTALLER Ot L03.115 CELLULITIS OF RIGHT LOWER LIMB 03/10/2017 JAYSHREE DONALDSON R CAR STEREO INSTALLER Ot L97.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 ULCER OF RIGHT CALF 03/11/2017 JAYSHREE DONALDSON CAR STEREO INSTALLER Ot E11.622 TYPE 2 DIABETES MELLITUS WITH OTHER SKIN 03/11/2017 JAYSHREE DONALDSON CAR STEREO INSTALLER Ot L03.115 CELLULITIS OF RIGHT LOWER LIMB 03/11/2017 JAYSHREE DONALDSON CAR STEREO INSTALLER Ot L97.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 ULCER OF RIGHT CALF 03/11/2017 JAYSHREE DONALDSON CAR STEREO INSTALLER Ot E11.622 TYPE 2 DIABETES MELLITUS WITH OTHER SKIN 03/11/2017 JAYSHREE DONALDSON CAR STEREO INSTALLER Ot L03.115 CELLULITIS OF RIGHT LOWER LIMB 03/11/2017 JAYSHREE DONALDSON CAR STEREO INSTALLER Ot L97.211 NON-PRS CHRONIC ULCER OF RIGHT CALF LIMI 03/11/2017 JAYSHREE DONALDSON CAR STEREO INSTALLER Ot L97.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 ULCER OF RIGHT CALF 03/12/2017 JAYSHREE DONALDSON CAR STEREO INSTALLER Ot E11.622 TYPE 2 DIABETES MELLITUS WITH OTHER SKIN 03/12/2017 JAYSHREE DONALDSON CAR STEREO INSTALLER Ot L03.115 CELLULITIS OF RIGHT LOWER LIMB 03/12/2017 JAYSHREE DONALDSON CAR STEREO INSTALLER Ot L97.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 ULCER OF RIGHT CALF 03/17/2017 JAYSHREE DONALDSON CAR STEREO INSTALLER Ot E11.622 TYPE 2 DIABETES MELLITUS WITH OTHER SKIN 03/17/2017 JAYSHREE DONALDSON CAR STEREO INSTALLER Ot L03.115 CELLULITIS OF RIGHT LOWER LIMB 03/17/2017 JAYSHREE DONALDSON CAR STEREO INSTALLER Ot L97.211 NON-PRS CHRONIC ULCER OF RIGHT CALF LIMI 03/17/2017 JAYSHREE DONALDSON CAR STEREO INSTALLER Ot L97.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 ULCER OF RIGHT CALF 03/18/2017 JAYSHREE DONALDSON CAR STEREO INSTALLER Ot E11.622 TYPE 2 DIABETES MELLITUS WITH OTHER SKIN 03/18/2017 JAYSHREE DONALDSON CAR STEREO INSTALLER Ot L03.115 CELLULITIS OF RIGHT LOWER LIMB 03/18/2017 JAYSHREE DONALDSON R CAR STEREO INSTALLER Ot L97.211 NON-PRS CHRONIC ULCER OF RIGHT CALF LIMI 03/18/2017 JAYSHREE DONALDSON CAR STEREO INSTALLER Ot L97.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 ULCER OF RIGHT CALF 03/24/2017 JAYSHREE DONALDSON CAR STEREO INSTALLER Ot E11.622 TYPE 2 DIABETES MELLITUS WITH OTHER SKIN 03/24/2017 JAYSHREE DONALDSON CAR STEREO INSTALLER Ot L03.115 CELLULITIS OF RIGHT LOWER LIMB 03/24/2017 JAYSHREE DONALDSON CAR STEREO INSTALLER Ot L97.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 ULCER OF RIGHT CALF 03/25/2017 JAYSHREE DONALDSON CAR STEREO INSTALLER Ot E11.622 TYPE 2 DIABETES MELLITUS WITH OTHER SKIN 03/25/2017 JAYSHREE DONALDSON R CAR STEREO INSTALLER Ot L03.115 CELLULITIS OF RIGHT LOWER LIMB 03/25/2017 JAYSHREE DONALDSON R CAR STEREO INSTALLER Ot L97.211 NON-PRS CHRONIC ULCER OF RIGHT CALF LIMI 03/25/2017 JAYSHREE DONALDSON CAR STEREO INSTALLER Ot L97.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 ULCER OF RIGHT CALF 03/31/2017 JAYSHREE DONALDSON CAR STEREO INSTALLER Ot E11.622 TYPE 2 DIABETES MELLITUS WITH OTHER SKIN 03/31/2017 JAYSHREE DONALDSON R CAR STEREO INSTALLER Ot L03.115 CELLULITIS OF RIGHT LOWER LIMB 03/31/2017 JAYSHREE DONALDSON R CAR STEREO INSTALLER Ot L97.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 ULCER OF RIGHT CALF 04/01/2017 JAYSHREE DONALDSON CAR STEREO INSTALLER Ot E11.622 TYPE 2 DIABETES MELLITUS WITH OTHER SKIN 04/01/2017 JAYSHREE DONALDSON R CAR STEREO INSTALLER Ot L03.115 CELLULITIS OF RIGHT LOWER LIMB 04/01/2017 JAYSHREE DONALDSON CAR STEREO INSTALLER Ot L97.211 NON-PRS CHRONIC ULCER OF RIGHT CALF LIMI 04/01/2017 JAYSHREE DONALDSON CAR STEREO INSTALLER Ot L97.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 ULCER OF RIGHT CALF 04/03/2017 JAYSHREE DONALDSON CAR STEREO INSTALLER Ot E11.622 TYPE 2 DIABETES MELLITUS WITH OTHER SKIN 04/03/2017 JAYSHREE DONALDSON CAR STEREO INSTALLER Ot L03.115 CELLULITIS OF RIGHT LOWER LIMB 04/03/2017 JAYSHREE DONALDSON R CAR STEREO INSTALLER Ot L97.211 NON-PRS CHRONIC ULCER OF RIGHT CALF LIMI 04/03/2017 JAYSHREE DONALDSON CAR STEREO INSTALLER Ot L97.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 ULCER OF RIGHT CALF 04/08/2017 JAYSHREE DONALDSON CAR STEREO INSTALLER Ot E11.622 TYPE 2 DIABETES MELLITUS WITH OTHER SKIN 04/08/2017 JAYSHREE DONALDSON R CAR STEREO INSTALLER Ot L03.115 CELLULITIS OF RIGHT LOWER LIMB 04/08/2017 JAYSHREE DONALDSON CAR STEREO INSTALLER Ot L97.211 NON-PRS CHRONIC ULCER OF RIGHT CALF LIMI 04/08/2017 JAYSHREE DONALDSON R CAR STEREO INSTALLER Ot L97.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 ULCER OF RIGHT CALF 04/08/2017 JAYSHREE DONALDSON CAR STEREO INSTALLER Ot E11.622 TYPE 2 DIABETES MELLITUS WITH OTHER SKIN 04/08/2017 JAYSHREE DONALDSON R CAR STEREO INSTALLER Ot L03.115 CELLULITIS OF RIGHT LOWER LIMB 04/08/2017 JAYSHREE DONALDSON CAR STEREO INSTALLER Ot L97.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 ULCER OF RIGHT CALF 04/15/2017 JAYSHREE DONALDSON CAR STEREO INSTALLER Ot E11.622 TYPE 2 DIABETES MELLITUS WITH OTHER SKIN 04/15/2017 JAYSHREE DONALDSON R CAR STEREO INSTALLER Ot L03.115 CELLULITIS OF RIGHT LOWER LIMB 04/15/2017 JAYSHREE DONALDSON R CAR STEREO INSTALLER Ot L97.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 ULCER OF RIGHT CALF 04/16/2017 JAYSHREE DONALDSON CAR STEREO INSTALLER Ot E11.622 TYPE 2 DIABETES MELLITUS WITH OTHER SKIN 04/16/2017 JAYSHREE DONALDSON CAR STEREO INSTALLER Ot L03.115 CELLULITIS OF RIGHT LOWER LIMB 04/16/2017 JAYSHREE DONALDSON CAR STEREO INSTALLER Ot L97.211 NON-PRS CHRONIC ULCER OF RIGHT CALF LIMI 04/16/2017 JAYSHREE DONALDSON CAR STEREO INSTALLER Ot L97.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 ULCER OF RIGHT CALF 04/22/2017 JAYSHREE DONALDSON CAR STEREO INSTALLER Ot E11.622 TYPE 2 DIABETES MELLITUS WITH OTHER SKIN 04/22/2017 JAYSHREE DONALDSON CAR STEREO INSTALLER Ot L03.115 CELLULITIS OF RIGHT LOWER LIMB 04/22/2017 JAYSHREE DONALDSON CAR STEREO INSTALLER Ot L97.211 NON-PRS CHRONIC ULCER OF RIGHT CALF LIMI 04/22/2017 JAYSHREE DONALDSON CAR STEREO INSTALLER Ot L97.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 ULCER OF RIGHT CALF 04/22/2017 JAYSHREE DONALDSON CAR STEREO INSTALLER Ot E11.622 TYPE 2 DIABETES MELLITUS WITH OTHER SKIN 04/22/2017 JAYSHREE DONALDSON CAR STEREO INSTALLER Ot L03.115 CELLULITIS OF RIGHT LOWER LIMB 04/22/2017 JAYSHREE DONALDSON CAR STEREO INSTALLER Ot L97.211 NON-PRS CHRONIC ULCER OF RIGHT CALF LIMI 04/28/2017 JAYSHREE DONALDSON CAR STEREO INSTALLER Ot E11.622 TYPE 2 DIABETES MELLITUS WITH OTHER SKIN 04/28/2017 JAYSHREE DONALDSON CAR STEREO INSTALLER Ot L03.115 CELLULITIS OF RIGHT LOWER LIMB 04/28/2017 JAYSHREE DONALDSON CAR STEREO INSTALLER Ot L97.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 ULCER OF RIGHT CALF 05/12/2017 JAYSHREE DONALDSON CAR STEREO INSTALLER Ot E11.622 TYPE 2 DIABETES MELLITUS WITH OTHER SKIN 05/12/2017 JAYSHREE DONALDSON CAR STEREO INSTALLER Ot L03.115 CELLULITIS OF RIGHT LOWER LIMB 05/12/2017 JAYSHREE DONALDSON CAR STEREO INSTALLER Ot L97.211 NON-PRS CHRONIC ULCER OF RIGHT CALF LIMI 05/14/2017 JAYSHREE DONALDSON APRN Ot E11.622 TYPE 2 DIABETES MELLITUS WITH OTHER SKIN 05/14/2017 JAYSHREE DONALDSON APRN Ot L03.115 CELLULITIS OF RIGHT LOWER LIMB 05/14/2017 JAYSHREE DONALDSON APRN Ot L97.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 ULCER OF RIGHT CALF 05/18/2017 SANTO SANZP Ot M48.061 SPINAL STENOSIS, LUMBAR REGION WITHOUT N 05/18/2017 SANTO SANZP Ot M51.36 OTHER INTERVERTEBRAL DISC DEGENERATION, 06/05/2017 KITTY TO, BILLIE R Ot 250. 00 DIAB GUEVARA WO COMPL, TYPE II OR UNSPEC TY 06/05/2017 KITTY TO, BILLIE R Ot 401. 1 BENIGN HYPERTENSION 06/05/2017 KITTY TO, BILLIE R Ot 719. 46 JOINT PAIN-L/LEG 06/05/2017 CAMMIE TANG Ot E11.9 TYPE 2 DIABETES MELLITUS WITHOUT COMPLIC 06/05/2017 CONSUELO VENTURA APRN Ot K57.90 DVRTCLOS OF INTEST, PART UNSP, W/O PERF 06/05/2017 CONSUELO VENTURA APRN Ot M47.812 SPONDYLOSIS W/O MYELOPATHY OR RADICULOPA 06/05/2017 CONSUELO VENTURA APRN Ot R59 .0 LOCALIZED ENLARGED LYMPH NODES 06/05/2017 CONSUELO VENTURA APRN Ot S01.01XA LACERATION WITHOUT FOREIGN BODY OF SCALP 06/05/2017 CONSUELO VENTURA APRN Ot S22.088A OTH FRACTURE OF T11-T12 VERTEBRA, INIT F 06/05/2017 CONSUELO VENTURA APRN Ot S22.41XA MULTIPLE FRACTURES OF RIBS, RIGHT SIDE, 06/05/2017 CONSUELO VENTURA APRN Ot S32.018A OTH FRACTURE OF FIRST LUMBAR VERTEBRA, I 06/05/2017 CONSUELO VENTURA APRN Ot S32.028A OTH FRACTURE OF SECOND LUMBAR VERTEBRA, 06/05/2017 CONSUELO VENTURA APRN Ot S32.038A OTH FRACTURE OF THIRD LUMBAR VERTEBRA, I 06/05/2017 CONSUELO VENTURA APRN Ot W11.XXXA FALL ON AND FROM LADDER, INITIAL ENCOUNT 06/05/2017 CONSUELO VENTURA CAR STEREO INSTALLER Ot Y93.H9 ACTVTY,OTH W EXTER PROPERTY LAND MAINT 06/05/2017 CONSUELO VENTURA CAR STEREO INSTALLER Ot Y99 .8 OTHER EXTERNAL CAUSE STATUS 06/05/2017 YANA GARCIA DO Ot R06. 00 DYSPNEA, UNSPECIFIED 06/05/2017 YANA GARCIA DO M Ot R91. 8 OTHER NONSPECIFIC ABNORMAL FINDING OF ANDREWS 06/05/2017 JOSE YANA WILSON Ot R91. 8 OTHER NONSPECIFIC ABNORMAL FINDING OF [place] 06/05/2017 MERLYN RUEDA APRN Ot I71.2 THORACIC AORTIC ANEURYSM, WITHOUT RUPTUR 06/05/2017 MERLYN RUEDA APRN Ot R91.8 OTHER NONSPECIFIC ABNORMAL FINDING OF [place] 06/05/2017 ARLEN DELAROSA CATERINA Ot I70.213 ATHSCL [place] ARTERIES OF EXTRM W INTRMT 06/05/2017 JARRED CISNEROS MD Ot Z95. 1 PRESENCE OF AORTOCORONARY BYPASS GRAFT 06/05/2017 JARRED CISNEROS MD Ot Z98.890 OTHER SPECIFIED POSTPROCEDURAL STATES 06/05/2017 JAYSHREE DONALDSON APRN Ot E11.622 TYPE 2 DIABETES MELLITUS WITH OTHER SKIN 06/05/2017 JAYSHREE DONALDSON APRN Ot L03.115 CELLULITIS OF RIGHT LOWER LIMB 06/05/2017 JAYSHREE DONALDSON APRN Ot L97.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 ULCER OF RIGHT CALF 06/05/2017 JAYSHREE DONALDSON APRN Ot E11.622 TYPE 2 DIABETES MELLITUS WITH OTHER SKIN 06/05/2017 JAYSHREE DONALDSON CAR STEREO INSTALLER Ot L03.115 CELLULITIS OF RIGHT LOWER LIMB 06/05/2017 JAYSHREE DONALDSON APRN Ot L97.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 ULCER OF RIGHT CALF 06/05/2017 JAYSHREE DONALDSON APRN Ot E11.622 TYPE 2 DIABETES MELLITUS WITH OTHER SKIN 06/05/2017 JAYSHREE DONALDSON CAR STEREO INSTALLER Ot L03.115 CELLULITIS OF RIGHT LOWER LIMB 06/05/2017 JAYSHREE DONALDSON CAR STEREO INSTALLER Ot L97.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 ULCER OF RIGHT CALF 06/05/2017 JAYSHREE DONALDSON CAR STEREO INSTALLER Ot E11.622 TYPE 2 DIABETES MELLITUS WITH OTHER SKIN 06/05/2017 JAYSHREE DONALDSON CAR STEREO INSTALLER Ot L03.115 CELLULITIS OF RIGHT LOWER LIMB 06/05/2017 JAYSHREE DONALDSON CAR STEREO INSTALLER Ot L97.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 ULCER OF RIGHT CALF 06/05/2017 JAYSHREE DONALDSON CAR STEREO INSTALLER Ot E11.622 TYPE 2 DIABETES MELLITUS WITH OTHER SKIN 06/05/2017 JAYSHREE DONALDSON R CAR STEREO INSTALLER Ot L03.115 CELLULITIS OF RIGHT LOWER LIMB 06/05/2017 JAYSHREE DONALDSON CAR STEREO INSTALLER Ot L97.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 ULCER OF RIGHT CALF 06/05/2017 JAYSHREE DONALDSON CAR STEREO INSTALLER Ot E11.622 TYPE 2 DIABETES MELLITUS WITH OTHER SKIN 06/05/2017 JAYSHREE DONALDSON R CAR STEREO INSTALLER Ot L03.115 CELLULITIS OF RIGHT LOWER LIMB 06/05/2017 JAYSHREE DONALDSON CAR STEREO INSTALLER Ot L97.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 ULCER OF RIGHT CALF 06/05/2017 JAYSHREE DONALDSON CAR STEREO INSTALLER Ot E11.622 TYPE 2 DIABETES MELLITUS WITH OTHER SKIN 06/05/2017 JAYSHREE DONALDSON R CAR STEREO INSTALLER Ot L03.115 CELLULITIS OF RIGHT LOWER LIMB 06/05/2017 JAYSHREE DONALDSON CAR STEREO INSTALLER Ot L97.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 ULCER OF RIGHT CALF 06/05/2017 JAYSHREE DONALDSON CAR STEREO INSTALLER Ot E11.622 TYPE 2 DIABETES MELLITUS WITH OTHER SKIN 06/05/2017 JAYSHREE DONALDSON CAR STEREO INSTALLER Ot L03.115 CELLULITIS OF RIGHT LOWER LIMB 06/05/2017 JAYSHREE DONALDSON CAR STEREO INSTALLER Ot L97.211 NON-PRS CHRONIC ULCER OF RIGHT CALF LIMI 06/05/2017 JAYSHREE DONALDSON CAR STEREO INSTALLER Ot L97.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 ULCER OF RIGHT CALF 06/05/2017 JAYSHREE DONALDSON CAR STEREO INSTALLER Ot E11.622 TYPE 2 DIABETES MELLITUS WITH OTHER SKIN 06/05/2017 JAYSHREE DONALDSON R CAR STEREO INSTALLER Ot L03.115 CELLULITIS OF RIGHT LOWER LIMB 06/05/2017 JAYSHREE DONALDSON CAR STEREO INSTALLER Ot L97.211 NON-PRS CHRONIC ULCER OF RIGHT CALF LIMI 06/05/2017 JAYSHREE DONALDSON R CAR STEREO INSTALLER Ot L97.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 ULCER OF RIGHT CALF 06/05/2017 JAYSHREE DONALDSON CAR STEREO INSTALLER Ot E11.622 TYPE 2 DIABETES MELLITUS WITH OTHER SKIN 06/05/2017 MENDOZA, JAYSHREE R CAR STEREO INSTALLER Ot L03.115 CELLULITIS OF RIGHT LOWER LIMB 06/05/2017 AJYSHREE DONALDSON CAR STEREO INSTALLER Ot L97.211 NON-PRS CHRONIC ULCER OF RIGHT CALF LIMI 06/05/2017 JAYSHREE DONALDSON CAR STEREO INSTALLER Ot L97.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 ULCER OF RIGHT CALF 06/05/2017 JAYSHREE DONALDSON CAR STEREO INSTALLER Ot E11.622 TYPE 2 DIABETES MELLITUS WITH OTHER SKIN 06/05/2017 JAYSHREE DONALDSON CAR STEREO INSTALLER Ot L03.115 CELLULITIS OF RIGHT LOWER LIMB 06/05/2017 JAYSHREE DONALDSON CAR STEREO INSTALLER Ot L97.211 NON-PRS CHRONIC ULCER OF RIGHT CALF LIMI 06/05/2017 JAYSHREE DONALDSON CAR STEREO INSTALLER Ot L97.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 ULCER OF RIGHT CALF 06/05/2017 JAYSHREE DONALDSON CAR STEREO INSTALLER Ot E11.622 TYPE 2 DIABETES MELLITUS WITH OTHER SKIN 06/05/2017 JAYSHREE DONALDSON CAR STEREO INSTALLER Ot L03.115 CELLULITIS OF RIGHT LOWER LIMB 06/05/2017 JAYSHREE DONALDSON CAR STEREO INSTALLER Ot L97.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 ULCER OF RIGHT CALF 06/05/2017 JAYSHREE DONALDSON CAR STEREO INSTALLER Ot E11.622 TYPE 2 DIABETES MELLITUS WITH OTHER SKIN 06/05/2017 JAYSHREE DONALDSON CAR STEREO INSTALLER Ot L03.115 CELLULITIS OF RIGHT LOWER LIMB 06/05/2017 JAYSHREE DONALDSON CAR STEREO INSTALLER Ot L97.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 ULCER OF RIGHT CALF 06/05/2017 JAYSHREE DONALSDON CAR STEREO INSTALLER Ot E11.622 TYPE 2 DIABETES MELLITUS WITH OTHER SKIN 06/05/2017 JAYSHREE DONALDSON CAR STEREO INSTALLER Ot L03.115 CELLULITIS OF RIGHT LOWER LIMB 06/05/2017 JAYSHREE DONALDSON CAR STEREO INSTALLER Ot L97.211 NON-PRS CHRONIC ULCER OF RIGHT CALF LIMI 06/05/2017 SANTO SANZ Ot M48.061 SPINAL STENOSIS, LUMBAR REGION WITHOUT N 06/05/2017 SANTO SANZ Ot M51.36 OTHER INTERVERTEBRAL DISC DEGENERATION, 06/09/2017 KITTY TO, BILLIE Grimaldo Ot 250. 00 DIAB GUEVARA WO COMPL, TYPE II OR UNSPEC TY 06/09/2017 KITTY TO, BILLIE Grimaldo Ot 401. 1 BENIGN HYPERTENSION 06/09/2017 KITTY TO, BILLIE Grimaldo Ot 719. 46 JOINT PAIN-L/LEG 06/09/2017 SEGLICAMMIE Ricketts Krishan 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 Ot E11.9 TYPE 2 DIABETES MELLITUS WITHOUT COMPLIC 06/09/2017 CONSUELO VENTURA APRN Ot K57.90 DVRTCLOS OF INTEST, PART UNSP, W/O PERF 06/09/2017 CONSUELO VENTURA APRN Ot M47.812 SPONDYLOSIS W/O MYELOPATHY OR RADICULOPA 06/09/2017 CONSUELO VENTURA APRN Ot R59 .0 LOCALIZED ENLARGED LYMPH NODES 06/09/2017 CONSUELO VENTURA APRN Ot S01.01XA LACERATION WITHOUT FOREIGN BODY OF SCALP 06/09/2017 CONSUELO VENTURA APRN Ot S22.088A OTH FRACTURE OF T11-T12 VERTEBRA, INIT F 06/09/2017 CONSUELO VENTURA APRN Ot S22.41XA MULTIPLE FRACTURES OF RIBS, RIGHT SIDE, 06/09/2017 CONSUELO VENTURA APRN Ot S32.018A OTH FRACTURE OF FIRST LUMBAR VERTEBRA, I 06/09/2017 CONSUELO VENTURA APRN Ot S32.028A OTH FRACTURE OF SECOND LUMBAR VERTEBRA, 06/09/2017 CONSUELO VENTURA APRN Ot S32.038A OTH FRACTURE OF THIRD LUMBAR VERTEBRA, I 06/09/2017 CONSUELO VENTURA APRN Ot W11.XXXA FALL ON AND FROM LADDER, INITIAL ENCOUNT 06/09/2017 CONSUELO VENTURA APRN Ot Y93.H9 ACTVTY,OTH W EXTER PROPERTY LAND MAINT 06/09/2017 CONSUELO VENTURA APRN Ot Y99 .8 OTHER EXTERNAL CAUSE STATUS 06/09/2017 YANA GARCIA DO Ot R06. 00 DYSPNEA, UNSPECIFIED 06/09/2017 YANA GARCIA DO Ot R91. 8 OTHER NONSPECIFIC ABNORMAL FINDING OF ANDREWS 06/09/2017 YANA GARCIA DO Ot R91. 8 OTHER NONSPECIFIC ABNORMAL FINDING OF ANDREWS 06/09/2017 MERLYN RUEDA APRN Ot I71.2 THORACIC AORTIC ANEURYSM, WITHOUT RUPTUR 06/09/2017 MERLYN RUEDA APRN Ot R91.8 OTHER NONSPECIFIC ABNORMAL FINDING OF ANDREWS 06/09/2017 GABBYLARLEN 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 Ot I70.213 [place] ARTERIES OF EXTRM W INTRMT 06/09/2017 JARRED CISNEROS MD Ot Z95. 1 PRESENCE OF AORTOCORONARY BYPASS GRAFT 06/09/2017 JARRED CISNEROS MD Ot Z98.890 OTHER SPECIFIED POSTPROCEDURAL STATES 06/09/2017 JAYSHREE DONALDSON CAR STEREO INSTALLER Ot E11.622 TYPE 2 DIABETES MELLITUS WITH OTHER SKIN 06/09/2017 MENDOZA JAYSHREE R CAR STEREO INSTALLER Ot L03.115 CELLULITIS OF RIGHT LOWER LIMB 06/09/2017 MENDOZA JAYSHREE R CAR STEREO INSTALLER Ot L97.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 ULCER OF RIGHT CALF 06/09/2017 JAYSHREE DONALDSON R CAR STEREO INSTALLER Ot E11.622 TYPE 2 DIABETES MELLITUS WITH OTHER SKIN 06/09/2017 MENDOZA JAYSHREE R CAR STEREO INSTALLER Ot L03.115 CELLULITIS OF RIGHT LOWER LIMB 06/09/2017 MENDOZA JAYSHREE R CAR STEREO INSTALLER Ot L97.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 ULCER OF RIGHT CALF 06/09/2017 JAYSHREE DONALDSON R CAR STEREO INSTALLER Ot E11.622 TYPE 2 DIABETES MELLITUS WITH OTHER SKIN 06/09/2017 MENDOZA JAYSHREE R CAR STEREO INSTALLER Ot L03.115 CELLULITIS OF RIGHT LOWER LIMB 06/09/2017 MENDOZA JAYSHREE R CAR STEREO INSTALLER Ot L97.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 ULCER OF RIGHT CALF 06/09/2017 JAYSHREE DONALDSON R CAR STEREO INSTALLER Ot E11.622 TYPE 2 DIABETES MELLITUS WITH OTHER SKIN 06/09/2017 MENDOZA JAYSHREE R CAR STEREO INSTALLER Ot L03.115 CELLULITIS OF RIGHT LOWER LIMB 06/09/2017 MENDOZA JAYSHREE R CAR STEREO INSTALLER Ot L97.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 ULCER OF RIGHT CALF 06/09/2017 JAYSHREE DONALDSON CAR STEREO INSTALLER Ot E11.622 TYPE 2 DIABETES MELLITUS WITH OTHER SKIN 06/09/2017 MENDOZA JAYSHREE R CAR STEREO INSTALLER Ot L03.115 CELLULITIS OF RIGHT LOWER LIMB 06/09/2017 MENDOZA JAYSHREE R CAR STEREO INSTALLER Ot L97.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 ULCER OF RIGHT CALF 06/09/2017 JAYSHREE DONALDSON R CAR STEREO INSTALLER Ot E11.622 TYPE 2 DIABETES MELLITUS WITH OTHER SKIN 06/09/2017 MENDOZA JAYSHREE R CAR STEREO INSTALLER Ot L03.115 CELLULITIS OF RIGHT LOWER LIMB 06/09/2017 MENDOZA JAYSHREE R CAR STEREO INSTALLER Ot L97.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 ULCER OF RIGHT CALF 06/09/2017 JAYSHREE DONALDSON R CAR STEREO INSTALLER Ot E11.622 TYPE 2 DIABETES MELLITUS WITH OTHER SKIN 06/09/2017 JAYSHREE DONALDSON CAR STEREO INSTALLER Ot L03.115 CELLULITIS OF RIGHT LOWER LIMB 06/09/2017 JAYSHREE DONALDSON CAR STEREO INSTALLER Ot L97.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 ULCER OF RIGHT CALF 06/09/2017 JAYSHREE DONALDSON CAR STEREO INSTALLER Ot E11.622 TYPE 2 DIABETES MELLITUS WITH OTHER SKIN 06/09/2017 JAYSHREE DONALDSON CAR STEREO INSTALLER Ot L03.115 CELLULITIS OF RIGHT LOWER LIMB 06/09/2017 JAYSHREE DONALDSON CAR STEREO INSTALLER Ot L97.211 NON-PRS CHRONIC ULCER OF RIGHT CALF LIMI 06/09/2017 JAYSHREE DONALDSON R CAR STEREO INSTALLER Ot L97.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 ULCER OF RIGHT CALF 06/09/2017 JAYSHREE DONALDSON CAR STEREO INSTALLER Ot E11.622 TYPE 2 DIABETES MELLITUS WITH OTHER SKIN 06/09/2017 JAYSHREE DONALDSON CAR STEREO INSTALLER Ot L03.115 CELLULITIS OF RIGHT LOWER LIMB 06/09/2017 MENDOZA JAYSHREE R CAR STEREO INSTALLER Ot L97.211 NON-PRS CHRONIC ULCER OF RIGHT CALF LIMI 06/09/2017 JAYSHREE DONALDSON CAR STEREO INSTALLER Ot L97.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 ULCER OF RIGHT CALF 06/09/2017 JAYSHREE DONALDSON CAR STEREO INSTALLER Ot E11.622 TYPE 2 DIABETES MELLITUS WITH OTHER SKIN 06/09/2017 JAYSHREE DONALDSON CAR STEREO INSTALLER Ot L03.115 CELLULITIS OF RIGHT LOWER LIMB 06/09/2017 JAYSHREE DONALDSON CAR STEREO INSTALLER Ot L97.211 NON-PRS CHRONIC ULCER OF RIGHT CALF LIMI 06/09/2017 JAYSHREE DONALDSON CAR STEREO INSTALLER Ot L97.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 ULCER OF RIGHT CALF 06/09/2017 JAYSHREE DONALDSON CAR STEREO INSTALLER Ot E11.622 TYPE 2 DIABETES MELLITUS WITH OTHER SKIN 06/09/2017 JAYSHREE DONALDSON CAR STEREO INSTALLER Ot L03.115 CELLULITIS OF RIGHT LOWER LIMB 06/09/2017 JAYSHREE DONALDSON CAR STEREO INSTALLER Ot L97.211 NON-PRS CHRONIC ULCER OF RIGHT CALF LIMI 06/09/2017 JAYSHREE DONALDSON CAR STEREO INSTALLER Ot L97.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 ULCER OF RIGHT CALF 06/09/2017 JAYSHREE DONALDSON CAR STEREO INSTALLER Ot E11.622 TYPE 2 DIABETES MELLITUS WITH OTHER SKIN 06/09/2017 JAYSHREE DONALDSON CAR STEREO INSTALLER Ot L03.115 CELLULITIS OF RIGHT LOWER LIMB 06/09/2017 JAYSHREE DONALDSON R CAR STEREO INSTALLER Ot L97.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 ULCER OF RIGHT CALF 06/09/2017 JAYSHREE DONALDSON CAR STEREO INSTALLER Ot E11.622 TYPE 2 DIABETES MELLITUS WITH OTHER SKIN 06/09/2017 MENDOZAJAYSHREE CAR STEREO INSTALLER Ot L03.115 CELLULITIS OF RIGHT LOWER LIMB 06/09/2017 MENDOZAJAYSHREE CAR STEREO INSTALLER Ot L97.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 ULCER OF RIGHT CALF 06/09/2017 JAYSHREE DONALDSON CAR STEREO INSTALLER Ot E11.622 TYPE 2 DIABETES MELLITUS WITH OTHER SKIN 06/09/2017 MENDOZAJAYSHREE CAR STEREO INSTALLER Ot L03.115 CELLULITIS OF RIGHT LOWER LIMB 06/09/2017 MENDOZAJAYSHREE CAR STEREO INSTALLER Ot L97.211 NON-PRS CHRONIC ULCER OF RIGHT CALF LIMI 06/09/2017 SANTO SANZ Ot M48.061 SPINAL STENOSIS, LUMBAR REGION WITHOUT N 06/09/2017 SANTO SANZ Ot M51.36 OTHER INTERVERTEBRAL DISC DEGENERATION, 08/15/2018 EDA TO, KINJAL T Ot E11.9 TYPE 2 DIABETES MELLITUS WITHOUT COMPLIC 08/15/2018 EDA TO, KINJAL T Ot F12.10 CANNABIS ABUSE, UNCOMPLICATED 08/15/2018 EDA TO, KINJAL T Ot I10 ESSENTIAL (PRIMARY) HYPERTENSION 08/15/2018 EDA TO, KINJAL T Ot L02.512 CUTANEOUS ABSCESS OF LEFT HAND 08/15/2018 EDA TO, KINJAL T Ot M79.645 PAIN IN LEFT FINGER(S) 08/15/2018 KITTY TO, BILLIE R Ot 250. 00 DIAB GUEVARA WO COMPL, TYPE II OR UNSPEC TY 08/15/2018 KITTY TO, BILLIE R Ot 401. 1 BENIGN HYPERTENSION 08/15/2018 KITTY TO, BILLIE R Ot 719. 46 JOINT PAIN-L/LEG 08/15/2018 CAMMIE TANG Ot E11.9 TYPE 2 DIABETES MELLITUS WITHOUT COMPLIC 08/15/2018 CONSUELO VENTURA APRN Ot K57.90 DVRTCLOS OF INTEST, PART UNSP, W/O PERF 08/15/2018 CONSUELO VENTURA APRN Ot M47.812 SPONDYLOSIS W/O MYELOPATHY OR RADICULOPA 08/15/2018 CONSUELO VENTURA APRN Ot R59 .0 LOCALIZED ENLARGED LYMPH NODES 08/15/2018 CONSUELO VENTURA APRN Ot S01.01XA LACERATION WITHOUT FOREIGN BODY OF SCALP 08/15/2018 CONSUELO VENTURA APRN Ot S22.088A OTH FRACTURE OF T11-T12 VERTEBRA, INIT F 08/15/2018 CONSUELO VENTURA APRN Ot S22.41XA MULTIPLE FRACTURES OF RIBS, RIGHT SIDE, 08/15/2018 CONSUELO VENTURA APRN Ot S32.018A OTH FRACTURE OF FIRST LUMBAR VERTEBRA, I 08/15/2018 CONSUELO VENTURA APRN Ot S32.028A OTH FRACTURE OF SECOND LUMBAR VERTEBRA, 08/15/2018 CONSUELO VENTURA APRN Ot S32.038A OTH FRACTURE OF THIRD LUMBAR VERTEBRA, I 08/15/2018 CONSUELO VENTURA APRN Ot W11.XXXA FALL ON AND FROM LADDER, INITIAL ENCOUNT 08/15/2018 CONSUELO VENTURA APRN Ot Y93.H9 ACTVTY,OTH W EXTER PROPERTY LAND MAINT 08/15/2018 CONSUELO VENTURA APRN Ot Y99 .8 OTHER EXTERNAL CAUSE STATUS 08/15/2018 YANA GARCIA DO Ot R06. 00 DYSPNEA, UNSPECIFIED 08/15/2018 YANA GARCIA DO Ot R91. 8 OTHER NONSPECIFIC ABNORMAL FINDING OF ANDREWS 08/15/2018 YANA GARCIA DO Ot R91. 8 OTHER NONSPECIFIC ABNORMAL FINDING OF ANDREWS 08/15/2018 MERLYN RUEDA APRN Ot I71.2 THORACIC AORTIC ANEURYSM, WITHOUT RUPTUR 08/15/2018 MERLYN RUEDA APRN Ot R91.8 OTHER NONSPECIFIC ABNORMAL FINDING OF ANDREWS 08/15/2018 GABBYLARLEN Ot I70.213 [place] ARTERIES OF EXTRM W INTRMT 08/15/2018 JARRED CISNEROS MD Ot Z95. 1 PRESENCE OF AORTOCORONARY BYPASS GRAFT 08/15/2018 JARRED CISNEROS MD Ot Z98.890 OTHER SPECIFIED POSTPROCEDURAL STATES 08/15/2018 JAYSHREE DONALDSON APRN Ot E11.622 TYPE 2 DIABETES MELLITUS WITH OTHER SKIN 08/15/2018 JAYSHREE DONALDSON APRN Ot L03.115 CELLULITIS OF RIGHT LOWER LIMB 08/15/2018 JAYSHREE DONALDSON CAR STEREO INSTALLER Ot L97.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 ULCER OF RIGHT CALF 08/15/2018 JAYSHREE DONALDSON CAR STEREO INSTALLER Ot E11.622 TYPE 2 DIABETES MELLITUS WITH OTHER SKIN 08/15/2018 MENDOZA JAYSHREE R CAR STEREO INSTALLER Ot L03.115 CELLULITIS OF RIGHT LOWER LIMB 08/15/2018 MENDOZA JAYSHREE R CAR STEREO INSTALLER Ot L97.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 ULCER OF RIGHT CALF 08/15/2018 JAYSHREE DONALDSON CAR STEREO INSTALLER Ot E11.622 TYPE 2 DIABETES MELLITUS WITH OTHER SKIN 08/15/2018 MENDOZA JAYSHREE R CAR STEREO INSTALLER Ot L03.115 CELLULITIS OF RIGHT LOWER LIMB 08/15/2018 JAYSHREE DONALDSON R CAR STEREO INSTALLER Ot L97.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 ULCER OF RIGHT CALF 08/15/2018 JAYSHREE DONALDSON CAR STEREO INSTALLER Ot E11.622 TYPE 2 DIABETES MELLITUS WITH OTHER SKIN 08/15/2018 MENDOZA JAYSHREE R CAR STEREO INSTALLER Ot L03.115 CELLULITIS OF RIGHT LOWER LIMB 08/15/2018 JAYSHREE DONALDSON R CAR STEREO INSTALLER Ot L97.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 ULCER OF RIGHT CALF 08/15/2018 JAYSHREE DONALDSON R CAR STEREO INSTALLER Ot E11.622 TYPE 2 DIABETES MELLITUS WITH OTHER SKIN 08/15/2018 JAYSHREE DONALDSON R CAR STEREO INSTALLER Ot L03.115 CELLULITIS OF RIGHT LOWER LIMB 08/15/2018 JAYSHREE DONALDSON R CAR STEREO INSTALLER Ot L97.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 ULCER OF RIGHT CALF 08/15/2018 JAYSHREE DONALDSON CAR STEREO INSTALLER Ot E11.622 TYPE 2 DIABETES MELLITUS WITH OTHER SKIN 08/15/2018 JAYSHREE DONALDSON R CAR STEREO INSTALLER Ot L03.115 CELLULITIS OF RIGHT LOWER LIMB 08/15/2018 MENDOZA JAYSHREE R CAR STEREO INSTALLER Ot L97.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 ULCER OF RIGHT CALF 08/15/2018 JAYSHREE DONALDSON CAR STEREO INSTALLER Ot E11.622 TYPE 2 DIABETES MELLITUS WITH OTHER SKIN 08/15/2018 JAYSHREE DONALDSON R CAR STEREO INSTALLER Ot L03.115 CELLULITIS OF RIGHT LOWER LIMB 08/15/2018 JAYSHREE DONALDSON R CAR STEREO INSTALLER Ot L97.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 ULCER OF RIGHT CALF 08/15/2018 JAYSHREE DONALDSON R CAR STEREO INSTALLER Ot E11.622 TYPE 2 DIABETES MELLITUS WITH OTHER SKIN 08/15/2018 JAYSHREE DONALDSON R CAR STEREO INSTALLER Ot L03.115 CELLULITIS OF RIGHT LOWER LIMB 08/15/2018 JAYSHREE DONALDSON CAR STEREO INSTALLER Ot L97.211 NON-PRS CHRONIC ULCER OF RIGHT CALF LIMI 08/15/2018 JAYSHREE DONALDSON CAR STEREO INSTALLER Ot L97.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 ULCER OF RIGHT CALF 08/15/2018 JAYSHREE DONALDSON CAR STEREO INSTALLER Ot E11.622 TYPE 2 DIABETES MELLITUS WITH OTHER SKIN 08/15/2018 JAYSHREE DONALDSON CAR STEREO INSTALLER Ot L03.115 CELLULITIS OF RIGHT LOWER LIMB 08/15/2018 JAYSHREE DONALDSON CAR STEREO INSTALLER Ot L97.211 NON-PRS CHRONIC ULCER OF RIGHT CALF LIMI 08/15/2018 JAYSHREE DONALDSON CAR STEREO INSTALLER Ot L97.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 ULCER OF RIGHT CALF 08/15/2018 JAYSHREE DONALDSON CAR STEREO INSTALLER Ot E11.622 TYPE 2 DIABETES MELLITUS WITH OTHER SKIN 08/15/2018 JAYSHREE DONALDSON CAR STEREO INSTALLER Ot L03.115 CELLULITIS OF RIGHT LOWER LIMB 08/15/2018 JAYSHREE DONALDSON CAR STEREO INSTALLER Ot L97.211 NON-PRS CHRONIC ULCER OF RIGHT CALF LIMI 08/15/2018 JAYSHREE DONALDSON CAR STEREO INSTALLER Ot L97.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 ULCER OF RIGHT CALF 08/15/2018 JAYSHREE DONALDSON CAR STEREO INSTALLER Ot E11.622 TYPE 2 DIABETES MELLITUS WITH OTHER SKIN 08/15/2018 JAYSHREE DONALDSON CAR STEREO INSTALLER Ot L03.115 CELLULITIS OF RIGHT LOWER LIMB 08/15/2018 JAYSHREE DONALDSON CAR STEREO INSTALLER Ot L97.211 NON-PRS CHRONIC ULCER OF RIGHT CALF LIMI 08/15/2018 JAYSHREE DONALDSON CAR STEREO INSTALLER Ot L97.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 ULCER OF RIGHT CALF 08/15/2018 JAYSHREE DONALDSON CAR STEREO INSTALLER Ot E11.622 TYPE 2 DIABETES MELLITUS WITH OTHER SKIN 08/15/2018 JAYSHREE DONALDSON CAR STEREO INSTALLER Ot L03.115 CELLULITIS OF RIGHT LOWER LIMB 08/15/2018 JAYSHREE DONALDSON CAR STEREO INSTALLER Ot L97.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 ULCER OF RIGHT CALF 08/15/2018 JAYSHREE DONALDSON CAR STEREO INSTALLER Ot E11.622 TYPE 2 DIABETES MELLITUS WITH OTHER SKIN 08/15/2018 JAYSHREE DONALDSON CAR STEREO INSTALLER Ot L03.115 CELLULITIS OF RIGHT LOWER LIMB 08/15/2018 JAYSHREE DONALDSON CAR STEREO INSTALLER Ot L97.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 ULCER OF RIGHT CALF 08/15/2018 JAYSHREE DONALDSON APRN Ot E11.622 TYPE 2 DIABETES MELLITUS WITH OTHER SKIN 08/15/2018 JAYSHREE DONALDSON APRN Ot L03.115 CELLULITIS OF RIGHT LOWER LIMB 08/15/2018 JAYSHREE DONALDSON APRN Ot L97.211 NON-PRS CHRONIC ULCER OF RIGHT CALF LIMI 08/15/2018 SANTO SANZ Ot M48.061 SPINAL STENOSIS, LUMBAR REGION WITHOUT N 08/15/2018 SANTO SANZ Ot M51.36 OTHER INTERVERTEBRAL DISC DEGENERATION, 08/17/2018 EDA TO, KINJAL Lai Ot E11.9 TYPE 2 DIABETES MELLITUS WITHOUT COMPLIC 08/17/2018 EDA TO, KINJAL Lai Ot F12.10 CANNABIS ABUSE, UNCOMPLICATED 08/17/2018 KINJAL VERAS MD Ot I10 ESSENTIAL (PRIMARY) HYPERTENSION 08/17/2018 KINJAL VERAS MD Ot L02.512 CUTANEOUS ABSCESS OF LEFT HAND 08/17/2018 EDA TO, KINJAL Lai Ot M79.645 PAIN IN LEFT FINGER(S) 05/02/2019 SARIKA TAY DO Ot M85.842 OTH DISRD OF BONE DENSITY AND STRUCTURE, 05/02/2019 SARIKA TAY DO Ot M86. 9 OSTEOMYELITIS, UNSPECIFIED 05/04/2019 KITTY TO, BILLIE R Ot 250. 00 DIAB GUEVARA WO COMPL, TYPE II OR UNSPEC TY 05/04/2019 KITTY TO, BILLIE R Ot 401. 1 BENIGN HYPERTENSION 05/04/2019 KITTY TO, BILLIE R Ot 719. 46 JOINT PAIN-L/LEG 05/04/2019 CAMMIE TANG Ot E11.9 TYPE 2 DIABETES MELLITUS WITHOUT COMPLIC 05/04/2019 CONSUELO VENTURA APRN Ot K57.90 DVRTCLOS OF INTEST, PART UNSP, W/O PERF 05/04/2019 CONSUELO VENTURA APRN Ot M47.812 SPONDYLOSIS W/O MYELOPATHY OR RADICULOPA 05/04/2019 CONSUELO VENTURA APRN Ot R59 .0 LOCALIZED ENLARGED LYMPH NODES 05/04/2019 CONSUELO VENTURA APRN Ot S01.01XA LACERATION WITHOUT FOREIGN BODY OF SCALP 05/04/2019 CONSUELO VENTURA APRN Ot S22.088A OTH FRACTURE OF T11-T12 VERTEBRA, INIT F 05/04/2019 CONSUELO VENTURA APRN Ot S22.41XA MULTIPLE FRACTURES OF RIBS, RIGHT SIDE, 05/04/2019 CONSUELO VENTURA APRN Ot S32.018A OTH FRACTURE OF FIRST LUMBAR VERTEBRA, I 05/04/2019 CONSUELO VENTURA APRN Ot S32.028A OTH FRACTURE OF SECOND LUMBAR VERTEBRA, 05/04/2019 CONSUELO VENTURA APRN Ot S32.038A OTH FRACTURE OF THIRD LUMBAR VERTEBRA, I 05/04/2019 CONSUELO VENTURA APRN Ot W11.XXXA FALL ON AND FROM LADDER, INITIAL ENCOUNT 05/04/2019 CONSUELO VENTURA APRN Ot Y93.H9 ACTVTY,OTH W EXTER PROPERTY LAND MAINT 05/04/2019 CONSUELO VENTURA APRN Ot Y99 .8 OTHER EXTERNAL CAUSE STATUS 05/04/2019 YANA GARCIA DO Ot R06. 00 DYSPNEA, UNSPECIFIED 05/04/2019 YANA GARCIA DO Ot R91. 8 OTHER NONSPECIFIC ABNORMAL FINDING OF ANDREWS 05/04/2019 YANA GARCIA DO Ot R91. 8 OTHER NONSPECIFIC ABNORMAL FINDING OF ANDREWS 05/04/2019 MERLYN RUEDA APRN Ot I71.2 THORACIC AORTIC ANEURYSM, WITHOUT RUPTUR 05/04/2019 MERLYN RUEDA APRN Ot R91.8 OTHER NONSPECIFIC ABNORMAL FINDING OF ANDREWS 05/04/2019 MADL, ARLEN L CATERINA Ot I70.213 [place] ARTERIES OF EXTRM W INTRMT 05/04/2019 JARRED CISNEROS MD Ot Z95. 1 PRESENCE OF AORTOCORONARY BYPASS GRAFT 05/04/2019 JARRED CISNEROS MD Ot Z98.890 OTHER SPECIFIED POSTPROCEDURAL STATES 05/04/2019 JAYSHREE DONALDSON APRN Ot E11.622 TYPE 2 DIABETES MELLITUS WITH OTHER SKIN 05/04/2019 JAYSHREE DONALDSON APRN Ot L03.115 CELLULITIS OF RIGHT LOWER LIMB 05/04/2019 JAYSHREE DONALDSON APRN Ot L97.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 ULCER OF RIGHT CALF 05/04/2019 MENDOZA, JAYSHREE R CAR STEREO INSTALLER Ot E11.622 TYPE 2 DIABETES MELLITUS WITH OTHER SKIN 05/04/2019 MENDOZA, JAYSHREE R CAR STEREO INSTALLER Ot L03.115 CELLULITIS OF RIGHT LOWER LIMB 05/04/2019 MENDOZA JAYSHREE R CAR STEREO INSTALLER Ot L97.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 ULCER OF RIGHT CALF 05/04/2019 MENDOZA, JAYSHREE R CAR STEREO INSTALLER Ot E11.622 TYPE 2 DIABETES MELLITUS WITH OTHER SKIN 05/04/2019 MENDOZA, JAYSHREE R CAR STEREO INSTALLER Ot L03.115 CELLULITIS OF RIGHT LOWER LIMB 05/04/2019 MENDOZA JAYSHREE R CAR STEREO INSTALLER Ot L97.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 ULCER OF RIGHT CALF 05/04/2019 MENDOZA JAYSHREE R CAR STEREO INSTALLER Ot E11.622 TYPE 2 DIABETES MELLITUS WITH OTHER SKIN 05/04/2019 MENDOZA JAYSHREE R CAR STEREO INSTALLER Ot L03.115 CELLULITIS OF RIGHT LOWER LIMB 05/04/2019 MENDOZA, JAYSHREE R CAR STEREO INSTALLER Ot L97.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 ULCER OF RIGHT CALF 05/04/2019 MENDOZA JAYSHREE R CAR STEREO INSTALLER Ot E11.622 TYPE 2 DIABETES MELLITUS WITH OTHER SKIN 05/04/2019 MENDOZA JAYSHREE R CAR STEREO INSTALLER Ot L03.115 CELLULITIS OF RIGHT LOWER LIMB 05/04/2019 MENDOZA JAYSHREE R CAR STEREO INSTALLER Ot L97.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 ULCER OF RIGHT CALF 05/04/2019 MENDOZA JAYSHREE R CAR STEREO INSTALLER Ot E11.622 TYPE 2 DIABETES MELLITUS WITH OTHER SKIN 05/04/2019 MENDOZA, JAYSHREE R CAR STEREO INSTALLER Ot L03.115 CELLULITIS OF RIGHT LOWER LIMB 05/04/2019 MENDOZA, JAYSHREE R CAR STEREO INSTALLER Ot L97.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 ULCER OF RIGHT CALF 05/04/2019 MENDOZA JAYSHREE R CAR STEREO INSTALLER Ot E11.622 TYPE 2 DIABETES MELLITUS WITH OTHER SKIN 05/04/2019 MENDOZA JAYSHREE R CAR STEREO INSTALLER Ot L03.115 CELLULITIS OF RIGHT LOWER LIMB 05/04/2019 MENDOZA JAYSHREE R CAR STEREO INSTALLER Ot L97.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 ULCER OF RIGHT CALF 05/04/2019 MENDOZA JAYSHREE R CAR STEREO INSTALLER Ot E11.622 TYPE 2 DIABETES MELLITUS WITH OTHER SKIN 05/04/2019 MENDOZA JAYSHREE R CAR STEREO INSTALLER Ot L03.115 CELLULITIS OF RIGHT LOWER LIMB 05/04/2019 MENDOZA JAYSHREE R CAR STEREO INSTALLER Ot L97.211 NON-PRS CHRONIC ULCER OF RIGHT CALF LIMI 05/04/2019 MENDOZA JAYSHREE R CAR STEREO INSTALLER Ot L97.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 ULCER OF RIGHT CALF 05/04/2019 MENDOZA JAYSHREE R CAR STEREO INSTALLER Ot E11.622 TYPE 2 DIABETES MELLITUS WITH OTHER SKIN 05/04/2019 MENDOZA JAYSHREE R CAR STEREO INSTALLER Ot L03.115 CELLULITIS OF RIGHT LOWER LIMB 05/04/2019 MENDOZA JAYSHREE R CAR STEREO INSTALLER Ot L97.211 NON-PRS CHRONIC ULCER OF RIGHT CALF LIMI 05/04/2019 MENDOZA JAYSHREE R CAR STEREO INSTALLER Ot L97.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 ULCER OF RIGHT CALF 05/04/2019 MENDOZA JAYSHREE R [employer]ERE[employer] INSTALLER Ot E11.622 TYPE 2 DIABETES MELLITUS WITH OTHER SKIN 05/04/2019 MENDOZA JAYSHREE R [employer]ERE[employer] INSTALLER Ot L03.115 CELLULITIS OF RIGHT LOWER LIMB 05/04/2019 MENDOZA JAYSHREE R CAR STEREO INSTALLER Ot L97.211 NON-PRS CHRONIC ULCER OF RIGHT CALF LIMI 05/04/2019 MENDOZA JAYSHREE R CAR STERE[employer] INSTALLER Ot L97.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 ULCER OF RIGHT CALF 05/04/2019 JAYSHREE DONALDSON R [employer]ERE[employer] INSTALLER Ot E11.622 TYPE 2 DIABETES MELLITUS WITH OTHER SKIN 05/04/2019 MENDOZA JAYSHREE R [employer]ERE[employer] INSTALLER Ot L03.115 CELLULITIS OF RIGHT LOWER LIMB 05/04/2019 MENDOZA JAYSHREE R CAR STERE[employer] INSTALLER Ot L97.211 NON-PRS CHRONIC ULCER OF RIGHT CALF LIMI 05/04/2019 MENDOZA JAYSHREE R CAR STEREO INSTALLER Ot L97.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 ULCER OF RIGHT CALF 05/04/2019 MENDOZA JAYSHREE R [employer]ERE[employer] INSTALLER Ot E11.622 TYPE 2 DIABETES MELLITUS WITH OTHER SKIN 05/04/2019 MENDOZA JAYSHREE R [employer]ERE[employer] INSTALLER Ot L03.115 CELLULITIS OF RIGHT LOWER LIMB 05/04/2019 MENDOZA JAYSHREE R [employer] STEREO INSTALLER Ot L97.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 ULCER OF RIGHT CALF 05/04/2019 MENDOZA JAYSHREE R [employer] STERE[employer] INSTALLER Ot E11.622 TYPE 2 DIABETES MELLITUS WITH OTHER SKIN 05/04/2019 MENDOZA JAYSHREE R [employer] STEREO INSTALLER Ot L03.115 CELLULITIS OF RIGHT LOWER LIMB 05/04/2019 MENDOZA JAYSHREE R CAR STEREO INSTALLER Ot L97.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 ULCER OF RIGHT CALF 05/04/2019 MENDOZA JAYSHREE R CAR STEREO INSTALLER Ot E11.622 TYPE 2 DIABETES MELLITUS WITH OTHER SKIN 05/04/2019 MENDOZA JAYSHREE R [employer] STEREO INSTALLER Ot L03.115 CELLULITIS OF RIGHT LOWER LIMB 05/04/2019 JAYSHREE DONALDSON CAR [employer]EREO INSTALLER Ot L97.211 NON-PRS CHRONIC ULCER OF RIGHT CALF LIMI 05/04/2019 SANZSANTO Ot M48.061 SPINAL STENOSIS, LUMBAR REGION WITHOUT N 05/04/2019 SANTO SANZ Ot M51.36 OTHER INTERVERTEBRAL DISC DEGENERATION, 05/04/2019 TAY DO, SARIKA D Ot M89.542 OSTEOLYSIS, LEFT HAND 05/04/2019 TAY DO, SARIKA D Ot M85.842 OT DISRD OF BONE DENSITY AND STRUCTURE, 05/04/2019 TAY DO, SARIKA D Ot M86. 9 OSTEOMYELITIS, UNSPECIFIED 05/04/2019 TAY DO, SARIKA D Ot M85.842 OT DISRD OF BONE DENSITY AND STRUCTURE, 05/04/2019 TAY DO, SARIKA D Ot M86. 9 OSTEOMYELITIS, UNSPECIFIED 05/05/2019 TAY DO, SARIKA D Ot M85.842 OT DISRD OF BONE DENSITY AND STRUCTURE, 05/05/2019 TAY DO, SARIKA D Ot M86. 9 OSTEOMYELITIS, UNSPECIFIED Procedures There is no data. Results Test Result Range CMP - 10/29/16 08:22 Glucose, Serum 354 mg/dL 65-99 BUN 42 mg/dL 8-27 Creatinine, Serum 1.16 mg/dL 0.76-1.27 eGFR If NonAfricn Am 65 mL/min/1.73 >59 eGFR If Africn Am 75 mL/min/1.73 >59 BUN/Creatinine Ratio 36 10-24 Sodium, Serum 140 mmol/L 134-144 Potassium, Serum 5.3 mmol/L 3.5-5.2 Chloride, Serum 99 mmol/L 96-106 Carbon Dioxide, Total 25 mmol/L 18-29 Calcium, Serum 9.4 mg/dL 8.6-10.2 Protein, Total, Serum 7.1 g/dL 6.0-8.5 Albumin, Serum 4.4 g/dL 3.6-4.8 Globulin, Total 2.7 g/dL 1.5-4.5 A/G Ratio 1.6 1.2-2.2 Bilirubin, Total 0.3 mg/dL 0.0-1.2 Alkaline Phosphatase, S 67 IU/L 39-117 AST (SGOT) 11 IU/L 0-40 ALT (SGPT) 17 IU/L 0-44 Complete blood count (CBC) with automate d white blood cell (WBC) differential - 12/15/16 11:55 Blood leukocytes automated count (number/volume) 10.6 10*3/uL 4.3-11.0 Blood erythrocytes automated count (number/volume) 4.35 10*6/uL 4.35-5.85 Venous blood hemoglobin measurement (mass/volume) 12.3 g/dL 13.3-17.7 Blood hematocrit (volume fraction) 38 % 40-54 Automated erythrocyte mean corpuscular volume 87 [ foz_us] 80-99 Automated erythrocyte mean corpuscular h emoglobin (mass per erythrocyte) 28 pg 25-34 Automated erythrocyte mean corpuscular h emoglobin concentration measurement (mass/volume) 33 g/dL 32-36 Automated erythrocyte distribution width ratio 12. 7 % 10.0- 14.5 Automated blood platelet count (count/volume) 529 10*3/uL 130-400 Automated blood platelet mean volume measurement 8.8 [foz_us] 7.4-10.4 Automated blood neutrophils/100 leukocytes 77 % 42-75 Automated blood lymphocytes/100 leukocytes 11 % 12-44 Blood monocytes/100 leukocytes 10 % 0-12 Automated blood eosinophils/100 leukocytes 2 % 0-10 Automated blood basophils/100 leukocytes 1 % 0-10 Blood neutrophils automated count (number/volume) 8.2 10*3 1.8-7.8 Blood lymphocytes automated count (number/volume) 1.2 10*3 1.0-4.0 Blood monocytes automated count (number/volume) 1. 0 10*3 0.0-1.0 Automated eosinophil count 0.2 10*3/uL 0 .0-0.3 Automated blood basophil count (count/volume) 0.1 10*3/uL 0.0-0.1 Serum or plasma renal function panel (Na , K, Cl, CO2, BUN, Cr, glucose,Ca, phos, alb) - 12/15/16 11:55 Serum or plasma sodium measurement (moles/volume) 133 mmol/L 135-145 Serum or plasma potassium measurement (moles/volume) 4.4 mmol/L 3.6-5.0 Serum or plasma chloride measurement (moles/volume) 94 mmol/L 98-107 Carbon dioxide 29 mmol/L 21-32 Serum or plasma anion gap determination (moles/volume) 10 mmol/L 5-14 Serum or plasma urea nitrogen measurement (mass/volume ) 22 mg/dL 7-18 Serum or plasma creatinine measurement (mass/volume) 1.17 mg/dL 0.60-1.30 Serum or plasma urea nitrogen/creatinine mass ratio 19 NRG Serum or plasma creatinine measurement w ith calculation of estimated glomerular filtration rate > NRG Serum or plasma glucose measurement (mass/volume) 257 mg/dL 70-105 Serum or plasma calcium measurement (mass/volume) 9.2 mg/dL 8.5-10.1 Serum or plasma albumin measurement (mass/volume) 3.6 g/dL 3.2-4.5 Serum or plasma phosphate measurement (mass/volume) 3.2 mg/dL 2.3-4.7 PSA - 03/04/17 11:56 PSA, TOTAL 0.2 ng/mL < OR = 4.0 LIPID PANEL - 06/29/18 12:19 CHOLESTEROL, TOTAL 137 mg/dL <200 HDL CHOLESTEROL 40 mg/dL >40 TRIGLYCERIDES 91 mg/dL <150 LDL-CHOLESTEROL 80 mg/dL (calc) NRG CHOL/HDLC RATIO 3.4 (calc) <5.0 NON HDL CHOLESTEROL 97 mg/dL (calc) <130 CMP - 06/29/18 12:19 GLUCOSE 227 mg/dL 65-99 UREA NITROGEN (BUN) 24 mg/dL 7-25 CREATININE 0.93 mg/dL 0.70-1.25 eGFR NON-AFR. TURKISH 83 mL/min/1.73m2 > OR = 60 eGFR 97 mL/min/1.73m2 > OR = 60 BUN/CREATININE RATIO NOT APPLICABLE (calc) 6-22 SODIUM 139 mmol/L 135-146 POTASSIUM 4.4 mmol/L 3.5-5.3 CHLORIDE 102 mmol/L 98-110 CARBON DIOXIDE 28 mmol/L 20-32 CALCIUM 9.4 mg/dL 8.6-10.3 PROTEIN, TOTAL 6.9 g/dL 6.1-8.1 ALBUMIN 4.2 g/dL 3.6-5.1 GLOBULIN 2.7 g/dL (calc) 1.9-3.7 ALBUMIN/GLOBULIN RATIO 1.6 (calc) 1.0-2. 5 BILIRUBIN, TOTAL 0.7 mg/dL 0.2-1.2 ALKALINE PHOSPHATASE 67 U/L 40-115 AST 14 U/L 10-35 ALT 25 U/L 9-46 Gram stain microscopy - 08/15/18 18:05 Gram stain microscopy Few Gram Positive Cocci NRG Bacteria identification in wound by cult ure - 08/15/18 18:05 Bacteria identification in wound by culture [id number] NRG FREE TEXT EXTERNAL SUSCEPTIBILITY REPORTED 08/19/18 11:55 NRG QUANTITY OF GROWTH Many NRG FREE TEXT ENTRY 2 ID REPORTED 08/16 16:05 NRG FREE TEXT ENTRY 3 NO INDUCIBLE CLINDAMYCIN RESISTA NCE NRG Dirithromycin susceptibility test by dis k diffusion - 08/15/18 18:05 Oxacillin susceptibility test by minimum inhibitory co ncentration 1 NRG Clindamycin susceptibility test by minimum inhibitory concentration <= NRG Erythromycin susceptibility test by minimum inhibitory concentration > NRG Trimethoprim/sulfamethoxazole susceptibi lity test by minimum inhibitoryconcentration <= NRG Vancomycin susceptibility test by minimum inhibitory c oncentration 1 NRG Levofloxacin susceptibility test by minimum inhibitory concentration <= NRG Rifampin susceptibility test by minimum inhibitory con centration <= NRG Cefazolin susceptibility test by minimum inhibitory co ncentration <= NRG Linezolid susceptibility test by minimum inhibitory co ncentration 2 NRG Penicillin G susceptibility test by minimum inhibitory concentration > NRG Moxifloxacin susceptibility test by minimum inhibitory concentration <= NRG Minocycline susc CHAN <= NRG CULTURE, AEROBIC - 08/30/18 18:26 CULTURE, AEROBIC BACTERIA SEE NOTE NRG CULTURE, ANAEROBIC AND AEROBIC - 0 15:14 CULTURE, ANAEROBIC BACTERIA W/GRAM STAIN SEE NOTE NRG CULTURE, AEROBIC BACTERIA SEE NOTE NR LIPID PANEL - 04/01/19 10:19 CHOLESTEROL, TOTAL 141 mg/dL <200 HDL CHOLESTEROL 44 mg/dL > OR = 40 TRIGLYCERIDES 72 mg/dL <150 LDL-CHOLESTEROL 82 mg/dL (calc) NRG CHOL/HDLC RATIO 3.2 (calc) <5.0 NON HDL CHOLESTEROL 97 mg/dL (calc) <130 CMP - 04/01/19 10:19 GLUCOSE 217 mg/dL 65-99 UREA NITROGEN (BUN) 22 mg/dL 7-25 CREATININE 0.82 mg/dL 0.70-1.18 eGFR NON-AFR. TURKISH 90 mL/min/1.73m2 > OR = 60 eGFR 104 mL/min/1.73m2 > OR = 60 BUN/CREATININE RATIO NOT APPLICABLE (calc) 6-22 SODIUM 138 mmol/L 135-146 POTASSIUM 4.6 mmol/L 3.5-5.3 CHLORIDE 102 mmol/L 98-110 CARBON DIOXIDE 30 mmol/L 20-32 CALCIUM 9.5 mg/dL 8.6-10.3 PROTEIN, TOTAL 6.4 g/dL 6.1-8.1 ALBUMIN 3.9 g/dL 3.6-5.1 GLOBULIN 2.5 g/dL (calc) 1.9-3.7 ALBUMIN/GLOBULIN RATIO 1.6 (calc) 1.0-2. 5 BILIRUBIN, TOTAL 0.6 mg/dL 0.2-1.2 ALKALINE PHOSPHATASE 72 U/L 35-144 AST 14 U/L 10-35 ALT 20 U/L 9-46 Encounters ACCT No. Visit Date/Time Discharge Status Pt. Type Provider Facility Loc./Unit Complaint [id number] 03/18/2019 14:40:00 03/18/2019 23:59:5 9 [facility] Outpatient RADHA MIRANDA [facility] [id number] 04/01/2019 09:00:00 Document Registration [id number] 03/18/2019 14:40:00 Document Registration [id number] 08/30/2018 13:20:00 Document Registration [id number] 06/29/2018 11:00:00 Document Registration [id number] 03/04/2017 10:20:00 Document Registration [id number] 10/29/2016 08:00:00 Document Registration [id number] 05/05/2019 05:43:00 12:44:00 DIS Outpatient TAY SARIKA WILSON [facility] PREOP OSTEOMYELITIS LEFT INDE X FINGER [id number] 04/28/2019 14:17:00 23:59:59 CLS Outpatient TAY SARIKA WILSON [facility] RAD OSTEOMYELITIS [id number] 04/25/2019 16:04:00 23:59:59 CLS Outpatient TAY SARIKA WILSON [facility] RAD LT INDEX FINGER PAIN [id number] 08/15/2018 17:11:00 019 18:22:00 DIS Emergency EDA TO, KINJAL Lai [facility] ER L HAND INDEX FI NGER SWELLING/PAIN [id number] 06/25/2017 11:57:00 23:59:59 CLS Preadmit STEPHANIE VANITA [employer] STEREO INSTALLER [facility] REHAB LUMBAGO WITH L SCIATICA [id number] 05/16/2017 09:42:00 018 23:59:59 CLS Outpatient AYAZ SANZIE Krishan 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 [facility] RAD LUMBAGO [id number] 04/21/2017 09:57:00 018 23:59:59 CLS Outpatient JAYSHREE DONALDSON R CAR STEREO INSTALLER [facility] WOUNDCARE [id number] 04/14/2017 09:45:00 018 23:59:59 CLS Outpatient MENDOZA JAYSHREE R CAR STEREO INSTALLER [facility] WOUNDCARE [id number] 04/07/2017 09:50:00 018 23:59:59 CLS Outpatient MENDOZA JAYSHREE R CAR STEREO INSTALLER [facility] WOUNDCARE [id number] 03/31/2017 09:49:00 018 23:59:59 CLS Outpatient MENDOZA JAYSHREE R CAR STEREO INSTALLER [facility] WOUNDCARE [id number] 03/24/2017 09:46:00 018 23:59:59 CLS Outpatient MENDOZA JAYSHREE R CAR STEREO INSTALLER [facility] WOUNDCARE [id number] 03/17/2017 09:50:00 018 23:59:59 CLS Outpatient MENDOZA JAYSHREE R CAR STEREO INSTALLER [facility] WOUNDCARE [id number] 03/10/2017 09:59:00 018 23:59:59 CLS Outpatient MENDOZA JAYSHREE R CAR STEREO INSTALLER [facility] WOUNDCARE [id number] 03/03/2017 10:02:00 018 23:59:59 CLS Outpatient MENDOZA JAYSHREE R CAR STEREO INSTALLER [facility] WOUNDCARE [id number] 02/24/2017 09:48:00 018 23:59:59 CLS Outpatient JAYSHREE DONALDSON R CAR STEREO INSTALLER [facility] WOUNDCARE [id number] 02/17/2017 10:00:00 017 23:59:59 CLS Outpatient JAYSHREE DONALDSON R CAR STEREO INSTALLER [facility] WOUNDCARE [id number] 02/12/2017 13:29:00 017 23:59:59 CLS Outpatient JAYSHREE DONALDSON R CAR STEREO INSTALLER [facility] WOUNDCARE [id number] 02/03/2017 09:53:00 23:59:59 CLS Outpatient JAYSHREE DONALDSON R CAR STEREO INSTALLER [facility] WOUNDCARE [id number] 01/27/2017 09:58:00 23:59:59 CLS Outpatient JAYSHREE DONALDSON CAR STEREO INSTALLER [facility] WOUNDCARE [id number] 01/22/2017 12:45:00 23:59:59 CLS Outpatient JAYSHREE DONALDSON CAR STEREO INSTALLER [facility] WOUNDCARE [id number] 12/15/2016 11:55:00 017 23:59:59 CLS Outpatient JARRED CISNEROS MD [facility] HH POST CABG [id number] 04/01/2016 10:01:00 23:59:59 CLS Outpatient ARLEN DELAROSA [facility] RAD VARICOSILIES OF LEG [id number] 02/12/2016 08:18:00 23:59:59 CLS Outpatient MERLYN RUEDA APRN [facility] RAD PULMONARY NODUL E [id number] 07/10/2015 10:32:00 23:59:59 CLS Outpatient YANA GARCIA DO [facility] RAD PULMONARY NODULES,DYSPN EA,NEVER A SMOKER [id number] 07/03/2015 08:38:00 23:59:59 CLS Outpatient YANA GARCIA DO [facility] RAD PULMONARY NODULES,DYSPN EA,NEVER A SMOKER [id number] 06/23/2015 14:24:00 14:39:00 DIS Emergency MATHEUS KEYS [facility] ER SUTURE REMOVAL [id number] 06/16/2015 16:54:00 16:54:00 CAN Emergency CONSUELO VENTURA APRN [facility] ER POSTERIOR 9-12 RIB FRAC TURE,MULTIPLE BLUNT TRAMA [id number] 01/11/2015 10:58:00 23:59:59 CLS Outpatient CAMMIE TANG [facility] LAB DIABETES [id number] 09/18/2014 15:29:00 23:59:59 CLS Outpatient KITTY TO, BILLIE Grimaldo [facility] RAD PAINFUL BILATERAL KNEES,DIABETES,HTN [id number] 05/12/2019 09:25:00 P EN Preadmit SARIKA TAY DO Via [facility] SDC OSTEOMYELITIS LEFT INDEX FIN RENU
[2019-05-12] MEDS ORDERED: MIDAZOLAM 2 MG/2 ML (VERSED) VIAL ONE (07:24)
[2019-05-12] MEDS ORDERED: fentaNYL INJECTION 100 MCG/2 ML AMP ONE (07:24)
[2019-05-12] MEDS ORDERED: LIDOCAINE PF 2% 5 ML (XYLOCAINE) VIAL ONE (07:24)
[2019-05-12] MEDS ORDERED: ONDANSETRON 4 MG/2 ML (SDV) Z0FRAN ONE (07:24)
[2019-05-12] MEDS ORDERED: SEVOFLURANE (ULTANE) 15 ML INHAL SOLN ONE (07:24)
[2019-05-12] MEDS ORDERED: proPOfol 200 MG/20 ML (DIPRIVAN) VIAL IV ONE (07:24)
[2019-05-12] MEDS ORDERED: BUP/EPI 0.5% 1:200,000 (SENSORCAINE) 30 ML VIAL ONE (07:25)
[2019-05-12] MEDS ORDERED: ceFAZolin 2 GM IV Premixed 50 ML ONE (07:25)
[2019-05-12] MEDS ORDERED: ceFAZolin 2 GM IV Premixed 50 ML IV ONE (07:30)
[2019-05-12] MEDS: LACTATED RINGERS 1,000 ML IV PRN ×2 (07:35→09:01)
[2019-05-12] MEDS ORDERED: ASPI-586 PO (07:52)
[2019-05-12] MEDS ORDERED: BUPIVACAINE 0.5% 30 ML (SENSORCAINE) VIAL ONE (08:24)
--- NOTE | 2019-05-12 08:39 | Progress Note-Pre Operative ---
Pre-Operative Progress Note H&P Reviewed The H&P was reviewed, patient examined and no changes noted. Date Seen by Provider: May 12, 2019 Time Seen by Provider: 08:38 Date H&P Reviewed: May 12, 2019 Time H&P Reviewed: 08:38 Pre-Operative Diagnosis: left index finger osteomyelitis SARIKA TAY DO May 12, 2019 08:39
--- NOTE | 2019-05-12 09:37 | Progress Note-Post Operative ---
Post-Operative Progess Note Surgeon (s)/Shot Blast Equipment Operator (s) Surgeon SARIKA TAY DO Shot Blast Equipment Operator: na Pre-Operative Diagnosis left index finger osteomyelitis Post-Operative Diagnosis same Procedure & Operative Findings Date of Procedure 05/12/19 Procedure Performed/Findings left index finger partial amputation left index finger digital block Anesthesia Type gen Estimated Blood Loss Estimated blood loss (mL): min Specimens/Packing Specimens Removed partial left index finger SARIKA TAY DO May 12, 2019 09:37
[2019-05-12] MEDS ORDERED: HYDR-4226 PO (09:39)
--- NOTE | 2019-05-12 09:42 | Discharge Inst-Simple/Standard ---
Discharge Inst-Standard Discharge Medications New, Converted or Re-Newed RX: RX on Chart Patient Instructions/Follow Up Plan of Care/Instructions/FU: 2 weeks Cristina Activity as Tolerated: Yes Discharge Diet: Regular Diet Other Inst to Patient Follow up Appt: Make appointment for 2 week. Instructions: No lifting greater than 10 pounds. No strenuous activity. May shower in 24 hours, no tub bath or soaking. Use incentive spirometer at home as directed. No Smoking Skin/Wound Care: Keep clean and dry. Change bandage twice a day and if dirty. After 24 hours can also keep open to air. Symptoms to Report: Appetite Changes, Extremity Discoloration, Numbness/Tingling, Swelling Increased, Bleeding Excessive, Eyesight Changes, Pain Increased, Urine Color Change, Constipation(Persistent), Fever over 101 degree F, Pain/Pressure in chest, Urinating Difficulty, Cough Up/Vomit Blood, Heart Beat Irreg/Pounding, Pain/Pressure in jaw, Vaginal Bleeding Increase, Cramps in feet or legs, Lightheadedness, Pain/Pressure in shoulder, Diarrhea(Persistent), Memory Changes Suddenly, Questions/Concerns, Weight gain consecutive days, Dizziness/Fainting, Nausea/Vomiting, Shortness of Breath, Weight gain over 2 pounds If questions or concerns contact your physician Or seek help at emergency department. SARIKA TAY DO May 12, 2019 09:42
[2019-05-12] MEDS ORDERED: ONDANSETRON 4 MG/2 ML (SDV) Z0FRAN IVP PRN (09:45)
[2019-05-12] MEDS ORDERED: morphine INJ 10 MG/ML 1ML (SYR OR VIAL) IVP ONE (09:45)
--- NOTE | 2019-05-12 09:47 | Anesthesia-General Post-Op ---
General Patient Condition Mental Status/LOC: Same as Preop Cardiovascular: Satisfactory Nausea/Vomiting: Absent Respiratory: Satisfactory Pain: Controlled Complications: Absent Post Op Complications Complications None Follow Up Care/Instructions Patient Instructions None needed. Anesthesia/Patient Condition Patient Condition Patient is doing well, no complaints, stable vital signs, no apparent adverse anesthesia problems. RALPH JOHNSON DO May 12, 2019 09:47
--- NOTE | 2019-05-13 01:04 | OPERATIVE REPORT ---
DATE OF SERVICE: 05/12/2019 PREOPERATIVE DIAGNOSIS: Osteomyelitis, left index finger. POSTOPERATIVE DIAGNOSIS: Osteomyelitis, left index finger. PROCEDURE: Left index finger partial amputation with left index digital block. SURGEON: Sarika Evans DO ANESTHESIA: General with block. ESTIMATED BLOOD LOSS: Minimal. COMPLICATIONS: None. INDICATIONS: The patient is a 68-year-old male, who has had a chronic infection of the left index finger despite multiple rounds of antibiotics, has not had complete resolution of symptoms. An MRI that appears to be more osteomyelitis. The patient was discussed risks and benefits of procedure and wished to proceed with procedure. Consent was signed in the chart. DESCRIPTION OF PROCEDURE: The patient was taken to the operating suite, was prepped and draped in sterile fashion. A timeout was performed. Left index digital block was performed injecting local anesthetic on the lateral and medial aspect of the left index finger. A fishmouth incision was made just distal to the proximal phalanges on the left index finger. Cautery was used to continue to dissect down through subcutaneous tissue and through the muscles and the skin flaps were then raised until the joint space between the proximal and middle phalanges was encountered. The joint capsule was divided amputating the middle and distal phalanges. The wound was then irrigated with copious amounts of irrigation. Hemostasis was achieved. The two skin flaps were then closed together using 3-0 Prolene in simple interrupted fashion. The area was then washed, and dried and sterile bandages were applied. The patient tolerated procedure well without any complications and was taken to recovery room in stable condition. Job ID: [id number] DocumentID: [id number] Dictated Date: 05/12/2019 18:19:54 [employer]i Laborer Date: 05/13/2019 01:02:43 Dictated By: SARIKA EVANS DO
== END 2019-05-12 11:45 | disposition home or self-care (01) ==
LOC: SDC 06:22
PROVIDERS: ATTEND Surgery
DX: M86.642 Other chronic osteomyelitis, left hand (principal); L98.498 Non-pressure chronic ulcer of skin of other sites with other specified severity; E11.42 Type 2 diabetes mellitus with diabetic polyneuropathy; I10 Essential (primary) hypertension; E66.9 Obesity, unspecified; Z79.4 Long term (current) use of insulin; Z68.32 Body mass index [BMI] 32.0-32.9, adult; Z95.1 Presence of aortocoronary bypass graft; Z11.2 Encounter for screening for other bacterial diseases
CPT/HCPCS: 82962; 87081; 88305; 88311

== ENCOUNTER 2021-01-29 15:46 | Emergency (ER) | payer MEDICARE ==
[~2021-01-29] VITALS: Ht 172 cm; Wt 72.5 kg
[~2021-01-29 15:46] MED LIST changes: +ASPI-586 PO; +HYDR-4226 PO; -LISI-552 PO; +LISI20TA26 PO; -SULF1TAB35 PO; +SULF1TAB38 PO
[2021-01-29] MEDS ORDERED: inSUlin (REGULAR) HUMAN 1 UNIT/0.01 ML (CHARGE PER UNIT) IV ONE ×2 (16:15→17:00)
[2021-01-29] MEDS ORDERED: NS IV 1000 ML 1,000 ML IV SCH ×3 (16:15→18:30)
[2021-01-29 16:17] LABS: BASOPHILS % (AUTO) 0 % (0-10); EOSINOPHILS # (AUTO) 0.2 10^3/uL (0.0-0.3); EOSINOPHILS % (AUTO) 2 % (0-10); HEMATOCRIT 42 % (40-54); HEMOGLOBIN 13.6 g/dL (13.3-17.7); LYMPHOCYTES # (AUTO) 1.1 X 10^3 (1.0-4.0); LYMPHOCYTES % (AUTO) 11 % (12-44); MEAN CORPUSCULAR HEMOGLOBIN 29 pg (25-34); MEAN CORPUSCULAR HGB CONC 33 g/dL (32-36); MEAN CORPUSCULAR VOLUME 90 fL (80-99); MEAN PLATELET VOLUME 9.8 fL (9.0-12.2); MONOCYTES # (AUTO) 0.7 X 10^3 (0.0-1.0); MONOCYTES % (AUTO) 7 % (0-12); NEUTROPHILS # (AUTO) 8.2 X 10^3 (1.8-7.8); NEUTROPHILS % (AUTO) 81 % (42-75); PLATELET COUNT 244 10^3/uL (130-400); WHITE BLOOD COUNT 10.2 10^3/uL (4.3-11.0)
[2021-01-29 16:25] LABS: ALBUMIN 3.7 GM/DL (3.2-4.5); POTASSIUM 5.2 MMOL/L (3.6-5.0)
[2021-01-29 16:27] LABS: CALCIUM 8.7 MG/DL (8.5-10.1)
[2021-01-29 16:28] LABS: TOTAL PROTEIN 6.8 GM/DL (6.4-8.2)
[2021-01-29 16:30] LABS: BILIRUBIN,TOTAL 0.6 MG/DL (0.1-1.0)
[2021-01-29 16:32] LABS: CREATININE SERUM 1.45 MG/DL (0.60-1.30)
[2021-01-29 16:34] LABS: BILIRUBIN,URINE NEGATIVE (NEGATIVE); CLARITY,URINE CLEAR; COLOR,URINE YELLOW; GLUCOSE, URINE (UA) 3+ (NEGATIVE); KETONES,URINE 1+ (NEGATIVE); LEUKOCYTE ESTERASE ,URINE NEGATIVE (NEGATIVE); NITRITE,URINE NEGATIVE (NEGATIVE); PROTEIN,URINE NEGATIVE (NEGATIVE)
[2021-01-29 16:35] LABS: MAGNESIUM 2.4 MG/DL (1.6-2.4)
[2021-01-29 16:43] LABS: BACTERIA,URINE NEGATIVE /HPF; WBC,URINE 0-2 /HPF
[2021-01-29 16:55] LABS: TSH (THYROID ANALYZER) 1.1 UIU/ML (0.35-4.94)
--- NOTE | 2021-01-29 17:04 | Diagnostic Imaging Report ---
INDICATION: Hyperglycemia. TIME OF EXAM: 4:59 PM. COMPARISON: No prior studies are available for comparison. FINDINGS: Changes of median sternotomy and CABG are noted. Tiny nodular densities are identified in the mid and lower lung sanchez bilaterally, indeterminate. No parenchymal consolidation is seen. There is no effusion or pneumothorax. IMPRESSION: There are tiny pulmonary nodular densities in the mid and lower lung sanchez bilaterally which are indeterminate. In reviewing the patient's prior CT chest from 2016, there were innumerable pulmonary nodules present at that time as well. A followup CT chest on a nonemergent basis could be performed and compared with the study from 2016. Otherwise, no acute feature is detected. Dictated by: Dictated on workstation # [id number]
--- NOTE | 2021-01-29 17:53 | ED General ---
General Chief Complaint: Glucose Problems Stated Complaint: HIGH BLOOD SUGAR Nursing Triage Note: PT AMBULATORY TO ER, SENT FROM [facility]. PT REPORTS HAS A HX OF TYPE 2 DIABETES. PT REPORTS FOR THE PAST SEVERAL WEEKS HE HAS NOT BEEN FEELING WELL, REPORTS FEELING TIRED ALL THE TIME, NO ENERGY, EXCESSIVE THIRST, NAUSEA. REPORTS CLINIC CONCERNED FOR POSSIBLE DKA. Source of Information: Patient, Family Exam Limitations: No Limitations History of Present Illness Date Seen by Provider: Jan 29, 2021 Time Seen by Provider: 15:53 Initial Comments This is 70-year-old gentleman presents to the emergency room as directed by the [facility] clinic for severe hyperglycemia. He reports not feeling well for several weeks and having polyuria. Blood sugars have been too high to read at home. His reports he has not been monitoring his sugar or carb intake at all, especially during the . Patient also presents with a crack on the lateral aspect of his left foot with surrounding erythema, pain, and swelling suspicious for cellulitis. He also has a small decubitus ulcer over the sacrum. Allergies and Home Medications Allergies Coded Allergies: No Known Drug Allergies (Unverified , 06/16/15) Patient Home Medication List Home Medication List Reviewed: Yes Aspirin (Aspir 81) 81 Mg Tablet.dr, 81 MG PO, (Reported) Entered as Reported by: AYANA DOLL on 05/12/19 0752 Atorvastatin Calcium (Atorvastatin Calcium) 80 Mg Tablet, 80 MG PO DAILY, (Reported) Entered as Reported by: GAURI SANTA on 08/15/18 1721 Cephalexin (Cephalexin) 500 Mg Tablet, 500 MG PO QID Prescribed by: KINJAL RENDON on 01/29/21 192 Dulaglutide (Trulicity) 0.75 Mg/0.5 Ml Pen.injctr, 0.75 MG SQ WEEK, (Reported) Entered as Reported by: CHANA FERNÁNDEZ on 05/05/19 1238 Gabapentin (Gabapentin) 300 Mg Capsule, 300 MG PO TID, (Reported) Entered as Reported by: CHANA FERNÁNDEZ on 05/05/19 1238 Glipizide (Glipizide) 10 Mg Tablet, 10 MG PO DAILY, (Reported) Entered as Reported by: GAURI SANTA on 08/15/18 1721 Hydrocodone/Acetaminophen (Hydrocodone/Acetaminophen 5 MG/325 MG TAB) 1 Each Tablet, 1 TAB PO Q4-6HR Prescribed by: SARIKA TAY on 05/12/19 0939 Indomethacin (Indomethacin) 50 Mg Capsule, 50 MG PO BID, (Reported) Entered as Reported by: GAURI SANTA on 08/15/18 172 Insulin Aspart (Novolog Flexpen) 300 Units/3 Ml Solution, 30 UNITS SQ TIDAC, (Reported) Entered as Reported by: GAURI SANTA on 08/15/18 172 Insulin Detemir (Levemir Flextouch) 100 Unit/1 Ml Insuln.pen, 40 UNITS SQ BID, (Reported) Entered as Reported by: GAURI SANTA on 08/15/18 172 Lisinopril (Lisinopril) 20 Mg Tablet, 20 MG PO DAILY, (Reported) Entered as Reported by: GAURI SANTA on 08/15/18 172 Metformin HCl (Metformin HCl) 500 Mg Tablet, 1,000 MG PO BID WITH MEALS, (Reported) Entered as Reported by: GAURI SANTA on 08/15/181720 Review of Systems Review of Systems Constitutional: see HPI EENTM: no symptoms reported Respiratory: no symptoms reported Cardiovascular: no symptoms reported Gastrointestinal: no symptoms reported Genitourinary: see HPI Musculoskeletal: no symptoms reported Skin: see HPI, other (Dry, tenting skin) Psychiatric/Neurological: No Symptoms Reported Hematologic/Lymphatic: No Symptoms Reported Immunological/Allergic: no symptoms reported Past Aoniwyz-Busvee-Kckzvd Hx Patient Social History Tobacco Use?: No Use of E-Cig and/or Vaping dev: No Substance use?: Yes Substance type: Marijuana Alcohol Use?: No Pt feels they are or have been: No Immunizations Up To Date Tetanus Booster (TDap): More than 5yrs First/Initial COVID19 Vaccinat: UNK Second COVID19 Vaccination Lloyd: [facility] COVID19 Vaccine Air Pollution Inspector: UN Seasonal Allergies Seasonal Allergies: No Past Medical History Surgeries: Yes CABG Respiratory: No Cardiac: Yes (triple bypass) Coronary Artery Disease, Hypertension Neurological: No Reproductive Disorders: No Genitourinary: No Gastrointestinal: No Musculoskeletal: Yes (osteomyelitis) Endocrine: Yes Diabetes, Insulin dep HEENT: No Cancer: No Psychosocial: No Integumentary: No Blood Disorders: No Physical Exam Vital Signs Vital Signs - First Documented 01/29/21 15:58 Temp 36.7 Pulse 74 Resp 20 B/P (MAP) 165/85 (111) Pulse Ox 93 O2 Delivery Room Air Capillary Refill : Height, Weight, BMI Height: 5'8.00" Weight: 197lbs. oz. 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 Tiny decubitus ulcer over the sacrum with surrounding erythema) Progress/Results/Core Measures Suspected Sepsis SIRS Temperature: Pulse: 74 Respiratory Rate: 20 Laboratory Tests 01/29/21 16:10: White Blood Count 10.2 Blood Pressure 165 /85 Mean: 111 Laboratory Tests 01/29/21 16:10: Creatinine 1.45H, Platelet Count 244, Total Bilirubin 0.6 Results/Orders Lab Results Laboratory Tests Test 01/29/21 16:10 01/29/21 16:25 01/29/21 18:24 01/29/21 19:42 Range/Units White Blood Count 10.2 4.3-11.0 10^3/uL Red Blood Count 4.64 4.30-5.52 10^6/uL Hemoglobin 13.6 13.3-17.7 g/dL Hematocrit 42 40-54 % Mean Corpuscular Volume 90 80-99 fL Mean Corpuscular Hemoglobin 29 25-34 pg Mean Corpuscular Hemoglobin Concent 33 32-36 g/dL Red Cell Distribution Width 12.5 10.0-14.5 % Platelet Count 244 130-400 10^3/uL Mean Platelet Volume 9.8 9.0-12.2 fL Immature Granulocyte % (Auto) 0 % Neutrophils (%) (Auto) 81 H 42-75 % Lymphocytes (%) (Auto) 11 L 12-44 % Monocytes (%) (Auto) 7 0-12 % Eosinophils (%) (Auto) 2 0-10 % Basophils (%) (Auto) 0 0-10 % Neutrophils # (Auto) 8.2 H 1.8-7.8 X 10^3 Lymphocytes # (Auto) 1.1 1.0-4.0 X 10^3 Monocytes # (Auto) 0.7 0.0-1.0 X 10^3 Eosinophils # (Auto) 0.2 0.0-0.3 10^3/uL Basophils # (Auto) 0.0 0.0-0.1 10^3/uL Immature Granulocyte # (Auto) 0.0 0.0-0.1 10^3/uL Sodium Level 126 L 135-145 MMOL/L Potassium Level 5.2 H 3.6-5.0 MMOL/L Chloride Level 94 L 98-107 MMOL/L Carbon Dioxide Level 19 L 21-32 MMOL/L Anion Gap 13 5-14 MMOL/L Blood Urea Nitrogen 53 H 7-18 MG/DL Creatinine 1.45 H 0.60-1.30 MG/DL Estimat Glomerular Filtration Rate 48 BUN/Creatinine Ratio 37 Glucose Level 764 *H 70-105 MG/DL Calcium Level 8.7 8.5-10.1 MG/DL Corrected Calcium 8.9 8.5-10.1 MG/DL Magnesium Level 2.4 1.6-2.4 MG/DL Total Bilirubin 0.6 0.1-1.0 MG/DL Aspartate Amino Transf (AST/SGOT) 34 5-34 U/L Alanine Aminotransferase (ALT/SGPT) 107 H 0-55 U/L Alkaline Phosphatase 84 40-136 U/L Total Protein 6.8 6.4-8.2 GM/DL Albumin 3.7 3.2-4.5 GM/DL TSH [place] Testing 1.10 0.35-4.94 UIU/ML Urine Color YELLOW Urine Clarity CLEAR Urine pH 6.0 5-9 Urine Specific [place] <=1.005 1.016-1.022 Urine Protein NEGATIVE NEGATIVE Urine Glucose (UA) 3+ H NEGATIVE Urine Ketones 1+ H NEGATIVE Urine Nitrite NEGATIVE NEGATIVE Urine Bilirubin NEGATIVE NEGATIVE Urine Urobilinogen 0.2 < = 1.0 MG/DL Urine Leukocyte Esterase NEGATIVE NEGATIVE Urine RBC (Auto) NEGATIVE NEGATIVE Urine RBC NONE /HPF Urine WBC 0-2 /HPF Urine Squamous Epithelial Cells NONE /HPF Urine Renal Epithelial Cells NONE /HPF Urine Crystals NONE /LPF Urine Bacteria NEGATIVE /HPF Urine Casts NONE /LPF Urine Mucus NEGATIVE /LPF Urine Culture Indicated NO Glucometer 403 *H 276 H 70-110 MG/DL My Orders Orders - KINJAL VERAS MD Accucheck Stat ONCE (01/29/21 15:53) Magnesium (01/29/21 16:06) Thyroid Analyzer (01/29/21 16:06) Ns Iv 1000 Ml (Sodium Chloride 0.9%) (01/29/21 16:15) Insulin (Regular) Human (Novolin R (Per (01/29/21 16:15) Insulin (Regular) Human (Novolin R (Per (01/29/21 17:00) Ns Iv 1000 Ml (Sodium Chloride 0.9%) (01/29/21 17:30) Accucheck Stat ONCE (01/29/21 17:55) Accucheck Stat ONCE (01/29/21 17:55) Insulin (Regular) Human (Novolin R (Per (01/29/21 18:40) Cephalexin Capsule (Keflex Capsule) (01/29/21 19:30) Medications Given in ED Current Medications Medications Dose Ordered Sig/Bret Route Start Time Stop Time Status Last Admin Dose Admin Cephalexin HCl 500 mg ONCE ONCE PO 01/29/21 19:30 01/29/21 19:31 DC 01/29/21 20:02 500 MG Insulin Human Regular 5 unit ONCE ONCE IV 01/29/21 16:15 01/29/21 16:16 DC 01/29/21 16:24 5 UNIT Insulin Human Regular 5 unit ONCE ONCE IV 01/29/21 17:00 01/29/21 17:01 DC 01/29/21 17:04 5 UNIT Vital Signs/I&O 01/29/21 01/29/21 15:58 20:04 Temp 36.7 Pulse 74 79 Resp 20 20 B/P (MAP) 165/85 (111) 150/74 Pulse Ox 93 95 O2 Delivery Room Air Room Air Capillary Refill : Blood Pressure Mean: 111 Point of Care Testing Finger Stick Blood Glucose: 600 Blood Glucose Action Taken: GLUCOSE GREATER THAN 600, PHYSICIAN NOTIFIED Progress Note : Progress Note Patient received a total of 3 L of IV normal saline and 3 doses of insulin 5 units IV with an appropriate downward trend in his blood sugars. See discharge instructions for discussion on how to manage his blood sugars. Keflex was started for treatment of suspected cellulitis of the left foot and surrounding erythema of the decubitus ulcer on the sacrum. A Mepilex pad was placed over the decubitus ulcer. There was discussion of pulmonary nodules on the chest x- ray. Patient was instructed to follow-up with the primary care team for further monitoring. See discharge instructions. Diagnostic Imaging Diagonstic Imaging: Xray Plain Films/CT/US/NM/MRI: chest Comments Chest x-ray viewed by me and report reviewed. See report below: NAME: YASMIN RICH [facility] REC#: [id number] PT STATUS: REG ER : 1950 PHYSICIAN: CONSUELO VENTURA APRN ADMIT DATE: 01/29/21/ER Draft Date of Exam:01/29/21 CHEST 1 VIEW, AP/PA ONLY INDICATION: Hyperglycemia. TIME OF EXAM: 4:59 PM. COMPARISON: No prior studies are available for comparison. FINDINGS: Changes of median sternotomy and CABG are noted. Tiny nodular densities are identified in the mid and lower lung sanchez bilaterally, indeterminate. No parenchymal consolidation is seen. There is no effusion or pneumothorax. IMPRESSION: There are tiny pulmonary nodular densities in the mid and lower lung sanchez bilaterally which are indeterminate. In reviewing the patient's prior CT chest from 2016, there were innumerable pulmonary nodules present at that time as well. A followup CT chest on a nonemergent basis could be performed and compared with the study from 2016. Otherwise, no acute feature is detected. Dictated on workstation # [id number] Dict: 01/29/21 1659 Trans: 01/29/21 1703 [id number] Interpreted by: ASHWINI DEGROOT MD Departure Impression Primary Impression: Hyperglycemia Additional Impressions: Diabetes type 2, uncontrolled Qualified Codes: E11.65 - Type 2 diabetes mellitus with hyperglycemia Cellulitis of left foot Sacral decubitus ulcer Qualified Codes: L89.152 - Pressure ulcer of sacral region, stage 2 Pulmonary nodules Disposition: 01 HOME, SELF-CARE Condition: Improved Departure-Patient Inst. Referrals: [facility] (PCP/Family) Primary Care Physician Patient Instructions: Type 2 Diabetes (DC), Multiple Pulmonary Nodules Add. Discharge Instructions: 1. Diabetes Eat a diet low in sugars and carbohydrates. Check your blood sugars fasting in the mornings and 2 hours after each meal. Bring these blood sugars to your [facility] care provider in follow-up. Please follow-up with your primary care provider within the next week. Increase your Levemir dose to 28 units at night. 2. Pulmonary nodules When you follow-up with your primary care provider, you need to discuss the presence of the pulmonary nodules on your chest x-ray. At some point a follow- up CT should be obtained. Please discussed the timing of the study with your doctor. 3. Foot care Please monitor the progress of the cellulitis on your foot very closely. Co mplete the antibiotics as prescribed. You may apply antibiotic ointment or Vaseline to help moisturize the cracked skin around your cellulitis. Please be sure to wear protective footwear anytime you are up and on your feet, even in the home. Please examine your feet daily including the entire sole of each foot. 4. Decubitus ulcer on your sacrum Please monitor this wound very closely. You may use the adhesive padding for up to 3 days. Then remove and gently wash the area. Try to keep pressure off of this area as much as possible. When sitting or lying, change positions often. 5. Call with questions or concerns. Return to the ER if you have worsening symptoms. Follow-up with your primary care provider within the next week. All discharge instructions reviewed with patient and/or family. Voiced understanding. Scripts Cephalexin (Cephalexin) 500 Mg Tablet 500 MG PO QID, #28 TAB Prov: KINJAL VERAS MD 01/29/21 Copy Copies To 1: NEAL JOHNSON JOSHUA T MD Jan 29, 2021 17:53
[2021-01-29] MEDS ORDERED: inSUlin (REGULAR) HUMAN 1 UNIT/0.01 ML (CHARGE PER UNIT) ONE (18:40)
[2021-01-29] MEDS ORDERED: CEPH500T PO (19:22)
[2021-01-29] MEDS ORDERED: CEPHALEXIN 250 MG (KEFLEX) CAP PO ONE (19:30)
[2021-01-29 20:04] VITALS: BP 150/74
[2021-01-29] MEDS ORDERED: inSUlin (REGULAR) HUMAN 1 UNIT/0.01 ML (CHARGE PER UNIT) IV SCH (21:00)
== END 2021-01-29 20:03 | disposition home or self-care (01) ==
LOC: EDUNIT# 15:46 → ER 15:50
DX: E11.65 Type 2 diabetes mellitus with hyperglycemia (principal); L03.116 Cellulitis of left lower limb; L89.159 Pressure ulcer of sacral region, unspecified stage; R91.1 Solitary pulmonary nodule; I10 Essential (primary) hypertension; I25.10 Atherosclerotic heart disease of native coronary artery without angina pectoris; Z79.4 Long term (current) use of insulin; Z79.82 Long term (current) use of aspirin; Z79.899 Other long term (current) drug therapy
CPT/HCPCS: 36415; 71045; 80053; 81000; 82947; 83735; 84443; 85025; 96374; 96376

== ENCOUNTER → 2022-07-10 | Outpatient (CLI) | payer MEDICARE ==
[~2022-07-10] MED LIST changes: +CEPH500T PO; -INSU100I29 SQ; +INSU100I30 SQ
== END ==
LOC: WOUNDCARE 10:19
PROVIDERS: ATTEND Family Medicine
DX: I96 Gangrene, not elsewhere classified (principal); I70.232 Atherosclerosis of native arteries of right leg with ulceration of calf; I89.0 Lymphedema, not elsewhere classified; L97.212 Non-pressure chronic ulcer of right calf with fat layer exposed; E11.622 Type 2 diabetes mellitus with other skin ulcer; F12.188 Cannabis abuse with other cannabis-induced disorder; E55.9 Vitamin D deficiency, unspecified
CPT/HCPCS: 11042; 87070; 87077; 87186; 87205; A6197; G0463

== ENCOUNTER → 2022-07-23 | Outpatient (CLI) | payer MEDICARE | LOC: WOUNDCARE 11:04 | PROVIDERS: ATTEND Family Medicine | DX: L97.212 Non-pressure chronic ulcer of right calf with fat layer exposed (principal); I89.0 Lymphedema, not elsewhere classified; I70.232 Atherosclerosis of native arteries of right leg with ulceration of calf; E11.622 Type 2 diabetes mellitus with other skin ulcer; F12.188 Cannabis abuse with other cannabis-induced disorder; E55.9 Vitamin D deficiency, unspecified; E11.52 Type 2 diabetes mellitus with diabetic peripheral angiopathy with gangrene | CPT/HCPCS: 11042; A6207; G0463 ==

== ENCOUNTER → 2022-07-25 | Outpatient (CLI) | payer MEDICARE | LOC: WOUNDCARE 09:35 | PROVIDERS: ATTEND Family Medicine | DX: S81.801A Unspecified open wound, right lower leg, initial encounter (principal); X58.XXXA Exposure to other specified factors, initial encounter | CPT/HCPCS: 29581; G0463 ==

== ENCOUNTER → 2022-07-31 | Outpatient (CLI) | payer MEDICARE | LOC: WOUNDCARE 10:29 | PROVIDERS: ATTEND Family Medicine | DX: I89.0 Lymphedema, not elsewhere classified (principal); L97.212 Non-pressure chronic ulcer of right calf with fat layer exposed; I70.232 Atherosclerosis of native arteries of right leg with ulceration of calf; E11.622 Type 2 diabetes mellitus with other skin ulcer; E55.9 Vitamin D deficiency, unspecified; E11.52 Type 2 diabetes mellitus with diabetic peripheral angiopathy with gangrene; F12.19 Cannabis abuse with unspecified cannabis-induced disorder | CPT/HCPCS: 11042; G0463 ==

== ENCOUNTER → 2022-08-07 | Outpatient (CLI) | payer MEDICARE | LOC: WOUNDCARE 10:33 | PROVIDERS: ATTEND Family Medicine | DX: E11.622 Type 2 diabetes mellitus with other skin ulcer (principal); L97.212 Non-pressure chronic ulcer of right calf with fat layer exposed; I89.0 Lymphedema, not elsewhere classified; E55.9 Vitamin D deficiency, unspecified; E11.52 Type 2 diabetes mellitus with diabetic peripheral angiopathy with gangrene; I70.232 Atherosclerosis of native arteries of right leg with ulceration of calf; F12.188 Cannabis abuse with other cannabis-induced disorder | CPT/HCPCS: 29581; G0463 ==

== ENCOUNTER → 2022-08-14 | Outpatient (CLI) | payer MEDICARE | LOC: WOUNDCARE 10:33 | PROVIDERS: ATTEND Family Medicine | DX: E11.622 Type 2 diabetes mellitus with other skin ulcer (principal); L97.212 Non-pressure chronic ulcer of right calf with fat layer exposed; I89.0 Lymphedema, not elsewhere classified; E55.9 Vitamin D deficiency, unspecified; E11.52 Type 2 diabetes mellitus with diabetic peripheral angiopathy with gangrene; I70.232 Atherosclerosis of native arteries of right leg with ulceration of calf; F12.188 Cannabis abuse with other cannabis-induced disorder | CPT/HCPCS: 99212 ==

== ENCOUNTER → 2022-09-05 | Outpatient (CLI) | payer MEDICARE ==
[~2022-09-05] MED LIST changes: +HOLD METFORMIN - RECEIVED CONTRAST 20 ML VIAL IV SCH; +IOHEXOL 350 MG/ML 100 ML (OMNIPAQUE 350) VIAL IV ONE; +NS 100 ML (IVPB) BAG IV ONE
[2022-09-05 12:12] LABS: CREATININE SERUM 1.09 MG/DL (0.60-1.30)
[2022-09-05] MEDS: CATHETER FLUSH 10 ML SYR IV PRN ×2 (12:39→12:40)
--- NOTE | 2022-09-05 13:34 | Diagnostic Imaging Report ---
PROCEDURE: CT angiography of the head and CT angiography of the neck with and without contrast. TECHNIQUE: Contiguous noncontrast images were obtained from the skull base through the vertex. After intravenous contrast administration, helical CT angiography of the neck was performed. Source data was reformatted into 3D MIP projections. Delayed post contrast acquisition was also obtained. Auto Exposure Controls were utilized during the CT exam to meet ALARA standards for radiation dose reduction. INDICATION: History of bilateral carotid stenosis. Followup. COMPARISON: 06/16/2015. FINDINGS: CTA NECK: The visualized portions of the aortic arch demonstrate no evidence of aneurysm or dissection. There is conventional branching pattern of the great vessels of the aorta. The brachiocephalic artery is normal in course and caliber. The right and left common carotid origins are unremarkable. The origin of the left subclavian artery is patent. The common carotid arteries and internal carotid arteries demonstrate a tortuous course. There is calcified atherosclerotic plaque in the bilateral carotid bulbs and proximal internal carotid arteries. There is approximately 70-80% stenosis in the proximal left internal carotid artery based on NASCET criteria. No evidence of dissection in the carotid systems. The external carotid arteries are patent and unremarkable. The left vertebral artery is dominant. The origin of the right vertebral artery is seen and is unremarkable. The origin of the left vertebral artery is seen and is unremarkable. There is no focal stenosis seen within the neck. There is no dissection. The vertebral arteries are well visualized to up to the level of the basilar artery. The osseous structures of the cervical spine are unremarkable. Included views through the lung apices demonstrate patchy opacities. CTA BRAIN: Atherosclerotic plaque is seen in the lr of the bilateral terminal internal carotid arteries without significant stenosis. No stenosis is seen in the bilateral anterior, middle, and posterior cerebral arteries. No evidence of aneurysm the [place]. In the posterior circulation, both of the vertebral arteries demonstrate normal opacification. Both the right and left PICA arteries are identified. The basilar artery is normal in course and caliber. The terminal branch vessels including the superior cerebellar arteries unremarkable. IMPRESSION: 1. No stenosis or aneurysm in the [place]. 2. Stenosis of 70-80% in the proximal left internal carotid artery. 3. No stenosis in the right carotid system. Dictated by: Dictated on workstation # [id number]
== END ==
LOC: CARD 11:01
PROVIDERS: ATTEND Internal Medicine Cardiovascular Disease
DX: I65.23 Occlusion and stenosis of bilateral carotid arteries (principal)
CPT/HCPCS: 70496; 70498; 82565; 84520; C8929; 36415; 93306

== ENCOUNTER → 2022-10-08 | Outpatient (CLI) | payer MEDICARE ==
[~2022-10-08] MED LIST changes: +CATHETER FLUSH 10 ML SYR IVP PRN; -HOLD METFORMIN - RECEIVED CONTRAST 20 ML VIAL IV SCH; -IOHEXOL 350 MG/ML 100 ML (OMNIPAQUE 350) VIAL IV ONE; -NS 100 ML (IVPB) BAG IV ONE; +REGADENOSON 0.4 MG/5 ML SYR (LEXISCAN) IV ONE
[2022-10-08 13:35] VITALS: BP 170/88
[2022-10-08 13:42] VITALS: BP 171/77
--- NOTE | 2022-10-08 15:59 | Cardiology Stress Test Report ---
Stress Test Report Date of Procedure/Referring: Date of Procedure: Oct 08, 2022 PCP Dylan Rios DO Admitting Physician Admitting Physician: Attending Physician: Dylan Rios DO Indications: dyspnea Baseline Heart Rate: 49 Baseline Blood Pressure: Blood Pressure Systolic: 171 Blood Pressure Diastolic: 77 Baseline Vitals Vital Signs Date Time Temp Pulse Resp B/P (MAP) Pulse Ox O2 Delivery O2 Flow Rate FiO2 10/08/22 13:35 48 170/88 (115) Baseline EKG: Baseline EKG: NSR Summary After explaining the procedure to the patient, he signed a consent and then brought to the stress nuclear laboratory. Patient received 0.4 mg Lexiscan for stress test, ECG, heart rate and blood pressure were monitored continuously. Resting and stress dose of radio tracer were injected, imaging was acquired and reviewed in short axis, horizontal long axis and vertical long axis views. TID: 1.01 SSS: 7 SDS: 5 EF: 53 Patient tolerated Lexiscan well Baseline sinus bradycardia persisted during test Reversible ischemia involving the mid to apical inferior wall and inferolateral wall Normal left ventricular size, ejection fraction 53% Copy Copies To 1: DYLAN RIOS BASHAR J MD Oct 08, 2022 15:58
== END ==
LOC: CARD 12:05
PROVIDERS: ATTEND Pediatrics
DX: R06.09 Other forms of dyspnea (principal)
CPT/HCPCS: 78452; 93017; A9502